=== PATIENT | female | born 1940 | race African-American/Black ===

== ENCOUNTER 2017-03-02 16:40 | Inpatient (IN) | payer MEDICARE, OTHER ==
[~2017-03-02] VITALS: Ht 165.1 cm; Wt 83.1 kg
--- NOTE | 2017-03-02 17:05 | PHYS DOC ---
Adult General Chief Complaint Chief Complaint: PSYCH EVALUATION HPI HPI Patient is a 76-year-old female brought by EMS from [facility] for medical clearance for [facility]. Patient is alert and appropriate, she has no complaints at this time. She did say that she needs her urostomy bag changed. 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 Patient states she wonders if some times in the past week she might have had a stroke, she was previously able to ambulate but then started needing to use a wheelchair. She does not believe she is weak on one side of her body or the other. She denies headache or any pain. Review of Systems Review of Systems Constitutional: Denies fever or chills [] Eyes: Denies change in visual acuity, redness, or eye pain [] HENT: Denies nasal congestion or sore throat [] Respiratory: Denies cough or shortness of breath [] Cardiovascular: Denies chest pain GI: Denies abdominal pain, nausea, vomiting, bloody stools or diarrhea [] : She has a urostomy bag which seems to be functioning normally Musculoskeletal: Denies back pain or joint pain [] Integument: Denies rash or skin lesions [] Neurologic: Denies headache, focal weakness or sensory changes [] Physical Exam Physical Exam Constitutional: Well developed, well nourished, no acute distress, non-toxic appearance. Alert, mentating normally. Talkative. HENT: Normocephalic, atraumatic, bilateral external ears normal, nose normal. [ ] Eyes: conjunctiva normal, no discharge. [] Neck: Normal range of motion, no stridor. [] Cardiovascular:Heart rate regular rhythm, no murmur [] Lungs & Thorax: Bilateral breath sounds clear to auscultation [] Abdomen: Bowel sounds normal, soft, no tenderness, no masses, no pulsatile masses. Urostomy bag in place. Skin: Warm, dry, no erythema, no rash. Extremities: No tenderness, no cyanosis, no clubbing, ROM intact, 1+ pitting edema both ankles which appears to be old. Neurologic: Alert and oriented X 3, normal motor function, normal sensory function, no focal deficits noted. V Belt Inspector 5 over 5 and equal bilaterally. Upper and lower extremity strength 5 over 5 and equal bilaterally. EKG EKG 12-lead EKG read by me. Sinus rhythm. Heart rate 59. There are no acute ST or T wave changes indicative of ischemia or infarction. No rhythm disturbances. No STEMI. [] Radiology/Procedures Radiology/Procedures CT scan of the head read by the radiologist, no acute findings. View portable chest x-ray read by me. No acute findings. [] Course & Med Decision Making Course & Med Decision Making Pertinent Labs and Imaging studies reviewed. (See chart for details) 76-year-old female here for medical screening for [facility]. We will get EKG, labs, per protocol. I also ordered a CT scan of her head since she complained that sometime in the last week she believe she might have had a stroke, she is complaining of a neurologic status change where she previously walked and is now using a wheelchair. Of course I have no idea whether her perception is accurate whether this occurred in the last week or longer ago than that. She is nonfocal on exam today. Urinalysis appears colonized which is consistent with the fact the patient has a urostomy. I don't believe there is any indication for treating this in light of her urostomy. Labs reveal renal insufficiency but nothing acute. She is stable for transfer to [facility]. Patient understands the plan and agrees. [] Dragon Disclaimer Dragon Disclaimer This chart was dictated in whole or in part using Voice Recognition software in a busy, high-work load, and often noisy Emergency Department environment. It may contain unintended and wholly unrecognized errors or omissions. Departure Departure: Impression: Primary Impression: Encounter for medical screening examination Disposition: ADMITTED INPATIENT Condition: STABLE Referrals: KULDEEP JACKSON (PCP) BROOKLYN THOMPSON MD Mar 02, 2017 17:05
[2017-03-02 17:46] LABS: BASO % 1 % (0-3); EOS # 0.2 x10^3/uL (0.0-0.7); EOS % 4 % (0-3); HEMATOCRIT 45.1 % (36.0-47.0); HEMOGLOBIN 14.8 g/dL (12.0-15.5); LYMPH # 1.2 x10^3/uL (1.0-4.8); LYMPH % 28 % (24-48); MEAN CORPUSCULAR HEMOGLOBIN 30 pg (25-35); MEAN CORPUSCULAR HGB CONC 33 g/dL (31-37); MEAN CORPUSCULAR VOLUME 92 fL (79-100); MONO # 0.6 x10^3/uL (0.0-1.1); MONO % 14 % (0-9); NEUT # 2.2 x10^3uL (1.8-7.7); NEUT % 53 % (31-73); PLATELET COUNT 164 x10^3/uL (140-400); RED BLOOD COUNT 4.93 x10^6/uL (3.50-5.40); RED CELL DISTRIBUTION WIDTH 16.3 % (11.5-14.5); WHITE BLOOD COUNT 4.2 x10^3/uL (4.0-11.0)
[2017-03-02 17:55] LABS: BILIRUBIN,URINE NEG (NEG); CLARITY,URINE HAZY; COLOR,URINE YELLOW; GLUCOSE,URINE NEG (NEG)
[2017-03-02 17:56] LABS: ALBUMIN 3.1 g/dL (3.4-5.0); ALBUMIN/GLOBULIN RATIO 0.7 (1.0-1.7); CALCIUM 8.8 mg/dL (8.5-10.1); CREATININE 2.2 mg/dL (0.6-1.0); GFR 26.3; MAGNESIUM 2.5 mg/dL (1.8-2.4); POTASSIUM 4.6 mmol/L (3.5-5.1); TOTAL BILIRUBIN 0.4 mg/dL (0.2-1.0); TOTAL PROTEIN 7.8 g/dL (6.4-8.2)
[2017-03-02 17:56] LABS: NITRITE,URINE NEG (NEG); UROBILINOGEN,URINE 0.2 mg/dL (0.2 mg/dL)
[2017-03-02 17:57] LABS: BACTERIA,URINE MOD /HPF (0-FEW)
--- NOTE | 2017-03-02 18:03 | RAD ---
CT head without intravenous contrast History: Trouble ambulating for last week. Comparison: None. Technique: Axial images are obtained of the head from the skull base through the vertex without IV contrast. Exposure: One or more of the following individualized dose reduction techniques were utilized for this examination: 1. Automated exposure control 2. Adjustment of the mA and/or kV according to patient size 3. Use of iterative reconstruction technique Findings: The ventricles are appropriate in size, shape, and location for the patient's age. No obvious intracranial mass, mass-effect, midline shift, hemorrhage or obvious acute infarction is identified. Basilar cisterns are patent. Bone windows demonstrate no acute calvarial abnormality. The visualized paranasal sinuses appear clear. Impression: 1. No acute intracranial process. Electronically signed by: Deangelo Rivas MD (03/02/2017 5:58 PM)
--- NOTE | 2017-03-02 18:44 | EKG ---
[facility] ED [address] [place] [id number] Test Date: 2017-03-02 Test Time: 17:54:01 Pat Name: ERROL BENNETTJENS Department: Room: [address] [place] [address] Gender: F [employer] Partner: : 1940 Requested By: BROOKLYN THOMPSON Order Number: [id number] Reading MD: Measurements Intervals [place] Rate: 59 P: -123 NH: 144 QRS: -27 QRSD: 84 T: -21 QT: 466 QTc: 466 Interpretive Statements SINUS RHYTHM LEFT ATRIAL ABNORMALITY LEFTWARD AXIS CONSIDER LEFT VENTRICULAR HYPERTROPHY QRS(T) CONTOUR ABNORMALITY CONSISTENT WITH ANTEROSEPTAL INFARCT PROBABLY OLD CONSIDER INFERIOR INFARCT RI6.01 Unconfirmed report No previous ECG available for comparison
[2017-03-02 18:49] VITALS: BP 193/78
[2017-03-02] MEDS ORDERED: ACETAMINOPHEN 325 MG TABLET PO PRN (20:30)
[2017-03-02] MEDS ORDERED: MAGNESIUM HYDROXIDE 2,400 MG/30 ML ORAL.SUSP. PO PRN (20:30)
[2017-03-02] MEDS ORDERED: MAG HYDROX/AL HYDROX/SIMETH 30 ML ORAL.SUSP PO PRN (20:30)
[2017-03-02 21:00] LABS: VAL ACID 66 mcg/mL (50-100)
[2017-03-02] MEDS ORDERED: GUAI600T28 PO (22:11)
[2017-03-02] MEDS ORDERED: EPOGEN3000 UNIT/ SQ (22:11)
[2017-03-02] MEDS ORDERED: METH35.4 TP (22:11)
[2017-03-02] MEDS ORDERED: FERR-26 PO (22:11)
[2017-03-02] MEDS ORDERED: IPRA3AMP NEB (22:11)
[2017-03-02] MEDS ORDERED: FLUT16SP21 NS (22:11)
[2017-03-02] MEDS ORDERED: BUSP5TAB PO (22:11)
[2017-03-02] MEDS ORDERED: FURO20TA3 PO (22:11)
[2017-03-02] MEDS ORDERED: DEXT237L PO (22:11)
[2017-03-02] MEDS ORDERED: MAG360OR24 PO (22:11)
[2017-03-02] MEDS ORDERED: SENN8.6T99 PO (22:11)
[2017-03-02] MEDS ORDERED: [UNRECOGNIZED DRUG - CODE] TP (22:11)
[2017-03-02] MEDS ORDERED: MONT10TA9 PO (22:11)
[2017-03-02] MEDS ORDERED: MEMA10TA PO (22:11)
[2017-03-02] MEDS ORDERED: FOLI0.8T33 PO (22:11)
[2017-03-02] MEDS ORDERED: ATOR10TA60 PO (22:11)
[2017-03-02] MEDS ORDERED: MAGN2400 PO (22:11)
[2017-03-02] MEDS ORDERED: LACT10SO PO (22:11)
[2017-03-02] MEDS ORDERED: BENZ0.5T PO (22:11)
[2017-03-02] MEDS ORDERED: DONE5TAB7 PO (22:11)
[2017-03-02] MEDS ORDERED: HYDR-2869 PO (22:11)
[2017-03-02] MEDS ORDERED: OMEP40CA5 PO (22:11)
[2017-03-02] MEDS ORDERED: DIPH25CA58 PO (22:11)
[2017-03-02] MEDS ORDERED: LOXA5CAP PO (22:11)
[2017-03-02] MEDS ORDERED: CALC625T61 PO (22:11)
[2017-03-02] MEDS ORDERED: AMLO5TAB2 PO (22:11)
[2017-03-02] MEDS ORDERED: CARV12.52 PO (22:11)
[2017-03-02] MEDS ORDERED: RIFA550T4 PO (22:11)
[2017-03-02] MEDS ORDERED: BENZ100C PO (22:11)
[2017-03-02] MEDS ORDERED: OLAN2.5T3 PO (22:11)
[2017-03-02] MEDS ORDERED: DEXT15DR5 OU (22:11)
[2017-03-02] MEDS ORDERED: SODI30SP NS (22:11)
[2017-03-02] MEDS ORDERED: LEVO75TA5 PO (22:11)
[2017-03-02] MEDS ORDERED: CETI10TA16 PO (22:11)
[2017-03-02] MEDS ORDERED: FLUT1AER IH (22:11)
[2017-03-02] MEDS ORDERED: LORA0.5T PO (22:11)
[2017-03-02] MEDS ORDERED: DIVA125C PO (22:11)
[2017-03-02] MEDS ORDERED: TRAM50TA PO (22:11)
[2017-03-02] MEDS ORDERED: ACET325T9 PO (22:11)
[2017-03-03] MEDS ORDERED: LORazepam 0.5 MG TABLET PO PRN
[2017-03-03 05:59] VITALS: BP 215/80
[2017-03-03 07:01] VITALS: BP 200/86
--- NOTE | 2017-03-03 07:23 | RAD ---
Indication: Tobaccoism. Time of exam 1741 hours. Correlation is made with prior chest from 12/29/2010. The heart is enlarged. There is ectasia and tortuosity of the descending thoracic aorta. No infiltrate or failure is detected. No effusion or pneumothorax is seen. Impression: No acute feature is detected.
[2017-03-03] MEDS ORDERED: FLUTICASONE 50MCG/NASAL SPRAY 16GM BOTTLE. NS PRN (08:00)
[2017-03-03] MEDS ORDERED: traMADol 50 MG TABLET PO PRN (08:00)
[2017-03-03] MEDS ORDERED: SODIUM CHLORIDE 0.65% NASAL SPRAY 45ML BOTTLE. NS PRN (08:00)
[2017-03-03] MEDS ORDERED: ACETAMINOPHEN 325 MG TABLET PO PRN (08:00)
[2017-03-03] MEDS ORDERED: BENZONATATE 100 MG CAPSULE. PO PRN (08:00)
[2017-03-03] MEDS ORDERED: ALBUTEROL SULFATE 2.5 MG/3 ML NEBU. NEB PRN (08:30)
[2017-03-03] MEDS ORDERED: MAGNESIUM HYDROXIDE 2,400 MG/30 ML ORAL.SUSP. PO PRN (08:30)
[2017-03-03] MEDS ORDERED: guaiFENesin DM 200MG/20MG 10 ML SYRUP PO PRN (08:30)
[2017-03-03] MEDS: IPRATRPIUM/ALBUTEROL 0.5/2.5MG 3 ML NEBU. NEB SCH ×4 (09:00→21:00)
[2017-03-03] MEDS ORDERED: NON FORMULARY ITEM (Fluticasone/Vilanterol (Breo Ellipta 100-25 Mcg Inh) 1 PUFF) IH SCH (09:00)
[2017-03-03] MEDS ORDERED: POLYVINYL ALCOHOL 1.4% OPHTH SOLUTION 15ML BOTTLE. OU SCH (09:00)
[2017-03-03] MEDS ORDERED: PETROLATUM WHITE TP SCH (09:00)
[2017-03-03] MEDS: PANTOPRAZOLE 40 MG TABLET. PO SCH (11:23)
[2017-03-03] MEDS: CHOLECALCIFEROL (VITAMIN D3) 50,000 UNIT CAPSULE PO SCH (11:24)
[2017-03-03] MEDS: amLODIPine BESYLATE 5 MG TABLET PO SCH (11:24)
[2017-03-03] MEDS: FUROSEMIDE 20 MG TABLET PO SCH (11:24)
[2017-03-03] MEDS: FERROUS SULFATE 325 MG TABLET PO SCH ×2 (11:24→19:38)
[2017-03-03] MEDS: CETIRIZINE HCL 10 MG TABLET PO SCH (11:24)
[2017-03-03] MEDS: LACTULOSE 20 GM/30 ML SOLUTION. PO SCH (11:25)
[2017-03-03] MEDS: MEMANTINE 10 MG TABLET. PO SCH ×2 (11:25→19:38)
[2017-03-03] MEDS: CARVEDILOL 12.5 MG TABLET PO SCH ×2 (11:25→19:38)
[2017-03-03] MEDS: LEVOTHYROXINE 75 MCG TABLET PO SCH (11:25)
[2017-03-03] MEDS: BENZTROPINE MESYLATE 0.5 MG TABLET PO SCH (11:25)
[2017-03-03] MEDS: CALCIUM POLYCARBOPHIL 625 MG TABLET PO SCH (11:25)
[2017-03-03] MEDS: DIVALPROEX 125 MG CAP.SPRINK PO SCH ×2 (11:26→19:38)
[2017-03-03] MEDS: busPIRone 5 MG TABLET. PO SCH ×3 (11:32→17:00)
[2017-03-03] MEDS: AMANTADINE HCL 100 MG CAPSULE PO SCH ×2 (11:32→19:47)
[2017-03-03] MEDS: FOLIC/VIT B COMP W-C (RENAL) TABLET. PO SCH (11:32)
[2017-03-03] MEDS: rifAXIMin 550 MG TABLET PO SCH ×2 (11:32→22:09)
[2017-03-03] MEDS: EPOETIN ALFA 10,000 UNIT/ML VIAL. SQ SCH (12:30)
[2017-03-03 14:13] LABS: THYROID STIM HORMONE (TSH) 3.771 uIU/mL (0.358-3.740)
[2017-03-03 15:46] VITALS: BP 170/84
[2017-03-03] MEDS: DONEPEZIL HCL 5 MG TABLET. PO SCH (19:40)
[2017-03-03] MEDS: ATORVASTATIN CALCIUM 10 MG TABLET. PO SCH (19:40)
[2017-03-03] MEDS: SENNOSIDES 8.6 MG TABLET PO SCH (19:47)
[2017-03-03] MEDS: MONTELUKAST 10 MG TABLET. PO SCH (19:48)
[2017-03-03] MEDS: BUDESONIDE 0.5 MG/2 ML NEBU NEB SCH (20:00)
[2017-03-03] MEDS ORDERED: [UNRECOGNIZED DRUG - CODE] PO (20:03)
[2017-03-03 21:10] LABS: T3 TOTAL 67 ng/dL (71-180); THYROXINE 7.6 ug/dL (4.5-12.0)
[2017-03-03] MEDS: LOXAPINE SUCCINATE 5 MG CAPSULE PO SCH (22:09)
[2017-03-04 03:10] LABS: HEMOGLOBIN A1C 4.7 % (4.8-5.6)
[2017-03-04 06:20] VITALS: BP 196/71
[2017-03-04] MEDS: LEVOTHYROXINE 75 MCG TABLET PO SCH (06:37)
[2017-03-04] MEDS: IPRATRPIUM/ALBUTEROL 0.5/2.5MG 3 ML NEBU. NEB SCH ×4 (06:57→21:40)
[2017-03-04] MEDS: LACTULOSE 20 GM/30 ML SOLUTION. PO SCH (09:02)
[2017-03-04] MEDS: POLYVINYL ALCOHOL 1.4% OPHTH SOLUTION 15ML BOTTLE. OU SCH (09:02)
[2017-03-04] MEDS: rifAXIMin 550 MG TABLET PO SCH ×2 (09:03→19:13)
[2017-03-04] MEDS: MEMANTINE 10 MG TABLET. PO SCH ×2 (09:04→19:13)
[2017-03-04] MEDS: FOLIC/VIT B COMP W-C (RENAL) TABLET. PO SCH (09:04)
[2017-03-04] MEDS: DIVALPROEX 125 MG CAP.SPRINK PO SCH ×2 (09:04→19:13)
[2017-03-04] MEDS: PANTOPRAZOLE 40 MG TABLET. PO SCH (09:05)
[2017-03-04] MEDS: CARVEDILOL 12.5 MG TABLET PO SCH ×2 (09:05→19:16)
[2017-03-04] MEDS: CALCIUM POLYCARBOPHIL 625 MG TABLET PO SCH (09:05)
[2017-03-04] MEDS: AMANTADINE HCL 100 MG CAPSULE PO SCH ×2 (09:05→19:15)
[2017-03-04] MEDS: busPIRone 5 MG TABLET. PO SCH ×4 (09:06→19:11)
[2017-03-04] MEDS: FUROSEMIDE 20 MG TABLET PO SCH (09:06)
[2017-03-04] MEDS: FERROUS SULFATE 325 MG TABLET PO SCH ×2 (09:06→19:13)
[2017-03-04] MEDS: amLODIPine BESYLATE 5 MG TABLET PO SCH (09:06)
[2017-03-04] MEDS: CETIRIZINE HCL 10 MG TABLET PO SCH (09:06)
[2017-03-04] MEDS: BENZTROPINE MESYLATE 0.5 MG TABLET PO SCH (09:06)
[2017-03-04] MEDS: BUDESONIDE 0.5 MG/2 ML NEBU NEB SCH ×2 (11:48→21:40)
[2017-03-04] MEDS ORDERED: amLODIPine BESYLATE 5 MG TABLET PO ONE (14:45)
[2017-03-04] MEDS ORDERED: FUROSEMIDE 20 MG TABLET PO ONE (14:45)
[2017-03-04 15:25] VITALS: BP 146/68
[2017-03-04] MEDS: METHYL SALICYLATE/MENTHOL TOPICAL OINTMENT 29GM TUBE. TP PRN (16:51)
[2017-03-04] MEDS: DONEPEZIL HCL 5 MG TABLET. PO SCH (19:11)
[2017-03-04] MEDS: LOXAPINE SUCCINATE 5 MG CAPSULE PO SCH (19:12)
[2017-03-04] MEDS: ATORVASTATIN CALCIUM 10 MG TABLET. PO SCH (19:12)
[2017-03-04] MEDS: MONTELUKAST 10 MG TABLET. PO SCH (19:13)
[2017-03-04] MEDS: SENNOSIDES 8.6 MG TABLET PO SCH (19:13)
[2017-03-04] MEDS ORDERED: traMADol 50 MG TABLET PO PRN (21:00)
[2017-03-04] MEDS: SERTRALINE 25 MG TABLET. PO SCH (21:57)
[2017-03-05] MEDS: IPRATRPIUM/ALBUTEROL 0.5/2.5MG 3 ML NEBU. NEB SCH ×4 (05:29→20:27)
[2017-03-05 05:52] VITALS: BP 189/90
[2017-03-05] MEDS: LEVOTHYROXINE 75 MCG TABLET PO SCH (05:55)
[2017-03-05] MEDS: LACTULOSE 20 GM/30 ML SOLUTION. PO SCH (08:11)
[2017-03-05] MEDS: CALCIUM POLYCARBOPHIL 625 MG TABLET PO SCH (08:12)
[2017-03-05] MEDS: DIVALPROEX 125 MG CAP.SPRINK PO SCH ×2 (08:12→19:49)
[2017-03-05] MEDS: MEMANTINE 10 MG TABLET. PO SCH ×2 (08:12→19:51)
[2017-03-05] MEDS: BENZTROPINE MESYLATE 0.5 MG TABLET PO SCH (08:12)
[2017-03-05] MEDS: CARVEDILOL 12.5 MG TABLET PO SCH ×2 (08:12→19:49)
[2017-03-05] MEDS: PANTOPRAZOLE 40 MG TABLET. PO SCH (08:13)
[2017-03-05] MEDS: CETIRIZINE HCL 10 MG TABLET PO SCH (08:13)
[2017-03-05] MEDS: busPIRone 5 MG TABLET. PO SCH ×4 (08:13→19:49)
[2017-03-05] MEDS: FERROUS SULFATE 325 MG TABLET PO SCH ×2 (08:13→19:50)
[2017-03-05] MEDS: FUROSEMIDE 40 MG TABLET PO SCH (08:18)
[2017-03-05] MEDS: POLYVINYL ALCOHOL 1.4% OPHTH SOLUTION 15ML BOTTLE. OU SCH (08:18)
[2017-03-05] MEDS: amLODIPine BESYLATE 10 MG TABLET PO SCH (08:18)
[2017-03-05] MEDS: LOXAPINE SUCCINATE 5 MG CAPSULE PO SCH ×2 (08:19→19:52)
[2017-03-05] MEDS: EPOETIN ALFA 10,000 UNIT/ML VIAL. SQ SCH (08:19)
[2017-03-05] MEDS: rifAXIMin 550 MG TABLET PO SCH ×2 (08:19→19:51)
[2017-03-05] MEDS: FOLIC/VIT B COMP W-C (RENAL) TABLET. PO SCH (08:19)
[2017-03-05] MEDS: AMANTADINE HCL 100 MG CAPSULE PO SCH ×2 (08:23→19:51)
[2017-03-05] MEDS: BUDESONIDE 0.5 MG/2 ML NEBU NEB SCH ×2 (11:23→20:27)
[2017-03-05 16:04] VITALS: BP 144/66
[2017-03-05] MEDS: DONEPEZIL HCL 5 MG TABLET. PO SCH (19:49)
[2017-03-05] MEDS: ATORVASTATIN CALCIUM 10 MG TABLET. PO SCH (19:50)
[2017-03-05] MEDS: SERTRALINE 25 MG TABLET. PO SCH (19:51)
[2017-03-05] MEDS: SENNOSIDES 8.6 MG TABLET PO SCH (19:51)
[2017-03-05] MEDS: MONTELUKAST 10 MG TABLET. PO SCH (19:51)
[2017-03-05] MEDS: METHYL SALICYLATE/MENTHOL TOPICAL OINTMENT 29GM TUBE. TP PRN (20:58)
[2017-03-06] MEDS: IPRATRPIUM/ALBUTEROL 0.5/2.5MG 3 ML NEBU. NEB SCH ×4 (05:40→20:00)
[2017-03-06] MEDS: LEVOTHYROXINE 75 MCG TABLET PO SCH (05:42)
[2017-03-06 06:02] VITALS: BP 183/71
[2017-03-06] MEDS: LACTULOSE 20 GM/30 ML SOLUTION. PO SCH (08:22)
[2017-03-06] MEDS: PANTOPRAZOLE 40 MG TABLET. PO SCH (08:22)
[2017-03-06] MEDS: busPIRone 5 MG TABLET. PO SCH ×4 (08:23→19:44)
[2017-03-06] MEDS: BENZTROPINE MESYLATE 0.5 MG TABLET PO SCH (08:23)
[2017-03-06] MEDS: DIVALPROEX 125 MG CAP.SPRINK PO SCH ×2 (08:24→19:43)
[2017-03-06] MEDS: FUROSEMIDE 40 MG TABLET PO SCH (08:24)
[2017-03-06] MEDS: MEMANTINE 10 MG TABLET. PO SCH ×2 (08:24→19:44)
[2017-03-06] MEDS: FERROUS SULFATE 325 MG TABLET PO SCH ×2 (08:24→19:43)
[2017-03-06] MEDS: CALCIUM POLYCARBOPHIL 625 MG TABLET PO SCH (08:24)
[2017-03-06] MEDS: CARVEDILOL 12.5 MG TABLET PO SCH ×2 (08:24→19:43)
[2017-03-06] MEDS: amLODIPine BESYLATE 10 MG TABLET PO SCH (08:25)
[2017-03-06] MEDS: POLYVINYL ALCOHOL 1.4% OPHTH SOLUTION 15ML BOTTLE. OU SCH (08:27)
[2017-03-06] MEDS: FOLIC/VIT B COMP W-C (RENAL) TABLET. PO SCH (08:30)
[2017-03-06] MEDS: AMANTADINE HCL 100 MG CAPSULE PO SCH ×2 (08:30→19:45)
[2017-03-06] MEDS: CETIRIZINE HCL 10 MG TABLET PO SCH (08:30)
[2017-03-06] MEDS: rifAXIMin 550 MG TABLET PO SCH ×2 (08:30→19:45)
[2017-03-06 10:00] VITALS: BP 143/75
[2017-03-06] MEDS: BUDESONIDE 0.5 MG/2 ML NEBU NEB SCH ×2 (11:40→20:00)
--- NOTE | 2017-03-06 13:09 | PDOC ---
Exam Robin Demential Exam: Robin Note: Please also refer to the separate dictated note~for this date of service dictated separately.~Patient seen individually. Discussed the patient with Nursing staff reviewed the chart.~Reviewed interim history and current functioning. Reviewed vital signs,~Labs/ Radiology~and current medications noted below. Continue current treatment with the changes noted in the dictated addendum note Assessment: Vital Signs: Vital Signs Date Time Temp Pulse Resp B/P (MAP) Pulse Ox O2 Delivery O2 Flow Rate FiO2 03/06/17 11:40 100 Nasal Cannula 2.0 03/06/17 10:00 143/75 (97) 03/06/17 08:25 60 03/06/17 06:02 97.6 18 I&O Intake and Output 03/06/17 07:00 Intake Total 840 ml Output Total 1950 ml Balance -1110 ml Intake Oral 840 ml Output Urine Total 1950 ml # Bowel Movements 1 Labs: Laboratory Tests Test 03/06/17 07:21 Glucose (Fingerstick) 75 mg/dL (70-99) Current Medications: Meds: Current Medications Acetaminophen (Tylenol) 650 mg PRN Q6HRS PRN PO PAIN / TEMP; Start 03/02/17 at 20:30; Status Cancel Multi-Ingredient Ointment (Analgesic [place]) 1 ino PRN QID PRN TP MUSCLE PAIN Last administered on 03/05/17 20:58; Start 03/02/17 at 20:30 Al Hydroxide/Mg Hydroxide (Mylanta Plus Xs) 15 ml PRN AFTMEALHC PRN PO DYSPEPSIA; Start 03/02/17 at 20:30 Magnesium Hydroxide (Milk Of Magnesia) 2,400 mg PRN QHS PRN PO CONSTIPATION; Start 03/02/17 at 20:30; Status Cancel Benztropine Mesylate (Cogentin) 0.5 mg DAILY PO Last administered on 03/06/17 08:23; Start 03/03/17 at 09:00 Buspirone HCl (Buspar) 5 mg QID PO Last administered on 03/06/17 08:23; Start 03/03/17 at 09:00 Divalproex Sodium (Depakote Sprinkles) 250 mg BID PO Last administered on 08:24; Start 03/03/17 at 09:00 Donepezil HCl (Aricept) 5 mg HS PO Last administered on 03/05/17 19:49; Start 03/03/17 at 21:00 Lorazepam (Ativan) 0.5 mg PRN Q6HRS PRN PO ANXIETY / AGITATION; Start 03/03/17 at 00:00 Loxapine Succinate (Loxitane) 5 mg HS PO Last administered on 03/05/17 19:52; Start 03/03/17 at 21:00 Memantine (Namenda) 10 mg BID PO Last administered on 03/06/17 08:24; Start at 09:00 Olanzapine (ZyPREXA) 2.5 mg PRN Q2HR PRN PO PSYCHOSIS; Start 03/03/17 at 00:00 Acetaminophen (Tylenol) 650 mg PRN Q4HRS PRN PO PAIN / TEMP; Start 03/03/17 at 08:00 Amlodipine Besylate (Norvasc) 5 mg DAILY PO Last administered on 03/04/17 09: 06; Start 03/03/17 at 09:00; Stop 03/04/17 at 14:28; Status DC Atorvastatin Calcium (Lipitor) 5 mg QHS PO Last administered on 03/05/17 19:50 ; Start 03/03/17 at 21:00 Benzonatate (Tessalon Perle) 100 mg PRN Q4HRS PRN PO COUGH; Start 03/03/17 at 08:00 Calcium Polycarbophil (Fibercon) 625 mg DAILY PO Last administered on 03/06/17 08:24; Start 03/03/17 at 09:00 Carvedilol (Coreg) 12.5 mg BID PO Last administered on 03/06/17 08:24; Start at 09:00 Cetirizine HCl (ZyrTEC) 10 mg DAILY PO Last administered on 03/06/17 08:30; Start 03/03/17 at 09:00 Ferrous Sulfate (Feosol) 325 mg BID PO Last administered on 03/06/17 08:24; Start 03/03/17 at 09:00 Fluticasone Propionate (Flonase) 2 spray PRN BID PRN NS rhinitis; Start at 08:00 Multivit/Ca Carb/ B Cmplx/FA/Prenat (Nephro-Fady) 1 tab DAILY PO Last administered on 03/06/17 08:30; Start 03/03/17 at 09:00 Furosemide (Lasix) 20 mg DAILY PO Last administered on 03/04/17 09:06; Start 03/03/17 at 09:00; Stop 03/04/17 at 14:28; Status DC Guaifenesin (Mucinex Er) 600 mg BID PO Last administered on 03/06/17 08:24; Start 03/03/17 at 09:00 Hydralazine HCl (Apresoline) 50 mg TID PO Last administered on 03/06/17 08:23; Start 03/03/17 at 09:00 Albuterol Sulfate (Ventolin) 2.5 mg PRN QID PRN NEB SHORTNESS OF BREATH; Start 03/03/17 at 08:30 Albuterol/ Ipratropium (Duoneb) 3 ml QID NEB Last administered on 03/06/17 11: 40; Start 03/03/17 at 09:00 Levothyroxine Sodium (Synthroid) 75 mcg DAILY06 PO Last administered on 05:42; Start 03/03/17 at 09:00 Montelukast Sodium (Singulair) 10 mg HS PO Last administered on 03/05/17 19:51 ; Start 03/03/17 at 21:00 Rifaximin (Xifaxan) 550 mg BID PO Last administered on 03/06/17 08:30; Start at 09:00 Sennosides (Senna) 8.6 mg HS PO Last administered on 03/05/17 19:51; Start at 21:00 Sodium Chloride (Saline Mist Nasal) 2 ino PRN Q4HRS PRN NS rhinitis; Start at 08:00 Tramadol HCl (Ultram) 50 mg PRN Q6HRS PRN PO MODERATE PAIN; Start 03/03/17 at 08:00; Stop 03/04/17 at 14:29; Status DC Amantadine HCl (Symmetrel) 100 mg BID PO Last administered on 03/06/17 08:30; Start 03/03/17 at 09:00 Artificial Tears (Artificial Tears) 2 drop DAILY OU Last administered on 11:32; Start 03/03/17 at 09:00; Stop 03/03/17 at 15:06; Status DC Guaifenesin (Robitussin Dm) 10 ml PRN Q4HRS PRN PO COUGH; Start 03/03/17 at 08: 30 Epoetin Jaquan (Procrit) 6,000 unit QMWF@0900 SQ Last administered on 03/05/17 08:19; Start 03/03/17 at 09:00 Non-Formulary Medication 1 puff DAILY IH ; Start 03/03/17 at 09:00; Status UNV Lactulose 20 gm DAILY PO Last administered on 03/06/17 08:22; Start 03/03/17 at 09:00 Magnesium Hydroxide (Milk Of Magnesia) 2,400 mg PRN DAILY PRN PO CONSTIPATION Last administered on 03/06/17 03:10; Start 03/03/17 at 08:30 Pantoprazole Sodium (Protonix) 40 mg DAILYAC PO Last administered on 03/06/17 08:22; Start 03/03/17 at 09:00 Non-Formulary Medication 1 ino BID TP ; Start 03/03/17 at 09:00; Status UNV Vitamin D (Vitamin D3) 50,000 unit WEEKLY PO Last administered on 03/03/17 11: 24; Start 03/03/17 at 09:00 Budesonide (Pulmicort) 0.5 mg RTBID NEB Last administered on 03/06/17 11:40; Start 03/03/17 at 20:00 Artificial Tears (Artificial Tears) 2 drop DAILY OU Last administered on 08:27; Start 03/03/17 at 15:06 Sertraline HCl (Zoloft) 25 mg QHS PO Last administered on 03/05/17 19:51; Start 03/04/17 at 21:00 Amlodipine Besylate (Norvasc) 10 mg DAILY PO Last administered on 03/06/17 08: 25; Start 03/05/17 at 09:00 Furosemide (Lasix) 40 mg DAILY PO Last administered on 03/06/17 08:24; Start at 09:00 Amlodipine Besylate (Norvasc) 5 mg 1X ONCE PO Last administered on 03/04/17 14:45; Start 03/04/17 at 14:45; Stop 03/04/17 at 14:49; Status DC Furosemide (Lasix) 20 mg 1X ONCE PO Last administered on 03/04/17 15:27; Start 03/04/17 at 14:45; Stop 03/04/17 at 14:49; Status DC Tramadol HCl (Ultram) 50 mg PRN Q12HR PRN PO MODERATE PAIN; Start 03/04/17 at 21:00 Active Scripts Active Reported Zyprexa (Olanzapine) 2.5 Mg Tablet 2.5 Mg PO PRN Q2HR PRN Xifaxan (Rifaximin) 550 Mg Tablet 550 Mg PO BID Tramadol Hcl (Tramadol HCl) 50 Mg Tablet 50 Mg PO PRN Q6HRS PRN Tessalon Perle (Benzonatate) 100 Mg Capsule 100 Mg PO PRN Q4HRS PRN Senokot (Sennosides) 8.6 Mg Tablet 8.6 Mg PO HS Saline Nasal [place] (Sodium Chloride) [address] 2 Sprays NS PRN Q4HRS PRN Robitussin Nighttime Cough Dm (Dextromethorphan Hb/Doxylamine) 237 Ml Liquid 10 Ml PO PRN Q4HRS PRN Omeprazole 40 Mg Capsule.dr 40 Mg PO [id number] Nephro-Fady Tablet (Folic Acid/Vitamin B Comp W-C) 0.8 Mg Tablet 1 Tab PO DAILY PRN Alum-Mag Hydroxide-Simeth Liq (Mag Hydrox/Al Hydrox/Simeth) 360 Ml Oral.susp 30 Ml PO PRN Q4HRS PRN Montelukast Sodium Tablet (Montelukast Sodium) 10 Mg Tablet 10 Mg PO HS Milk Of Magnesia (Magnesium Hydroxide) 2,400 Mg/10 Ml Oral.susp 2,400 Mg PO PRN DAILY PRN Namenda (Memantine Hcl) 10 Mg Tablet 10 Mg PO BID Loxapine (Loxapine Succinate) 5 Mg Capsule 5 Mg PO Lorazepam 0.5 Mg Tablet 0.5 Mg PO PRN Q6HRS PRN Levothyroxine Sodium 75 Mcg Tablet 75 Mcg PO DAILYAC Lactulose 10 Gm/15 Ml Solution 30 Ml PO DAILY Duoneb 0.5-3(2.5) Mg/3 Ml (Albuterol/Ipratropium) 3 Ml Ampul.neb 3 Ml NEB QID Duoneb 0.5-3(2.5) Mg/3 Ml (Albuterol/Ipratropium) 3 Ml Ampul.neb 3 Ml NEB PRN QID PRN Icy Hot Cream (Methyl Salicylate/Menthol) 35.4 Gm Cream..g. 1 Applic TP PRN Q12HR PRN Hydralazine Hcl 50 Mg Tablet 50 Mg PO TID Guaifenesin 600 Mg Tablet.er 600 Mg PO BID Furosemide 20 Mg Tablet 20 Mg PO DAILY Fluticasone Propionate Nasal [place] (Fluticasone Propionate) [address] NS PRN BID PRN Breo Ellipta 100-25 Mcg Inh (Fluticasone/Vilanterol) 1 Each Aer.pow.ba 1 Puff IH DAILY Ferrous Sulfate 325 Mg Tablet 325 Mg PO BID Epogen (Epoetin Jaquan) 3,000 Unit/1 Ml Vial 6,000 Unit SQ MON,WED,FRI Donepezil Hcl 5 Mg Tablet 5 Mg PO HS Depakote Sprinkle (Divalproex Sodium) 125 Mg Cap.sprink 250 Mg PO BID Benadryl (Diphenhydramine Hcl) 25 Mg Capsule 25 Mg PO PRN Q8HRS PRN Cetirizine Hcl 10 Mg Tablet 10 Mg PO DAILY Carvedilol 12.5 Mg Tablet 12.5 Mg PO BID Calcium Polycarbophil 625 Mg Tablet 625 Mg PO DAILY Buspirone Hcl 5 Mg Tablet 5 Mg PO QID Benztropine Mesylate 0.5 Mg Tablet 0.5 Mg PO DAILY Atorvastatin Calcium 10 Mg Tablet 5 Mg PO QHS PRN Artificial Tears Eye Drops (Dextran 70/Hypromellose) 15 Ml Drops 2 Drop OU DAILY Amlodipine Besylate 5 Mg Tablet 5 Mg PO DAILY Amantadine (Amantadine Hcl) 100 Mg Tablet 100 Mg PO BID [place]oe [place] (Petrolatum,White) 226 Gm Oint...g. 1 Ino TP BID Tylenol (Acetaminophen) 325 Mg Tablet 650 Mg PO PRN Q4HRS PRN Diagnosis: Problems: (1) Bipolar 1 disorder, mixed, moderate (2) Impulse control disorder (3) Dementia in Alzheimer's disease with delusions (4) Anxiety disorder SHANE BUTTS MD Mar 06, 2017 13:08
[2017-03-06 13:42] VITALS: BP 156/74
[2017-03-06 16:25] VITALS: BP 167/92
[2017-03-06] MEDS: ATORVASTATIN CALCIUM 10 MG TABLET. PO SCH (19:43)
[2017-03-06] MEDS: DONEPEZIL HCL 5 MG TABLET. PO SCH (19:44)
[2017-03-06] MEDS: SENNOSIDES 8.6 MG TABLET PO SCH (19:44)
[2017-03-06] MEDS: SERTRALINE 25 MG TABLET. PO SCH (19:44)
[2017-03-06] MEDS: MONTELUKAST 10 MG TABLET. PO SCH (19:44)
[2017-03-06] MEDS: LOXAPINE SUCCINATE 5 MG CAPSULE PO SCH (19:45)
--- NOTE | 2017-03-06 21:36 | PDOC ---
Exam Robin Demential Exam: Robin Note: Please also refer to the separate dictated note~for this date of service dictated separately.~Patient seen individually. Discussed the patient with Nursing staff reviewed the chart.~Reviewed interim history and current functioning. Reviewed vital signs,~Labs/ Radiology~and current medications noted below. Continue current treatment with the changes noted in the dictated addendum note Assessment: Vital Signs: Vital Signs Date Time Temp Pulse Resp B/P (MAP) Pulse Ox O2 Delivery O2 Flow Rate FiO2 03/06/17 19:43 72 167/92 03/06/17 16:55 100 Nasal Cannula 2.0 03/06/17 16:25 97.7 17 I&O Intake and Output 03/06/17 07:00 Intake Total 840 ml Output Total 1950 ml Balance -1110 ml Intake Oral 840 ml Output Urine Total 1950 ml # Bowel Movements 1 Labs: Laboratory Tests Test 03/06/17 07:21 Glucose (Fingerstick) 75 mg/dL (70-99) Current Medications: Meds: Current Medications Acetaminophen (Tylenol) 650 mg PRN Q6HRS PRN PO PAIN / TEMP; Start 03/02/17 at 20:30; Status Cancel Multi-Ingredient Ointment (Analgesic [place]) 1 ino PRN QID PRN TP MUSCLE PAIN Last administered on 03/05/17 20:58; Start 03/02/17 at 20:30 Al Hydroxide/Mg Hydroxide (Mylanta Plus Xs) 15 ml PRN AFTMEALHC PRN PO DYSPEPSIA; Start 03/02/17 at 20:30 Magnesium Hydroxide (Milk Of Magnesia) 2,400 mg PRN QHS PRN PO CONSTIPATION; Start 03/02/17 at 20:30; Status Cancel Benztropine Mesylate (Cogentin) 0.5 mg DAILY PO Last administered on 03/06/17 08:23; Start 03/03/17 at 09:00 Buspirone HCl (Buspar) 5 mg QID PO Last administered on 03/06/17 19:44; Start 03/03/17 at 09:00 Divalproex Sodium (Depakote Sprinkles) 250 mg BID PO Last administered on 19:43; Start 03/03/17 at 09:00 Donepezil HCl (Aricept) 5 mg HS PO Last administered on 03/06/17 19:44; Start 03/03/17 at 21:00 Lorazepam (Ativan) 0.5 mg PRN Q6HRS PRN PO ANXIETY / AGITATION; Start 03/03/17 at 00:00 Loxapine Succinate (Loxitane) 5 mg HS PO Last administered on 03/06/17 19:45; Start 03/03/17 at 21:00 Memantine (Namenda) 10 mg BID PO Last administered on 03/06/17 19:44; Start at 09:00 Olanzapine (ZyPREXA) 2.5 mg PRN Q2HR PRN PO PSYCHOSIS; Start 03/03/17 at 00:00 Acetaminophen (Tylenol) 650 mg PRN Q4HRS PRN PO PAIN / TEMP; Start 03/03/17 at 08:00 Amlodipine Besylate (Norvasc) 5 mg DAILY PO Last administered on 03/04/17 09: 06; Start 03/03/17 at 09:00; Stop 03/04/17 at 14:28; Status DC Atorvastatin Calcium (Lipitor) 5 mg QHS PO Last administered on 03/06/17 19:43 ; Start 03/03/17 at 21:00 Benzonatate (Tessalon Perle) 100 mg PRN Q4HRS PRN PO COUGH; Start 03/03/17 at 08:00 Calcium Polycarbophil (Fibercon) 625 mg DAILY PO Last administered on 03/06/17 08:24; Start 03/03/17 at 09:00 Carvedilol (Coreg) 12.5 mg BID PO Last administered on 03/06/17 19:43; Start at 09:00 Cetirizine HCl (ZyrTEC) 10 mg DAILY PO Last administered on 03/06/17 08:30; Start 03/03/17 at 09:00 Ferrous Sulfate (Feosol) 325 mg BID PO Last administered on 03/06/17 19:43; Start 03/03/17 at 09:00 Fluticasone Propionate (Flonase) 2 spray PRN BID PRN NS rhinitis; Start at 08:00 Multivit/Ca Carb/ B Cmplx/FA/Prenat (Nephro-Fady) 1 tab DAILY PO Last administered on 03/06/17 08:30; Start 03/03/17 at 09:00 Furosemide (Lasix) 20 mg DAILY PO Last administered on 03/04/17 09:06; Start 03/03/17 at 09:00; Stop 03/04/17 at 14:28; Status DC Guaifenesin (Mucinex Er) 600 mg BID PO Last administered on 03/06/17 19:44; Start 03/03/17 at 09:00 Hydralazine HCl (Apresoline) 50 mg TID PO Last administered on 03/06/17 19:43; Start 03/03/17 at 09:00 Albuterol Sulfate (Ventolin) 2.5 mg PRN QID PRN NEB SHORTNESS OF BREATH; Start 03/03/17 at 08:30 Albuterol/ Ipratropium (Duoneb) 3 ml QID NEB Last administered on 03/06/17 16: 30; Start 03/03/17 at 09:00 Levothyroxine Sodium (Synthroid) 75 mcg DAILY06 PO Last administered on 05:42; Start 03/03/17 at 09:00 Montelukast Sodium (Singulair) 10 mg HS PO Last administered on 03/06/17 19:44 ; Start 03/03/17 at 21:00 Rifaximin (Xifaxan) 550 mg BID PO Last administered on 03/06/17 19:45; Start at 09:00 Sennosides (Senna) 8.6 mg HS PO Last administered on 03/06/17 19:44; Start at 21:00 Sodium Chloride (Saline Mist Nasal) 2 ino PRN Q4HRS PRN NS rhinitis; Start at 08:00 Tramadol HCl (Ultram) 50 mg PRN Q6HRS PRN PO MODERATE PAIN; Start 03/03/17 at 08:00; Stop 03/04/17 at 14:29; Status DC Amantadine HCl (Symmetrel) 100 mg BID PO Last administered on 03/06/17 19:45; Start 03/03/17 at 09:00 Artificial Tears (Artificial Tears) 2 drop DAILY OU Last administered on 11:32; Start 03/03/17 at 09:00; Stop 03/03/17 at 15:06; Status DC Guaifenesin (Robitussin Dm) 10 ml PRN Q4HRS PRN PO COUGH; Start 03/03/17 at 08: 30 Epoetin Jaquan (Procrit) 6,000 unit QMWF@0900 SQ Last administered on 03/05/17 08:19; Start 03/03/17 at 09:00 Non-Formulary Medication 1 puff DAILY IH ; Start 03/03/17 at 09:00; Status UNV Lactulose 20 gm DAILY PO Last administered on 03/06/17 08:22; Start 03/03/17 at 09:00 Magnesium Hydroxide (Milk Of Magnesia) 2,400 mg PRN DAILY PRN PO CONSTIPATION Last administered on 03/06/17 03:10; Start 03/03/17 at 08:30 Pantoprazole Sodium (Protonix) 40 mg DAILYAC PO Last administered on 03/06/17 08:22; Start 03/03/17 at 09:00 Non-Formulary Medication 1 ino BID TP ; Start 03/03/17 at 09:00; Status UNV Vitamin D (Vitamin D3) 50,000 unit WEEKLY PO Last administered on 03/03/17 11: 24; Start 03/03/17 at 09:00 Budesonide (Pulmicort) 0.5 mg RTBID NEB Last administered on 03/06/17 11:40; Start 03/03/17 at 20:00 Artificial Tears (Artificial Tears) 2 drop DAILY OU Last administered on 08:27; Start 03/03/17 at 15:06 Sertraline HCl (Zoloft) 25 mg QHS PO Last administered on 03/06/17 19:44; Start 03/04/17 at 21:00 Amlodipine Besylate (Norvasc) 10 mg DAILY PO Last administered on 03/06/17 08: 25; Start 03/05/17 at 09:00 Furosemide (Lasix) 40 mg DAILY PO Last administered on 03/06/17 08:24; Start at 09:00 Amlodipine Besylate (Norvasc) 5 mg 1X ONCE PO Last administered on 03/04/17 14:45; Start 03/04/17 at 14:45; Stop 03/04/17 at 14:49; Status DC Furosemide (Lasix) 20 mg 1X ONCE PO Last administered on 03/04/17t 15:27; Start 03/04/17 at 14:45; Stop 03/04/17 at 14:49; Status DC Tramadol HCl (Ultram) 50 mg PRN Q12HR PRN PO MODERATE PAIN; Start 03/04/17 at 21:00 Active Scripts Active Reported Zyprexa (Olanzapine) 2.5 Mg Tablet 2.5 Mg PO PRN Q2HR PRN Xifaxan (Rifaximin) 550 Mg Tablet 550 Mg PO BID Tramadol Hcl (Tramadol HCl) 50 Mg Tablet 50 Mg PO PRN Q6HRS PRN Tessalon Perle (Benzonatate) 100 Mg Capsule 100 Mg PO PRN Q4HRS PRN Senokot (Sennosides) 8.6 Mg Tablet 8.6 Mg PO HS Saline Nasal [place] (Sodium Chloride) 30 Ml [place] 2 Sprays NS PRN Q4HRS PRN Robitussin Nighttime Cough Dm (Dextromethorphan Hb/Doxylamine) 237 Ml Liquid 10 Ml PO PRN Q4HRS PRN Omeprazole 40 Mg Capsule.dr 40 Mg PO [id number] Nephro-Fady Tablet (Folic Acid/Vitamin B Comp W-C) 0.8 Mg Tablet 1 Tab PO DAILY PRN Alum-Mag Hydroxide-Simeth Liq (Mag Hydrox/Al Hydrox/Simeth) 360 Ml Oral.susp 30 Ml PO PRN Q4HRS PRN Montelukast Sodium Tablet (Montelukast Sodium) 10 Mg Tablet 10 Mg PO HS Milk Of Magnesia (Magnesium Hydroxide) 2,400 Mg/10 Ml Oral.susp 2,400 Mg PO PRN DAILY PRN Namenda (Memantine Hcl) 10 Mg Tablet 10 Mg PO BID Loxapine (Loxapine Succinate) 5 Mg Capsule 5 Mg PO Lorazepam 0.5 Mg Tablet 0.5 Mg PO PRN Q6HRS PRN Levothyroxine Sodium 75 Mcg Tablet 75 Mcg PO DAILYAC Lactulose 10 Gm/15 Ml Solution 30 Ml PO DAILY Duoneb 0.5-3(2.5) Mg/3 Ml (Albuterol/Ipratropium) 3 Ml Ampul.neb 3 Ml NEB QID Duoneb 0.5-3(2.5) Mg/3 Ml (Albuterol/Ipratropium) 3 Ml Ampul.neb 3 Ml NEB PRN QID PRN Icy Hot Cream (Methyl Salicylate/Menthol) 35.4 Gm Cream..g. 1 Applic TP PRN Q12HR PRN Hydralazine Hcl 50 Mg Tablet 50 Mg PO TID Guaifenesin 600 Mg Tablet.er 600 Mg PO BID Furosemide 20 Mg Tablet 20 Mg PO DAILY Fluticasone Propionate Nasal [place] (Fluticasone Propionate) 16 Gm [place].susp 2 [place] NS PRN BID PRN Breo Ellipta 100-25 Mcg Inh (Fluticasone/Vilanterol) 1 Each Aer.pow.ba 1 Puff IH DAILY Ferrous Sulfate 325 Mg Tablet 325 Mg PO BID Epogen (Epoetin Jaquan) 3,000 Unit/1 Ml Vial 6,000 Unit SQ MON,WED,FRI Donepezil Hcl 5 Mg Tablet 5 Mg PO HS Depakote Sprinkle (Divalproex Sodium) 125 Mg Cap.sprink 250 Mg PO BID Benadryl (Diphenhydramine Hcl) 25 Mg Capsule 25 Mg PO PRN Q8HRS PRN Cetirizine Hcl 10 Mg Tablet 10 Mg PO DAILY Carvedilol 12.5 Mg Tablet 12.5 Mg PO BID Calcium Polycarbophil 625 Mg Tablet 625 Mg PO DAILY Buspirone Hcl 5 Mg Tablet 5 Mg PO QID Benztropine Mesylate 0.5 Mg Tablet 0.5 Mg PO DAILY Atorvastatin Calcium 10 Mg Tablet 5 Mg PO QHS PRN Artificial Tears Eye Drops (Dextran 70/Hypromellose) 15 Ml Drops 2 Drop OU DAILY Amlodipine Besylate 5 Mg Tablet 5 Mg PO DAILY Amantadine (Amantadine Hcl) 100 Mg Tablet 100 Mg PO BID Aloe [place] (Petrolatum,White) 226 Gm Oint...g. 1 Ino TP BID Tylenol (Acetaminophen) 325 Mg Tablet 650 Mg PO PRN Q4HRS PRN Diagnosis: Problems: (1) Encounter for medical screening examination (2) Anxiety disorder (3) Impulse control disorder (4) Bipolar 1 disorder, mixed, moderate (5) Dementia in Alzheimer's disease with delusions SHANE BTUTS MD Mar 06, 2017 21:35
[2017-03-07] MEDS: LEVOTHYROXINE 75 MCG TABLET PO SCH (06:01)
[2017-03-07] MEDS: IPRATRPIUM/ALBUTEROL 0.5/2.5MG 3 ML NEBU. NEB SCH ×4 (06:15→20:12)
[2017-03-07 06:24] VITALS: BP 176/85
[2017-03-07] MEDS: POLYVINYL ALCOHOL 1.4% OPHTH SOLUTION 15ML BOTTLE. OU SCH (08:19)
[2017-03-07] MEDS: PANTOPRAZOLE 40 MG TABLET. PO SCH (08:19)
[2017-03-07] MEDS: LACTULOSE 20 GM/30 ML SOLUTION. PO SCH (08:20)
[2017-03-07] MEDS: BENZTROPINE MESYLATE 0.5 MG TABLET PO SCH (08:21)
[2017-03-07] MEDS: CARVEDILOL 12.5 MG TABLET PO SCH ×2 (08:21→19:52)
[2017-03-07] MEDS: busPIRone 5 MG TABLET. PO SCH ×4 (08:21→19:54)
[2017-03-07] MEDS: FOLIC/VIT B COMP W-C (RENAL) TABLET. PO SCH (08:22)
[2017-03-07] MEDS: FUROSEMIDE 40 MG TABLET PO SCH (08:22)
[2017-03-07] MEDS: MEMANTINE 10 MG TABLET. PO SCH ×2 (08:22→19:55)
[2017-03-07] MEDS: CALCIUM POLYCARBOPHIL 625 MG TABLET PO SCH (08:22)
[2017-03-07] MEDS: DIVALPROEX 125 MG CAP.SPRINK PO SCH ×2 (08:22→19:53)
[2017-03-07] MEDS: FERROUS SULFATE 325 MG TABLET PO SCH ×2 (08:22→19:54)
[2017-03-07] MEDS: amLODIPine BESYLATE 10 MG TABLET PO SCH (08:23)
[2017-03-07] MEDS: rifAXIMin 550 MG TABLET PO SCH ×2 (08:23→19:56)
[2017-03-07] MEDS: CETIRIZINE HCL 10 MG TABLET PO SCH (08:23)
[2017-03-07] MEDS: AMANTADINE HCL 100 MG CAPSULE PO SCH ×2 (08:23→19:56)
[2017-03-07] MEDS: BUDESONIDE 0.5 MG/2 ML NEBU NEB SCH ×2 (10:43→20:00)
[2017-03-07 13:55] VITALS: BP 181/76
[2017-03-07 16:03] VITALS: BP 113/62
[2017-03-07] MEDS: SENNOSIDES 8.6 MG TABLET PO SCH (19:54)
[2017-03-07] MEDS: ATORVASTATIN CALCIUM 10 MG TABLET. PO SCH (19:54)
[2017-03-07] MEDS: MONTELUKAST 10 MG TABLET. PO SCH (19:55)
[2017-03-07] MEDS: SERTRALINE 25 MG TABLET. PO SCH (19:55)
[2017-03-07] MEDS: DONEPEZIL HCL 5 MG TABLET. PO SCH (19:55)
[2017-03-07] MEDS: LOXAPINE SUCCINATE 5 MG CAPSULE PO SCH (19:56)
[2017-03-07] MEDS: METHYL SALICYLATE/MENTHOL TOPICAL OINTMENT 29GM TUBE. TP PRN (20:38)
[2017-03-07] MEDS ORDERED: LOXAPINE SUCCINATE 5 MG CAPSULE PO SCH (21:00)
--- NOTE | 2017-03-07 21:21 | PDOC ---
Exam Robin Demential Exam: Robin Note: Please also refer to the separate dictated note~for this date of service dictated separately.~Patient seen individually. Discussed the patient with Nursing staff reviewed the chart.~Reviewed interim history and current functioning. Reviewed vital signs,~Labs/ Radiology~and current medications noted below. Continue current treatment with the changes noted in the dictated addendum note Assessment: Vital Signs: Vital Signs Date Time Temp Pulse Resp B/P (MAP) Pulse Ox O2 Delivery O2 Flow Rate FiO2 03/07/17 20:15 Nasal Cannula 2.0 03/07/17 20:10 100 03/07/17 19:53 64 113/62 03/07/17 16:03 98.1 20 I&O Intake and Output 03/07/17 07:00 Intake Total 840 ml Output Total 650 ml Balance 190 ml Intake Oral 840 ml Output Urine Total 650 ml Labs: Laboratory Tests Test 03/07/17 07:45 Glucose (Fingerstick) 81 mg/dL (70-99) Current Medications: Meds: Current Medications Acetaminophen (Tylenol) 650 mg PRN Q6HRS PRN PO PAIN / TEMP; Start 03/02/17 at 20:30; Status Cancel Multi-Ingredient Ointment (Analgesic [place]) 1 ino PRN QID PRN TP MUSCLE PAIN Last administered on 03/07/17 20:38; Start 03/02/17 at 20:30 Al Hydroxide/Mg Hydroxide (Mylanta Plus Xs) 15 ml PRN AFTMEALHC PRN PO DYSPEPSIA; Start 03/02/17 at 20:30 Magnesium Hydroxide (Milk Of Magnesia) 2,400 mg PRN QHS PRN PO CONSTIPATION; Start 03/02/17 at 20:30; Status Cancel Benztropine Mesylate (Cogentin) 0.5 mg DAILY PO Last administered on 03/07/17 08:21; Start 03/03/17 at 09:00 Buspirone HCl (Buspar) 5 mg QID PO Last administered on 03/07/17 19:54; Start 03/03/17 at 09:00 Divalproex Sodium (Depakote Sprinkles) 250 mg BID PO Last administered on 19:53; Start 03/03/17 at 09:00 Donepezil HCl (Aricept) 5 mg HS PO Last administered on 03/07/17 19:55; Start 03/03/17 at 21:00 Lorazepam (Ativan) 0.5 mg PRN Q6HRS PRN PO ANXIETY / AGITATION; Start 03/03/17 at 00:00 Loxapine Succinate (Loxitane) 5 mg HS PO Last administered on 03/07/17 19:56; Start 03/03/17 at 21:00; Stop 03/07/17 at 20:22; Status DC Memantine (Namenda) 10 mg BID PO Last administered on 03/07/17 19:55; Start at 09:00 Olanzapine (ZyPREXA) 2.5 mg PRN Q2HR PRN PO PSYCHOSIS; Start 03/03/17 at 00:00 Acetaminophen (Tylenol) 650 mg PRN Q4HRS PRN PO PAIN / TEMP; Start 03/03/17 at 08:00 Amlodipine Besylate (Norvasc) 5 mg DAILY PO Last administered on 03/04/17 09: 06; Start 03/03/17 at 09:00; Stop 03/04/17 at 14:28; Status DC Atorvastatin Calcium (Lipitor) 5 mg QHS PO Last administered on 03/07/17 19:54 ; Start 03/03/17 at 21:00 Benzonatate (Tessalon Perle) 100 mg PRN Q4HRS PRN PO COUGH; Start 03/03/17 at 08:00 Calcium Polycarbophil (Fibercon) 625 mg DAILY PO Last administered on 03/07/17 08:22; Start 03/03/17 at 09:00 Carvedilol (Coreg) 12.5 mg BID PO Last administered on 03/07/17 19:52; Start at 09:00 Cetirizine HCl (ZyrTEC) 10 mg DAILY PO Last administered on 03/07/17 08:23; Start 03/03/17 at 09:00 Ferrous Sulfate (Feosol) 325 mg BID PO Last administered on 03/07/17 19:54; Start 03/03/17 at 09:00 Fluticasone Propionate (Flonase) 2 spray PRN BID PRN NS rhinitis; Start at 08:00 Multivit/Ca Carb/ B Cmplx/FA/Prenat (Nephro-Fady) 1 tab DAILY PO Last administered on 03/07/17 08:22; Start 03/03/17 at 09:00 Furosemide (Lasix) 20 mg DAILY PO Last administered on 03/04/17 09:06; Start 03/03/17 at 09:00; Stop 03/04/17 at 14:28; Status DC Guaifenesin (Mucinex Er) 600 mg BID PO Last administered on 03/07/17 19:54; Start 03/03/17 at 09:00 Hydralazine HCl (Apresoline) 50 mg TID PO Last administered on 03/07/17 19:53; Start 03/03/17 at 09:00 Albuterol Sulfate (Ventolin) 2.5 mg PRN QID PRN NEB SHORTNESS OF BREATH; Start 03/03/17 at 08:30 Albuterol/ Ipratropium (Duoneb) 3 ml QID NEB Last administered on 03/07/17 20: 12; Start 03/03/17 at 09:00 Levothyroxine Sodium (Synthroid) 75 mcg DAILY06 PO Last administered on 06:01; Start 03/03/17 at 09:00 Montelukast Sodium (Singulair) 10 mg HS PO Last administered on 03/07/17 19:55 ; Start 03/03/17 at 21:00 Rifaximin (Xifaxan) 550 mg BID PO Last administered on 03/07/17 19:56; Start at 09:00 Sennosides (Senna) 8.6 mg HS PO Last administered on 03/07/17 19:54; Start at 21:00 Sodium Chloride (Saline Mist Nasal) 2 ino PRN Q4HRS PRN NS rhinitis; Start at 08:00 Tramadol HCl (Ultram) 50 mg PRN Q6HRS PRN PO MODERATE PAIN; Start 03/03/17 at 08:00; Stop 03/04/17 at 14:29; Status DC Amantadine HCl (Symmetrel) 100 mg BID PO Last administered on 03/07/17 19:56; Start 03/03/17 at 09:00 Artificial Tears (Artificial Tears) 2 drop DAILY OU Last administered on 11:32; Start 03/03/17 at 09:00; Stop 03/03/17 at 15:06; Status DC Guaifenesin (Robitussin Dm) 10 ml PRN Q4HRS PRN PO COUGH; Start 03/03/17 at 08: 30 Epoetin Jaquan (Procrit) 6,000 unit QMWF@0900 SQ Last administered on 03/05/17 08:19; Start 03/03/17 at 09:00 Non-Formulary Medication 1 puff DAILY IH ; Start 03/03/17 at 09:00; Status UNV Lactulose 20 gm DAILY PO Last administered on 03/07/17 08:20; Start 03/03/17 at 09:00 Magnesium Hydroxide (Milk Of Magnesia) 2,400 mg PRN DAILY PRN PO CONSTIPATION Last administered on 03/06/17 03:10; Start 03/03/17 at 08:30 Pantoprazole Sodium (Protonix) 40 mg DAILYAC PO Last administered on 03/07/17 08:19; Start 03/03/17 at 09:00 Non-Formulary Medication 1 ino BID TP ; Start 03/03/17 at 09:00; Status UNV Vitamin D (Vitamin D3) 50,000 unit WEEKLY PO Last administered on 03/03/17 11: 24; Start 03/03/17 at 09:00 Budesonide (Pulmicort) 0.5 mg RTBID NEB Last administered on 03/07/17 20:00; Start 03/03/17 at 20:00 Artificial Tears (Artificial Tears) 2 drop DAILY OU Last administered on 08:19; Start 03/03/17 at 15:06 Sertraline HCl (Zoloft) 25 mg QHS PO Last administered on 03/07/17 19:55; Start 03/04/17 at 21:00 Amlodipine Besylate (Norvasc) 10 mg DAILY PO Last administered on 03/07/17 08: 23; Start 03/05/17 at 09:00 Furosemide (Lasix) 40 mg DAILY PO Last administered on 03/07/17 08:22; Start at 09:00 Amlodipine Besylate (Norvasc) 5 mg 1X ONCE PO Last administered on 03/04/17 14:45; Start 03/04/17 at 14:45; Stop 03/04/17 at 14:49; Status DC Furosemide (Lasix) 20 mg 1X ONCE PO Last administered on 03/04/17 15:27; Start 03/04/17 at 14:45; Stop 03/04/17 at 14:49; Status DC Tramadol HCl (Ultram) 50 mg PRN Q12HR PRN PO MODERATE PAIN; Start 03/04/17 at 21:00 Loxapine Succinate (Loxitane) 7.5 mg QHS PO Last administered on 03/07/17 20:35 ; Start 03/07/17 at 21:00; Stop 03/07/17 at 21:01; Status DC Loxapine Succinate (Loxitane) 10 mg QHS PO ; Start 03/08/17 at 21:00 Active Scripts Active Reported Zyprexa (Olanzapine) 2.5 Mg Tablet 2.5 Mg PO PRN Q2HR PRN Xifaxan (Rifaximin) 550 Mg Tablet 550 Mg PO BID Tramadol Hcl (Tramadol HCl) 50 Mg Tablet 50 Mg PO PRN Q6HRS PRN Tessalon Perle (Benzonatate) 100 Mg Capsule 100 Mg PO PRN Q4HRS PRN Senokot (Sennosides) 8.6 Mg Tablet 8.6 Mg PO HS Saline Nasal [place] (Sodium Chloride) 30 Ml [place] 2 Sprays NS PRN Q4HRS PRN Robitussin Nighttime Cough Dm (Dextromethorphan Hb/Doxylamine) 237 Ml Liquid 10 Ml PO PRN Q4HRS PRN Omeprazole 40 Mg Capsule.dr 40 Mg PO [id number] Nephro-Fady Tablet (Folic Acid/Vitamin B Comp W-C) 0.8 Mg Tablet 1 Tab PO DAILY PRN Alum-Mag Hydroxide-Simeth Liq (Mag Hydrox/Al Hydrox/Simeth) 360 Ml Oral.susp 30 Ml PO PRN Q4HRS PRN Montelukast Sodium Tablet (Montelukast Sodium) 10 Mg Tablet 10 Mg PO HS Milk Of Magnesia (Magnesium Hydroxide) 2,400 Mg/10 Ml Oral.susp 2,400 Mg PO PRN DAILY PRN Namenda (Memantine Hcl) 10 Mg Tablet 10 Mg PO BID Loxapine (Loxapine Succinate) 5 Mg Capsule 5 Mg PO Lorazepam 0.5 Mg Tablet 0.5 Mg PO PRN Q6HRS PRN Levothyroxine Sodium 75 Mcg Tablet 75 Mcg PO DAILYAC Lactulose 10 Gm/15 Ml Solution 30 Ml PO DAILY Duoneb 0.5-3(2.5) Mg/3 Ml (Albuterol/Ipratropium) 3 Ml Ampul.neb 3 Ml NEB QID Duoneb 0.5-3(2.5) Mg/3 Ml (Albuterol/Ipratropium) 3 Ml Ampul.neb 3 Ml NEB PRN QID PRN Icy Hot Cream (Methyl Salicylate/Menthol) 35.4 Gm Cream..g. 1 Applic TP PRN Q12HR PRN Hydralazine Hcl 50 Mg Tablet 50 Mg PO TID Guaifenesin 600 Mg Tablet.er 600 Mg PO BID Furosemide 20 Mg Tablet 20 Mg PO DAILY Fluticasone Propionate Nasal [place] (Fluticasone Propionate) 16 Gm [place].susp 2 [place] NS PRN BID PRN Breo Ellipta 100-25 Mcg Inh (Fluticasone/Vilanterol) 1 Each Aer.pow.ba 1 Puff IH DAILY Ferrous Sulfate 325 Mg Tablet 325 Mg PO BID Epogen (Epoetin Jaquan) 3,000 Unit/1 Ml Vial 6,000 Unit SQ MON,WED,FRI Donepezil Hcl 5 Mg Tablet 5 Mg PO HS Depakote Sprinkle (Divalproex Sodium) 125 Mg Cap.sprink 250 Mg PO BID Benadryl (Diphenhydramine Hcl) 25 Mg Capsule 25 Mg PO PRN Q8HRS PRN Cetirizine Hcl 10 Mg Tablet 10 Mg PO DAILY Carvedilol 12.5 Mg Tablet 12.5 Mg PO BID Calcium Polycarbophil 625 Mg Tablet 625 Mg PO DAILY Buspirone Hcl 5 Mg Tablet 5 Mg PO QID Benztropine Mesylate 0.5 Mg Tablet 0.5 Mg PO DAILY Atorvastatin Calcium 10 Mg Tablet 5 Mg PO QHS PRN Artificial Tears Eye Drops (Dextran 70/Hypromellose) 15 Ml Drops 2 Drop OU DAILY Amlodipine Besylate 5 Mg Tablet 5 Mg PO DAILY Amantadine (Amantadine Hcl) 100 Mg Tablet 100 Mg PO BID Aloe [place] (Petrolatum,White) 226 Gm Oint...g. 1 Ino TP BID Tylenol (Acetaminophen) 325 Mg Tablet 650 Mg PO PRN Q4HRS PRN Diagnosis: Problems: (1) Encounter for medical screening examination (2) Anxiety disorder (3) Impulse control disorder (4) Bipolar 1 disorder, mixed, moderate (5) Dementia in Alzheimer's disease with delusions SHANE BUTTS MD Mar 07, 2017 21:21
[2017-03-08] MEDS: IPRATRPIUM/ALBUTEROL 0.5/2.5MG 3 ML NEBU. NEB SCH ×4 (05:24→21:00)
[2017-03-08] MEDS: LEVOTHYROXINE 75 MCG TABLET PO SCH (06:13)
[2017-03-08 06:49] VITALS: BP 180/86
[2017-03-08] MEDS: LACTULOSE 20 GM/30 ML SOLUTION. PO SCH (07:09)
[2017-03-08] MEDS: PANTOPRAZOLE 40 MG TABLET. PO SCH (07:09)
[2017-03-08] MEDS: BENZTROPINE MESYLATE 0.5 MG TABLET PO SCH (07:10)
[2017-03-08] MEDS: busPIRone 5 MG TABLET. PO SCH ×4 (07:10→19:12)
[2017-03-08] MEDS: DIVALPROEX 125 MG CAP.SPRINK PO SCH ×2 (07:11→19:13)
[2017-03-08] MEDS: CARVEDILOL 12.5 MG TABLET PO SCH ×2 (07:11→19:13)
[2017-03-08] MEDS: FUROSEMIDE 40 MG TABLET PO SCH (07:12)
[2017-03-08] MEDS: FERROUS SULFATE 325 MG TABLET PO SCH ×2 (07:12→19:13)
[2017-03-08] MEDS: MEMANTINE 10 MG TABLET. PO SCH ×2 (07:12→19:12)
[2017-03-08] MEDS: CALCIUM POLYCARBOPHIL 625 MG TABLET PO SCH (07:12)
[2017-03-08] MEDS: FOLIC/VIT B COMP W-C (RENAL) TABLET. PO SCH (07:13)
[2017-03-08] MEDS: amLODIPine BESYLATE 10 MG TABLET PO SCH (07:13)
[2017-03-08] MEDS: rifAXIMin 550 MG TABLET PO SCH ×2 (07:14→19:17)
[2017-03-08] MEDS: AMANTADINE HCL 100 MG CAPSULE PO SCH ×2 (07:14→19:16)
[2017-03-08] MEDS: CETIRIZINE HCL 10 MG TABLET PO SCH (07:14)
[2017-03-08] MEDS: EPOETIN ALFA 10,000 UNIT/ML VIAL. SQ SCH (07:15)
[2017-03-08] MEDS: POLYVINYL ALCOHOL 1.4% OPHTH SOLUTION 15ML BOTTLE. OU SCH (07:16)
[2017-03-08] MEDS: BUDESONIDE 0.5 MG/2 ML NEBU NEB SCH ×2 (11:07→20:00)
[2017-03-08 15:54] VITALS: BP 138/71
[2017-03-08] MEDS: ATORVASTATIN CALCIUM 10 MG TABLET. PO SCH (19:11)
[2017-03-08] MEDS: MONTELUKAST 10 MG TABLET. PO SCH (19:11)
[2017-03-08] MEDS: SERTRALINE 25 MG TABLET. PO SCH (19:11)
[2017-03-08] MEDS: SENNOSIDES 8.6 MG TABLET PO SCH (19:12)
[2017-03-08] MEDS: DONEPEZIL HCL 5 MG TABLET. PO SCH (19:12)
--- NOTE | 2017-03-08 20:56 | PDOC ---
Exam Robin Demential Exam: Robin Note: Please also refer to the separate dictated note~for this date of service dictated separately.~Patient seen individually. Discussed the patient with Nursing staff reviewed the chart.~Reviewed interim history and current functioning. Reviewed vital signs,~Labs/ Radiology~and current medications noted below. Continue current treatment with the changes noted in the dictated addendum note S/O: This is late entry for date of service 03/06/2017. This note covers elements not covered in my initial note. I reviewed information from Dr. Finch who has covered for me for the past several days during my vacation. Per nursing reports, the patient has been compliant with her medications. She is reasonably oriented. She is still having some hallucinations at night and anxious. Review of Systems: Ambulation is impaired, in wheelchair. No CV, , Pulmonary , Eye system symptoms on review. MSE: Oriented toward self situation. Speech is coherent and less pressured. Abstraction is fair. Computation impaired. Language function is intact. Attention span is short. Mood and affect is still somewhat labile at times but less so than before. Labs: Valproic acid level is 66. Imp: Bipolar I disorder, mixed with psychotic features in partial remission, anxiety disorder, unspecified. Plan: Continue current psychotropics. We may need to increase loxapine in due course. Reviewed drug interactions. Risk and benefit ratio favors no change today. Assessment: Vital Signs: Vital Signs Date Time Temp Pulse Resp B/P (MAP) Pulse Ox O2 Delivery O2 Flow Rate FiO2 03/08/17 19:13 61 138/71 03/08/17 16:18 97 Nasal Cannula 2.0 03/08/17 15:54 97.8 20 I&O Intake and Output 03/08/17 07:00 Intake Total 1040 ml Balance 1040 ml Intake Oral 1040 ml # Voids 1 # Bowel Movements 1 Labs: Laboratory Tests Test 03/08/17 07:42 Glucose (Fingerstick) 81 mg/dL (70-99) Current Medications: Meds: Current Medications Acetaminophen (Tylenol) 650 mg PRN Q6HRS PRN PO PAIN / TEMP; Start 03/02/17 at 20:30; Status Cancel Multi-Ingredient Ointment (Analgesic [place]) 1 ino PRN QID PRN TP MUSCLE PAIN Last administered on 03/07/17t 20:38; Start 03/02/17 at 20:30 Al Hydroxide/Mg Hydroxide (Mylanta Plus Xs) 15 ml PRN AFTMEALHC PRN PO DYSPEPSIA; Start 03/02/17 at 20:30 Magnesium Hydroxide (Milk Of Magnesia) 2,400 mg PRN QHS PRN PO CONSTIPATION; Start 03/02/17 at 20:30; Status Cancel Benztropine Mesylate (Cogentin) 0.5 mg DAILY PO Last administered on 03/08/17 07:10; Start 03/03/17 at 09:00 Buspirone HCl (Buspar) 5 mg QID PO Last administered on 03/08/17 19:12; Start 03/03/17 at 09:00 Divalproex Sodium (Depakote Sprinkles) 250 mg BID PO Last administered on 19:13; Start 03/03/17 at 09:00 Donepezil HCl (Aricept) 5 mg HS PO Last administered on 03/08/17 19:12; Start 03/03/17 at 21:00 Lorazepam (Ativan) 0.5 mg PRN Q6HRS PRN PO ANXIETY / AGITATION; Start 03/03/17 at 00:00 Loxapine Succinate (Loxitane) 5 mg HS PO Last administered on 03/07/17 19:56; Start 03/03/17 at 21:00; Stop 03/07/17 at 20:22; Status DC Memantine (Namenda) 10 mg BID PO Last administered on 03/08/17 19:12; Start at 09:00 Olanzapine (ZyPREXA) 2.5 mg PRN Q2HR PRN PO PSYCHOSIS; Start 03/03/17 at 00:00 Acetaminophen (Tylenol) 650 mg PRN Q4HRS PRN PO PAIN / TEMP; Start 03/03/17 at 08:00 Amlodipine Besylate (Norvasc) 5 mg DAILY PO Last administered on 03/04/17 09: 06; Start 03/03/17 at 09:00; Stop 03/04/17 at 14:28; Status DC Atorvastatin Calcium (Lipitor) 5 mg QHS PO Last administered on 03/08/17 19:11 ; Start 03/03/17 at 21:00 Benzonatate (Tessalon Perle) 100 mg PRN Q4HRS PRN PO COUGH; Start 03/03/17 at 08:00 Calcium Polycarbophil (Fibercon) 625 mg DAILY PO Last administered on 03/08/17 07:12; Start 03/03/17 at 09:00 Carvedilol (Coreg) 12.5 mg BID PO Last administered on 03/08/17 19:13; Start at 09:00 Cetirizine HCl (ZyrTEC) 10 mg DAILY PO Last administered on 03/08/17 07:14; Start 03/03/17 at 09:00 Ferrous Sulfate (Feosol) 325 mg BID PO Last administered on 03/08/17 19:13; Start 03/03/17 at 09:00 Fluticasone Propionate (Flonase) 2 spray PRN BID PRN NS rhinitis; Start at 08:00 Multivit/Ca Carb/ B Cmplx/FA/Prenat (Nephro-Fady) 1 tab DAILY PO Last administered on 03/08/17 07:13; Start 03/03/17 at 09:00 Furosemide (Lasix) 20 mg DAILY PO Last administered on 03/04/17 09:06; Start 03/03/17 at 09:00; Stop 03/04/17 at 14:28; Status DC Guaifenesin (Mucinex Er) 600 mg BID PO Last administered on 03/08/17 19:12; Start 03/03/17 at 09:00 Hydralazine HCl (Apresoline) 50 mg TID PO Last administered on 03/08/17 19:12; Start 03/03/17 at 09:00 Albuterol Sulfate (Ventolin) 2.5 mg PRN QID PRN NEB SHORTNESS OF BREATH; Start 03/03/17 at 08:30 Albuterol/ Ipratropium (Duoneb) 3 ml QID NEB Last administered on 03/08/17 16: 18; Start 03/03/17 at 09:00 Levothyroxine Sodium (Synthroid) 75 mcg DAILY06 PO Last administered on 06:13; Start 03/03/17 at 09:00 Montelukast Sodium (Singulair) 10 mg HS PO Last administered on 03/08/17 19:11 ; Start 03/03/17 at 21:00 Rifaximin (Xifaxan) 550 mg BID PO Last administered on 03/08/17 19:17; Start at 09:00 Sennosides (Senna) 8.6 mg HS PO Last administered on 03/08/17 19:12; Start at 21:00 Sodium Chloride (Saline Mist Nasal) 2 ino PRN Q4HRS PRN NS rhinitis; Start at 08:00 Tramadol HCl (Ultram) 50 mg PRN Q6HRS PRN PO MODERATE PAIN; Start 03/03/17 at 08:00; Stop 03/04/17 at 14:29; Status DC Amantadine HCl (Symmetrel) 100 mg BID PO Last administered on 03/08/17 19:16; Start 03/03/17 at 09:00 Artificial Tears (Artificial Tears) 2 drop DAILY OU Last administered on 11:32; Start 03/03/17 at 09:00; Stop 03/03/17 at 15:06; Status DC Guaifenesin (Robitussin Dm) 10 ml PRN Q4HRS PRN PO COUGH; Start 03/03/17 at 08: 30 Epoetin [place] (Procrit) 6,000 unit QMWF@0900 SQ Last administered on 03/08/17 07 :15; Start 03/03/17 at 09:00 Non-Formulary Medication 1 puff DAILY IH ; Start 03/03/17 at 09:00; Status UNV Lactulose 20 gm DAILY PO Last administered on 03/08/17 07:09; Start 03/03/17 at 09:00 Magnesium Hydroxide (Milk Of Magnesia) 2,400 mg PRN DAILY PRN PO CONSTIPATION Last administered on 03/06/17 03:10; Start 03/03/17 at 08:30 Pantoprazole Sodium (Protonix) 40 mg DAILYAC PO Last administered on 03/08/17 07:09; Start 03/03/17 at 09:00 Non-Formulary Medication 1 ino BID TP ; Start 03/03/17 at 09:00; Status UNV Vitamin D (Vitamin D3) 50,000 unit WEEKLY PO Last administered on 03/03/17 11: 24; Start 03/03/17 at 09:00 Budesonide (Pulmicort) 0.5 mg RTBID NEB Last administered on 03/08/17 11:07; Start 03/03/17 at 20:00 Artificial Tears (Artificial Tears) 2 drop DAILY OU Last administered on 07:16; Start 03/03/17 at 15:06 Sertraline HCl (Zoloft) 25 mg QHS PO Last administered on 03/08/17 19:11; Start 03/04/17 at 21:00 Amlodipine Besylate (Norvasc) 10 mg DAILY PO Last administered on 03/08/17 07: 13; Start 03/05/17 at 09:00 Furosemide (Lasix) 40 mg DAILY PO Last administered on 03/08/17 07:12; Start at 09:00 Amlodipine Besylate (Norvasc) 5 mg 1X ONCE PO Last administered on 03/04/17 14:45; Start 03/04/17 at 14:45; Stop 03/04/17 at 14:49; Status DC Furosemide (Lasix) 20 mg 1X ONCE PO Last administered on 03/04/17 15:27; Start 03/04/17 at 14:45; Stop 03/04/17 at 14:49; Status DC Tramadol HCl (Ultram) 50 mg PRN Q12HR PRN PO MODERATE PAIN; Start 03/04/17 at 21:00 Loxapine Succinate (Loxitane) 7.5 mg QHS PO Last administered on 03/07/17 20:35 ; Start 03/07/17 at 21:00; Stop 03/07/17 at 21:01; Status DC Loxapine Succinate (Loxitane) 10 mg QHS PO ; Start 03/08/17 at 21:00 Active Scripts Active Reported Zyprexa (Olanzapine) 2.5 Mg Tablet 2.5 Mg PO PRN Q2HR PRN Xifaxan (Rifaximin) 550 Mg Tablet 550 Mg PO BID Tramadol Hcl (Tramadol HCl) 50 Mg Tablet 50 Mg PO PRN Q6HRS PRN Tessalon Perle (Benzonatate) 100 Mg Capsule 100 Mg PO PRN Q4HRS PRN Senokot (Sennosides) 8.6 Mg Tablet 8.6 Mg PO HS Saline Nasal [place] (Sodium Chloride) 30 Ml [place] 2 Sprays NS PRN Q4HRS PRN Robitussin Nighttime Cough Dm (Dextromethorphan Hb/Doxylamine) 237 Ml Liquid 10 Ml PO PRN Q4HRS PRN Omeprazole 40 Mg Capsule.dr 40 Mg PO [id number] Nephro-Fady Tablet (Folic Acid/Vitamin B Comp W-C) 0.8 Mg Tablet 1 Tab PO DAILY PRN Alum-Mag Hydroxide-Simeth Liq (Mag Hydrox/Al Hydrox/Simeth) 360 Ml Oral.susp 30 Ml PO PRN Q4HRS PRN Montelukast Sodium Tablet (Montelukast Sodium) 10 Mg Tablet 10 Mg PO HS Milk Of Magnesia (Magnesium Hydroxide) 2,400 Mg/10 Ml Oral.susp 2,400 Mg PO PRN DAILY PRN Namenda (Memantine Hcl) 10 Mg Tablet 10 Mg PO BID Loxapine (Loxapine Succinate) 5 Mg Capsule 5 Mg PO Lorazepam 0.5 Mg Tablet 0.5 Mg PO PRN Q6HRS PRN Levothyroxine Sodium 75 Mcg Tablet 75 Mcg PO DAILYAC Lactulose 10 Gm/15 Ml Solution 30 Ml PO DAILY Duoneb 0.5-3(2.5) Mg/3 Ml (Albuterol/Ipratropium) 3 Ml Ampul.neb 3 Ml NEB QID Duoneb 0.5-3(2.5) Mg/3 Ml (Albuterol/Ipratropium) 3 Ml Ampul.neb 3 Ml NEB PRN QID PRN Icy Hot Cream (Methyl Salicylate/Menthol) 35.4 Gm Cream..g. 1 Applic TP PRN Q12HR PRN Hydralazine Hcl 50 Mg Tablet 50 Mg PO TID Guaifenesin 600 Mg Tablet.er 600 Mg PO BID Furosemide 20 Mg Tablet 20 Mg PO DAILY Fluticasone Propionate Nasal [place] (Fluticasone Propionate) 16 Gm [place].susp 2 [place] NS PRN BID PRN Breo Ellipta 100-25 Mcg Inh (Fluticasone/Vilanterol) 1 Each Aer.pow.ba 1 Puff IH DAILY Ferrous Sulfate 325 Mg Tablet 325 Mg PO BID Epogen (Epoetin Jaquan) 3,000 Unit/1 Ml Vial 6,000 Unit SQ MON,WED,FRI Donepezil Hcl 5 Mg Tablet 5 Mg PO HS Depakote Sprinkle (Divalproex Sodium) 125 Mg Cap.sprink 250 Mg PO BID Benadryl (Diphenhydramine Hcl) 25 Mg Capsule 25 Mg PO PRN Q8HRS PRN Cetirizine Hcl 10 Mg Tablet 10 Mg PO DAILY Carvedilol 12.5 Mg Tablet 12.5 Mg PO BID Calcium Polycarbophil 625 Mg Tablet 625 Mg PO DAILY Buspirone Hcl 5 Mg Tablet 5 Mg PO QID Benztropine Mesylate 0.5 Mg Tablet 0.5 Mg PO DAILY Atorvastatin Calcium 10 Mg Tablet 5 Mg PO QHS PRN Artificial Tears Eye Drops (Dextran 70/Hypromellose) 15 Ml Drops 2 Drop OU DAILY Amlodipine Besylate 5 Mg Tablet 5 Mg PO DAILY Amantadine (Amantadine Hcl) 100 Mg Tablet 100 Mg PO BID Aloe [place] (Petrolatum,White) 226 Gm Oint...g. 1 Ino TP BID Tylenol (Acetaminophen) 325 Mg Tablet 650 Mg PO PRN Q4HRS PRN SHANE BUTTS MD Mar 08, 2017 20:55
[2017-03-08] MEDS: LOXAPINE SUCCINATE 5 MG CAPSULE PO SCH (21:08)
[2017-03-09] MEDS: IPRATRPIUM/ALBUTEROL 0.5/2.5MG 3 ML NEBU. NEB SCH ×4 (05:05→20:47)
[2017-03-09 06:07] VITALS: BP 184/72
[2017-03-09] MEDS: LEVOTHYROXINE 75 MCG TABLET PO SCH (06:28)
[2017-03-09] MEDS: amLODIPine BESYLATE 10 MG TABLET PO SCH (07:53)
[2017-03-09] MEDS: LACTULOSE 20 GM/30 ML SOLUTION. PO SCH (07:53)
[2017-03-09] MEDS: POLYVINYL ALCOHOL 1.4% OPHTH SOLUTION 15ML BOTTLE. OU SCH (07:53)
[2017-03-09] MEDS: FOLIC/VIT B COMP W-C (RENAL) TABLET. PO SCH (07:55)
[2017-03-09] MEDS: FERROUS SULFATE 325 MG TABLET PO SCH ×2 (07:55→19:57)
[2017-03-09] MEDS: PANTOPRAZOLE 40 MG TABLET. PO SCH (07:55)
[2017-03-09] MEDS: CETIRIZINE HCL 10 MG TABLET PO SCH (07:55)
[2017-03-09] MEDS: CARVEDILOL 12.5 MG TABLET PO SCH ×2 (07:55→19:56)
[2017-03-09] MEDS: AMANTADINE HCL 100 MG CAPSULE PO SCH ×2 (07:56→19:56)
[2017-03-09] MEDS: FUROSEMIDE 40 MG TABLET PO SCH (07:56)
[2017-03-09] MEDS: MEMANTINE 10 MG TABLET. PO SCH ×2 (07:56→19:57)
[2017-03-09] MEDS: BENZTROPINE MESYLATE 0.5 MG TABLET PO SCH (07:56)
[2017-03-09] MEDS: CALCIUM POLYCARBOPHIL 625 MG TABLET PO SCH (07:56)
[2017-03-09] MEDS: DIVALPROEX 125 MG CAP.SPRINK PO SCH ×2 (07:56→19:55)
[2017-03-09] MEDS: rifAXIMin 550 MG TABLET PO SCH ×2 (07:57→19:56)
[2017-03-09] MEDS: busPIRone 5 MG TABLET. PO SCH ×4 (07:57→19:56)
[2017-03-09 10:37] LABS: ALBUMIN 3.3 g/dL (3.4-5.0); ALBUMIN/GLOBULIN RATIO 0.7 (1.0-1.7); ALK PHOS 100 U/L (46-116); ALT (SGPT) 17 U/L (14-59); ANION GAP 7 (6-14); AST (SGOT) 17 U/L (15-37); BASO % 1 % (0-3); BLOOD UREA NITROGEN 37 mg/dL (7-20); BUN/CREATININE RATIO 13 (6-20); CALCIUM 9.2 mg/dL (8.5-10.1); CARBON DIOXIDE 30 mmol/L (21-32); CHLORIDE 98 mmol/L (98-107); CREATININE 2.8 mg/dL (0.6-1.0); EOS # 0.1 x10^3/uL (0.0-0.7); EOS % 1 % (0-3); GFR 19.9; GLUCOSE 113 mg/dL (70-99); HEMATOCRIT 50.7 % (36.0-47.0); HEMOGLOBIN 16.6 g/dL (12.0-15.5); LYMPH # 1.1 x10^3/uL (1.0-4.8); LYMPH % 25 % (24-48); MEAN CORPUSCULAR HEMOGLOBIN 30 pg (25-35); MEAN CORPUSCULAR HGB CONC 33 g/dL (31-37); MEAN CORPUSCULAR VOLUME 91 fL (79-100); MONO # 0.5 x10^3/uL (0.0-1.1); MONO % 11 % (0-9); NEUT # 2.6 x10^3uL (1.8-7.7); NEUT % 62 % (31-73); PLATELET COUNT 143 x10^3/uL (140-400); POTASSIUM 4.2 mmol/L (3.5-5.1); RED BLOOD COUNT 5.55 x10^6/uL (3.50-5.40); RED CELL DISTRIBUTION WIDTH 16.6 % (11.5-14.5); SODIUM 135 mmol/L (136-145); TOTAL BILIRUBIN 0.5 mg/dL (0.2-1.0); TOTAL PROTEIN 8.2 g/dL (6.4-8.2); WHITE BLOOD COUNT 4.2 x10^3/uL (4.0-11.0)
[2017-03-09 10:38] LABS: VAL ACID 69 mcg/mL (50-100)
[2017-03-09] MEDS: BUDESONIDE 0.5 MG/2 ML NEBU NEB SCH ×2 (11:00→20:47)
[2017-03-09 16:12] LABS: BILIRUBIN,URINE NEG (NEG); CLARITY,URINE CLOUDY; COLOR,URINE YELLOW; GLUCOSE,URINE NEG (NEG); NITRITE,URINE NEG (NEG); UROBILINOGEN,URINE 0.2 mg/dL (0.2 mg/dL)
[2017-03-09 16:13] LABS: AMORPHOUS SEDIMENT,UR PRESENT /HPF; BACTERIA,URINE MANY /HPF (0-FEW); WBC,URINE TNTC /HPF (0-4)
[2017-03-09 16:29] VITALS: BP 151/61
[2017-03-09] MEDS: LOXAPINE SUCCINATE 5 MG CAPSULE PO SCH (19:55)
[2017-03-09] MEDS: SERTRALINE 25 MG TABLET. PO SCH (19:55)
[2017-03-09] MEDS: ATORVASTATIN CALCIUM 10 MG TABLET. PO SCH (19:55)
[2017-03-09] MEDS: DONEPEZIL HCL 5 MG TABLET. PO SCH (19:56)
[2017-03-09] MEDS: MONTELUKAST 10 MG TABLET. PO SCH (19:56)
[2017-03-09] MEDS: SENNOSIDES 8.6 MG TABLET PO SCH (19:57)
--- NOTE | 2017-03-09 20:19 | PDOC ---
Exam Robin Demential Exam: Robin Note: Please also refer to the separate dictated note~for this date of service dictated separately.~Patient seen individually. Discussed the patient with Nursing staff reviewed the chart.~Reviewed interim history and current functioning. Reviewed vital signs,~Labs/ Radiology~and current medications noted below. Continue current treatment with the changes noted in the dictated addendum note DATE OF SERVICE: 03/07/2017. PSYCHIATRIC PROGRESS NOTE This is a late entry for Date of Service 03/07/2017 and covers elements not covered in my initial note. The patient has been calm, cooperative, reasonably oriented. Denies active hallucinations but was paranoid, suspicious when questioned, and questions the motives of the nursing staff with her medications. REVIEW OF SYSTEMS Ambulation impaired. No CV, , pulmonary, eye, ENT systems symptoms, on review. MENTAL STATUS EXAM: Reasonably oriented. Speech is coherent less pressured. Abstraction fair. Computation impaired. Language function intact. Mood and affect somewhat withdrawn. LABS Reviewed. IMPRESSION Bipolar 1 disorder, mixed with psychotic features; anxiety disorder, unspecified ; impulse control disorder, unspecified. PLAN: Increase Loxapine from 5 mg h.s. to 10 mg h.s. Maintain rest of the psychotropics. Adjust as clinically indicated. Assessment: Vital Signs: Vital Signs Date Time Temp Pulse Resp B/P (MAP) Pulse Ox O2 Delivery O2 Flow Rate FiO2 03/09/17 19:57 80 151/61 03/09/17 16:29 97.3 18 97 03/09/17 16:01 Nasal Cannula 2.0 I&O Intake and Output 03/09/17 07:00 Intake Total 940 ml Output Total 1050 ml Balance -110 ml Intake Oral 940 ml Output Urine Total 1050 ml Labs: Laboratory Tests Test 03/09/17 07:50 03/09/17 09:47 03/09/17 15:00 Glucose (Fingerstick) 73 mg/dL (70-99) White Blood Count 4.2 x10^3/uL (4.0-11.0) Red Blood Count 5.55 x10^6/uL (3.50-5.40) H Hemoglobin 16.6 g/dL (12.0-15.5) H Hematocrit 50.7 % (36.0-47.0) H Mean Corpuscular Volume 91 fL (79-100) Mean Corpuscular Hemoglobin 30 pg (25-35) Mean Corpuscular Hemoglobin Concent 33 g/dL (31-37) Red Cell Distribution Width 16.6 % (11.5-14.5) H Platelet Count 143 x10^3/uL (140-400) Neutrophils (%) (Auto) 62 % (31-73) Lymphocytes (%) (Auto) 25 % (24-48) Monocytes (%) (Auto) 11 % (0-9) H Eosinophils (%) (Auto) 1 % (0-3) Basophils (%) (Auto) 1 % (0-3) Neutrophils # (Auto) 2.6 x10^3uL (1.8-7.7) Lymphocytes # (Auto) 1.1 x10^3/uL (1.0-4.8) Monocytes # (Auto) 0.5 x10^3/uL (0.0-1.1) Eosinophils # (Auto) 0.1 x10^3/uL (0.0-0.7) Basophils # (Auto) 0.0 x10^3/uL (0.0-0.2) Sodium Level 135 mmol/L (136-145) L Potassium Level 4.2 mmol/L (3.5-5.1) Chloride Level 98 mmol/L (98-107) Carbon Dioxide Level 30 mmol/L (21-32) Anion Gap 7 (6-14) Blood Urea Nitrogen 37 mg/dL (7-20) H Creatinine 2.8 mg/dL (0.6-1.0) H Estimated GFR (Cockcroft-Gault) 19.9 BUN/Creatinine Ratio 13 (6-20) Glucose Level 113 mg/dL (70-99) H Calcium Level 9.2 mg/dL (8.5-10.1) Total Bilirubin 0.5 mg/dL (0.2-1.0) Aspartate Amino Transferase (AST) 17 U/L (15-37) Alanine Aminotransferase (ALT) 17 U/L (14-59) Alkaline Phosphatase 100 U/L (46-116) Total Protein 8.2 g/dL (6.4-8.2) Albumin 3.3 g/dL (3.4-5.0) L Albumin/Globulin Ratio 0.7 (1.0-1.7) L Valproic Acid Level 69 mcg/mL (50-100) Valproic Acid Last Dose Date 03/08/17 Valproic Acid Last Dose Time 2100 Urine Collection Type Unknown Urine Color Yellow Urine Clarity Cloudy Urine pH 7.0 Urine Specific [place] 1.020 Urine Protein >100 mg/dl (NEG-TRACE) Urine Glucose (UA) Neg mg/dL (NEG) Urine Ketones (Stick) Trace mg/dL (NEG) Urine Blood Neg (NEG) Urine Nitrite Neg (NEG) Urine Bilirubin Neg (NEG) Urine Urobilinogen Dipstick 0.2 mg/dL (0.2 mg/dL) Urine Leukocyte Esterase Large (NEG) Urine RBC 6-10 /HPF (0-2) Urine WBC Tntc /HPF (0-4) Urine Squamous Epithelial Cells None /LPF Urine Amorphous Sediment Present /HPF Urine Bacteria Many /HPF (0-FEW) Urine Mucus Mod /LPF Current Medications: Meds: Current Medications Acetaminophen (Tylenol) 650 mg PRN Q6HRS PRN PO PAIN / TEMP; Start 03/02/17 at 20:30; Status Cancel Multi-Ingredient Ointment (Analgesic [place]) 1 ino PRN QID PRN TP MUSCLE PAIN Last administered on 03/07/17 20:38; Start 03/02/17 at 20:30 Al Hydroxide/Mg Hydroxide (Mylanta Plus Xs) 15 ml PRN AFTMEALHC PRN PO DYSPEPSIA; Start 03/02/17 at 20:30 Magnesium Hydroxide (Milk Of Magnesia) 2,400 mg PRN QHS PRN PO CONSTIPATION; Start 03/02/17 at 20:30; Status Cancel Benztropine Mesylate (Cogentin) 0.5 mg DAILY PO Last administered on 03/09/17 07:56; Start 03/03/17 at 09:00 Buspirone HCl (Buspar) 5 mg QID PO Last administered on 03/09/17 19:56; Start 03/03/17 at 09:00 Divalproex Sodium (Depakote Sprinkles) 250 mg BID PO Last administered on 19:55; Start 03/03/17 at 09:00 Donepezil HCl (Aricept) 5 mg HS PO Last administered on 03/09/17 19:56; Start 03/03/17 at 21:00 Lorazepam (Ativan) 0.5 mg PRN Q6HRS PRN PO ANXIETY / AGITATION; Start 03/03/17 at 00:00 Loxapine Succinate (Loxitane) 5 mg HS PO Last administered on 03/07/17 19:56; Start 03/03/17 at 21:00; Stop 03/07/17 at 20:22; Status DC Memantine (Namenda) 10 mg BID PO Last administered on 03/09/17 19:57; Start at 09:00 Olanzapine (ZyPREXA) 2.5 mg PRN Q2HR PRN PO PSYCHOSIS; Start 03/03/17 at 00:00 Acetaminophen (Tylenol) 650 mg PRN Q4HRS PRN PO PAIN / TEMP; Start 03/03/17 at 08:00 Amlodipine Besylate (Norvasc) 5 mg DAILY PO Last administered on 03/04/17 09: 06; Start 03/03/17 at 09:00; Stop 03/04/17 at 14:28; Status DC Atorvastatin Calcium (Lipitor) 5 mg QHS PO Last administered on 03/09/17 19:55 ; Start 03/03/17 at 21:00 Benzonatate (Tessalon Perle) 100 mg PRN Q4HRS PRN PO COUGH; Start 03/03/17 at 08:00 Calcium Polycarbophil (Fibercon) 625 mg DAILY PO Last administered on 03/09/17 07:56; Start 03/03/17 at 09:00 Carvedilol (Coreg) 12.5 mg BID PO Last administered on 03/09/17 19:56; Start at 09:00 Cetirizine HCl (ZyrTEC) 10 mg DAILY PO Last administered on 03/09/17 07:55; Start 03/03/17 at 09:00 Ferrous Sulfate (Feosol) 325 mg BID PO Last administered on 03/09/17 19:57; Start 03/03/17 at 09:00 Fluticasone Propionate (Flonase) 2 spray PRN BID PRN NS rhinitis; Start at 08:00 Multivit/Ca Carb/ B Cmplx/FA/Prenat (Nephro-Fady) 1 tab DAILY PO Last administered on 03/09/17 07:55; Start 03/03/17 at 09:00 Furosemide (Lasix) 20 mg DAILY PO Last administered on 03/04/17 09:06; Start 03/03/17 at 09:00; Stop 03/04/17 at 14:28; Status DC Guaifenesin (Mucinex Er) 600 mg BID PO Last administered on 03/09/17 19:56; Start 03/03/17 at 09:00 Hydralazine HCl (Apresoline) 50 mg TID PO Last administered on 03/09/17 19:57; Start 03/03/17 at 09:00 Albuterol Sulfate (Ventolin) 2.5 mg PRN QID PRN NEB SHORTNESS OF BREATH; Start 03/03/17 at 08:30 Albuterol/ Ipratropium (Duoneb) 3 ml QID NEB Last administered on 03/09/17 16: 01; Start 03/03/17 at 09:00 Levothyroxine Sodium (Synthroid) 75 mcg DAILY06 PO Last administered on 06:28; Start 03/03/17 at 09:00 Montelukast Sodium (Singulair) 10 mg HS PO Last administered on 03/09/17 19:56 ; Start 03/03/17 at 21:00 Rifaximin (Xifaxan) 550 mg BID PO Last administered on 03/09/17 19:56; Start at 09:00 Sennosides (Senna) 8.6 mg HS PO Last administered on 03/09/17 19:57; Start at 21:00 Sodium Chloride (Saline Mist Nasal) 2 ino PRN Q4HRS PRN NS rhinitis; Start at 08:00 Tramadol HCl (Ultram) 50 mg PRN Q6HRS PRN PO MODERATE PAIN; Start 03/03/17 at 08:00; Stop 03/04/17 at 14:29; Status DC Amantadine HCl (Symmetrel) 100 mg BID PO Last administered on 03/09/17 19:56; Start 03/03/17 at 09:00 Artificial Tears (Artificial Tears) 2 drop DAILY OU Last administered on 11:32; Start 03/03/17 at 09:00; Stop 03/03/17 at 15:06; Status DC Guaifenesin (Robitussin Dm) 10 ml PRN Q4HRS PRN PO COUGH; Start 03/03/17 at 08: 30 Epoetin [place]qu[place] (Procrit) 6,000 unit QMWF@0900 SQ Last administered on 03/08/17 07 :15; Start 03/03/17 at 09:00 Non-Formulary Medication 1 puff DAILY IH ; Start 03/03/17 at 09:00; Status UNV Lactulose 20 gm DAILY PO Last administered on 03/09/17 07:53; Start 03/03/17 at 09:00 Magnesium Hydroxide (Milk Of Magnesia) 2,400 mg PRN DAILY PRN PO CONSTIPATION Last administered on 03/06/17 03:10; Start 03/03/17 at 08:30 Pantoprazole Sodium (Protonix) 40 mg DAILYAC PO Last administered on 03/09/17 07:55; Start 03/03/17 at 09:00 Non-Formulary Medication 1 ino BID TP ; Start 03/03/17 at 09:00; Status UNV Vitamin D (Vitamin D3) 50,000 unit WEEKLY PO Last administered on 03/03/17 11: 24; Start 03/03/17 at 09:00 Budesonide (Pulmicort) 0.5 mg RTBID NEB Last administered on 03/08/17 11:07; Start 03/03/17 at 20:00 Artificial Tears (Artificial Tears) 2 drop DAILY OU Last administered on 07:53; Start 03/03/17 at 15:06 Sertraline HCl (Zoloft) 25 mg QHS PO Last administered on 03/09/17 19:55; Start 03/04/17 at 21:00 Amlodipine Besylate (Norvasc) 10 mg DAILY PO Last administered on 03/09/17 07: 53; Start 03/05/17 at 09:00 Furosemide (Lasix) 40 mg DAILY PO Last administered on 03/09/17 07:56; Start at 09:00; Stop 03/09/17 at 16:59; Status DC Amlodipine Besylate (Norvasc) 5 mg 1X ONCE PO Last administered on 03/04/17 14:45; Start 03/04/17 at 14:45; Stop 03/04/17 at 14:49; Status DC Furosemide (Lasix) 20 mg 1X ONCE PO Last administered on 03/04/17 15:27; Start 03/04/17 at 14:45; Stop 03/04/17 at 14:49; Status DC Tramadol HCl (Ultram) 50 mg PRN Q12HR PRN PO MODERATE PAIN; Start 03/04/17 at 21:00 Loxapine Succinate (Loxitane) 7.5 mg QHS PO Last administered on 03/07/17 20:35 ; Start 03/07/17 at 21:00; Stop 03/07/17 at 21:01; Status DC Loxapine Succinate (Loxitane) 10 mg QHS PO Last administered on 03/09/17 19:55 ; Start 03/08/17 at 21:00 Active Scripts Active Reported Zyprexa (Olanzapine) 2.5 Mg Tablet 2.5 Mg PO PRN Q2HR PRN Xifaxan (Rifaximin) 550 Mg Tablet 550 Mg PO BID Tramadol Hcl (Tramadol HCl) 50 Mg Tablet 50 Mg PO PRN Q6HRS PRN Tessalon [place]le (Benzonatate) 100 Mg Capsule 100 Mg PO PRN Q4HRS PRN Senokot (Sennosides) 8.6 Mg Tablet 8.6 Mg PO HS Saline Nasal [place] (Sodium Chloride) 30 Ml [place] 2 Sprays NS PRN Q4HRS PRN Robitussin Nighttime Cough Dm (Dextromethorphan Hb/Doxylamine) 237 Ml Liquid 10 Ml PO PRN Q4HRS PRN Omeprazole 40 Mg Capsule.dr 40 Mg PO [id number] Nephro-Fady Tablet (Folic Acid/Vitamin B Comp W-C) 0.8 Mg Tablet 1 Tab PO DAILY PRN Alum-Mag Hydroxide-Simeth Liq (Mag Hydrox/Al Hydrox/Simeth) 360 Ml Oral.susp 30 Ml PO PRN Q4HRS PRN Montelukast Sodium Tablet (Montelukast Sodium) 10 Mg Tablet 10 Mg PO HS Milk Of Magnesia (Magnesium Hydroxide) 2,400 Mg/10 Ml Oral.susp 2,400 Mg PO PRN DAILY PRN Namenda (Memantine Hcl) 10 Mg Tablet 10 Mg PO BID Loxapine (Loxapine Succinate) 5 Mg Capsule 5 Mg PO Lorazepam 0.5 Mg Tablet 0.5 Mg PO PRN Q6HRS PRN Levothyroxine Sodium 75 Mcg Tablet 75 Mcg PO DAILYAC Lactulose 10 Gm/15 Ml Solution 30 Ml PO DAILY Duoneb 0.5-3(2.5) Mg/3 Ml (Albuterol/Ipratropium) 3 Ml Ampul.neb 3 Ml NEB QID Duoneb 0.5-3(2.5) Mg/3 Ml (Albuterol/Ipratropium) 3 Ml Ampul.neb 3 Ml NEB PRN QID PRN Icy Hot Cream (Methyl Salicylate/Menthol) 35.4 Gm Cream..g. 1 Applic TP PRN Q12HR PRN Hydralazine Hcl 50 Mg Tablet 50 Mg PO TID Guaifenesin 600 Mg Tablet.er 600 Mg PO BID Furosemide 20 Mg Tablet 20 Mg PO DAILY Fluticasone Propionate Nasal [place] (Fluticasone Propionate) 16 Gm [place].susp 2 [place] NS PRN BID PRN Breo Ellipta 100-25 Mcg Inh (Fluticasone/Vilanterol) 1 Each Aer.pow.ba 1 Puff IH DAILY Ferrous Sulfate 325 Mg Tablet 325 Mg PO BID Epogen (Epoetin Jaquan) 3,000 Unit/1 Ml Vial 6,000 Unit SQ MON,WED,FRI Donepezil Hcl 5 Mg Tablet 5 Mg PO HS Depakote Sprinkle (Divalproex Sodium) 125 Mg Cap.sprink 250 Mg PO BID Benadryl (Diphenhydramine Hcl) 25 Mg Capsule 25 Mg PO PRN Q8HRS PRN Cetirizine Hcl 10 Mg Tablet 10 Mg PO DAILY Carvedilol 12.5 Mg Tablet 12.5 Mg PO BID Calcium Polycarbophil 625 Mg Tablet 625 Mg PO DAILY Buspirone Hcl 5 Mg Tablet 5 Mg PO QID Benztropine Mesylate 0.5 Mg Tablet 0.5 Mg PO DAILY Atorvastatin Calcium 10 Mg Tablet 5 Mg PO QHS PRN Artificial Tears Eye Drops (Dextran 70/Hypromellose) 15 Ml Drops 2 Drop OU DAILY Amlodipine Besylate 5 Mg Tablet 5 Mg PO DAILY Amantadine (Amantadine Hcl) 100 Mg Tablet 100 Mg PO BID Aloe [place] (Petrolatum,White) 226 Gm Oint...g. 1 Ino TP BID Tylenol (Acetaminophen) 325 Mg Tablet 650 Mg PO PRN Q4HRS PRN SHANE BUTTS MD Mar 09, 2017 20:19
--- NOTE | 2017-03-09 20:48 | PDOC ---
Exam Robin Demential Exam: Robin Note: Please also refer to the separate dictated note~for this date of service dictated separately.~Patient seen individually. Discussed the patient with Nursing staff reviewed the chart.~Reviewed interim history and current functioning. Reviewed vital signs,~Labs/ Radiology~and current medications noted below. Continue current treatment with the changes noted in the dictated addendum note Assessment: Vital Signs: Vital Signs Date Time Temp Pulse Resp B/P (MAP) Pulse Ox O2 Delivery O2 Flow Rate FiO2 03/09/17 19:57 80 151/61 03/09/17 16:29 97.3 18 97 03/09/17 16:01 Nasal Cannula 2.0 I&O Intake and Output 03/09/17 07:00 Intake Total 940 ml Output Total 1050 ml Balance -110 ml Intake Oral 940 ml Output Urine Total 1050 ml Labs: Laboratory Tests Test 03/09/17 07:50 03/09/17 09:47 03/09/17 15:00 Glucose (Fingerstick) 73 mg/dL (70-99) White Blood Count 4.2 x10^3/uL (4.0-11.0) Red Blood Count 5.55 x10^6/uL (3.50-5.40) H Hemoglobin 16.6 g/dL (12.0-15.5) H Hematocrit 50.7 % (36.0-47.0) H Mean Corpuscular Volume 91 fL (79-100) Mean Corpuscular Hemoglobin 30 pg (25-35) Mean Corpuscular Hemoglobin Concent 33 g/dL (31-37) Red Cell Distribution Width 16.6 % (11.5-14.5) H Platelet Count 143 x10^3/uL (140-400) Neutrophils (%) (Auto) 62 % (31-73) Lymphocytes (%) (Auto) 25 % (24-48) Monocytes (%) (Auto) 11 % (0-9) H Eosinophils (%) (Auto) 1 % (0-3) Basophils (%) (Auto) 1 % (0-3) Neutrophils # (Auto) 2.6 x10^3uL (1.8-7.7) Lymphocytes # (Auto) 1.1 x10^3/uL (1.0-4.8) Monocytes # (Auto) 0.5 x10^3/uL (0.0-1.1) Eosinophils # (Auto) 0.1 x10^3/uL (0.0-0.7) Basophils # (Auto) 0.0 x10^3/uL (0.0-0.2) Sodium Level 135 mmol/L (136-145) L Potassium Level 4.2 mmol/L (3.5-5.1) Chloride Level 98 mmol/L (98-107) Carbon Dioxide Level 30 mmol/L (21-32) Anion Gap 7 (6-14) Blood Urea Nitrogen 37 mg/dL (7-20) H Creatinine 2.8 mg/dL (0.6-1.0) H Estimated GFR (Cockcroft-Gault) 19.9 BUN/Creatinine Ratio 13 (6-20) Glucose Level 113 mg/dL (70-99) H Calcium Level 9.2 mg/dL (8.5-10.1) Total Bilirubin 0.5 mg/dL (0.2-1.0) Aspartate Amino Transferase (AST) 17 U/L (15-37) Alanine Aminotransferase (ALT) 17 U/L (14-59) Alkaline Phosphatase 100 U/L (46-116) Total Protein 8.2 g/dL (6.4-8.2) Albumin 3.3 g/dL (3.4-5.0) L Albumin/Globulin Ratio 0.7 (1.0-1.7) L Valproic Acid Level 69 mcg/mL (50-100) Valproic Acid Last Dose Date 03/08/17 Valproic Acid Last Dose Time 2100 Urine Collection Type Unknown Urine Color Yellow Urine Clarity Cloudy Urine pH 7.0 Urine Specific [place] 1.020 Urine Protein >100 mg/dl (NEG-TRACE) Urine Glucose (UA) Neg mg/dL (NEG) Urine Ketones (Stick) Trace mg/dL (NEG) Urine Blood Neg (NEG) Urine Nitrite Neg (NEG) Urine Bilirubin Neg (NEG) Urine Urobilinogen Dipstick 0.2 mg/dL (0.2 mg/dL) Urine Leukocyte Esterase Large (NEG) Urine RBC 6-10 /HPF (0-2) Urine WBC Tntc /HPF (0-4) Urine Squamous Epithelial Cells None /LPF Urine Amorphous Sediment Present /HPF Urine Bacteria Many /HPF (0-FEW) Urine Mucus Mod /LPF Current Medications: Meds: Current Medications Acetaminophen (Tylenol) 650 mg PRN Q6HRS PRN PO PAIN / TEMP; Start 03/02/17 at 20:30; Status Cancel Multi-Ingredient Ointment (Analgesic [place]) 1 ino PRN QID PRN TP MUSCLE PAIN Last administered on 03/07/17 20:38; Start 03/02/17 at 20:30 Al Hydroxide/Mg Hydroxide (Mylanta Plus Xs) 15 ml PRN AFTMEALHC PRN PO DYSPEPSIA; Start 03/02/17 at 20:30 Magnesium Hydroxide (Milk Of Magnesia) 2,400 mg PRN QHS PRN PO CONSTIPATION; Start 03/02/17 at 20:30; Status Cancel Benztropine Mesylate (Cogentin) 0.5 mg DAILY PO Last administered on 03/09/17 07:56; Start 03/03/17 at 09:00 Buspirone HCl (Buspar) 5 mg QID PO Last administered on 03/09/17 19:56; Start 03/03/17 at 09:00 Divalproex Sodium (Depakote Sprinkles) 250 mg BID PO Last administered on 19:55; Start 03/03/17 at 09:00 Donepezil HCl (Aricept) 5 mg HS PO Last administered on 03/09/17 19:56; Start 03/03/17 at 21:00 Lorazepam (Ativan) 0.5 mg PRN Q6HRS PRN PO ANXIETY / AGITATION; Start 03/03/17 at 00:00 Loxapine Succinate (Loxitane) 5 mg HS PO Last administered on 03/07/17 19:56; Start 03/03/17 at 21:00; Stop 03/07/17 at 20:22; Status DC Memantine (Namenda) 10 mg BID PO Last administered on 03/09/17 19:57; Start at 09:00 Olanzapine (ZyPREXA) 2.5 mg PRN Q2HR PRN PO PSYCHOSIS; Start 03/03/17 at 00:00 Acetaminophen (Tylenol) 650 mg PRN Q4HRS PRN PO PAIN / TEMP; Start 03/03/17 at 08:00 Amlodipine Besylate (Norvasc) 5 mg DAILY PO Last administered on 03/04/17 09: 06; Start 03/03/17 at 09:00; Stop 03/04/17 at 14:28; Status DC Atorvastatin Calcium (Lipitor) 5 mg QHS PO Last administered on 03/09/17 19:55 ; Start 03/03/17 at 21:00 Benzonatate (Tessalon Perle) 100 mg PRN Q4HRS PRN PO COUGH; Start 03/03/17 at 08:00 Calcium Polycarbophil (Fibercon) 625 mg DAILY PO Last administered on 03/09/17 07:56; Start 03/03/17 at 09:00 Carvedilol (Coreg) 12.5 mg BID PO Last administered on 03/09/17 19:56; Start at 09:00 Cetirizine HCl (ZyrTEC) 10 mg DAILY PO Last administered on 03/09/17 07:55; Start 03/03/17 at 09:00 Ferrous Sulfate (Feosol) 325 mg BID PO Last administered on 03/09/17 19:57; Start 03/03/17 at 09:00 Fluticasone Propionate (Flonase) 2 spray PRN BID PRN NS rhinitis; Start at 08:00 Multivit/Ca Carb/ B Cmplx/FA/Prenat (Nephro-Fady) 1 tab DAILY PO Last administered on 03/09/17 07:55; Start 03/03/17 at 09:00 Furosemide (Lasix) 20 mg DAILY PO Last administered on 03/04/17 09:06; Start 03/03/17 at 09:00; Stop 03/04/17 at 14:28; Status DC Guaifenesin (Mucinex Er) 600 mg BID PO Last administered on 03/09/17 19:56; Start 03/03/17 at 09:00 Hydralazine HCl (Apresoline) 50 mg TID PO Last administered on 03/09/17 19:57; Start 03/03/17 at 09:00 Albuterol Sulfate (Ventolin) 2.5 mg PRN QID PRN NEB SHORTNESS OF BREATH; Start 03/03/17 at 08:30 Albuterol/ Ipratropium (Duoneb) 3 ml QID NEB Last administered on 03/09/17 16: 01; Start 03/03/17 at 09:00 Levothyroxine Sodium (Synthroid) 75 mcg DAILY06 PO Last administered on 06:28; Start 03/03/17 at 09:00 Montelukast Sodium (Singulair) 10 mg HS PO Last administered on 03/09/17 19:56 ; Start 03/03/17 at 21:00 Rifaximin (Xifaxan) 550 mg BID PO Last administered on 03/09/17 19:56; Start at 09:00 Sennosides (Senna) 8.6 mg HS PO Last administered on 03/09/17 19:57; Start at 21:00 Sodium Chloride (Saline Mist Nasal) 2 ino PRN Q4HRS PRN NS rhinitis; Start at 08:00 Tramadol HCl (Ultram) 50 mg PRN Q6HRS PRN PO MODERATE PAIN; Start 03/03/17 at 08:00; Stop 03/04/17 at 14:29; Status DC Amantadine HCl (Symmetrel) 100 mg BID PO Last administered on 03/09/17 19:56; Start 03/03/17 at 09:00 Artificial Tears (Artificial Tears) 2 drop DAILY OU Last administered on 11:32; Start 03/03/17 at 09:00; Stop 03/03/17 at 15:06; Status DC Guaifenesin (Robitussin Dm) 10 ml PRN Q4HRS PRN PO COUGH; Start 03/03/17 at 08: 30 Epoetin [place]qu[place] (Procrit) 6,000 unit QMWF@0900 SQ Last administered on 03/08/17 07 :15; Start 03/03/17 at 09:00 Non-Formulary Medication 1 puff DAILY IH ; Start 03/03/17 at 09:00; Status UNV Lactulose 20 gm DAILY PO Last administered on 03/09/17 07:53; Start 03/03/17 at 09:00 Magnesium Hydroxide (Milk Of Magnesia) 2,400 mg PRN DAILY PRN PO CONSTIPATION Last administered on 03/06/17 03:10; Start 03/03/17 at 08:30 Pantoprazole Sodium (Protonix) 40 mg DAILYAC PO Last administered on 03/09/17 07:55; Start 03/03/17 at 09:00 Non-Formulary Medication 1 ino BID TP ; Start 03/03/17 at 09:00; Status UNV Vitamin D (Vitamin D3) 50,000 unit WEEKLY PO Last administered on 03/03/17 11: 24; Start 03/03/17 at 09:00 Budesonide (Pulmicort) 0.5 mg RTBID NEB Last administered on 03/08/17 11:07; Start 03/03/17 at 20:00 Artificial Tears (Artificial Tears) 2 drop DAILY OU Last administered on 07:53; Start 03/03/17 at 15:06 Sertraline HCl (Zoloft) 25 mg QHS PO Last administered on 03/09/17 19:55; Start 03/04/17 at 21:00 Amlodipine Besylate (Norvasc) 10 mg DAILY PO Last administered on 03/09/17 07: 53; Start 03/05/17 at 09:00 Furosemide (Lasix) 40 mg DAILY PO Last administered on 03/09/17 07:56; Start at 09:00; Stop 03/09/17 at 16:59; Status DC Amlodipine Besylate (Norvasc) 5 mg 1X ONCE PO Last administered on 03/04/17 14:45; Start 03/04/17 at 14:45; Stop 03/04/17 at 14:49; Status DC Furosemide (Lasix) 20 mg 1X ONCE PO Last administered on 03/04/17 15:27; Start 03/04/17 at 14:45; Stop 03/04/17 at 14:49; Status DC Tramadol HCl (Ultram) 50 mg PRN Q12HR PRN PO MODERATE PAIN; Start 03/04/17 at 21:00 Loxapine Succinate (Loxitane) 7.5 mg QHS PO Last administered on 03/07/17 20:35 ; Start 03/07/17 at 21:00; Stop 03/07/17 at 21:01; Status DC Loxapine Succinate (Loxitane) 10 mg QHS PO Last administered on 03/09/17 19:55 ; Start 03/08/17 at 21:00 Active Scripts Active Reported Zyprexa (Olanzapine) 2.5 Mg Tablet 2.5 Mg PO PRN Q2HR PRN Xifaxan (Rifaximin) 550 Mg Tablet 550 Mg PO BID Tramadol Hcl (Tramadol HCl) 50 Mg Tablet 50 Mg PO PRN Q6HRS PRN Tessalon Perle (Benzonatate) 100 Mg Capsule 100 Mg PO PRN Q4HRS PRN Senokot (Sennosides) 8.6 Mg Tablet 8.6 Mg PO HS Saline Nasal [place] (Sodium Chloride) 30 Ml [place] 2 Sprays NS PRN Q4HRS PRN Robitussin Nighttime Cough Dm (Dextromethorphan Hb/Doxylamine) 237 Ml Liquid 10 Ml PO PRN Q4HRS PRN Omeprazole 40 Mg Capsule.dr 40 Mg PO [id number] Nephro-Fady Tablet (Folic Acid/Vitamin B Comp W-C) 0.8 Mg Tablet 1 Tab PO DAILY PRN Alum-Mag Hydroxide-Simeth Liq (Mag Hydrox/Al Hydrox/Simeth) 360 Ml Oral.susp 30 Ml PO PRN Q4HRS PRN Montelukast Sodium Tablet (Montelukast Sodium) 10 Mg Tablet 10 Mg PO HS Milk Of Magnesia (Magnesium Hydroxide) 2,400 Mg/10 Ml Oral.susp 2,400 Mg PO PRN DAILY PRN Namenda (Memantine Hcl) 10 Mg Tablet 10 Mg PO BID Loxapine (Loxapine Succinate) 5 Mg Capsule 5 Mg PO Lorazepam 0.5 Mg Tablet 0.5 Mg PO PRN Q6HRS PRN Levothyroxine Sodium 75 Mcg Tablet 75 Mcg PO DAILYAC Lactulose 10 Gm/15 Ml Solution 30 Ml PO DAILY Duoneb 0.5-3(2.5) Mg/3 Ml (Albuterol/Ipratropium) 3 Ml Ampul.neb 3 Ml NEB QID Duoneb 0.5-3(2.5) Mg/3 Ml (Albuterol/Ipratropium) 3 Ml Ampul.neb 3 Ml NEB PRN QID PRN Icy Hot Cream (Methyl Salicylate/Menthol) 35.4 Gm Cream..g. 1 Applic TP PRN Q12HR PRN Hydralazine Hcl 50 Mg Tablet 50 Mg PO TID Guaifenesin 600 Mg Tablet.er 600 Mg PO BID Furosemide 20 Mg Tablet 20 Mg PO DAILY Fluticasone Propionate Nasal [place] (Fluticasone Propionate) 16 Gm [place].susp 2 [place] NS PRN BID PRN Breo Ellipta 100-25 Mcg Inh (Fluticasone/Vilanterol) 1 Each Aer.pow.ba 1 Puff IH DAILY Ferrous Sulfate 325 Mg Tablet 325 Mg PO BID Epogen (Epoetin Jaquan) 3,000 Unit/1 Ml Vial 6,000 Unit SQ MON,WED,FRI Donepezil Hcl 5 Mg Tablet 5 Mg PO HS Depakote Sprinkle (Divalproex Sodium) 125 Mg Cap.sprink 250 Mg PO BID Benadryl (Diphenhydramine Hcl) 25 Mg Capsule 25 Mg PO PRN Q8HRS PRN Cetirizine Hcl 10 Mg Tablet 10 Mg PO DAILY Carvedilol 12.5 Mg Tablet 12.5 Mg PO BID Calcium Polycarbophil 625 Mg Tablet 625 Mg PO DAILY Buspirone Hcl 5 Mg Tablet 5 Mg PO QID Benztropine Mesylate 0.5 Mg Tablet 0.5 Mg PO DAILY Atorvastatin Calcium 10 Mg Tablet 5 Mg PO QHS PRN Artificial Tears Eye Drops (Dextran 70/Hypromellose) 15 Ml Drops 2 Drop OU DAILY Amlodipine Besylate 5 Mg Tablet 5 Mg PO DAILY Amantadine (Amantadine Hcl) 100 Mg Tablet 100 Mg PO BID Aloe [place] (Petrolatum,White) 226 Gm Oint...g. 1 Ino TP BID Tylenol (Acetaminophen) 325 Mg Tablet 650 Mg PO PRN Q4HRS PRN Diagnosis: Problems: (1) Anxiety disorder (2) Impulse control disorder (3) Bipolar 1 disorder, mixed, moderate (4) Dementia in Alzheimer's disease with delusions SHANE BUTTS MD Mar 09, 2017 20:48
[2017-03-10] MEDS: IPRATRPIUM/ALBUTEROL 0.5/2.5MG 3 ML NEBU. NEB SCH ×4 (05:00→21:11)
[2017-03-10 06:01] VITALS: BP 167/66
[2017-03-10] MEDS: LEVOTHYROXINE 75 MCG TABLET PO SCH (06:07)
[2017-03-10] MEDS: BUDESONIDE 0.5 MG/2 ML NEBU NEB SCH ×2 (08:00→21:11)
[2017-03-10] MEDS: LACTULOSE 20 GM/30 ML SOLUTION. PO SCH (08:11)
[2017-03-10] MEDS: DIVALPROEX 125 MG CAP.SPRINK PO SCH ×2 (08:12→20:31)
[2017-03-10] MEDS: BENZTROPINE MESYLATE 0.5 MG TABLET PO SCH (08:25)
[2017-03-10] MEDS: PANTOPRAZOLE 40 MG TABLET. PO SCH (08:25)
[2017-03-10] MEDS: FERROUS SULFATE 325 MG TABLET PO SCH ×2 (08:25→20:30)
[2017-03-10] MEDS: CALCIUM POLYCARBOPHIL 625 MG TABLET PO SCH (08:25)
[2017-03-10] MEDS: busPIRone 5 MG TABLET. PO SCH ×4 (08:25→20:30)
[2017-03-10] MEDS: amLODIPine BESYLATE 10 MG TABLET PO SCH (08:25)
[2017-03-10] MEDS: CETIRIZINE HCL 10 MG TABLET PO SCH (08:26)
[2017-03-10] MEDS: MEMANTINE 10 MG TABLET. PO SCH ×2 (08:26→20:31)
[2017-03-10] MEDS: CARVEDILOL 12.5 MG TABLET PO SCH ×2 (08:26→20:33)
[2017-03-10] MEDS: AMANTADINE HCL 100 MG CAPSULE PO SCH ×2 (08:27→20:35)
[2017-03-10] MEDS: FOLIC/VIT B COMP W-C (RENAL) TABLET. PO SCH (08:27)
[2017-03-10] MEDS: rifAXIMin 550 MG TABLET PO SCH ×2 (08:28→20:35)
[2017-03-10] MEDS: CHOLECALCIFEROL (VITAMIN D3) 50,000 UNIT CAPSULE PO SCH (08:32)
[2017-03-10] MEDS: POLYVINYL ALCOHOL 1.4% OPHTH SOLUTION 15ML BOTTLE. OU SCH (08:33)
[2017-03-10] MEDS: EPOETIN ALFA 10,000 UNIT/ML VIAL. SQ SCH (08:33)
[2017-03-10 16:13] VITALS: BP 149/69
--- NOTE | 2017-03-10 19:54 | PDOC ---
Exam Robin Demential Exam: Robin Note: Please also refer to the separate dictated note~for this date of service dictated separately.~Patient seen individually. Discussed the patient with Nursing staff reviewed the chart.~Reviewed interim history and current functioning. Reviewed vital signs,~Labs/ Radiology~and current medications noted below. Continue current treatment with the changes noted in the dictated addendum note Assessment: Vital Signs: Vital Signs Date Time Temp Pulse Resp B/P (MAP) Pulse Ox O2 Delivery O2 Flow Rate FiO2 03/10/17 16:13 97.9 54 18 149/69 (95) 100 1.5 03/10/17 15:50 Nasal Cannula I&O Intake and Output 03/10/17 07:00 Intake Total 800 ml Output Total 550 ml Balance 250 ml Intake Oral 800 ml Output Urine Total 550 ml Labs: Laboratory Tests Test 03/10/17 07:06 Glucose (Fingerstick) 67 mg/dL (70-99) L Current Medications: Meds: Current Medications Acetaminophen (Tylenol) 650 mg PRN Q6HRS PRN PO PAIN / TEMP; Start 03/02/17 at 20:30; Status Cancel Multi-Ingredient Ointment (Analgesic [place]) 1 ino PRN QID PRN TP MUSCLE PAIN Last administered on 03/07/17 20:38; Start 03/02/17 at 20:30 Al Hydroxide/Mg Hydroxide (Mylanta Plus Xs) 15 ml PRN AFTMEALHC PRN PO DYSPEPSIA; Start 03/02/17 at 20:30 Magnesium Hydroxide (Milk Of Magnesia) 2,400 mg PRN QHS PRN PO CONSTIPATION; Start 03/02/17 at 20:30; Status Cancel Benztropine Mesylate (Cogentin) 0.5 mg DAILY PO Last administered on 03/10/17 08:25; Start 03/03/17 at 09:00 Buspirone HCl (Buspar) 5 mg QID PO Last administered on 03/10/17 16:43; Start 03/03/17 at 09:00 Divalproex Sodium (Depakote Sprinkles) 250 mg BID PO Last administered on 08:12; Start 03/03/17 at 09:00 Donepezil HCl (Aricept) 5 mg HS PO Last administered on 03/09/17 19:56; Start 03/03/17 at 21:00 Lorazepam (Ativan) 0.5 mg PRN Q6HRS PRN PO ANXIETY / AGITATION; Start 03/03/17 at 00:00 Loxapine Succinate (Loxitane) 5 mg HS PO Last administered on 03/07/17 19:56; Start 03/03/17 at 21:00; Stop 03/07/17 at 20:22; Status DC Memantine (Namenda) 10 mg BID PO Last administered on 03/10/17 08:26; Start at 09:00 Olanzapine (ZyPREXA) 2.5 mg PRN Q2HR PRN PO PSYCHOSIS; Start 03/03/17 at 00:00 Acetaminophen (Tylenol) 650 mg PRN Q4HRS PRN PO PAIN / TEMP; Start 03/03/17 at 08:00 Amlodipine Besylate (Norvasc) 5 mg DAILY PO Last administered on 03/04/17 09: 06; Start 03/03/17 at 09:00; Stop 03/04/17 at 14:28; Status DC Atorvastatin Calcium (Lipitor) 5 mg QHS PO Last administered on 03/09/17 19:55 ; Start 03/03/17 at 21:00 Benzonatate (Tessalon Perle) 100 mg PRN Q4HRS PRN PO COUGH; Start 03/03/17 at 08:00 Calcium Polycarbophil (Fibercon) 625 mg DAILY PO Last administered on 03/10/17 08:25; Start 03/03/17 at 09:00 Carvedilol (Coreg) 12.5 mg BID PO Last administered on 03/10/17 08:26; Start at 09:00 Cetirizine HCl (ZyrTEC) 10 mg DAILY PO Last administered on 03/10/17 08:26; Start 03/03/17 at 09:00 Ferrous Sulfate (Feosol) 325 mg BID PO Last administered on 03/10/17 08:25; Start 03/03/17 at 09:00 Fluticasone Propionate (Flonase) 2 spray PRN BID PRN NS rhinitis; Start at 08:00 Multivit/Ca Carb/ B Cmplx/FA/Prenat (Nephro-Fady) 1 tab DAILY PO Last administered on 03/10/17 08:27; Start 03/03/17 at 09:00 Furosemide (Lasix) 20 mg DAILY PO Last administered on 03/04/17 09:06; Start 03/03/17 at 09:00; Stop 03/04/17 at 14:28; Status DC Guaifenesin (Mucinex Er) 600 mg BID PO Last administered on 03/10/17 08:26; Start 03/03/17 at 09:00 Hydralazine HCl (Apresoline) 50 mg TID PO Last administered on 03/10/17 13:33; Start 03/03/17 at 09:00 Albuterol Sulfate (Ventolin) 2.5 mg PRN QID PRN NEB SHORTNESS OF BREATH; Start 03/03/17 at 08:30 Albuterol/ Ipratropium (Duoneb) 3 ml QID NEB Last administered on 03/10/17 15: 50; Start 03/03/17 at 09:00 Levothyroxine Sodium (Synthroid) 75 mcg DAILY06 PO Last administered on 06:07; Start 03/03/17 at 09:00 Montelukast Sodium (Singulair) 10 mg HS PO Last administered on 03/09/17 19:56 ; Start 03/03/17 at 21:00 Rifaximin (Xifaxan) 550 mg BID PO Last administered on 03/10/17 08:28; Start at 09:00 Sennosides (Senna) 8.6 mg HS PO Last administered on 03/09/17 19:57; Start at 21:00 Sodium Chloride (Saline Mist Nasal) 2 ino PRN Q4HRS PRN NS rhinitis; Start at 08:00 Tramadol HCl (Ultram) 50 mg PRN Q6HRS PRN PO MODERATE PAIN; Start 03/03/17 at 08:00; Stop 03/04/17 at 14:29; Status DC Amantadine HCl (Symmetrel) 100 mg BID PO Last administered on 03/10/17 08:27; Start 03/03/17 at 09:00 Artificial Tears (Artificial Tears) 2 drop DAILY OU Last administered on 11:32; Start 03/03/17 at 09:00; Stop 03/03/17 at 15:06; Status DC Guaifenesin (Robitussin Dm) 10 ml PRN Q4HRS PRN PO COUGH; Start 03/03/17 at 08: 30 Epoetin [place]qu[place] (Procrit) 6,000 unit QMWF@0900 SQ Last administered on 03/10/17 08 :33; Start 03/03/17 at 09:00; Stop 03/10/17 at 18:12; Status DC Non-Formulary Medication 1 puff DAILY IH ; Start 03/03/17 at 09:00; Status UNV Lactulose 20 gm DAILY PO Last administered on 03/10/17 08:11; Start 03/03/17 at 09:00 Magnesium Hydroxide (Milk Of Magnesia) 2,400 mg PRN DAILY PRN PO CONSTIPATION Last administered on 03/06/17 03:10; Start 03/03/17 at 08:30 Pantoprazole Sodium (Protonix) 40 mg DAILYAC PO Last administered on 03/10/17 08:25; Start 03/03/17 at 09:00 Non-Formulary Medication 1 ino BID TP ; Start 03/03/17 at 09:00; Status UNV Vitamin D (Vitamin D3) 50,000 unit WEEKLY PO Last administered on 03/10/17 08: 32; Start 03/03/17 at 09:00 Budesonide (Pulmicort) 0.5 mg RTBID NEB Last administered on 03/09/17 20:47; Start 03/03/17 at 20:00 Artificial Tears (Artificial Tears) 2 drop DAILY OU Last administered on 08:33; Start 03/03/17 at 15:06 Sertraline HCl (Zoloft) 25 mg QHS PO Last administered on 03/09/17 19:55; Start 03/04/17 at 21:00 Amlodipine Besylate (Norvasc) 10 mg DAILY PO Last administered on 03/10/17 08: 25; Start 03/05/17 at 09:00 Furosemide (Lasix) 40 mg DAILY PO Last administered on 03/09/17 07:56; Start at 09:00; Stop 03/09/17 at 16:59; Status DC Amlodipine Besylate (Norvasc) 5 mg 1X ONCE PO Last administered on 03/04/17 14:45; Start 03/04/17 at 14:45; Stop 03/04/17 at 14:49; Status DC Furosemide (Lasix) 20 mg 1X ONCE PO Last administered on 03/04/17 15:27; Start 03/04/17 at 14:45; Stop 03/04/17 at 14:49; Status DC Tramadol HCl (Ultram) 50 mg PRN Q12HR PRN PO MODERATE PAIN; Start 03/04/17 at 21:00 Loxapine Succinate (Loxitane) 7.5 mg QHS PO Last administered on 03/07/17 20:35 ; Start 03/07/17 at 21:00; Stop 03/07/17 at 21:01; Status DC Loxapine Succinate (Loxitane) 10 mg QHS PO Last administered on 03/09/17 19:55 ; Start 03/08/17 at 21:00 Active Scripts Active Reported Zyprexa (Olanzapine) 2.5 Mg Tablet 2.5 Mg PO PRN Q2HR PRN Xifaxan (Rifaximin) 550 Mg Tablet 550 Mg PO BID Tramadol Hcl (Tramadol HCl) 50 Mg Tablet 50 Mg PO PRN Q6HRS PRN Tessalon Perle (Benzonatate) 100 Mg Capsule 100 Mg PO PRN Q4HRS PRN Senokot (Sennosides) 8.6 Mg Tablet 8.6 Mg PO HS Saline Nasal [place] (Sodium Chloride) 30 Ml [place] 2 Sprays NS PRN Q4HRS PRN Robitussin Nighttime Cough Dm (Dextromethorphan Hb/Doxylamine) 237 Ml Liquid 10 Ml PO PRN Q4HRS PRN Omeprazole 40 Mg Capsule.dr 40 Mg PO [id number] Nephro-Fady Tablet (Folic Acid/Vitamin B Comp W-C) 0.8 Mg Tablet 1 Tab PO DAILY PRN Alum-Mag Hydroxide-Simeth Liq (Mag Hydrox/Al Hydrox/Simeth) 360 Ml Oral.susp 30 Ml PO PRN Q4HRS PRN Montelukast Sodium Tablet (Montelukast Sodium) 10 Mg Tablet 10 Mg PO HS Milk Of Magnesia (Magnesium Hydroxide) 2,400 Mg/10 Ml Oral.susp 2,400 Mg PO PRN DAILY PRN Namenda (Memantine Hcl) 10 Mg Tablet 10 Mg PO BID Loxapine (Loxapine Succinate) 5 Mg Capsule 5 Mg PO Lorazepam 0.5 Mg Tablet 0.5 Mg PO PRN Q6HRS PRN Levothyroxine Sodium 75 Mcg Tablet 75 Mcg PO DAILYAC Lactulose 10 Gm/15 Ml Solution 30 Ml PO DAILY Duoneb 0.5-3(2.5) Mg/3 Ml (Albuterol/Ipratropium) 3 Ml Ampul.neb 3 Ml NEB QID Duoneb 0.5-3(2.5) Mg/3 Ml (Albuterol/Ipratropium) 3 Ml Ampul.neb 3 Ml NEB PRN QID PRN Icy Hot Cream (Methyl Salicylate/Menthol) 35.4 Gm Cream..g. 1 Applic TP PRN Q12HR PRN Hydralazine Hcl 50 Mg Tablet 50 Mg PO TID Guaifenesin 600 Mg Tablet.er 600 Mg PO BID Furosemide 20 Mg Tablet 20 Mg PO DAILY Fluticasone Propionate Nasal [place] (Fluticasone Propionate) 16 Gm [place].susp 2 [place] NS PRN BID PRN Breo Ellipta 100-25 Mcg Inh (Fluticasone/Vilanterol) 1 Each Aer.pow.ba 1 Puff IH DAILY Ferrous Sulfate 325 Mg Tablet 325 Mg PO BID Epogen (Epoetin Jaquan) 3,000 Unit/1 Ml Vial 6,000 Unit SQ MON,WED,FRI Donepezil Hcl 5 Mg Tablet 5 Mg PO HS Depakote Sprinkle (Divalproex Sodium) 125 Mg Cap.sprink 250 Mg PO BID Benadryl (Diphenhydramine Hcl) 25 Mg Capsule 25 Mg PO PRN Q8HRS PRN Cetirizine Hcl 10 Mg Tablet 10 Mg PO DAILY Carvedilol 12.5 Mg Tablet 12.5 Mg PO BID Calcium Polycarbophil 625 Mg Tablet 625 Mg PO DAILY Buspirone Hcl 5 Mg Tablet 5 Mg PO QID Benztropine Mesylate 0.5 Mg Tablet 0.5 Mg PO DAILY Atorvastatin Calcium 10 Mg Tablet 5 Mg PO QHS PRN Artificial Tears Eye Drops (Dextran 70/Hypromellose) 15 Ml Drops 2 Drop OU DAILY Amlodipine Besylate 5 Mg Tablet 5 Mg PO DAILY Amantadine (Amantadine Hcl) 100 Mg Tablet 100 Mg PO BID Aloe [place] (Petrolatum,White) 226 Gm Oint...g. 1 Ino TP BID Tylenol (Acetaminophen) 325 Mg Tablet 650 Mg PO PRN Q4HRS PRN Diagnosis: Problems: (1) Anxiety disorder (2) Impulse control disorder (3) Bipolar 1 disorder, mixed, moderate (4) Dementia in Alzheimer's disease with delusions SHANE BUTTS MD Mar 10, 2017 19:54
[2017-03-10] MEDS: SERTRALINE 25 MG TABLET. PO SCH (20:30)
[2017-03-10] MEDS: DONEPEZIL HCL 5 MG TABLET. PO SCH (20:30)
[2017-03-10] MEDS: SENNOSIDES 8.6 MG TABLET PO SCH (20:31)
[2017-03-10] MEDS: ATORVASTATIN CALCIUM 10 MG TABLET. PO SCH (20:31)
[2017-03-10] MEDS: MONTELUKAST 10 MG TABLET. PO SCH (20:32)
[2017-03-10] MEDS: LOXAPINE SUCCINATE 5 MG CAPSULE PO SCH (20:34)
[2017-03-10 23:58] LABS: BILIRUBIN,URINE NEG (NEG); CLARITY,URINE HAZY; COLOR,URINE YELLOW; GLUCOSE,URINE NEG (NEG)
[2017-03-10 23:59] LABS: BACTERIA,URINE MANY /HPF (0-FEW); NITRITE,URINE POS (NEG); RBC,URINE OCC /HPF (0-2); SQUAMOUS EPITHELIAL CELL,UR FEW /LPF; UROBILINOGEN,URINE 0.2 mg/dL (0.2 mg/dL); WBC,URINE >40 /HPF (0-4)
[2017-03-11] MEDS: IPRATRPIUM/ALBUTEROL 0.5/2.5MG 3 ML NEBU. NEB SCH ×4 (05:26→21:00)
[2017-03-11] MEDS: LEVOTHYROXINE 75 MCG TABLET PO SCH (05:54)
[2017-03-11 06:10] VITALS: BP 184/74
[2017-03-11] MEDS: PANTOPRAZOLE 40 MG TABLET. PO SCH ×2 (07:30→08:25)
[2017-03-11] MEDS: BENZTROPINE MESYLATE 0.5 MG TABLET PO SCH (08:25)
[2017-03-11] MEDS: amLODIPine BESYLATE 10 MG TABLET PO SCH ×2 (08:26→16:29)
[2017-03-11] MEDS: DIVALPROEX 125 MG CAP.SPRINK PO SCH ×5 (08:26→21:28)
[2017-03-11] MEDS: FERROUS SULFATE 325 MG TABLET PO SCH ×5 (08:26→21:28)
[2017-03-11] MEDS: CALCIUM POLYCARBOPHIL 625 MG TABLET PO SCH (08:27)
[2017-03-11] MEDS: CETIRIZINE HCL 10 MG TABLET PO SCH (08:27)
[2017-03-11] MEDS: busPIRone 5 MG TABLET. PO SCH ×6 (08:27→21:28)
[2017-03-11] MEDS: CARVEDILOL 12.5 MG TABLET PO SCH ×5 (08:27→21:27)
[2017-03-11] MEDS: MEMANTINE 10 MG TABLET. PO SCH ×5 (08:27→21:27)
[2017-03-11] MEDS: LACTULOSE 20 GM/30 ML SOLUTION. PO SCH (08:28)
[2017-03-11] MEDS: POLYVINYL ALCOHOL 1.4% OPHTH SOLUTION 15ML BOTTLE. OU SCH (08:34)
[2017-03-11] MEDS: AMANTADINE HCL 100 MG CAPSULE PO SCH ×2 (08:34→09:00)
[2017-03-11] MEDS: rifAXIMin 550 MG TABLET PO SCH ×4 (08:34→21:33)
[2017-03-11] MEDS: FOLIC/VIT B COMP W-C (RENAL) TABLET. PO SCH (08:34)
[2017-03-11] MEDS ORDERED: DEXTROSE ORAL GEL 15 GM TUBE. ONE ×2 (09:05→09:53)
[2017-03-11] MEDS: OLANZapine 2.5 MG TABLET PO PRN ×2 (09:06→16:29)
[2017-03-11] MEDS: BUDESONIDE 0.5 MG/2 ML NEBU NEB SCH ×2 (11:38→20:00)
[2017-03-11 13:38] LABS: CALCIUM 9.2 mg/dL (8.5-10.1); CREATININE 3.4 mg/dL (0.6-1.0); GFR 15.9; POTASSIUM 4.3 mmol/L (3.5-5.1)
--- NOTE | 2017-03-11 20:17 | PDOC ---
Exam Robin Demential Exam: Robin Note: Please also refer to the separate dictated note~for this date of service dictated separately.~Patient seen individually. Discussed the patient with Nursing staff reviewed the chart.~Reviewed interim history and current functioning. Reviewed vital signs,~Labs/ Radiology~and current medications noted below. Continue current treatment with the changes noted in the dictated addendum note S/O: This is a late entry for date of service 03/08/2017 and covers the elements not covered in my initial note. I met with the patient in the evening of March 08. She slept six hours. Per nursing report, she has been calm but told the director transportation that she was having hallucinations. Review of Systems: Shortness of breath, on oxygen supplement. Impaired ambulation, on wheelchair. No CV, GI, , Eye, ENT system symptoms on review. MSE: Oriented to herself and situation. Speech is coherent, at times, a little pressured. Abstraction fair. Computation impaired. Language function intact. Mood and affect is improved. Valproic acid level is 66. Labs: Reviewed. Imp: Unchanged from initial note. Plan: Continue psychotropics mentioned in my initial note. Assessment: Vital Signs: Vital Signs Date Time Temp Pulse Resp B/P (MAP) Pulse Ox O2 Delivery O2 Flow Rate FiO2 03/11/17 16:29 62 184/74 03/11/17 11:38 98 Nasal Cannula 2.0 03/11/17 06:10 97.7 20 I&O Intake and Output 03/11/17 07:00 Intake Total 780 ml Balance 780 ml Intake Oral 780 ml Labs: Laboratory Tests Test 03/10/17 23:30 03/11/17 07:34 03/11/17 09:49 03/11/17 10:56 Urine Collection Type Unknown Urine Color Yellow Urine Clarity Hazy Urine pH 6.5 Urine Specific [place] 1.020 Urine Protein 100 mg/dl (NEG-TRACE) Urine Glucose (UA) Neg mg/dL (NEG) Urine Ketones (Stick) Neg mg/dL (NEG) Urine Blood Trace (NEG) Urine Nitrite Pos (NEG) Urine Bilirubin Neg (NEG) Urine Urobilinogen Dipstick 0.2 mg/dL (0.2 mg/dL) Urine Leukocyte Esterase Large (NEG) Urine RBC Occ /HPF (0-2) Urine WBC >40 /HPF (0-4) Urine Squamous Epithelial Cells Few /LPF Urine Bacteria Many /HPF (0-FEW) Glucose (Fingerstick) 67 mg/dL (70-99) L 68 mg/dL (70-99) L 111 mg/dL (70-99) H Test 03/11/17 12:05 03/11/17 13:22 03/11/17 15:48 Glucose (Fingerstick) 259 mg/dL (70-99) H 145 mg/dL (70-99) H Sodium Level 135 mmol/L (136-145) L Potassium Level 4.3 mmol/L (3.5-5.1) Chloride Level 98 mmol/L (98-107) Carbon Dioxide Level 25 mmol/L (21-32) Anion Gap 12 (6-14) Blood Urea Nitrogen 48 mg/dL (7-20) H Creatinine 3.4 mg/dL (0.6-1.0) H Estimated GFR (Cockcroft-Gault) 15.9 Glucose Level 88 mg/dL (70-99) Calcium Level 9.2 mg/dL (8.5-10.1) Current Medications: Meds: Current Medications Acetaminophen (Tylenol) 650 mg PRN Q6HRS PRN PO PAIN / TEMP; Start 03/02/17 at 20:30; Status Cancel Multi-Ingredient Ointment (Analgesic [place]) 1 ino PRN QID PRN TP MUSCLE PAIN Last administered on 03/07/17 20:38; Start 03/02/17 at 20:30 Al Hydroxide/Mg Hydroxide (Mylanta Plus Xs) 15 ml PRN AFTMEALHC PRN PO DYSPEPSIA; Start 03/02/17 at 20:30 Magnesium Hydroxide (Milk Of Magnesia) 2,400 mg PRN QHS PRN PO CONSTIPATION; Start 03/02/17 at 20:30; Status Cancel Benztropine Mesylate (Cogentin) 0.5 mg DAILY PO Last administered on 03/11/17 08:25; Start 03/03/17 at 09:00 Buspirone HCl (Buspar) 5 mg QID PO Last administered on 03/11/17 16:28; Start 03/03/17 at 09:00 Divalproex Sodium (Depakote Sprinkles) 250 mg BID PO Last administered on 16:27; Start 03/03/17 at 09:00 Donepezil HCl (Aricept) 5 mg HS PO Last administered on 03/10/17 20:30; Start 03/03/17 at 21:00 Lorazepam (Ativan) 0.5 mg PRN Q6HRS PRN PO ANXIETY / AGITATION Last administered on 03/11/17 10:05; Start 03/03/17 at 00:00 Loxapine Succinate (Loxitane) 5 mg HS PO Last administered on 03/07/17 19:56; Start 03/03/17 at 21:00; Stop 03/07/17 at 20:22; Status DC Memantine (Namenda) 10 mg BID PO Last administered on 03/11/17 16:27; Start at 09:00 Olanzapine (ZyPREXA) 2.5 mg PRN Q2HR PRN PO PSYCHOSIS Last administered on 16:29; Start 03/03/17 at 00:00 Acetaminophen (Tylenol) 650 mg PRN Q4HRS PRN PO PAIN / TEMP; Start 03/03/17 at 08:00 Amlodipine Besylate (Norvasc) 5 mg DAILY PO Last administered on 03/04/17 09: 06; Start 03/03/17 at 09:00; Stop 03/04/17 at 14:28; Status DC Atorvastatin Calcium (Lipitor) 5 mg QHS PO Last administered on 03/10/17 20:31 ; Start 03/03/17 at 21:00 Benzonatate (Tessalon Perle) 100 mg PRN Q4HRS PRN PO COUGH; Start 03/03/17 at 08:00 Calcium Polycarbophil (Fibercon) 625 mg DAILY PO Last administered on 03/11/17 08:27; Start 03/03/17 at 09:00 Carvedilol (Coreg) 12.5 mg BID PO Last administered on 03/11/17 16:27; Start at 09:00 Cetirizine HCl (ZyrTEC) 10 mg DAILY PO Last administered on 03/11/17 08:27; Start 03/03/17 at 09:00 Ferrous Sulfate (Feosol) 325 mg BID PO Last administered on 03/11/17 16:26; Start 03/03/17 at 09:00 Fluticasone Propionate (Flonase) 2 spray PRN BID PRN NS rhinitis; Start at 08:00 Multivit/Ca Carb/ B Cmplx/FA/Prenat (Nephro-Fady) 1 tab DAILY PO Last administered on 03/11/17 08:34; Start 03/03/17 at 09:00 Furosemide (Lasix) 20 mg DAILY PO Last administered on 03/04/17 09:06; Start 03/03/17 at 09:00; Stop 03/04/17 at 14:28; Status DC Guaifenesin (Mucinex Er) 600 mg BID PO Last administered on 03/11/17 16:28; Start 03/03/17 at 09:00 Hydralazine HCl (Apresoline) 50 mg TID PO Last administered on 03/11/17 16:27; Start 03/03/17 at 09:00 Albuterol Sulfate (Ventolin) 2.5 mg PRN QID PRN NEB SHORTNESS OF BREATH; Start 03/03/17 at 08:30 Albuterol/ Ipratropium (Duoneb) 3 ml QID NEB Last administered on 03/11/17 17: 00; Start 03/03/17 at 09:00 Levothyroxine Sodium (Synthroid) 75 mcg DAILY06 PO Last administered on 05:54; Start 03/03/17 at 09:00 Montelukast Sodium (Singulair) 10 mg HS PO Last administered on 03/10/17 20:32 ; Start 03/03/17 at 21:00 Rifaximin (Xifaxan) 550 mg BID PO Last administered on 03/10/17 20:35; Start at 09:00 Sennosides (Senna) 8.6 mg HS PO Last administered on 03/10/17 20:31; Start at 21:00 Sodium Chloride (Saline Mist Nasal) 2 ino PRN Q4HRS PRN NS rhinitis; Start at 08:00 Tramadol HCl (Ultram) 50 mg PRN Q6HRS PRN PO MODERATE PAIN; Start 03/03/17 at 08:00; Stop 03/04/17 at 14:29; Status DC Amantadine HCl (Symmetrel) 100 mg BID PO Last administered on 03/10/17 20:35; Start 03/03/17 at 09:00; Stop 03/11/17 at 14:03; Status DC Artificial Tears (Artificial Tears) 2 drop DAILY OU Last administered on 11:32; Start 03/03/17 at 09:00; Stop 03/03/17 at 15:06; Status DC Guaifenesin (Robitussin Dm) 10 ml PRN Q4HRS PRN PO COUGH; Start 03/03/17 at 08: 30 Epoetin Jaquan (Procrit) 6,000 unit QMWF@0900 SQ Last administered on 03/10/17 08 :33; Start 03/03/17 at 09:00; Stop 03/10/17 at 18:12; Status DC Non-Formulary Medication 1 puff DAILY IH ; Start 03/03/17 at 09:00; Status UNV Lactulose 20 gm DAILY PO Last administered on 03/11/17 08:28; Start 03/03/17 at 09:00 Magnesium Hydroxide (Milk Of Magnesia) 2,400 mg PRN DAILY PRN PO CONSTIPATION Last administered on 03/06/17 03:10; Start 03/03/17 at 08:30 Pantoprazole Sodium (Protonix) 40 mg DAILYAC PO Last administered on 03/10/17 08:25; Start 03/03/17 at 09:00 Non-Formulary Medication 1 ino BID TP ; Start 03/03/17 at 09:00; Status UNV Vitamin D (Vitamin D3) 50,000 unit WEEKLY PO Last administered on 03/10/17 08: 32; Start 03/03/17 at 09:00 Budesonide (Pulmicort) 0.5 mg RTBID NEB Last administered on 03/11/17 11:38; Start 03/03/17 at 20:00 Artificial Tears (Artificial Tears) 2 drop DAILY OU Last administered on 08:34; Start 03/03/17 at 15:06 Sertraline HCl (Zoloft) 25 mg QHS PO Last administered on 03/10/17 20:30; Start 03/04/17 at 21:00 Amlodipine Besylate (Norvasc) 10 mg DAILY PO Last administered on 03/11/17 16: 29; Start 03/05/17 at 09:00 Furosemide (Lasix) 40 mg DAILY PO Last administered on 03/09/17 07:56; Start at 09:00; Stop 03/09/17 at 16:59; Status DC Amlodipine Besylate (Norvasc) 5 mg 1X ONCE PO Last administered on 03/04/17 14:45; Start 03/04/17 at 14:45; Stop 03/04/17 at 14:49; Status DC Furosemide (Lasix) 20 mg 1X ONCE PO Last administered on 03/04/17 15:27; Start 03/04/17 at 14:45; Stop 03/04/17 at 14:49; Status DC Tramadol HCl (Ultram) 50 mg PRN Q12HR PRN PO MODERATE PAIN; Start 03/04/17 at 21:00 Loxapine Succinate (Loxitane) 7.5 mg QHS PO Last administered on 03/07/17 20:35 ; Start 03/07/17 at 21:00; Stop 03/07/17 at 21:01; Status DC Loxapine Succinate (Loxitane) 10 mg QHS PO Last administered on 03/10/17 20:34 ; Start 03/08/17 at 21:00 Glucose (Insta-Glucose) 15 gm STK-MED ONCE .ROUTE Last administered on 09:05; Start 03/11/17 at 09:05; Stop 03/11/17 at 09:06; Status DC Glucose (Insta-Glucose) 15 gm STK-MED ONCE .ROUTE Last administered on 10:10; Start 03/11/17 at 09:53; Stop 03/11/17 at 09:54; Status DC Amantadine HCl (Symmetrel) 100 mg Q48H PO ; Start 03/12/17 at 09:00 Sodium Chloride 1,000 ml @ 75 mls/hr [id number] IV ; Start 03/11/17 at 19:30 Active Scripts Active Reported Zyprexa (Olanzapine) 2.5 Mg Tablet 2.5 Mg PO PRN Q2HR PRN Xifaxan (Rifaximin) 550 Mg Tablet 550 Mg PO BID Tramadol Hcl (Tramadol HCl) 50 Mg Tablet 50 Mg PO PRN Q6HRS PRN Tessalon Perle (Benzonatate) 100 Mg Capsule 100 Mg PO PRN Q4HRS PRN Senokot (Sennosides) 8.6 Mg Tablet 8.6 Mg PO HS Saline Nasal [place] (Sodium Chloride) 30 Ml [place] 2 Sprays NS PRN Q4HRS PRN Robitussin Nighttime Cough Dm (Dextromethorphan Hb/Doxylamine) 237 Ml Liquid 10 Ml PO PRN Q4HRS PRN Omeprazole 40 Mg Capsule.dr 40 Mg PO [id number] Nephro-Fady Tablet (Folic Acid/Vitamin B Comp W-C) 0.8 Mg Tablet 1 Tab PO DAILY PRN Alum-Mag Hydroxide-Simeth Liq (Mag Hydrox/Al Hydrox/Simeth) 360 Ml Oral.susp 30 Ml PO PRN Q4HRS PRN Montelukast Sodium Tablet (Montelukast Sodium) 10 Mg Tablet 10 Mg PO HS Milk Of Magnesia (Magnesium Hydroxide) 2,400 Mg/10 Ml Oral.susp 2,400 Mg PO PRN DAILY PRN Namenda (Memantine Hcl) 10 Mg Tablet 10 Mg PO BID Loxapine (Loxapine Succinate) 5 Mg Capsule 5 Mg PO Lorazepam 0.5 Mg Tablet 0.5 Mg PO PRN Q6HRS PRN Levothyroxine Sodium 75 Mcg Tablet 75 Mcg PO DAILYAC Lactulose 10 Gm/15 Ml Solution 30 Ml PO DAILY Duoneb 0.5-3(2.5) Mg/3 Ml (Albuterol/Ipratropium) 3 Ml Ampul.neb 3 Ml NEB QID Duoneb 0.5-3(2.5) Mg/3 Ml (Albuterol/Ipratropium) 3 Ml Ampul.neb 3 Ml NEB PRN QID PRN Icy Hot Cream (Methyl Salicylate/Menthol) 35.4 Gm Cream..g. 1 Applic TP PRN Q12HR PRN Hydralazine Hcl 50 Mg Tablet 50 Mg PO TID Guaifenesin 600 Mg Tablet.er 600 Mg PO BID Furosemide 20 Mg Tablet 20 Mg PO DAILY Fluticasone Propionate Nasal [place] (Fluticasone Propionate) 16 Gm [place].susp 2 [place] NS PRN BID PRN Breo Ellipta 100-25 Mcg Inh (Fluticasone/Vilanterol) 1 Each Aer.pow.ba 1 Puff IH DAILY Ferrous Sulfate 325 Mg Tablet 325 Mg PO BID Epogen (Epoetin Jaquan) 3,000 Unit/1 Ml Vial 6,000 Unit SQ MON,WED,FRI Donepezil Hcl 5 Mg Tablet 5 Mg PO HS Depakote Sprinkle (Divalproex Sodium) 125 Mg Cap.sprink 250 Mg PO BID Benadryl (Diphenhydramine Hcl) 25 Mg Capsule 25 Mg PO PRN Q8HRS PRN Cetirizine Hcl 10 Mg Tablet 10 Mg PO DAILY Carvedilol 12.5 Mg Tablet 12.5 Mg PO BID Calcium Polycarbophil 625 Mg Tablet 625 Mg PO DAILY Buspirone Hcl 5 Mg Tablet 5 Mg PO QID Benztropine Mesylate 0.5 Mg Tablet 0.5 Mg PO DAILY Atorvastatin Calcium 10 Mg Tablet 5 Mg PO QHS PRN Artificial Tears Eye Drops (Dextran 70/Hypromellose) 15 Ml Drops 2 Drop OU DAILY Amlodipine Besylate 5 Mg Tablet 5 Mg PO DAILY Amantadine (Amantadine Hcl) 100 Mg Tablet 100 Mg PO BID Aloe Mclean (Petrolatum,White) 226 Gm Oint...g. 1 Ino TP BID Tylenol (Acetaminophen) 325 Mg Tablet 650 Mg PO PRN Q4HRS PRN SHANE BUTTS MD Mar 11, 2017 20:17
--- NOTE | 2017-03-11 20:54 | PDOC ---
Exam Robin Demential Exam: Robin Note: Please also refer to the separate dictated note~for this date of service dictated separately.~Patient seen individually. Discussed the patient with Nursing staff reviewed the chart.~Reviewed interim history and current functioning. Reviewed vital signs,~Labs/ Radiology~and current medications noted below. Continue current treatment with the changes noted in the dictated addendum note DATE OF SERVICE: 03/09/2017. PSYCHIATRIC PROGRESS NOTE This is a late entry for Date of Service 03/09/2017. The patient seen individually on rounds the evening of 03/09/2017. Discussed with nursing staff. Reviewed the chart. Per nursing report the patient was quite disorganized this morning. Speech is somewhat slurred, difficult to answer questions. Her UA is possibly reflective of UTI with white cell counts too numerous to count. Culture is awaited and we will then treat it. Fluid intake has been increased to 1500 cc. REVIEW OF SYSTEMS Ambulation impaired. Shortness of breath on oxygen supplements. No CV, GI, , eye, ENT systems symptoms on review. MENTAL STATUS EXAM: Oriented to herself and situation. Speech difficult to understand, slightly pressured. Abstraction fair. Computation impaired. Language function intact. Attention span short. No active hallucination, suicida,l or homicidal ideation. LABS: Reviewed. IMPRESSION: Unchanged from initial note and probable UTI. PLAN: Treat the UTI per Dr. aMce. Continue current psychotropics. Valproic acid level therapeutic at 69. I feel some of the ongoing confusion is consequent to her UTI, and we will see how she does post-treatment before deciding on changing psychotropics. Assessment: Vital Signs: Vital Signs Date Time Temp Pulse Resp B/P (MAP) Pulse Ox O2 Delivery O2 Flow Rate FiO2 03/11/17 16:29 62 184/74 03/11/17 11:38 98 Nasal Cannula 2.0 03/11/17 06:10 97.7 20 I&O Intake and Output 03/11/17 07:00 Intake Total 780 ml Balance 780 ml Intake Oral 780 ml Labs: Laboratory Tests Test 03/10/17 23:30 03/11/17 07:34 03/11/17 09:49 03/11/17 10:56 Urine Collection Type Unknown Urine Color Yellow Urine Clarity Hazy Urine pH 6.5 Urine Specific [place] 1.020 Urine Protein 100 mg/dl (NEG-TRACE) Urine Glucose (UA) Neg mg/dL (NEG) Urine Ketones (Stick) Neg mg/dL (NEG) Urine Blood Trace (NEG) Urine Nitrite Pos (NEG) Urine Bilirubin Neg (NEG) Urine Urobilinogen Dipstick 0.2 mg/dL (0.2 mg/dL) Urine Leukocyte Esterase Large (NEG) Urine RBC Occ /HPF (0-2) Urine WBC >40 /HPF (0-4) Urine Squamous Epithelial Cells Few /LPF Urine Bacteria Many /HPF (0-FEW) Glucose (Fingerstick) 67 mg/dL (70-99) L 68 mg/dL (70-99) L 111 mg/dL (70-99) H Test 03/11/17 12:05 03/11/17 13:22 03/11/17 15:48 Glucose (Fingerstick) 259 mg/dL (70-99) H 145 mg/dL (70-99) H Sodium Level 135 mmol/L (136-145) L Potassium Level 4.3 mmol/L (3.5-5.1) Chloride Level 98 mmol/L (98-107) Carbon Dioxide Level 25 mmol/L (21-32) Anion Gap 12 (6-14) Blood Urea Nitrogen 48 mg/dL (7-20) H Creatinine 3.4 mg/dL (0.6-1.0) H Estimated GFR (Cockcroft-Gault) 15.9 Glucose Level 88 mg/dL (70-99) Calcium Level 9.2 mg/dL (8.5-10.1) Current Medications: Meds: Current Medications Acetaminophen (Tylenol) 650 mg PRN Q6HRS PRN PO PAIN / TEMP; Start 03/02/17 at 20:30; Status Cancel Multi-Ingredient Ointment (Analgesic [place]) 1 ino PRN QID PRN TP MUSCLE PAIN Last administered on 03/07/17t 20:38; Start 03/02/17 at 20:30 Al Hydroxide/Mg Hydroxide (Mylanta Plus Xs) 15 ml PRN AFTMEALHC PRN PO DYSPEPSIA; Start 03/02/17 at 20:30 Magnesium Hydroxide (Milk Of Magnesia) 2,400 mg PRN QHS PRN PO CONSTIPATION; Start 03/02/17 at 20:30; Status Cancel Benztropine Mesylate (Cogentin) 0.5 mg DAILY PO Last administered on 03/11/17 08:25; Start 03/03/17 at 09:00 Buspirone HCl (Buspar) 5 mg QID PO Last administered on 03/11/17 16:28; Start 03/03/17 at 09:00 Divalproex Sodium (Depakote Sprinkles) 250 mg BID PO Last administered on 16:27; Start 03/03/17 at 09:00 Donepezil HCl (Aricept) 5 mg HS PO Last administered on 03/10/17 20:30; Start 03/03/17 at 21:00 Lorazepam (Ativan) 0.5 mg PRN Q6HRS PRN PO ANXIETY / AGITATION Last administered on 03/11/17 10:05; Start 03/03/17 at 00:00 Loxapine Succinate (Loxitane) 5 mg HS PO Last administered on 03/07/17 19:56; Start 03/03/17 at 21:00; Stop 03/07/17 at 20:22; Status DC Memantine (Namenda) 10 mg BID PO Last administered on 03/11/17 16:27; Start at 09:00 Olanzapine (ZyPREXA) 2.5 mg PRN Q2HR PRN PO PSYCHOSIS Last administered on 16:29; Start 03/03/17 at 00:00 Acetaminophen (Tylenol) 650 mg PRN Q4HRS PRN PO PAIN / TEMP; Start 03/03/17 at 08:00 Amlodipine Besylate (Norvasc) 5 mg DAILY PO Last administered on 03/04/17 09: 06; Start 03/03/17 at 09:00; Stop 03/04/17 at 14:28; Status DC Atorvastatin Calcium (Lipitor) 5 mg QHS PO Last administered on 03/10/17 20:31 ; Start 03/03/17 at 21:00 Benzonatate (Tessalon Perle) 100 mg PRN Q4HRS PRN PO COUGH; Start 03/03/17 at 08:00 Calcium Polycarbophil (Fibercon) 625 mg DAILY PO Last administered on 03/11/17 08:27; Start 03/03/17 at 09:00 Carvedilol (Coreg) 12.5 mg BID PO Last administered on 03/11/17 16:27; Start at 09:00 Cetirizine HCl (ZyrTEC) 10 mg DAILY PO Last administered on 03/11/17 08:27; Start 03/03/17 at 09:00 Ferrous Sulfate (Feosol) 325 mg BID PO Last administered on 03/11/17 16:26; Start 03/03/17 at 09:00 Fluticasone Propionate (Flonase) 2 spray PRN BID PRN NS rhinitis; Start at 08:00 Multivit/Ca Carb/ B Cmplx/FA/Prenat (Nephro-Fady) 1 tab DAILY PO Last administered on 03/11/17 08:34; Start 03/03/17 at 09:00 Furosemide (Lasix) 20 mg DAILY PO Last administered on 03/04/17 09:06; Start 03/03/17 at 09:00; Stop 03/04/17 at 14:28; Status DC Guaifenesin (Mucinex Er) 600 mg BID PO Last administered on 03/11/17 16:28; Start 03/03/17 at 09:00 Hydralazine HCl (Apresoline) 50 mg TID PO Last administered on 03/11/17 16:27; Start 03/03/17 at 09:00 Albuterol Sulfate (Ventolin) 2.5 mg PRN QID PRN NEB SHORTNESS OF BREATH; Start 03/03/17 at 08:30 Albuterol/ Ipratropium (Duoneb) 3 ml QID NEB Last administered on 03/11/17 17: 00; Start 03/03/17 at 09:00 Levothyroxine Sodium (Synthroid) 75 mcg DAILY06 PO Last administered on 05:54; Start 03/03/17 at 09:00 Montelukast Sodium (Singulair) 10 mg HS PO Last administered on 03/10/17 20:32 ; Start 03/03/17 at 21:00 Rifaximin (Xifaxan) 550 mg BID PO Last administered on 03/10/17 20:35; Start at 09:00 Sennosides (Senna) 8.6 mg HS PO Last administered on 03/10/17 20:31; Start at 21:00 Sodium Chloride (Saline Mist Nasal) 2 ino PRN Q4HRS PRN NS rhinitis; Start at 08:00 Tramadol HCl (Ultram) 50 mg PRN Q6HRS PRN PO MODERATE PAIN; Start 03/03/17 at 08:00; Stop 03/04/17 at 14:29; Status DC Amantadine HCl (Symmetrel) 100 mg BID PO Last administered on 03/10/17 20:35; Start 03/03/17 at 09:00; Stop 03/11/17 at 14:03; Status DC Artificial Tears (Artificial Tears) 2 drop DAILY OU Last administered on 11:32; Start 03/03/17 at 09:00; Stop 03/03/17 at 15:06; Status DC Guaifenesin (Robitussin Dm) 10 ml PRN Q4HRS PRN PO COUGH; Start 03/03/17 at 08: 30 Epoetin Jaquan (Procrit) 6,000 unit QMWF@0900 SQ Last administered on 03/10/17 08 :33; Start 03/03/17 at 09:00; Stop 03/10/17 at 18:12; Status DC Non-Formulary Medication 1 puff DAILY IH ; Start 03/03/17 at 09:00; Status UNV Lactulose 20 gm DAILY PO Last administered on 03/11/17 08:28; Start 03/03/17 at 09:00 Magnesium Hydroxide (Milk Of Magnesia) 2,400 mg PRN DAILY PRN PO CONSTIPATION Last administered on 03/06/17 03:10; Start 03/03/17 at 08:30 Pantoprazole Sodium (Protonix) 40 mg DAILYAC PO Last administered on 03/10/17 08:25; Start 03/03/17 at 09:00 Non-Formulary Medication 1 ino BID TP ; Start 03/03/17 at 09:00; Status UNV Vitamin D (Vitamin D3) 50,000 unit WEEKLY PO Last administered on 03/10/17 08: 32; Start 03/03/17 at 09:00 Budesonide (Pulmicort) 0.5 mg RTBID NEB Last administered on 03/11/17 11:38; Start 03/03/17 at 20:00 Artificial Tears (Artificial Tears) 2 drop DAILY OU Last administered on 08:34; Start 03/03/17 at 15:06 Sertraline HCl (Zoloft) 25 mg QHS PO Last administered on 03/10/17 20:30; Start 03/04/17 at 21:00 Amlodipine Besylate (Norvasc) 10 mg DAILY PO Last administered on 03/11/17 16: 29; Start 03/05/17 at 09:00 Furosemide (Lasix) 40 mg DAILY PO Last administered on 03/09/17 07:56; Start at 09:00; Stop 03/09/17 at 16:59; Status DC Amlodipine Besylate (Norvasc) 5 mg 1X ONCE PO Last administered on 03/04/17 14:45; Start 03/04/17 at 14:45; Stop 03/04/17 at 14:49; Status DC Furosemide (Lasix) 20 mg 1X ONCE PO Last administered on 03/04/17 15:27; Start 03/04/17 at 14:45; Stop 03/04/17 at 14:49; Status DC Tramadol HCl (Ultram) 50 mg PRN Q12HR PRN PO MODERATE PAIN; Start 03/04/17 at 21:00 Loxapine Succinate (Loxitane) 7.5 mg QHS PO Last administered on 03/07/17 20:35 ; Start 03/07/17 at 21:00; Stop 03/07/17 at 21:01; Status DC Loxapine Succinate (Loxitane) 10 mg QHS PO Last administered on 03/10/17 20:34 ; Start 03/08/17 at 21:00 Glucose (Insta-Glucose) 15 gm STK-MED ONCE .ROUTE Last administered on 09:05; Start 03/11/17 at 09:05; Stop 03/11/17 at 09:06; Status DC Glucose (Insta-Glucose) 15 gm STK-MED ONCE .ROUTE Last administered on 10:10; Start 03/11/17 at 09:53; Stop 03/11/17 at 09:54; Status DC Amantadine HCl (Symmetrel) 100 mg Q48H PO ; Start 03/12/17 at 09:00 Sodium Chloride 1,000 ml @ 75 mls/hr [id number] IV ; Start 03/11/17 at 19:30 Active Scripts Active Reported Zyprexa (Olanzapine) 2.5 Mg Tablet 2.5 Mg PO PRN Q2HR PRN Xifaxan (Rifaximin) 550 Mg Tablet 550 Mg PO BID Tramadol Hcl (Tramadol HCl) 50 Mg Tablet 50 Mg PO PRN Q6HRS PRN Tessalon Perle (Benzonatate) 100 Mg Capsule 100 Mg PO PRN Q4HRS PRN Senokot (Sennosides) 8.6 Mg Tablet 8.6 Mg PO HS Saline Nasal [place] (Sodium Chloride) 30 Ml [place] 2 Sprays NS PRN Q4HRS PRN Robitussin Nighttime Cough Dm (Dextromethorphan Hb/Doxylamine) 237 Ml Liquid 10 Ml PO PRN Q4HRS PRN Omeprazole 40 Mg Capsule.dr 40 Mg PO [id number] Nephro-Fady Tablet (Folic Acid/Vitamin B Comp W-C) 0.8 Mg Tablet 1 Tab PO DAILY PRN Alum-Mag Hydroxide-Simeth Liq (Mag Hydrox/Al Hydrox/Simeth) 360 Ml Oral.susp 30 Ml PO PRN Q4HRS PRN Montelukast Sodium Tablet (Montelukast Sodium) 10 Mg Tablet 10 Mg PO HS Milk Of Magnesia (Magnesium Hydroxide) 2,400 Mg/10 Ml Oral.susp 2,400 Mg PO PRN DAILY PRN Namenda (Memantine Hcl) 10 Mg Tablet 10 Mg PO BID Loxapine (Loxapine Succinate) 5 Mg Capsule 5 Mg PO Lorazepam 0.5 Mg Tablet 0.5 Mg PO PRN Q6HRS PRN Levothyroxine Sodium 75 Mcg Tablet 75 Mcg PO DAILYAC Lactulose 10 Gm/15 Ml Solution 30 Ml PO DAILY Duoneb 0.5-3(2.5) Mg/3 Ml (Albuterol/Ipratropium) 3 Ml Ampul.neb 3 Ml NEB QID Duoneb 0.5-3(2.5) Mg/3 Ml (Albuterol/Ipratropium) 3 Ml Ampul.neb 3 Ml NEB PRN QID PRN Icy Hot Cream (Methyl Salicylate/Menthol) 35.4 Gm Cream..g. 1 Applic TP PRN Q12HR PRN Hydralazine Hcl 50 Mg Tablet 50 Mg PO TID Guaifenesin 600 Mg Tablet.er 600 Mg PO BID Furosemide 20 Mg Tablet 20 Mg PO DAILY Fluticasone Propionate Nasal [place] (Fluticasone Propionate) 16 Gm [place].susp 2 [place] NS PRN BID PRN Breo Ellipta 100-25 Mcg Inh (Fluticasone/Vilanterol) 1 Each Aer.pow.ba 1 Puff IH DAILY Ferrous Sulfate 325 Mg Tablet 325 Mg PO BID Epogen (Epoetin Jaquan) 3,000 Unit/1 Ml Vial 6,000 Unit SQ MON,WED,FRI Donepezil Hcl 5 Mg Tablet 5 Mg PO HS Depakote Sprinkle (Divalproex Sodium) 125 Mg Cap.sprink 250 Mg PO BID Benadryl (Diphenhydramine Hcl) 25 Mg Capsule 25 Mg PO PRN Q8HRS PRN Cetirizine Hcl 10 Mg Tablet 10 Mg PO DAILY Carvedilol 12.5 Mg Tablet 12.5 Mg PO BID Calcium Polycarbophil 625 Mg Tablet 625 Mg PO DAILY Buspirone Hcl 5 Mg Tablet 5 Mg PO QID Benztropine Mesylate 0.5 Mg Tablet 0.5 Mg PO DAILY Atorvastatin Calcium 10 Mg Tablet 5 Mg PO QHS PRN Artificial Tears Eye Drops (Dextran 70/Hypromellose) 15 Ml Drops 2 Drop OU DAILY Amlodipine Besylate 5 Mg Tablet 5 Mg PO DAILY Amantadine (Amantadine Hcl) 100 Mg Tablet 100 Mg PO BID Aloe [place] (Petrolatum,White) 226 Gm Oint...g. 1 Ino TP BID Tylenol (Acetaminophen) 325 Mg Tablet 650 Mg PO PRN Q4HRS PRN SHANE BUTTS MD Mar 11, 2017 20:54
[2017-03-11] MEDS: DONEPEZIL HCL 5 MG TABLET. PO SCH ×2 (21:00→21:28)
--- NOTE | 2017-03-11 21:19 | PDOC ---
Exam Robin Demential Exam: Robin Note: Please also refer to the separate dictated note~for this date of service dictated separately.~Patient seen individually. Discussed the patient with Nursing staff reviewed the chart.~Reviewed interim history and current functioning. Reviewed vital signs,~Labs/ Radiology~and current medications noted below. Continue current treatment with the changes noted in the dictated addendum note Assessment: Vital Signs: Vital Signs Date Time Temp Pulse Resp B/P (MAP) Pulse Ox O2 Delivery O2 Flow Rate FiO2 03/11/17 16:29 62 184/74 03/11/17 11:38 98 Nasal Cannula 2.0 03/11/17 06:10 97.7 20 I&O Intake and Output 03/11/17 07:00 Intake Total 780 ml Balance 780 ml Intake Oral 780 ml Labs: Laboratory Tests Test 03/10/17 23:30 03/11/17 07:34 03/11/17 09:49 03/11/17 10:56 Urine Collection Type Unknown Urine Color Yellow Urine Clarity Hazy Urine pH 6.5 Urine Specific [place] 1.020 Urine Protein 100 mg/dl (NEG-TRACE) Urine Glucose (UA) Neg mg/dL (NEG) Urine Ketones (Stick) Neg mg/dL (NEG) Urine Blood Trace (NEG) Urine Nitrite Pos (NEG) Urine Bilirubin Neg (NEG) Urine Urobilinogen Dipstick 0.2 mg/dL (0.2 mg/dL) Urine Leukocyte Esterase Large (NEG) Urine RBC Occ /HPF (0-2) Urine WBC >40 /HPF (0-4) Urine Squamous Epithelial Cells Few /LPF Urine Bacteria Many /HPF (0-FEW) Glucose (Fingerstick) 67 mg/dL (70-99) L 68 mg/dL (70-99) L 111 mg/dL (70-99) H Test 03/11/17 12:05 03/11/17 13:22 03/11/17 15:48 Glucose (Fingerstick) 259 mg/dL (70-99) H 145 mg/dL (70-99) H Sodium Level 135 mmol/L (136-145) L Potassium Level 4.3 mmol/L (3.5-5.1) Chloride Level 98 mmol/L (98-107) Carbon Dioxide Level 25 mmol/L (21-32) Anion Gap 12 (6-14) Blood Urea Nitrogen 48 mg/dL (7-20) H Creatinine 3.4 mg/dL (0.6-1.0) H Estimated GFR (Cockcroft-Gault) 15.9 Glucose Level 88 mg/dL (70-99) Calcium Level 9.2 mg/dL (8.5-10.1) Current Medications: Meds: Current Medications Acetaminophen (Tylenol) 650 mg PRN Q6HRS PRN PO PAIN / TEMP; Start 03/02/17 at 20:30; Status Cancel Multi-Ingredient Ointment (Analgesic [place]) 1 ino PRN QID PRN TP MUSCLE PAIN Last administered on 03/07/17 20:38; Start 03/02/17 at 20:30 Al Hydroxide/Mg Hydroxide (Mylanta Plus Xs) 15 ml PRN AFTMEALHC PRN PO DYSPEPSIA; Start 03/02/17 at 20:30 Magnesium Hydroxide (Milk Of Magnesia) 2,400 mg PRN QHS PRN PO CONSTIPATION; Start 03/02/17 at 20:30; Status Cancel Benztropine Mesylate (Cogentin) 0.5 mg DAILY PO Last administered on 03/11/17 08:25; Start 03/03/17 at 09:00 Buspirone HCl (Buspar) 5 mg QID PO Last administered on 03/11/17 16:28; Start 03/03/17 at 09:00 Divalproex Sodium (Depakote Sprinkles) 250 mg BID PO Last administered on 16:27; Start 03/03/17 at 09:00 Donepezil HCl (Aricept) 5 mg HS PO Last administered on 03/10/17 20:30; Start 03/03/17 at 21:00 Lorazepam (Ativan) 0.5 mg PRN Q6HRS PRN PO ANXIETY / AGITATION Last administered on 03/11/17 10:05; Start 03/03/17 at 00:00 Loxapine Succinate (Loxitane) 5 mg HS PO Last administered on 03/07/17 19:56; Start 03/03/17 at 21:00; Stop 03/07/17 at 20:22; Status DC Memantine (Namenda) 10 mg BID PO Last administered on 03/11/17 16:27; Start at 09:00 Olanzapine (ZyPREXA) 2.5 mg PRN Q2HR PRN PO PSYCHOSIS Last administered on 16:29; Start 03/03/17 at 00:00 Acetaminophen (Tylenol) 650 mg PRN Q4HRS PRN PO PAIN / TEMP; Start 03/03/17 at 08:00 Amlodipine Besylate (Norvasc) 5 mg DAILY PO Last administered on 03/04/17 09: 06; Start 03/03/17 at 09:00; Stop 03/04/17 at 14:28; Status DC Atorvastatin Calcium (Lipitor) 5 mg QHS PO Last administered on 03/10/17 20:31 ; Start 03/03/17 at 21:00 Benzonatate (Tessalon Perle) 100 mg PRN Q4HRS PRN PO COUGH; Start 03/03/17 at 08:00 Calcium Polycarbophil (Fibercon) 625 mg DAILY PO Last administered on 03/11/17 08:27; Start 03/03/17 at 09:00 Carvedilol (Coreg) 12.5 mg BID PO Last administered on 03/11/17 16:27; Start at 09:00 Cetirizine HCl (ZyrTEC) 10 mg DAILY PO Last administered on 03/11/17 08:27; Start 03/03/17 at 09:00 Ferrous Sulfate (Feosol) 325 mg BID PO Last administered on 03/11/17 16:26; Start 03/03/17 at 09:00 Fluticasone Propionate (Flonase) 2 spray PRN BID PRN NS rhinitis; Start at 08:00 Multivit/Ca Carb/ B Cmplx/FA/Prenat (Nephro-Fady) 1 tab DAILY PO Last administered on 03/11/17 08:34; Start 03/03/17 at 09:00 Furosemide (Lasix) 20 mg DAILY PO Last administered on 03/04/17 09:06; Start 03/03/17 at 09:00; Stop 03/04/17 at 14:28; Status DC Guaifenesin (Mucinex Er) 600 mg BID PO Last administered on 03/11/17 16:28; Start 03/03/17 at 09:00 Hydralazine HCl (Apresoline) 50 mg TID PO Last administered on 03/11/17 16:27; Start 03/03/17 at 09:00 Albuterol Sulfate (Ventolin) 2.5 mg PRN QID PRN NEB SHORTNESS OF BREATH; Start 03/03/17 at 08:30 Albuterol/ Ipratropium (Duoneb) 3 ml QID NEB Last administered on 03/11/17 17: 00; Start 03/03/17 at 09:00 Levothyroxine Sodium (Synthroid) 75 mcg DAILY06 PO Last administered on 05:54; Start 03/03/17 at 09:00 Montelukast Sodium (Singulair) 10 mg HS PO Last administered on 03/10/17 20:32 ; Start 03/03/17 at 21:00 Rifaximin (Xifaxan) 550 mg BID PO Last administered on 03/10/17 20:35; Start at 09:00 Sennosides (Senna) 8.6 mg HS PO Last administered on 03/10/17 20:31; Start at 21:00 Sodium Chloride (Saline Mist Nasal) 2 ino PRN Q4HRS PRN NS rhinitis; Start at 08:00 Tramadol HCl (Ultram) 50 mg PRN Q6HRS PRN PO MODERATE PAIN; Start 03/03/17 at 08:00; Stop 03/04/17 at 14:29; Status DC Amantadine HCl (Symmetrel) 100 mg BID PO Last administered on 03/10/17 20:35; Start 03/03/17 at 09:00; Stop 03/11/17 at 14:03; Status DC Artificial Tears (Artificial Tears) 2 drop DAILY OU Last administered on 11:32; Start 03/03/17 at 09:00; Stop 03/03/17 at 15:06; Status DC Guaifenesin (Robitussin Dm) 10 ml PRN Q4HRS PRN PO COUGH; Start 03/03/17 at 08: 30 Epoetin Jaquan (Procrit) 6,000 unit QMWF@0900 SQ Last administered on 03/10/17 08 :33; Start 03/03/17 at 09:00; Stop 03/10/17 at 18:12; Status DC Non-Formulary Medication 1 puff DAILY IH ; Start 03/03/17 at 09:00; Status UNV Lactulose 20 gm DAILY PO Last administered on 03/11/17 08:28; Start 03/03/17 at 09:00 Magnesium Hydroxide (Milk Of Magnesia) 2,400 mg PRN DAILY PRN PO CONSTIPATION Last administered on 03/06/17 03:10; Start 03/03/17 at 08:30 Pantoprazole Sodium (Protonix) 40 mg DAILYAC PO Last administered on 03/10/17 08:25; Start 03/03/17 at 09:00 Non-Formulary Medication 1 ino BID TP ; Start 03/03/17 at 09:00; Status UNV Vitamin D (Vitamin D3) 50,000 unit WEEKLY PO Last administered on 03/10/17 08: 32; Start 03/03/17 at 09:00 Budesonide (Pulmicort) 0.5 mg RTBID NEB Last administered on 03/11/17 11:38; Start 03/03/17 at 20:00 Artificial Tears (Artificial Tears) 2 drop DAILY OU Last administered on 08:34; Start 03/03/17 at 15:06 Sertraline HCl (Zoloft) 25 mg QHS PO Last administered on 03/10/17 20:30; Start 03/04/17 at 21:00 Amlodipine Besylate (Norvasc) 10 mg DAILY PO Last administered on 03/11/17 16: 29; Start 03/05/17 at 09:00 Furosemide (Lasix) 40 mg DAILY PO Last administered on 03/09/17 07:56; Start at 09:00; Stop 03/09/17 at 16:59; Status DC Amlodipine Besylate (Norvasc) 5 mg 1X ONCE PO Last administered on 03/04/17 14:45; Start 03/04/17 at 14:45; Stop 03/04/17 at 14:49; Status DC Furosemide (Lasix) 20 mg 1X ONCE PO Last administered on 03/04/17 15:27; Start 03/04/17 at 14:45; Stop 03/04/17 at 14:49; Status DC Tramadol HCl (Ultram) 50 mg PRN Q12HR PRN PO MODERATE PAIN; Start 03/04/17 at 21:00 Loxapine Succinate (Loxitane) 7.5 mg QHS PO Last administered on 03/07/17 20:35 ; Start 03/07/17 at 21:00; Stop 03/07/17 at 21:01; Status DC Loxapine Succinate (Loxitane) 10 mg QHS PO Last administered on 03/10/17 20:34 ; Start 03/08/17 at 21:00 Glucose (Insta-Glucose) 15 gm STK-MED ONCE .ROUTE Last administered on 09:05; Start 03/11/17 at 09:05; Stop 03/11/17 at 09:06; Status DC Glucose (Insta-Glucose) 15 gm STK-MED ONCE .ROUTE Last administered on 10:10; Start 03/11/17 at 09:53; Stop 03/11/17 at 09:54; Status DC Amantadine HCl (Symmetrel) 100 mg Q48H PO ; Start 03/12/17 at 09:00 Sodium Chloride 1,000 ml @ 75 mls/hr [id number] IV ; Start 03/11/17 at 19:30 Active Scripts Active Reported Zyprexa (Olanzapine) 2.5 Mg Tablet 2.5 Mg PO PRN Q2HR PRN Xifaxan (Rifaximin) 550 Mg Tablet 550 Mg PO BID Tramadol Hcl (Tramadol HCl) 50 Mg Tablet 50 Mg PO PRN Q6HRS PRN Tessalon Perle (Benzonatate) 100 Mg Capsule 100 Mg PO PRN Q4HRS PRN Senokot (Sennosides) 8.6 Mg Tablet 8.6 Mg PO HS Saline Nasal [place] (Sodium Chloride) 30 Ml [place] 2 Sprays NS PRN Q4HRS PRN Robitussin Nighttime Cough Dm (Dextromethorphan Hb/Doxylamine) 237 Ml Liquid 10 Ml PO PRN Q4HRS PRN Omeprazole 40 Mg Capsule.dr 40 Mg PO [id number] Nephro-Fady Tablet (Folic Acid/Vitamin B Comp W-C) 0.8 Mg Tablet 1 Tab PO DAILY PRN Alum-Mag Hydroxide-Simeth Liq (Mag Hydrox/Al Hydrox/Simeth) 360 Ml Oral.susp 30 Ml PO PRN Q4HRS PRN Montelukast Sodium Tablet (Montelukast Sodium) 10 Mg Tablet 10 Mg PO HS Milk Of Magnesia (Magnesium Hydroxide) 2,400 Mg/10 Ml Oral.susp 2,400 Mg PO PRN DAILY PRN Namenda (Memantine Hcl) 10 Mg Tablet 10 Mg PO BID Loxapine (Loxapine Succinate) 5 Mg Capsule 5 Mg PO Lorazepam 0.5 Mg Tablet 0.5 Mg PO PRN Q6HRS PRN Levothyroxine Sodium 75 Mcg Tablet 75 Mcg PO DAILYAC Lactulose 10 Gm/15 Ml Solution 30 Ml PO DAILY Duoneb 0.5-3(2.5) Mg/3 Ml (Albuterol/Ipratropium) 3 Ml Ampul.neb 3 Ml NEB QID Duoneb 0.5-3(2.5) Mg/3 Ml (Albuterol/Ipratropium) 3 Ml Ampul.neb 3 Ml NEB PRN QID PRN Icy Hot Cream (Methyl Salicylate/Menthol) 35.4 Gm Cream..g. 1 Applic TP PRN Q12HR PRN Hydralazine Hcl 50 Mg Tablet 50 Mg PO TID Guaifenesin 600 Mg Tablet.er 600 Mg PO BID Furosemide 20 Mg Tablet 20 Mg PO DAILY Fluticasone Propionate Nasal [place] (Fluticasone Propionate) 16 Gm [place].susp 2 [place] NS PRN BID PRN Breo Ellipta 100-25 Mcg Inh (Fluticasone/Vilanterol) 1 Each Aer.pow.ba 1 Puff IH DAILY Ferrous Sulfate 325 Mg Tablet 325 Mg PO BID Epogen (Epoetin Jaquan) 3,000 Unit/1 Ml Vial 6,000 Unit SQ MON,WED,FRI Donepezil Hcl 5 Mg Tablet 5 Mg PO HS Depakote Sprinkle (Divalproex Sodium) 125 Mg Cap.sprink 250 Mg PO BID Benadryl (Diphenhydramine Hcl) 25 Mg Capsule 25 Mg PO PRN Q8HRS PRN Cetirizine Hcl 10 Mg Tablet 10 Mg PO DAILY Carvedilol 12.5 Mg Tablet 12.5 Mg PO BID Calcium Polycarbophil 625 Mg Tablet 625 Mg PO DAILY Buspirone Hcl 5 Mg Tablet 5 Mg PO QID Benztropine Mesylate 0.5 Mg Tablet 0.5 Mg PO DAILY Atorvastatin Calcium 10 Mg Tablet 5 Mg PO QHS PRN Artificial Tears Eye Drops (Dextran 70/Hypromellose) 15 Ml Drops 2 Drop OU DAILY Amlodipine Besylate 5 Mg Tablet 5 Mg PO DAILY Amantadine (Amantadine Hcl) 100 Mg Tablet 100 Mg PO BID [place] (Petrolatum,White) 226 Gm Oint...g. 1 Ino TP BID Tylenol (Acetaminophen) 325 Mg Tablet 650 Mg PO PRN Q4HRS PRN Diagnosis: Problems: (1) Encounter for medical screening examination (2) Anxiety disorder (3) Impulse control disorder (4) Bipolar 1 disorder, mixed, moderate (5) Dementia in Alzheimer's disease with delusions SHANE BUTTS MD Mar 11, 2017 21:19
[2017-03-11] MEDS: MONTELUKAST 10 MG TABLET. PO SCH (21:27)
[2017-03-11] MEDS: SENNOSIDES 8.6 MG TABLET PO SCH (21:28)
[2017-03-11] MEDS: SERTRALINE 25 MG TABLET. PO SCH (21:28)
[2017-03-11] MEDS: ATORVASTATIN CALCIUM 10 MG TABLET. PO SCH (21:28)
[2017-03-11] MEDS: LOXAPINE SUCCINATE 5 MG CAPSULE PO SCH (21:32)
[2017-03-12] MEDS: LEVOTHYROXINE 75 MCG TABLET PO SCH (05:46)
[2017-03-12] MEDS: IV NORMAL SALINE 1,000ML 1,000 ML IV SCH ×2 (06:50→08:50)
[2017-03-12] MEDS ORDERED: DEXTROSE ORAL GEL 15 GM TUBE. ONE ×2 (07:07→07:19)
[2017-03-12] MEDS: PANTOPRAZOLE 40 MG TABLET. PO SCH (07:30)
[2017-03-12] MEDS: BUDESONIDE 0.5 MG/2 ML NEBU NEB SCH (08:00)
[2017-03-12] MEDS: FERROUS SULFATE 325 MG TABLET PO SCH (09:00)
[2017-03-12] MEDS: IPRATRPIUM/ALBUTEROL 0.5/2.5MG 3 ML NEBU. NEB SCH ×3 (09:00→15:51)
[2017-03-12] MEDS: DIVALPROEX 125 MG CAP.SPRINK PO SCH (09:00)
[2017-03-12] MEDS: MEMANTINE 10 MG TABLET. PO SCH (09:00)
[2017-03-12] MEDS: CETIRIZINE HCL 10 MG TABLET PO SCH (09:00)
[2017-03-12] MEDS: rifAXIMin 550 MG TABLET PO SCH (09:00)
[2017-03-12] MEDS: CARVEDILOL 12.5 MG TABLET PO SCH (09:00)
[2017-03-12] MEDS: FOLIC/VIT B COMP W-C (RENAL) TABLET. PO SCH (09:00)
[2017-03-12] MEDS: amLODIPine BESYLATE 10 MG TABLET PO SCH (09:00)
[2017-03-12] MEDS ORDERED: AMANTADINE HCL 100 MG CAPSULE PO SCH (09:00)
[2017-03-12] MEDS: POLYVINYL ALCOHOL 1.4% OPHTH SOLUTION 15ML BOTTLE. OU SCH (09:00)
[2017-03-12] MEDS: CALCIUM POLYCARBOPHIL 625 MG TABLET PO SCH (09:00)
[2017-03-12] MEDS: BENZTROPINE MESYLATE 0.5 MG TABLET PO SCH (09:00)
[2017-03-12] MEDS: LACTULOSE 20 GM/30 ML SOLUTION. PO SCH (09:00)
[2017-03-12] MEDS: busPIRone 5 MG TABLET. PO SCH ×3 (09:00→17:00)
[2017-03-12] MEDS: OLANZapine 2.5 MG TABLET PO PRN (09:49)
[2017-03-12 13:26] LABS: BASO % 1 % (0-3); EOS % 0 % (0-3); HEMATOCRIT 53.3 % (36.0-47.0); HEMOGLOBIN 17.4 g/dL (12.0-15.5); LYMPH # 0.8 x10^3/uL (1.0-4.8); LYMPH % 11 % (24-48); MEAN CORPUSCULAR HEMOGLOBIN 30 pg (25-35); MEAN CORPUSCULAR HGB CONC 33 g/dL (31-37); MEAN CORPUSCULAR VOLUME 91 fL (79-100); MONO # 0.8 x10^3/uL (0.0-1.1); MONO % 11 % (0-9); NEUT # 5.8 x10^3uL (1.8-7.7); NEUT % 77 % (31-73); PLATELET COUNT 110 x10^3/uL (140-400); RED BLOOD COUNT 5.88 x10^6/uL (3.50-5.40); RED CELL DISTRIBUTION WIDTH 16.6 % (11.5-14.5); WHITE BLOOD COUNT 7.5 x10^3/uL (4.0-11.0)
[2017-03-12 13:39] LABS: ALBUMIN 3.6 g/dL (3.4-5.0); ALBUMIN/GLOBULIN RATIO 0.7 (1.0-1.7); CALCIUM 9.2 mg/dL (8.5-10.1); CREATININE 3.8 mg/dL (0.6-1.0); POTASSIUM 4.6 mmol/L (3.5-5.1); TOTAL BILIRUBIN 0.5 mg/dL (0.2-1.0); TOTAL PROTEIN 8.8 g/dL (6.4-8.2)
[2017-03-12 14:06] LABS: PLATELET CLUMP PRESENT; PLT ESTIMATE ADEQUATE (ADEQUATE); SCHISTOCYTES OCC
[2017-03-12 16:03] VITALS: BP 166/97
[2017-03-12] MEDS ORDERED: LOXA10CA PO (20:09)
[2017-03-12] MEDS ORDERED: MAGN400O7 PO (20:11)
--- NOTE | 2017-03-12 20:11 | PDOC ---
Exam Robin Demential Exam: Robin Note: Please also refer to the separate dictated note~for this date of service dictated separately.~Patient seen individually. Discussed the patient with Nursing staff reviewed the chart.~Reviewed interim history and current functioning. Reviewed vital signs,~Labs/ Radiology~and current medications noted below. Continue current treatment with the changes noted in the dictated addendum note Assessment: Vital Signs: Vital Signs Date Time Temp Pulse Resp B/P (MAP) Pulse Ox O2 Delivery O2 Flow Rate FiO2 03/12/17 16:03 96.7 74 22 166/97 (120) 96 03/12/17 15:52 Nasal Cannula 2.0 I&O Intake and Output 03/12/17 07:00 Intake Total 360 ml Balance 360 ml Intake Oral 360 ml Labs: Laboratory Tests Test 03/12/17 07:05 03/12/17 09:04 03/12/17 13:12 Glucose (Fingerstick) 50 mg/dL (70-99) L 74 mg/dL (70-99) White Blood Count 7.5 x10^3/uL (4.0-11.0) # Red Blood Count 5.88 x10^6/uL (3.50-5.40) H Hemoglobin 17.4 g/dL (12.0-15.5) H Hematocrit 53.3 % (36.0-47.0) H Mean Corpuscular Volume 91 fL (79-100) Mean Corpuscular Hemoglobin 30 pg (25-35) Mean Corpuscular Hemoglobin Concent 33 g/dL (31-37) Red Cell Distribution Width 16.6 % (11.5-14.5) H Platelet Count 110 x10^3/uL (140-400) L Neutrophils (%) (Auto) 77 % (31-73) H Lymphocytes (%) (Auto) 11 % (24-48) L Monocytes (%) (Auto) 11 % (0-9) H Eosinophils (%) (Auto) 0 % (0-3) Basophils (%) (Auto) 1 % (0-3) Neutrophils # (Auto) 5.8 x10^3uL (1.8-7.7) Lymphocytes # (Auto) 0.8 x10^3/uL (1.0-4.8) L Monocytes # (Auto) 0.8 x10^3/uL (0.0-1.1) Eosinophils # (Auto) 0.0 x10^3/uL (0.0-0.7) Basophils # (Auto) 0.0 x10^3/uL (0.0-0.2) Platelet Estimate Adequate (ADEQUATE) Platelet Clumps, EDTA Present Large Platelets Occ Giant Platelets Occ Schistocytes Occ Sodium Level 136 mmol/L (136-145) Potassium Level 4.6 mmol/L (3.5-5.1) Chloride Level 99 mmol/L (98-107) Carbon Dioxide Level 24 mmol/L (21-32) Anion Gap 13 (6-14) Blood Urea Nitrogen 59 mg/dL (7-20) H Creatinine 3.8 mg/dL (0.6-1.0) H Estimated GFR (Cockcroft-Gault) 14.0 BUN/Creatinine Ratio 16 (6-20) Glucose Level 93 mg/dL (70-99) Calcium Level 9.2 mg/dL (8.5-10.1) Total Bilirubin 0.5 mg/dL (0.2-1.0) Aspartate Amino Transferase (AST) 53 U/L (15-37) H Alanine Aminotransferase (ALT) 32 U/L (14-59) Alkaline Phosphatase 121 U/L (46-116) H Total Protein 8.8 g/dL (6.4-8.2) H Albumin 3.6 g/dL (3.4-5.0) Albumin/Globulin Ratio 0.7 (1.0-1.7) L Current Medications: Meds: Current Medications Acetaminophen (Tylenol) 650 mg PRN Q6HRS PRN PO PAIN / TEMP; Start 03/02/17 at 20:30; Status Cancel Multi-Ingredient Ointment (Analgesic [place]) 1 ino PRN QID PRN TP MUSCLE PAIN Last administered on 03/07/17t 20:38; Start 03/02/17 at 20:30 Al Hydroxide/Mg Hydroxide (Mylanta Plus Xs) 15 ml PRN AFTMEALHC PRN PO DYSPEPSIA; Start 03/02/17 at 20:30 Magnesium Hydroxide (Milk Of Magnesia) 2,400 mg PRN QHS PRN PO CONSTIPATION; Start 03/02/17 at 20:30; Status Cancel Benztropine Mesylate (Cogentin) 0.5 mg DAILY PO Last administered on 03/11/17 08:25; Start 03/03/17 at 09:00 Buspirone HCl (Buspar) 5 mg QID PO Last administered on 03/11/17 16:28; Start 03/03/17 at 09:00 Divalproex Sodium (Depakote Sprinkles) 250 mg BID PO Last administered on 16:27; Start 03/03/17 at 09:00 Donepezil HCl (Aricept) 5 mg HS PO Last administered on 03/10/17 20:30; Start 03/03/17 at 21:00 Lorazepam (Ativan) 0.5 mg PRN Q6HRS PRN PO ANXIETY / AGITATION Last administered on 03/11/17 10:05; Start 03/03/17 at 00:00 Loxapine Succinate (Loxitane) 5 mg HS PO Last administered on 03/07/17 19:56; Start 03/03/17 at 21:00; Stop 03/07/17 at 20:22; Status DC Memantine (Namenda) 10 mg BID PO Last administered on 03/11/17 16:27; Start at 09:00 Olanzapine (ZyPREXA) 2.5 mg PRN Q2HR PRN PO PSYCHOSIS Last administered on 09:49; Start 03/03/17 at 00:00 Acetaminophen (Tylenol) 650 mg PRN Q4HRS PRN PO PAIN / TEMP; Start 03/03/17 at 08:00 Amlodipine Besylate (Norvasc) 5 mg DAILY PO Last administered on 03/04/17 09: 06; Start 03/03/17 at 09:00; Stop 03/04/17 at 14:28; Status DC Atorvastatin Calcium (Lipitor) 5 mg QHS PO Last administered on 03/11/17 21:28 ; Start 03/03/17 at 21:00 Benzonatate (Tessalon Perle) 100 mg PRN Q4HRS PRN PO COUGH; Start 03/03/17 at 08:00 Calcium Polycarbophil (Fibercon) 625 mg DAILY PO Last administered on 03/11/17 08:27; Start 03/03/17 at 09:00 Carvedilol (Coreg) 12.5 mg BID PO Last administered on 03/11/17 16:27; Start at 09:00 Cetirizine HCl (ZyrTEC) 10 mg DAILY PO Last administered on 03/11/17 08:27; Start 03/03/17 at 09:00 Ferrous Sulfate (Feosol) 325 mg BID PO Last administered on 03/11/17 16:26; Start 03/03/17 at 09:00 Fluticasone Propionate (Flonase) 2 spray PRN BID PRN NS rhinitis; Start at 08:00 Multivit/Ca Carb/ B Cmplx/FA/Prenat (Nephro-Fady) 1 tab DAILY PO Last administered on 03/11/17 08:34; Start 03/03/17 at 09:00 Furosemide (Lasix) 20 mg DAILY PO Last administered on 03/04/17 09:06; Start 03/03/17 at 09:00; Stop 03/04/17 at 14:28; Status DC Guaifenesin (Mucinex Er) 600 mg BID PO Last administered on 03/11/17 16:28; Start 03/03/17 at 09:00 Hydralazine HCl (Apresoline) 50 mg TID PO Last administered on 03/11/17 16:27; Start 03/03/17 at 09:00 Albuterol Sulfate (Ventolin) 2.5 mg PRN QID PRN NEB SHORTNESS OF BREATH; Start 03/03/17 at 08:30 Albuterol/ Ipratropium (Duoneb) 3 ml QID NEB Last administered on 03/12/17 15: 51; Start 03/03/17 at 09:00 Levothyroxine Sodium (Synthroid) 75 mcg DAILY06 PO Last administered on 05:46; Start 03/03/17 at 09:00 Montelukast Sodium (Singulair) 10 mg HS PO Last administered on 03/11/17 21:27 ; Start 03/03/17 at 21:00 Rifaximin (Xifaxan) 550 mg BID PO Last administered on 03/10/17 20:35; Start at 09:00 Sennosides (Senna) 8.6 mg HS PO Last administered on 03/11/17 21:28; Start at 21:00 Sodium Chloride (Saline Mist Nasal) 2 ino PRN Q4HRS PRN NS rhinitis; Start at 08:00 Tramadol HCl (Ultram) 50 mg PRN Q6HRS PRN PO MODERATE PAIN; Start 03/03/17 at 08:00; Stop 03/04/17 at 14:29; Status DC Amantadine HCl (Symmetrel) 100 mg BID PO Last administered on 03/10/17 20:35; Start 03/03/17 at 09:00; Stop 03/11/17 at 14:03; Status DC Artificial Tears (Artificial Tears) 2 drop DAILY OU Last administered on 11:32; Start 03/03/17 at 09:00; Stop 03/03/17 at 15:06; Status DC Guaifenesin (Robitussin Dm) 10 ml PRN Q4HRS PRN PO COUGH; Start 03/03/17 at 08: 30 Epoetin Jaqu[place] (Procrit) 6,000 unit QMWF@0900 SQ Last administered on 03/10/17 08 :33; Start 03/03/17 at 09:00; Stop 03/10/17 at 18:12; Status DC Non-Formulary Medication 1 puff DAILY IH ; Start 03/03/17 at 09:00; Status UNV Lactulose 20 gm DAILY PO Last administered on 03/11/17 08:28; Start 03/03/17 at 09:00 Magnesium Hydroxide (Milk Of Magnesia) 2,400 mg PRN DAILY PRN PO CONSTIPATION Last administered on 03/06/17 03:10; Start 03/03/17 at 08:30 Pantoprazole Sodium (Protonix) 40 mg DAILYAC PO Last administered on 03/10/17 08:25; Start 03/03/17 at 09:00 Non-Formulary Medication 1 ino BID TP ; Start 03/03/17 at 09:00; Status UNV Vitamin D (Vitamin D3) 50,000 unit WEEKLY PO Last administered on 03/10/17 08: 32; Start 03/03/17 at 09:00 Budesonide (Pulmicort) 0.5 mg RTBID NEB Last administered on 03/11/17 11:38; Start 03/03/17 at 20:00 Artificial Tears (Artificial Tears) 2 drop DAILY OU Last administered on 08:34; Start 03/03/17 at 15:06 Sertraline HCl (Zoloft) 25 mg QHS PO Last administered on 03/11/17 21:28; Start 03/04/17 at 21:00 Amlodipine Besylate (Norvasc) 10 mg DAILY PO Last administered on 03/11/17 16: 29; Start 03/05/17 at 09:00 Furosemide (Lasix) 40 mg DAILY PO Last administered on 03/09/17 07:56; Start at 09:00; Stop 03/09/17 at 16:59; Status DC Amlodipine Besylate (Norvasc) 5 mg 1X ONCE PO Last administered on 03/04/17 14:45; Start 03/04/17 at 14:45; Stop 03/04/17 at 14:49; Status DC Furosemide (Lasix) 20 mg 1X ONCE PO Last administered on 03/04/17 15:27; Start 03/04/17 at 14:45; Stop 03/04/17 at 14:49; Status DC Tramadol HCl (Ultram) 50 mg PRN Q12HR PRN PO MODERATE PAIN; Start 03/04/17 at 21:00 Loxapine Succinate (Loxitane) 7.5 mg QHS PO Last administered on 03/07/17 20:35 ; Start 03/07/17 at 21:00; Stop 03/07/17 at 21:01; Status DC Loxapine Succinate (Loxitane) 10 mg QHS PO Last administered on 03/11/17 21:32 ; Start 03/08/17 at 21:00 Glucose (Insta-Glucose) 15 gm STK-MED ONCE .ROUTE Last administered on 09:05; Start 03/11/17 at 09:05; Stop 03/11/17 at 09:06; Status DC Glucose (Insta-Glucose) 15 gm STK-MED ONCE .ROUTE Last administered on 10:10; Start 03/11/17 at 09:53; Stop 03/11/17 at 09:54; Status DC Amantadine HCl (Symmetrel) 100 mg Q48H PO ; Start 03/12/17 at 09:00 Sodium Chloride 1,000 ml @ 75 mls/hr [id number] IV Last administered on 03/12/17 06:50; Start 03/11/17 at 19:30 Glucose (Insta-Glucose) 15 gm STK-MED ONCE .ROUTE Last administered on 07:19; Start 03/12/17 at 07:07; Stop 03/12/17 at 07:08; Status DC Glucose (Insta-Glucose) 15 gm STK-MED ONCE .ROUTE ; Start 03/12/17 at 07:19; Stop 03/12/17 at 07:20; Status DC Ceftriaxone Sodium 1 gm/ Sodium Chloride 50 ml @ 100 mls/hr Q24H IV ; Start 03/12/17 at 20:00 Active Scripts Active Reported Loxapine (Loxapine Succinate) 10 Mg Capsule 10 Mg PO QHS Maximum D3 (Cholecalciferol (Vitamin D3)) 10,000 Unit Capsule 50,000 Unit PO WEEKLY Zyprexa (Olanzapine) 2.5 Mg Tablet 2.5 Mg PO PRN Q2HR PRN Xifaxan (Rifaximin) 550 Mg Tablet 550 Mg PO BID Tramadol Hcl (Tramadol HCl) 50 Mg Tablet 50 Mg PO PRN Q6HRS PRN Tessalon Perle (Benzonatate) 100 Mg Capsule 100 Mg PO PRN Q4HRS PRN Senokot (Sennosides) 8.6 Mg Tablet 8.6 Mg PO HS Saline Nasal [place] (Sodium Chloride) 30 Ml [place] 2 Sprays NS PRN Q4HRS PRN Robitussin Nighttime Cough Dm (Dextromethorphan Hb/Doxylamine) 237 Ml Liquid 10 Ml PO PRN Q4HRS PRN Omeprazole 40 Mg Capsule.dr 40 Mg PO [id number] Nephro-Fady Tablet (Folic Acid/Vitamin B Comp W-C) 0.8 Mg Tablet 1 Tab PO DAILY PRN Alum-Mag Hydroxide-Simeth Liq (Mag Hydrox/Al Hydrox/Simeth) 360 Ml Oral.susp 30 Ml PO PRN Q4HRS PRN Montelukast Sodium Tablet (Montelukast Sodium) 10 Mg Tablet 10 Mg PO HS Milk Of Magnesia (Magnesium Hydroxide) 2,400 Mg/10 Ml Oral.susp 2,400 Mg PO PRN DAILY PRN Namenda (Memantine Hcl) 10 Mg Tablet 10 Mg PO BID Loxapine (Loxapine Succinate) 5 Mg Capsule 5 Mg PO Lorazepam 0.5 Mg Tablet 0.5 Mg PO PRN Q6HRS PRN Levothyroxine Sodium 75 Mcg Tablet 75 Mcg PO DAILYAC Lactulose 10 Gm/15 Ml Solution 30 Ml PO DAILY Duoneb 0.5-3(2.5) Mg/3 Ml (Albuterol/Ipratropium) 3 Ml Ampul.neb 3 Ml NEB QID Duoneb 0.5-3(2.5) Mg/3 Ml (Albuterol/Ipratropium) 3 Ml Ampul.neb 3 Ml NEB PRN QID PRN Icy Hot Cream (Methyl Salicylate/Menthol) 35.4 Gm Cream..g. 1 Applic TP PRN Q12HR PRN Hydralazine Hcl 50 Mg Tablet 50 Mg PO TID Guaifenesin 600 Mg Tablet.er 600 Mg PO BID Furosemide 20 Mg Tablet 20 Mg PO DAILY Fluticasone Propionate Nasal [place] (Fluticasone Propionate) 16 Gm [place].susp 2 [place] NS PRN BID PRN Breo Ellipta 100-25 Mcg Inh (Fluticasone/Vilanterol) 1 Each Aer.pow.ba 1 Puff IH DAILY Ferrous Sulfate 325 Mg Tablet 325 Mg PO BID Epogen (Epoetin Jaquan) 3,000 Unit/1 Ml Vial 6,000 Unit SQ MON,WED,FRI Donepezil Hcl 5 Mg Tablet 5 Mg PO HS Depakote Sprinkle (Divalproex Sodium) 125 Mg Cap.sprink 250 Mg PO BID Benadryl (Diphenhydramine Hcl) 25 Mg Capsule 25 Mg PO PRN Q8HRS PRN Cetirizine Hcl 10 Mg Tablet 10 Mg PO DAILY Carvedilol 12.5 Mg Tablet 12.5 Mg PO BID Calcium Polycarbophil 625 Mg Tablet 625 Mg PO DAILY Buspirone Hcl 5 Mg Tablet 5 Mg PO QID Benztropine Mesylate 0.5 Mg Tablet 0.5 Mg PO DAILY Atorvastatin Calcium 10 Mg Tablet 5 Mg PO QHS PRN Artificial Tears Eye Drops (Dextran 70/Hypromellose) 15 Ml Drops 2 Drop OU DAILY Amlodipine Besylate 5 Mg Tablet 5 Mg PO DAILY Amantadine (Amantadine Hcl) 100 Mg Tablet 100 Mg PO BID Aloe Desdemona (Petrolatum,White) 226 Gm Oint...g. 1 Ino TP BID Tylenol (Acetaminophen) 325 Mg Tablet 650 Mg PO PRN Q4HRS PRN Diagnosis: Problems: (1) Anxiety disorder (2) Impulse control disorder (3) Bipolar 1 disorder, mixed, moderate (4) Dementia in Alzheimer's disease with delusions SHANE BUTTS MD Mar 12, 2017 20:11
[2017-03-12] MEDS ORDERED: OLAN5TAB5 PO (20:13)
[2017-03-12] MEDS ORDERED: SERT25TA PO (20:15)
[2017-03-12] MEDS ORDERED: AMLO10TA4 PO (20:16)
[2017-03-12] MEDS ORDERED: ALBU2.5V5 NEB (20:22)
[2017-03-12] MEDS ORDERED: [UNRECOGNIZED DRUG - CODE] IV (20:24)
[2017-03-12] MEDS ORDERED: CEFT1FRO2 IV (20:26)
[2017-03-12] MEDS ORDERED: AMAN100T PO (22:11)
--- NOTE | 2017-03-15 21:07 | PDOC ---
Exam Robin Demential Exam: Robin Note: Please also refer to the separate dictated note~for this date of service dictated separately.~Patient seen individually. Discussed the patient with Nursing staff reviewed the chart.~Reviewed interim history and current functioning. Reviewed vital signs,~Labs/ Radiology~and current medications noted below. Continue current treatment with the changes noted in the dictated addendum note PSYCHIATRIC PROGRESS NOTE This is a late entry for Date of Service 03/10/2017. The patient seen individually. Discussed with nursing staff. Reviewed the chart evening of March 10, 2017. This note covers elements not covered in my initial of 03/10/2017. The patient did reasonably well last night but this morning refused her Synthroid per nursing report. She is quite disorganizes. Speech is pressured, little better later in the day. Urine culture and sensitivity still awaited before we start antibiotics. UA is being repeated. She is quite disorganized this evening, possibly hallucinating, grabbing at things in the air. REVIEW OF SYSTEMS Ambulation impaired in her wheelchair. No CV, , pulmonary, eye, systems symptoms on review. She remains on oxygen supplements. MENTAL STATUS EXAM: Oriented to herself and situation. Speech as above. Abstraction fair. Computation impaired. Language function intact. Attention span short. Mood and affect remains somewhat labile. LABS: Reviewed. IMPRESSION: Unchanged from initial note. PLAN: Continue current psychotropics. Valproic acid level therapeutic at 69. Treat UTI once urine C&S returns, and I think this should help clear up her mental status as well. We will adjust psychotropics once this is completed. Assessment: Vital Signs: Vital Signs Date Time Temp Pulse Resp B/P (MAP) Pulse Ox O2 Delivery O2 Flow Rate FiO2 03/12/17 16:03 96.7 74 22 166/97 (120) 96 03/12/17 15:52 Nasal Cannula 2.0 Current Medications: Meds: Current Medications Acetaminophen (Tylenol) 650 mg PRN Q6HRS PRN PO PAIN / TEMP; Start 03/02/17 at 20:30; Status Cancel Multi-Ingredient Ointment (Analgesic [place]) 1 ezio PRN QID PRN TP MUSCLE PAIN Last administered on 03/07/17t 20:38; Start 03/02/17 at 20:30; Stop 03/12/17 at 20 :48; Status DC Al Hydroxide/Mg Hydroxide (Mylanta Plus Xs) 15 ml PRN AFTMEALHC PRN PO DYSPEPSIA; Start 03/02/17 at 20:30; Stop 03/12/17 at 20:48; Status DC Magnesium Hydroxide (Milk Of Magnesia) 2,400 mg PRN QHS PRN PO CONSTIPATION; Start 03/02/17 at 20:30; Status Cancel Benztropine Mesylate (Cogentin) 0.5 mg DAILY PO Last administered on 03/11/17 08:25; Start 03/03/17 at 09:00; Stop 03/12/17 at 20:48; Status DC Buspirone HCl (Buspar) 5 mg QID PO Last administered on 03/11/17 16:28; Start 03/03/17 at 09:00; Stop 03/12/17 at 20:48; Status DC Divalproex Sodium (Depakote Sprinkles) 250 mg BID PO Last administered on 16:27; Start 03/03/17 at 09:00; Stop 03/12/17 at 20:48; Status DC Donepezil HCl (Aricept) 5 mg HS PO Last administered on 03/10/17 20:30; Start 03/03/17 at 21:00; Stop 03/12/17 at 20:48; Status DC Lorazepam (Ativan) 0.5 mg PRN Q6HRS PRN PO ANXIETY / AGITATION Last administered on 03/11/17 10:05; Start 03/03/17 at 00:00; Stop 03/12/17 at 20:48; Status DC Loxapine Succinate (Loxitane) 5 mg HS PO Last administered on 03/07/17 19:56; Start 03/03/17 at 21:00; Stop 03/07/17 at 20:22; Status DC Memantine (Namenda) 10 mg BID PO Last administered on 03/11/17 16:27; Start at 09:00; Stop 03/12/17 at 20:48; Status DC Olanzapine (ZyPREXA) 2.5 mg PRN Q2HR PRN PO PSYCHOSIS Last administered on 09:49; Start 03/03/17 at 00:00; Stop 03/12/17 at 20:48; Status DC Acetaminophen (Tylenol) 650 mg PRN Q4HRS PRN PO PAIN / TEMP; Start 03/03/17 at 08:00; Stop 03/12/17 at 20:48; Status DC Amlodipine Besylate (Norvasc) 5 mg DAILY PO Last administered on 03/04/17 09: 06; Start 03/03/17 at 09:00; Stop 03/04/17 at 14:28; Status DC Atorvastatin Calcium (Lipitor) 5 mg QHS PO Last administered on 03/11/17 21:28 ; Start 03/03/17 at 21:00; Stop 03/12/17 at 20:48; Status DC Benzonatate (Tessalon Perle) 100 mg PRN Q4HRS PRN PO COUGH; Start 03/03/17 at 08:00; Stop 03/12/17 at 20:48; Status DC Calcium Polycarbophil (Fibercon) 625 mg DAILY PO Last administered on 03/11/17 08:27; Start 03/03/17 at 09:00; Stop 03/12/17 at 20:48; Status DC Carvedilol (Coreg) 12.5 mg BID PO Last administered on 03/11/17 16:27; Start at 09:00; Stop 03/12/17 at 20:48; Status DC Cetirizine HCl (ZyrTEC) 10 mg DAILY PO Last administered on 03/11/17 08:27; Start 03/03/17 at 09:00; Stop 03/12/17 at 20:48; Status DC Ferrous Sulfate (Feosol) 325 mg BID PO Last administered on 03/11/17 16:26; Start 03/03/17 at 09:00; Stop 03/12/17 at 20:48; Status DC Fluticasone Propionate (Flonase) 2 spray PRN BID PRN NS rhinitis; Start at 08:00; Stop 03/12/17 at 20:48; Status DC Multivit/Ca Carb/ B Cmplx/FA/Prenat (Nephro-Fady) 1 tab DAILY PO Last administered on 03/11/17 08:34; Start 03/03/17 at 09:00; Stop 03/12/17 at 20:48; Status DC Furosemide (Lasix) 20 mg DAILY PO Last administered on 03/04/17 09:06; Start 03/03/17 at 09:00; Stop 03/04/17 at 14:28; Status DC Guaifenesin (Mucinex Er) 600 mg BID PO Last administered on 03/11/17 16:28; Start 03/03/17 at 09:00; Stop 03/12/17 at 20:48; Status DC Hydralazine HCl (Apresoline) 50 mg TID PO Last administered on 03/11/17 16:27; Start 03/03/17 at 09:00; Stop 03/12/17 at 20:48; Status DC Albuterol Sulfate (Ventolin) 2.5 mg PRN QID PRN NEB SHORTNESS OF BREATH; Start 03/03/17 at 08:30; Stop 03/12/17 at 20:48; Status DC Albuterol/ Ipratropium (Duoneb) 3 ml QID NEB Last administered on 03/12/17 15: 51; Start 03/03/17 at 09:00; Stop 03/12/17 at 20:48; Status DC Levothyroxine Sodium (Synthroid) 75 mcg DAILY06 PO Last administered on 05:46; Start 03/03/17 at 09:00; Stop 03/12/17 at 20:48; Status DC Montelukast Sodium (Singulair) 10 mg HS PO Last administered on 03/11/17 21:27 ; Start 03/03/17 at 21:00; Stop 03/12/17 at 20:48; Status DC Rifaximin (Xifaxan) 550 mg BID PO Last administered on 03/10/17 20:35; Start at 09:00; Stop 03/12/17 at 20:48; Status DC Sennosides (Senna) 8.6 mg HS PO Last administered on 03/11/17 21:28; Start at 21:00; Stop 03/12/17 at 20:48; Status DC Sodium Chloride (Saline Mist Nasal) 2 ezio PRN Q4HRS PRN NS rhinitis; Start at 08:00; Stop 03/12/17 at 20:48; Status DC Tramadol HCl (Ultram) 50 mg PRN Q6HRS PRN PO MODERATE PAIN; Start 03/03/17 at 08:00; Stop 03/04/17 at 14:29; Status DC Amantadine HCl (Symmetrel) 100 mg BID PO Last administered on 03/10/17 20:35; Start 03/03/17 at 09:00; Stop 03/11/17 at 14:03; Status DC Artificial Tears (Artificial Tears) 2 drop DAILY OU Last administered on 11:32; Start 03/03/17 at 09:00; Stop 03/03/17 at 15:06; Status DC Guaifenesin (Robitussin Dm) 10 ml PRN Q4HRS PRN PO COUGH; Start 03/03/17 at 08: 30; Stop 03/12/17 at 20:48; Status DC Epoetin Jaquan (Procrit) 6,000 unit QMWF@0900 SQ Last administered on 03/10/17 08 :33; Start 03/03/17 at 09:00; Stop 03/10/17 at 18:12; Status DC Non-Formulary Medication 1 puff DAILY IH ; Start 03/03/17 at 09:00; Status UNV Lactulose 20 gm DAILY PO Last administered on 03/11/17 08:28; Start 03/03/17 at 09:00; Stop 03/12/17 at 20:48; Status DC Magnesium Hydroxide (Milk Of Magnesia) 2,400 mg PRN DAILY PRN PO CONSTIPATION Last administered on 03/06/17 03:10; Start 03/03/17 at 08:30; Stop 03/12/17 at 20 :48; Status DC Pantoprazole Sodium (Protonix) 40 mg DAILYAC PO Last administered on 03/10/17 08:25; Start 03/03/17 at 09:00; Stop 03/12/17 at 20:48; Status DC Non-Formulary Medication 1 ezio BID TP ; Start 03/03/17 at 09:00; Status UNV Vitamin D (Vitamin D3) 50,000 unit WEEKLY PO Last administered on 03/10/17 08: 32; Start 03/03/17 at 09:00; Stop 03/12/17 at 20:48; Status DC Budesonide (Pulmicort) 0.5 mg RTBID NEB Last administered on 03/11/17 11:38; Start 03/03/17 at 20:00; Stop 03/12/17 at 20:48; Status DC Artificial Tears (Artificial Tears) 2 drop DAILY OU Last administered on 08:34; Start 03/03/17 at 15:06; Stop 03/12/17 at 20:48; Status DC Sertraline HCl (Zoloft) 25 mg QHS PO Last administered on 03/11/17 21:28; Start 03/04/17 at 21:00; Stop 03/12/17 at 20:48; Status DC Amlodipine Besylate (Norvasc) 10 mg DAILY PO Last administered on 03/11/17 16: 29; Start 03/05/17 at 09:00; Stop 03/12/17 at 20:48; Status DC Furosemide (Lasix) 40 mg DAILY PO Last administered on 03/09/17 07:56; Start at 09:00; Stop 03/09/17 at 16:59; Status DC Amlodipine Besylate (Norvasc) 5 mg 1X ONCE PO Last administered on 03/04/17 14:45; Start 03/04/17 at 14:45; Stop 03/04/17 at 14:49; Status DC Furosemide (Lasix) 20 mg 1X ONCE PO Last administered on 03/04/17 15:27; Start 03/04/17 at 14:45; Stop 03/04/17 at 14:49; Status DC Tramadol HCl (Ultram) 50 mg PRN Q12HR PRN PO MODERATE PAIN; Start 03/04/17 at 21:00; Stop 03/12/17 at 20:48; Status DC Loxapine Succinate (Loxitane) 7.5 mg QHS PO Last administered on 03/07/17 20:35 ; Start 03/07/17 at 21:00; Stop 03/07/17 at 21:01; Status DC Loxapine Succinate (Loxitane) 10 mg QHS PO Last administered on 03/11/17 21:32 ; Start 03/08/17 at 21:00; Stop 03/12/17 at 20:48; Status DC Glucose (Insta-Glucose) 15 gm STK-MED ONCE .ROUTE Last administered on 09:05; Start 03/11/17 at 09:05; Stop 03/11/17 at 09:06; Status DC Glucose (Insta-Glucose) 15 gm STK-MED ONCE .ROUTE Last administered on 10:10; Start 03/11/17 at 09:53; Stop 03/11/17 at 09:54; Status DC Amantadine HCl (Symmetrel) 100 mg Q48H PO ; Start 03/12/17 at 09:00; Stop at 20:48; Status DC Sodium Chloride 1,000 ml @ 75 mls/hr [id number] IV Last administered on 03/12/17 06:50; Start 03/11/17 at 19:30; Stop 03/12/17 at 20:48; Status DC Glucose (Insta-Glucose) 15 gm STK-MED ONCE .ROUTE Last administered on 07:19; Start 03/12/17 at 07:07; Stop 03/12/17 at 07:08; Status DC Glucose (Insta-Glucose) 15 gm STK-MED ONCE .ROUTE ; Start 03/12/17 at 07:19; Stop 03/12/17 at 07:20; Status DC Ceftriaxone Sodium 1 gm/ Sodium Chloride 50 ml @ 100 mls/hr Q24H IV ; Start 03/12/17 at 20:00; Stop 03/12/17 at 20:48; Status DC Active Scripts Active Reported Ceftriaxone 1 Gm Piggyback (Ceftriaxone Na/Dextrose,Iso) 1 Gm/50 Ml Froz.piggy 1 Gm IV QHS Sodium Chloride (Sodium Chloride 0.45 %) 1,000 Ml Iv.soln 1,000 Ml IV [id number] Albuterol Sulfate Neb Soln (Albuterol Sulfate) 2.5 Mg/3 Ml Vial.neb 2.5 Mg NEB PRN QID PRN Norvasc (Amlodipine Besylate) 10 Mg Tablet 10 Mg PO DAILY Zoloft (Sertraline Hcl) 25 Mg Tablet 25 Mg PO QHS Zyprexa Zydis (Olanzapine) 5 Mg Tab.rapdis 2.5 Mg PO PRN Q2HR PRN Milk Of Magnesia (Magnesium Hydroxide) 400 Mg/5 Ml Oral.susp 2,400 Mg PO PRN QHS PRN Loxapine (Loxapine Succinate) 10 Mg Capsule 10 Mg PO QHS Maximum D3 (Cholecalciferol (Vitamin D3)) 10,000 Unit Capsule 50,000 Unit PO WEEKLY Xifaxan (Rifaximin) 550 Mg Tablet 550 Mg PO BID Tramadol Hcl (Tramadol HCl) 50 Mg Tablet 50 Mg PO PRN Q12HR PRN Tessalon Perle (Benzonatate) 100 Mg Capsule 100 Mg PO PRN Q4HRS PRN Senokot (Sennosides) 8.6 Mg Tablet 8.6 Mg PO HS Saline Nasal [place] (Sodium Chloride) 30 Ml [place] 2 Sprays NS PRN Q4HRS PRN Robitussin Nighttime Cough Dm (Dextromethorphan Hb/Doxylamine) 237 Ml Liquid 10 Ml PO PRN Q4HRS PRN Omeprazole 40 Mg Capsule.dr 40 Mg PO BIDWMEALS Nephro-Fady Tablet (Folic Acid/Vitamin B Comp W-C) 0.8 Mg Tablet 1 Tab PO DAILY Alum-Mag Hydroxide-Simeth Liq (Mag Hydrox/Al Hydrox/Simeth) 360 Ml Oral.susp 15 Ml PO PRN AFTMEALHC PRN Montelukast Sodium Tablet (Montelukast Sodium) 10 Mg Tablet 10 Mg PO HS Namenda (Memantine Hcl) 10 Mg Tablet 10 Mg PO BID Lorazepam 0.5 Mg Tablet 0.5 Mg PO PRN Q6HRS PRN Levothyroxine Sodium 75 Mcg Tablet 75 Mcg PO DAILY06 Lactulose 10 Gm/15 Ml Solution 20 Gm PO DAILY Duoneb 0.5-3(2.5) Mg/3 Ml (Albuterol/Ipratropium) 3 Ml Ampul.neb 3 Ml NEB QID Icy Hot Cream (Methyl Salicylate/Menthol) 35.4 Gm Cream..g. 1 Applic TP PRN QID PRN Hydralazine Hcl 50 Mg Tablet 50 Mg PO TID Guaifenesin 600 Mg Tablet.er 600 Mg PO BID Fluticasone Propionate Nasal [place] (Fluticasone Propionate) 16 Gm [place].susp 2 [place] NS PRN BID PRN Breo Ellipta 100-25 Mcg Inh (Fluticasone/Vilanterol) 1 Each Aer.pow.ba 1 Puff IH DAILY Ferrous Sulfate 325 Mg Tablet 325 Mg PO BID Donepezil Hcl 5 Mg Tablet 5 Mg PO HS Depakote Sprinkle (Divalproex Sodium) 125 Mg Cap.sprink 250 Mg PO BID Cetirizine Hcl 10 Mg Tablet 10 Mg PO DAILY Carvedilol 12.5 Mg Tablet 12.5 Mg PO BID Calcium Polycarbophil 625 Mg Tablet 625 Mg PO DAILY Buspirone Hcl 5 Mg Tablet 5 Mg PO QID Benztropine Mesylate 0.5 Mg Tablet 0.5 Mg PO DAILY Atorvastatin Calcium 10 Mg Tablet 5 Mg PO QHS PRN Artificial Tears Eye Drops (Dextran 70/Hypromellose) 15 Ml Drops 2 Drop OU DAILY Amantadine (Amantadine Hcl) 100 Mg Tablet 100 Mg PO QODAY Tylenol (Acetaminophen) 325 Mg Tablet 650 Mg PO PRN Q4HRS PRN SHANE BUTTS MD Mar 15, 2017 21:07
--- NOTE | 2017-03-16 20:55 | PDOC ---
Exam Robin Demential Exam: Robin Note: Please also refer to the separate dictated note~for this date of service dictated separately.~Patient seen individually. Discussed the patient with Nursing staff reviewed the chart.~Reviewed interim history and current functioning. Reviewed vital signs,~Labs/ Radiology~and current medications noted below. Continue current treatment with the changes noted in the dictated addendum note S/O: This is a late entry for date of service 03/11/2017 and covers elements not covered in my initial note. The patient was staffed with the entire team in morning of 03/11/2017 and seen individually in evening of 03/11/2017. A treatment team meeting lengthy discussion about the patient's progress, medications, and medical condition. Sleeping about 5 hours on average. Appetite 60%. The patient' son visited her. She has a possible UTI and is dehydrated. BUN is 48 and creatinine 3.1. We will differ to Dr. Herbert/Dr. Mace for IV fluids. She was hitting out at staff morning of March 11, refused the medications. Total fluid intake all day of March 11 has been about 400 cc but she has been started on IV fluids. Review of Systems: Ambulation impaired. No CV, , Pulmonary, Eye, ENT system symptoms on review. Reliability varies. MSE: Oriented to herself, situations. Speech is difficult to understand. Abstraction is fair. Computation is impaired. Language function is intact. She is still somewhat psychotic. No active suicidal or homicidal ideation. Labs: Reviewed. Imp: Bipolar 1 disorder, mixed with psychotic features in partial remission. Cognitive disorder, unspecified. Rest unchanged including probable UTI. Urine C&S is awaited. Dehydration. Plan: Differ medical management to Dr. Herbert. Continue current psychotropics mentioned in my initial note. Adjust further as clinically indicated. Assessment: Vital Signs: Vital Signs Date Time Temp Pulse Resp B/P (MAP) Pulse Ox O2 Delivery O2 Flow Rate FiO2 03/12/17 16:03 96.7 74 22 166/97 (120) 96 03/12/17 15:52 Nasal Cannula 2.0 Current Medications: Meds: Current Medications Acetaminophen (Tylenol) 650 mg PRN Q6HRS PRN PO PAIN / TEMP; Start 03/02/17 at 20:30; Status Cancel Multi-Ingredient Ointment (Analgesic Cantril) 1 ezio PRN QID PRN TP MUSCLE PAIN Last administered on 03/07/17 20:38; Start 03/02/17 at 20:30; Stop 03/12/17 at 20 :48; Status DC Al Hydroxide/Mg Hydroxide (Mylanta Plus Xs) 15 ml PRN AFTMEALHC PRN PO DYSPEPSIA; Start 03/02/17 at 20:30; Stop 03/12/17 at 20:48; Status DC Magnesium Hydroxide (Milk Of Magnesia) 2,400 mg PRN QHS PRN PO CONSTIPATION; Start 03/02/17 at 20:30; Status Cancel Benztropine Mesylate (Cogentin) 0.5 mg DAILY PO Last administered on 03/11/17 08:25; Start 03/03/17 at 09:00; Stop 03/12/17 at 20:48; Status DC Buspirone HCl (Buspar) 5 mg QID PO Last administered on 03/11/17 16:28; Start 03/03/17 at 09:00; Stop 03/12/17 at 20:48; Status DC Divalproex Sodium (Depakote Sprinkles) 250 mg BID PO Last administered on 16:27; Start 03/03/17 at 09:00; Stop 03/12/17 at 20:48; Status DC Donepezil HCl (Aricept) 5 mg HS PO Last administered on 03/10/17 20:30; Start 03/03/17 at 21:00; Stop 03/12/17 at 20:48; Status DC Lorazepam (Ativan) 0.5 mg PRN Q6HRS PRN PO ANXIETY / AGITATION Last administered on 03/11/17 10:05; Start 03/03/17 at 00:00; Stop 03/12/17 at 20:48; Status DC Loxapine Succinate (Loxitane) 5 mg HS PO Last administered on 03/07/17 19:56; Start 03/03/17 at 21:00; Stop 03/07/17 at 20:22; Status DC Memantine (Namenda) 10 mg BID PO Last administered on 03/11/17 16:27; Start at 09:00; Stop 03/12/17 at 20:48; Status DC Olanzapine (ZyPREXA) 2.5 mg PRN Q2HR PRN PO PSYCHOSIS Last administered on 09:49; Start 03/03/17 at 00:00; Stop 03/12/17 at 20:48; Status DC Acetaminophen (Tylenol) 650 mg PRN Q4HRS PRN PO PAIN / TEMP; Start 03/03/17 at 08:00; Stop 03/12/17 at 20:48; Status DC Amlodipine Besylate (Norvasc) 5 mg DAILY PO Last administered on 03/04/17 09: 06; Start 03/03/17 at 09:00; Stop 03/04/17 at 14:28; Status DC Atorvastatin Calcium (Lipitor) 5 mg QHS PO Last administered on 03/11/17 21:28 ; Start 03/03/17 at 21:00; Stop 03/12/17 at 20:48; Status DC Benzonatate (Tessalon Perle) 100 mg PRN Q4HRS PRN PO COUGH; Start 03/03/17 at 08:00; Stop 03/12/17 at 20:48; Status DC Calcium Polycarbophil (Fibercon) 625 mg DAILY PO Last administered on 03/11/17 08:27; Start 03/03/17 at 09:00; Stop 03/12/17 at 20:48; Status DC Carvedilol (Coreg) 12.5 mg BID PO Last administered on 03/11/17 16:27; Start at 09:00; Stop 03/12/17 at 20:48; Status DC Cetirizine HCl (ZyrTEC) 10 mg DAILY PO Last administered on 03/11/17 08:27; Start 03/03/17 at 09:00; Stop 03/12/17 at 20:48; Status DC Ferrous Sulfate (Feosol) 325 mg BID PO Last administered on 03/11/17 16:26; Start 03/03/17 at 09:00; Stop 03/12/17 at 20:48; Status DC Fluticasone Propionate (Flonase) 2 spray PRN BID PRN NS rhinitis; Start at 08:00; Stop 03/12/17 at 20:48; Status DC Multivit/Ca Carb/ B Cmplx/FA/Prenat (Nephro-Fady) 1 tab DAILY PO Last administered on 03/11/17 08:34; Start 03/03/17 at 09:00; Stop 03/12/17 at 20:48; Status DC Furosemide (Lasix) 20 mg DAILY PO Last administered on 03/04/17 09:06; Start 03/03/17 at 09:00; Stop 03/04/17 at 14:28; Status DC Guaifenesin (Mucinex Er) 600 mg BID PO Last administered on 03/11/17 16:28; Start 03/03/17 at 09:00; Stop 03/12/17 at 20:48; Status DC Hydralazine HCl (Apresoline) 50 mg TID PO Last administered on 03/11/17 16:27; Start 03/03/17 at 09:00; Stop 03/12/17 at 20:48; Status DC Albuterol Sulfate (Ventolin) 2.5 mg PRN QID PRN NEB SHORTNESS OF BREATH; Start 03/03/17 at 08:30; Stop 03/12/17 at 20:48; Status DC Albuterol/ Ipratropium (Duoneb) 3 ml QID NEB Last administered on 03/12/17 15: 51; Start 03/03/17 at 09:00; Stop 03/12/17 at 20:48; Status DC Levothyroxine Sodium (Synthroid) 75 mcg DAILY06 PO Last administered on 05:46; Start 03/03/17 at 09:00; Stop 03/12/17 at 20:48; Status DC Montelukast Sodium (Singulair) 10 mg HS PO Last administered on 03/11/17 21:27 ; Start 03/03/17 at 21:00; Stop 03/12/17 at 20:48; Status DC Rifaximin (Xifaxan) 550 mg BID PO Last administered on 03/10/17 20:35; Start at 09:00; Stop 03/12/17 at 20:48; Status DC Sennosides (Senna) 8.6 mg HS PO Last administered on 03/11/17 21:28; Start at 21:00; Stop 03/12/17 at 20:48; Status DC Sodium Chloride (Saline Mist Nasal) 2 ezio PRN Q4HRS PRN NS rhinitis; Start at 08:00; Stop 03/12/17 at 20:48; Status DC Tramadol HCl (Ultram) 50 mg PRN Q6HRS PRN PO MODERATE PAIN; Start 03/03/17 at 08:00; Stop 03/04/17 at 14:29; Status DC Amantadine HCl (Symmetrel) 100 mg BID PO Last administered on 03/10/17 20:35; Start 03/03/17 at 09:00; Stop 03/11/17 at 14:03; Status DC Artificial Tears (Artificial Tears) 2 drop DAILY OU Last administered on 11:32; Start 03/03/17 at 09:00; Stop 03/03/17 at 15:06; Status DC Guaifenesin (Robitussin Dm) 10 ml PRN Q4HRS PRN PO COUGH; Start 03/03/17 at 08: 30; Stop 03/12/17 at 20:48; Status DC Epoetin Jaquan (Procrit) 6,000 unit QMWF@0900 SQ Last administered on 03/10/17 08 :33; Start 03/03/17 at 09:00; Stop 03/10/17 at 18:12; Status DC Non-Formulary Medication 1 puff DAILY IH ; Start 03/03/17 at 09:00; Status UNV Lactulose 20 gm DAILY PO Last administered on 03/11/17 08:28; Start 03/03/17 at 09:00; Stop 03/12/17 at 20:48; Status DC Magnesium Hydroxide (Milk Of Magnesia) 2,400 mg PRN DAILY PRN PO CONSTIPATION Last administered on 03/06/17 03:10; Start 03/03/17 at 08:30; Stop 03/12/17 at 20 :48; Status DC Pantoprazole Sodium (Protonix) 40 mg DAILYAC PO Last administered on 03/10/17 08:25; Start 03/03/17 at 09:00; Stop 03/12/17 at 20:48; Status DC Non-Formulary Medication 1 ezio BID TP ; Start 03/03/17 at 09:00; Status UNV Vitamin D (Vitamin D3) 50,000 unit WEEKLY PO Last administered on 03/10/17 08: 32; Start 03/03/17 at 09:00; Stop 03/12/17 at 20:48; Status DC Budesonide (Pulmicort) 0.5 mg RTBID NEB Last administered on 03/11/17 11:38; Start 03/03/17 at 20:00; Stop 03/12/17 at 20:48; Status DC Artificial Tears (Artificial Tears) 2 drop DAILY OU Last administered on 08:34; Start 03/03/17 at 15:06; Stop 03/12/17 at 20:48; Status DC Sertraline HCl (Zoloft) 25 mg QHS PO Last administered on 03/11/17 21:28; Start 03/04/17 at 21:00; Stop 03/12/17 at 20:48; Status DC Amlodipine Besylate (Norvasc) 10 mg DAILY PO Last administered on 03/11/17 16: 29; Start 03/05/17 at 09:00; Stop 03/12/17 at 20:48; Status DC Furosemide (Lasix) 40 mg DAILY PO Last administered on 03/09/17 07:56; Start at 09:00; Stop 03/09/17 at 16:59; Status DC Amlodipine Besylate (Norvasc) 5 mg 1X ONCE PO Last administered on 03/04/17 14:45; Start 03/04/17 at 14:45; Stop 03/04/17 at 14:49; Status DC Furosemide (Lasix) 20 mg 1X ONCE PO Last administered on 03/04/17 15:27; Start 03/04/17 at 14:45; Stop 03/04/17 at 14:49; Status DC Tramadol HCl (Ultram) 50 mg PRN Q12HR PRN PO MODERATE PAIN; Start 03/04/17 at 21:00; Stop 03/12/17 at 20:48; Status DC Loxapine Succinate (Loxitane) 7.5 mg QHS PO Last administered on 03/07/17 20:35 ; Start 03/07/17 at 21:00; Stop 03/07/17 at 21:01; Status DC Loxapine Succinate (Loxitane) 10 mg QHS PO Last administered on 03/11/17 21:32 ; Start 03/08/17 at 21:00; Stop 03/12/17 at 20:48; Status DC Glucose (Insta-Glucose) 15 gm STK-MED ONCE .ROUTE Last administered on 09:05; Start 03/11/17 at 09:05; Stop 03/11/17 at 09:06; Status DC Glucose (Insta-Glucose) 15 gm STK-MED ONCE .ROUTE Last administered on 10:10; Start 03/11/17 at 09:53; Stop 03/11/17 at 09:54; Status DC Amantadine HCl (Symmetrel) 100 mg Q48H PO ; Start 03/12/17 at 09:00; Stop at 20:48; Status DC Sodium Chloride 1,000 ml @ 75 mls/hr [id number] IV Last administered on 03/12/17 06:50; Start 03/11/17 at 19:30; Stop 03/12/17 at 20:48; Status DC Glucose (Insta-Glucose) 15 gm STK-MED ONCE .ROUTE Last administered on 07:19; Start 03/12/17 at 07:07; Stop 03/12/17 at 07:08; Status DC Glucose (Insta-Glucose) 15 gm STK-MED ONCE .ROUTE ; Start 03/12/17 at 07:19; Stop 03/12/17 at 07:20; Status DC Ceftriaxone Sodium 1 gm/ Sodium Chloride 50 ml @ 100 mls/hr Q24H IV ; Start 03/12/17 at 20:00; Stop 03/12/17 at 20:48; Status DC Active Scripts Active Reported Ceftriaxone 1 Gm Piggyback (Ceftriaxone Na/Dextrose,Iso) 1 Gm/50 Ml Froz.piggy 1 Gm IV QHS Sodium Chloride (Sodium Chloride 0.45 %) 1,000 Ml Iv.soln 1,000 Ml IV [id number] Albuterol Sulfate Neb Soln (Albuterol Sulfate) 2.5 Mg/3 Ml Vial.neb 2.5 Mg NEB PRN QID PRN Norvasc (Amlodipine Besylate) 10 Mg Tablet 10 Mg PO DAILY Zoloft (Sertraline Hcl) 25 Mg Tablet 25 Mg PO QHS Zyprexa Zydis (Olanzapine) 5 Mg Tab.rapdis 2.5 Mg PO PRN Q2HR PRN Milk Of Magnesia (Magnesium Hydroxide) 400 Mg/5 Ml Oral.susp 2,400 Mg PO PRN QHS PRN Loxapine (Loxapine Succinate) 10 Mg Capsule 10 Mg PO QHS Maximum D3 (Cholecalciferol (Vitamin D3)) 10,000 Unit Capsule 50,000 Unit PO WEEKLY Xifaxan (Rifaximin) 550 Mg Tablet 550 Mg PO BID Tramadol Hcl (Tramadol HCl) 50 Mg Tablet 50 Mg PO PRN Q12HR PRN Tessalon Perle (Benzonatate) 100 Mg Capsule 100 Mg PO PRN Q4HRS PRN Senokot (Sennosides) 8.6 Mg Tablet 8.6 Mg PO HS Saline Nasal [place] (Sodium Chloride) 30 Ml [place] 2 Sprays NS PRN Q4HRS PRN Robitussin Nighttime Cough Dm (Dextromethorphan Hb/Doxylamine) 237 Ml Liquid 10 Ml PO PRN Q4HRS PRN Omeprazole 40 Mg Capsule.dr 40 Mg PO BIDWMEALS Nephro-Fady Tablet (Folic Acid/Vitamin B Comp W-C) 0.8 Mg Tablet 1 Tab PO DAILY Alum-Mag Hydroxide-Simeth Liq (Mag Hydrox/Al Hydrox/Simeth) 360 Ml Oral.susp 15 Ml PO PRN AFTMEALHC PRN Montelukast Sodium Tablet (Montelukast Sodium) 10 Mg Tablet 10 Mg PO HS Namenda (Memantine Hcl) 10 Mg Tablet 10 Mg PO BID Lorazepam 0.5 Mg Tablet 0.5 Mg PO PRN Q6HRS PRN Levothyroxine Sodium 75 Mcg Tablet 75 Mcg PO DAILY06 Lactulose 10 Gm/15 Ml Solution 20 Gm PO DAILY Duoneb 0.5-3(2.5) Mg/3 Ml (Albuterol/Ipratropium) 3 Ml Ampul.neb 3 Ml NEB QID Icy Hot Cream (Methyl Salicylate/Menthol) 35.4 Gm Cream..g. 1 Applic TP PRN QID PRN Hydralazine Hcl 50 Mg Tablet 50 Mg PO TID Guaifenesin 600 Mg Tablet.er 600 Mg PO BID Fluticasone Propionate Nasal [place] (Fluticasone Propionate) 16 Gm [place].susp 2 [place] NS PRN BID PRN Breo Ellipta 100-25 Mcg Inh (Fluticasone/Vilanterol) 1 Each Aer.pow.ba 1 Puff IH DAILY Ferrous Sulfate 325 Mg Tablet 325 Mg PO BID Donepezil Hcl 5 Mg Tablet 5 Mg PO HS Depakote Sprinkle (Divalproex Sodium) 125 Mg Cap.sprink 250 Mg PO BID Cetirizine Hcl 10 Mg Tablet 10 Mg PO DAILY Carvedilol 12.5 Mg Tablet 12.5 Mg PO BID Calcium Polycarbophil 625 Mg Tablet 625 Mg PO DAILY Buspirone Hcl 5 Mg Tablet 5 Mg PO QID Benztropine Mesylate 0.5 Mg Tablet 0.5 Mg PO DAILY Atorvastatin Calcium 10 Mg Tablet 5 Mg PO QHS PRN Artificial Tears Eye Drops (Dextran 70/Hypromellose) 15 Ml Drops 2 Drop OU DAILY Amantadine (Amantadine Hcl) 100 Mg Tablet 100 Mg PO QODAY Tylenol (Acetaminophen) 325 Mg Tablet 650 Mg PO PRN Q4HRS PRN SHANE BUTTS MD Mar 16, 2017 20:55
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
== END 2017-03-12 20:48 | disposition short-term general hospital (02) | DRG 56 ==
LOC: ER 16:40 → GEROPSY 18:30
PROVIDERS: ADMIT Psychiatry & Neurology Psychiatry; ATTEND Psychiatry & Neurology Psychiatry
DX: G30.9 Alzheimer's disease, unspecified (principal); N17.0 Acute kidney failure with tubular necrosis; F31.62 Bipolar disorder, current episode mixed, moderate; J96.11 Chronic respiratory failure with hypoxia; N18.4 Chronic kidney disease, stage 4 (severe); F02.80 Dementia in other diseases classified elsewhere, unspecified severity, without behavioral disturbance, psychotic disturbance, mood disturbance, and anxiety; F41.9 Anxiety disorder, unspecified; F63.9 Impulse disorder, unspecified; I73.9 Peripheral vascular disease, unspecified; F20.9 Schizophrenia, unspecified; J44.9 Chronic obstructive pulmonary disease, unspecified; R13.10 Dysphagia, unspecified; E03.9 Hypothyroidism, unspecified; I10 Essential (primary) hypertension; E11.51 Type 2 diabetes mellitus with diabetic peripheral angiopathy without gangrene; E55.9 Vitamin D deficiency, unspecified; E61.1 Iron deficiency; Z88.2 Allergy status to sulfonamides; Z87.891 Personal history of nicotine dependence; Z93.6 Other artificial openings of urinary tract status; Z88.8 Allergy status to other drugs, medicaments and biological substances; E11.22 Type 2 diabetes mellitus with diabetic chronic kidney disease
CPT/HCPCS: 36415; 70450; 71010; 80048; 80053; 80061; 80164; 81001; 82306; 82607; 82947; 83036; 83540; 83550; 83735; 84436; 84443; 84480; 85008; 85027; 86592; 86593; 87086; 87186; 93005; 94640; J0885; J7620; J7626; 97110; 97116; 97530; 97535; 99285-25; J7030

== ENCOUNTER 2017-03-12 19:54 | Inpatient (IN) | payer MEDICARE, OTHER ==
[~2017-03-12] VITALS: Ht 162.6 cm; Wt 70.8 kg
[~2017-03-12 19:54] MED LIST: ACET325T9 PO; AMLO5TAB2 PO; ATOR10TA60 PO; BENZ0.5T PO; BENZ100C PO; BUSP5TAB PO; CALC625T61 PO; CARV12.52 PO; CETI10TA16 PO; DEXT15DR5 OU; DEXT237L PO; DEXTROSE ORAL GEL 15 GM TUBE. PO PRN; DIPH25CA58 PO; DIVA125C PO; DONE5TAB7 PO; EPOGEN3000 UNIT/ SQ; FERR-26 PO; FLUT16SP21 NS; FLUT1AER IH; FOLI0.8T33 PO; FURO20TA3 PO; GUAI600T28 PO; HYDR-2869 PO; IPRA3AMP NEB; LACT10SO PO; LEVO75TA5 PO; LORA0.5T PO; LOXA5CAP PO; MAG360OR24 PO; MAGN2400 PO; MEMA10TA PO; METH35.4 TP; MONT10TA9 PO; OLAN2.5T3 PO; OMEP40CA5 PO; RIFA550T4 PO; SENN8.6T99 PO; SODI30SP NS; TRAM50TA PO; [UNRECOGNIZED DRUG - CODE] PO; [UNRECOGNIZED DRUG - CODE] TP
[2017-03-12] MEDS ORDERED: LOXA10CA PO (20:09)
[2017-03-12] MEDS ORDERED: MAGN400O7 PO (20:11)
[2017-03-12] MEDS ORDERED: OLAN5TAB5 PO (20:13)
[2017-03-12] MEDS ORDERED: SERT25TA PO (20:15)
[2017-03-12] MEDS ORDERED: AMLO10TA4 PO (20:16)
[2017-03-12] MEDS ORDERED: ALBU2.5V5 NEB (20:22)
[2017-03-12] MEDS ORDERED: [UNRECOGNIZED DRUG - CODE] IV (20:24)
[2017-03-12] MEDS ORDERED: CEFT1FRO2 IV (20:26)
[2017-03-12] MEDS ORDERED: CALCIUM CARBONATE 500 MG TAB.CHEW PO PRN (21:00)
[2017-03-12] MEDS ORDERED: 0.9 % SODIUM CHLORIDE 10 ML DISP.SYRIN. IV PRN (21:00)
--- NOTE | 2017-03-12 21:17 | NUR ---
The patient, ERROL ZHANG, 76 y/o, F admitted by JOSE VILLARREAL MD, was given written information regarding hospital policies, unit procedures and contact persons. Valuables were checked and logged. Will continue to monitor.
[2017-03-12 21:48] VITALS: BP 173/82
[2017-03-12] MEDS: IV DEXTROSE 5 %-0.45 % NACL 1,000 ML IV SCH (21:52)
[2017-03-12] MEDS: HEPARIN PF for SUB-Q USE 5,000 UNIT/0.5 ML VIAL. SQ SCH (21:53)
[2017-03-12] MEDS ORDERED: IV NORMAL SALINE 50ML 50 ML ONE (22:07)
[2017-03-12] MEDS ORDERED: AMAN100T PO (22:11)
[2017-03-12] MEDS ORDERED: LORazepam 0.5 MG TABLET PO PRN (22:15)
[2017-03-12 23:02] VITALS: BP 173/82
[2017-03-13] MEDS: IV DEXTROSE 5 %-0.45 % NACL 1,000 ML IV SCH ×2 (05:54→18:05)
[2017-03-13 06:53] LABS: BASO % 0 % (0-3); EOS % 1 % (0-3); HEMATOCRIT 45.6 % (36.0-47.0); HEMOGLOBIN 15.1 g/dL (12.0-15.5); LYMPH # 0.5 x10^3/uL (1.0-4.8); LYMPH % 8 % (24-48); MEAN CORPUSCULAR HEMOGLOBIN 30 pg (25-35); MEAN CORPUSCULAR HGB CONC 33 g/dL (31-37); MEAN CORPUSCULAR VOLUME 90 fL (79-100); MONO # 0.6 x10^3/uL (0.0-1.1); MONO % 10 % (0-9); NEUT # 5.2 x10^3uL (1.8-7.7); NEUT % 82 % (31-73); PLATELET COUNT 126 x10^3/uL (140-400); RED BLOOD COUNT 5.06 x10^6/uL (3.50-5.40); RED CELL DISTRIBUTION WIDTH 16.4 % (11.5-14.5); WHITE BLOOD COUNT 6.4 x10^3/uL (4.0-11.0)
[2017-03-13 06:55] LABS: CALCIUM 8.4 mg/dL (8.5-10.1); CREATININE 3.7 mg/dL (0.6-1.0); GFR 14.4; MAGNESIUM 2.2 mg/dL (1.8-2.4); POTASSIUM 3.6 mmol/L (3.5-5.1)
[2017-03-13 07:15] VITALS: BP 168/68
[2017-03-13] MEDS: busPIRone 5 MG TABLET. PO SCH ×4 (08:50→17:00)
[2017-03-13] MEDS: BENZTROPINE MESYLATE 0.5 MG TABLET PO SCH ×2 (08:50→09:00)
[2017-03-13] MEDS: HEPARIN PF for SUB-Q USE 5,000 UNIT/0.5 ML VIAL. SQ SCH ×2 (08:52→21:18)
[2017-03-13 11:24] VITALS: BP 164/62
[2017-03-13] MEDS ORDERED: ACETAMINOPHEN 325 MG TABLET PO PRN (11:45)
[2017-03-13] MEDS ORDERED: MAGNESIUM HYDROXIDE 2,400 MG/30 ML ORAL.SUSP. PO PRN ×2 (11:45→12:15)
[2017-03-13] MEDS ORDERED: ALBUTEROL SULFATE 2.5 MG/3 ML NEBU. NEB PRN (11:45)
[2017-03-13] MEDS ORDERED: SODIUM CHLORIDE 0.65% NASAL SPRAY 45ML BOTTLE. NS PRN (11:45)
[2017-03-13] MEDS: IPRATRPIUM/ALBUTEROL 0.5/2.5MG 3 ML NEBU. NEB SCH ×3 (13:00→21:12)
--- NOTE | 2017-03-13 13:09 | PDOC1 ---
History of Present Illness Reason for Visit: Dehydration History of Present Illness Pt has been on the [facility] floor since the end of February, sent here from [facility] [place] [facility] due to worsening behaviors. Apparently, according to the nursing notes and staff working last night, pt has been refusing meds, food, and water for a few days. They have not had any success in changing her behavior in that regard. She has a history of chronic urostomy and just yesterday was started on Rocephin for a possible UTI. She also has a hx of CKD, her creat on admission was 2.2, but had risen (along w/ her BUN) to 3.8 yesterday, likely due to lack of fluid intake. I received a call from her nurse stating that they felt she should be transferred to the medical floor. Her vitals were stable, she was afebrile, and had been on IV fluids for less than 12 hours. After the nursing supervisor plasma assessed the patient, I received another call stating that she also thought she should be transferred. Pt has apparently been hallucinating and not oriented at all. She did participate in music therapy yesterday according to the notes. I did see her on rounds just now. She is a poor historian and does not answer any questions well, though she does nod yes/no appropriately, mostly to questions about pain, food, and drink. All information in this document is gleaned from her chart and staff. Chief Complaint: Dehydration Allergies: Coded Allergies: Sulfa (Sulfonamide Antibiotics) (Verified Allergy, Intermediate, 03/02/17) allopurinol (Verified Allergy, Intermediate, 03/03/17) clonidine (Verified Allergy, Intermediate, 03/03/17) lisinopril (Verified Allergy, Intermediate, 03/03/17) Past Medical History Cardiac: Other (Reportedly has a cardiac history with ?HF) Pulmonary: COPD TEST CARRIER: Dementia GI: Constipation Psych: Bipolar Renal/: Chronic renal failure, Urinary Incontinence Past Surgical History: Other (Urostomy) Family History: Other (Unknown) Past Social History Smoke: No Alcohol: none Drugs: None Lives: [facility] Review of Systems Review Of Systems ROS unreliable/unobtainable due to pt's mental state. Allergies: Coded Allergies: Sulfa (Sulfonamide Antibiotics) (Verified Allergy, Intermediate, 03/02/17) allopurinol (Verified Allergy, Intermediate, 03/03/17) clonidine (Verified Allergy, Intermediate, 03/03/17) lisinopril (Verified Allergy, Intermediate, 03/03/17) Medications Current Medications Sodium Chloride (Normal Saline Flush) 3 ml PRN DAILY PRN IV AFTER MEDS AND BLOOD DRAWS; Start 03/12/17 at 21:00; Stop 03/13/17 at 12:10; Status DC Dextrose/Sodium Chloride 1,000 ml @ 100 mls/hr Q10H IV Last administered on 05:54; Start 03/12/17 at 20:54 Calcium Carbonate/ Glycine (Tums) 500 mg PRN Q3HRS PRN PO HEARTBURN / GAS; Start 03/12/17 at 21:00 Heparin Sodium (Porcine) 5,000 unit Q12H SQ Last administered on 03/13/17 08:52 ; Start 03/12/17 at 21:00 Ceftriaxone Sodium 1 gm/ Sodium Chloride 50 ml @ 100 mls/hr QODAY IV Last administered on 03/12/17 22:10; Start 03/12/17 at 21:30 Sodium Chloride 50 ml @ As Directed STK-MED ONCE .ROUTE Last administered on 22:07; Start 03/12/17 at 22:07; Stop 03/12/17 at 22:08; Status DC Benztropine Mesylate (Cogentin) 0.5 mg DAILY PO ; Start 03/13/17 at 09:00 Buspirone HCl (Buspar) 5 mg QID PO ; Start 03/13/17 at 09:00 Lorazepam (Ativan) 0.5 mg PRN Q6HRS PRN PO ANXIETY / AGITATION; Start 03/12/17 at 22:15 Olanzapine (ZyPREXA ZYDIS) 2.5 mg PRN Q2HR PRN PO PSYCHOSIS Last administered on 03/13/17 02:09; Start 03/12/17 at 22:15 Acetaminophen (Tylenol) 650 mg PRN Q4HRS PRN PO PAIN / TEMP; Start 03/13/17 at 11:45 Albuterol Sulfate (Ventolin) 2.5 mg PRN QID PRN NEB SHORTNESS OF BREATH; Start 03/13/17 at 11:45 Amlodipine Besylate (Norvasc) 10 mg DAILY PO ; Start 03/14/17 at 09:00 Carvedilol (Coreg) 12.5 mg BID PO ; Start 03/13/17 at 21:00 Divalproex Sodium (Depakote Sprinkles) 250 mg BID PO ; Start 03/13/17 at 21:00 Donepezil HCl (Aricept) 5 mg HS PO ; Start 03/13/17 at 21:00 Multivit/Ca Carb/ B Cmplx/FA/Prenat (Nephro-Fady) 1 tab DAILY PO ; Start at 09:00 Hydralazine HCl (Apresoline) 50 mg TID PO ; Start 03/13/17 at 14:00 Albuterol/ Ipratropium (Duoneb) 3 ml QID NEB ; Start 03/13/17 at 13:00 Levothyroxine Sodium (Synthroid) 75 mcg DAILY06 PO ; Start 03/14/17 at 06:00 Magnesium Hydroxide (Milk Of Magnesia) 2,400 mg PRN QHS PRN PO CONSTIPATION; Start 03/13/17 at 11:45 Memantine (Namenda) 10 mg BID PO ; Start 03/13/17 at 21:00 Rifaximin (Xifaxan) 550 mg BID PO ; Start 03/13/17 at 21:00 Sennosides (Senna) 8.6 mg HS PO ; Start 03/13/17 at 21:00 Sertraline HCl (Zoloft) 25 mg QHS PO ; Start 03/13/17 at 21:00 Sodium Chloride (Saline Mist Nasal) 1 ezio PRN Q4HRS PRN NS rhinitis; Start 03/13 at 11:45 Amantadine HCl (Symmetrel) 100 mg QODAY PO ; Start 03/15/17 at 09:00 Artificial Tears (Artificial Tears) 2 drop DAILY OU ; Start 03/14/17 at 09:00 Non-Formulary Medication 1 puff DAILY IH ; Start 03/14/17 at 09:00; Status UNV Lactulose 20 gm DAILY PO ; Start 03/14/17 at 09:00 Loxapine Succinate (Loxitane) 10 mg QHS PO ; Start 03/13/17 at 21:00 Magnesium Hydroxide (Milk Of Magnesia) 2,400 mg PRN AFTMEALHC PRN PO HEARTBURN / GAS; Start 03/13/17 at 12:15 Pantoprazole Sodium (Protonix) 40 mg BIDWMEALS PO ; Start 03/13/17 at 17:00 Albuterol Sulfate (Ventolin) 2.5 mg RTQID NEB ; Start 03/13/17 at 16:00; Stop 03/13/17 at 16:00; Status DC Budesonide (Pulmicort) 0.5 mg RTBID NEB ; Start 03/13/17 at 20:00 Active Scripts Active Reported Ceftriaxone 1 Gm Piggyback (Ceftriaxone Na/Dextrose,Iso) 1 Gm/50 Ml Froz.piggy 1 Gm IV QHS Sodium Chloride (Sodium Chloride 0.45 %) 1,000 Ml Iv.soln 1,000 Ml IV [id number] Albuterol Sulfate Neb Soln (Albuterol Sulfate) 2.5 Mg/3 Ml Vial.neb 2.5 Mg NEB PRN QID PRN Norvasc (Amlodipine Besylate) 10 Mg Tablet 10 Mg PO DAILY Zoloft (Sertraline Hcl) 25 Mg Tablet 25 Mg PO QHS Zyprexa Zydis (Olanzapine) 5 Mg Tab.rapdis 2.5 Mg PO PRN Q2HR PRN Milk Of Magnesia (Magnesium Hydroxide) 400 Mg/5 Ml Oral.susp 2,400 Mg PO PRN QHS PRN Loxapine (Loxapine Succinate) 10 Mg Capsule 10 Mg PO QHS Maximum D3 (Cholecalciferol (Vitamin D3)) 10,000 Unit Capsule 50,000 Unit PO WEEKLY Xifaxan (Rifaximin) 550 Mg Tablet 550 Mg PO BID Tramadol Hcl (Tramadol HCl) 50 Mg Tablet 50 Mg PO PRN Q12HR PRN Tessalon Perle (Benzonatate) 100 Mg Capsule 100 Mg PO PRN Q4HRS PRN Senokot (Sennosides) 8.6 Mg Tablet 8.6 Mg PO HS Saline Nasal Redford (Sodium Chloride) 30 Ml Redford 2 Sprays NS PRN Q4HRS PRN Robitussin Nighttime Cough Dm (Dextromethorphan Hb/Doxylamine) 237 Ml Liquid 10 Ml PO PRN Q4HRS PRN Omeprazole 40 Mg Capsule.dr 40 Mg PO BIDWMEALS Nephro-Fady Tablet (Folic Acid/Vitamin B Comp W-C) 0.8 Mg Tablet 1 Tab PO DAILY Alum-Mag Hydroxide-Simeth Liq (Mag Hydrox/Al Hydrox/Simeth) 360 Ml Oral.susp 15 Ml PO PRN AFTMEALHC PRN Montelukast Sodium Tablet (Montelukast Sodium) 10 Mg Tablet 10 Mg PO HS Namenda (Memantine Hcl) 10 Mg Tablet 10 Mg PO BID Lorazepam 0.5 Mg Tablet 0.5 Mg PO PRN Q6HRS PRN Levothyroxine Sodium 75 Mcg Tablet 75 Mcg PO DAILY06 Lactulose 10 Gm/15 Ml Solution 20 Gm PO DAILY Duoneb 0.5-3(2.5) Mg/3 Ml (Albuterol/Ipratropium) 3 Ml Ampul.neb 3 Ml NEB QID Icy Hot Cream (Methyl Salicylate/Menthol) 35.4 Gm Cream..g. 1 Applic TP PRN QID PRN Hydralazine Hcl 50 Mg Tablet 50 Mg PO TID Guaifenesin 600 Mg Tablet.er 600 Mg PO BID Fluticasone Propionate Nasal [place] (Fluticasone Propionate) 16 Gm Redford.susp 2 Redford NS PRN BID PRN Breo Ellipta 100-25 Mcg Inh (Fluticasone/Vilanterol) 1 Each Aer.pow.ba 1 Puff IH DAILY Ferrous Sulfate 325 Mg Tablet 325 Mg PO BID Donepezil Hcl 5 Mg Tablet 5 Mg PO HS Depakote Sprinkle (Divalproex Sodium) 125 Mg Cap.sprink 250 Mg PO BID Cetirizine Hcl 10 Mg Tablet 10 Mg PO DAILY Carvedilol 12.5 Mg Tablet 12.5 Mg PO BID Calcium Polycarbophil 625 Mg Tablet 625 Mg PO DAILY Buspirone Hcl 5 Mg Tablet 5 Mg PO QID Benztropine Mesylate 0.5 Mg Tablet 0.5 Mg PO DAILY Atorvastatin Calcium 10 Mg Tablet 5 Mg PO QHS PRN Artificial Tears Eye Drops (Dextran 70/Hypromellose) 15 Ml Drops 2 Drop OU DAILY Amantadine (Amantadine Hcl) 100 Mg Tablet 100 Mg PO QODAY Tylenol (Acetaminophen) 325 Mg Tablet 650 Mg PO PRN Q4HRS PRN Exam Vital Signs Vital Signs Date Time Temp Pulse Resp B/P (MAP) Pulse Ox O2 Delivery O2 Flow Rate FiO2 03/13/17 11:24 97.1 64 16 164/62 (96) 93 Room Air General Appearance: No acute distress, Other (Pt does nod, etc. States does not want food or drink, denies pain, otherwise does not answer questions.) HEENT: Atraumatic, Other (Dry MM, cracked tongue) Respiratory: Clear to auscultation, Normal air movement, Other (Scattered rhonchi that clear w/ deep breaths) Heart: Regular rate, Normal S1, Normal S2, No murmurs Abdominal: Soft, No tenderness Extremities: Other (1+ BLE edema w/ diffuse thickened skin (stasis dermatitis)) Skin: No breakdown Neuro: Other (There are no focal neurologic deficits on exam. 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 Acute on chronic renal failure: Due to dehydration. Pt being treated for UTI, though not clear if just contaminant. Continue Rocephin and IVF. Consult Dr. Quinones and Dr. Murphy. Creat down this morning, which is good. Lytes are stable. 2. Dehydration: Due to psych-induced poor intake. 3. DVT proph: Heparin BID. 4. Hx HF: Pt was on fluid restriction, but due to renal failure I have lifted this. 5. PD: Consult Dr. Murphy. Pt has refused medications, reportedly has told nursing staff recently " I don't want to eat, I just want to ." COURSE Allergies Coded Allergies Type Severity Reaction Last Updated Verified Sulfa (Sulfonamide Antibiotics) Allergy Intermediate 03/02/17 Yes allopurinol Allergy Intermediate 03/03/17 Yes clonidine Allergy Intermediate 03/03/17 Yes lisinopril Allergy Intermediate 03/03/17 Yes Laboratory Tests Test 03/13/17 06:20 03/13/17 07:53 03/13/17 11:53 White Blood Count 6.4 x10^3/uL (4.0-11.0) Red Blood Count 5.06 x10^6/uL (3.50-5.40) Hemoglobin 15.1 g/dL (12.0-15.5) Hematocrit 45.6 % (36.0-47.0) Mean Corpuscular Volume 90 fL (79-100) Mean Corpuscular Hemoglobin 30 pg (25-35) Mean Corpuscular Hemoglobin Concent 33 g/dL (31-37) Red Cell Distribution Width 16.4 % (11.5-14.5) Platelet Count 126 x10^3/uL (140-400) Neutrophils (%) (Auto) 82 % (31-73) Lymphocytes (%) (Auto) 8 % (24-48) Monocytes (%) (Auto) 10 % (0-9) Eosinophils (%) (Auto) 1 % (0-3) Basophils (%) (Auto) 0 % (0-3) Neutrophils # (Auto) 5.2 x10^3uL (1.8-7.7) Lymphocytes # (Auto) 0.5 x10^3/uL (1.0-4.8) Monocytes # (Auto) 0.6 x10^3/uL (0.0-1.1) Eosinophils # (Auto) 0.0 x10^3/uL (0.0-0.7) Basophils # (Auto) 0.0 x10^3/uL (0.0-0.2) Sodium Level 140 mmol/L (136-145) Potassium Level 3.6 mmol/L (3.5-5.1) Chloride Level 102 mmol/L (98-107) Carbon Dioxide Level 25 mmol/L (21-32) Anion Gap 13 (6-14) Blood Urea Nitrogen 59 mg/dL (7-20) Creatinine 3.7 mg/dL (0.6-1.0) Estimated GFR (Cockcroft-Gault) 14.4 Glucose Level 67 mg/dL (70-99) Calcium Level 8.4 mg/dL (8.5-10.1) Magnesium Level 2.2 mg/dL (1.8-2.4) Albumin 3.0 g/dL (3.4-5.0) Glucose (Fingerstick) 72 mg/dL (70-99) 93 mg/dL (70-99) Current Medications Medications (Trade) Dose Ordered Sig/Tristan Route PRN Reason Start Time Stop Time Status Last Admin Dose Admin Sodium Chloride (Normal Saline Flush) 3 ml PRN DAILY PRN IV AFTER MEDS AND BLOOD DRAWS 03/12/17 21:00 03/13/17 12:10 DC Dextrose/Sodium Chloride 1,000 ml @ 100 mls/hr Q10H IV 03/12/17 20:54 03/13/17 05:54 Calcium Carbonate/ Glycine (Tums) 500 mg PRN Q3HRS PRN PO HEARTBURN / GAS 03/12/17 21:00 Heparin Sodium (Porcine) 5,000 unit Q12H SQ 03/12/17 21:00 03/13/17 08:52 Ceftriaxone Sodium 1 gm/ Sodium Chloride 50 ml @ 100 mls/hr QODAY IV 03/12/17 21:30 03/12/17 22:10 Sodium Chloride 50 ml @ As Directed STK-MED ONCE .ROUTE 03/12/17 22:07 03/12/17 22:08 DC 03/12/17 22:07 Benztropine Mesylate (Cogentin) 0.5 mg DAILY PO 03/13/17 09:00 Buspirone HCl (Buspar) 5 mg QID PO 03/13/17 09:00 Lorazepam (Ativan) 0.5 mg PRN Q6HRS PRN PO ANXIETY / AGITATION 03/12/17 22:15 Olanzapine (ZyPREXA ZYDIS) 2.5 mg PRN Q2HR PRN PO PSYCHOSIS 03/12/17 22:15 03/13/17 02:09 Acetaminophen (Tylenol) 650 mg PRN Q4HRS PRN PO PAIN / TEMP 03/13/17 11:45 Albuterol Sulfate (Ventolin) 2.5 mg PRN QID PRN NEB SHORTNESS OF BREATH 03/13/17 11:45 Amlodipine Besylate (Norvasc) 10 mg DAILY PO 03/14/17 09:00 Carvedilol (Coreg) 12.5 mg BID PO 03/13/17 21:00 Divalproex Sodium (Depakote Sprinkles) 250 mg BID PO 03/13/17 21:00 Donepezil HCl (Aricept) 5 mg HS PO 03/13/17 21:00 Multivit/Ca Carb/ B Cmplx/FA/Prenat (Nephro-Fady) 1 tab DAILY PO 03/14/17 09:00 Hydralazine HCl (Apresoline) 50 mg TID PO 03/13/17 14:00 Albuterol/ Ipratropium (Duoneb) 3 ml QID NEB 03/13/17 13:00 Levothyroxine Sodium (Synthroid) 75 mcg DAILY06 PO 03/14/17 06:00 Magnesium Hydroxide (Milk Of Magnesia) 2,400 mg PRN QHS PRN PO CONSTIPATION 03/13/17 11:45 Memantine (Namenda) 10 mg BID PO 03/13/17 21:00 Rifaximin (Xifaxan) 550 mg BID PO 03/13/17 21:00 Sennosides (Senna) 8.6 mg HS PO 03/13/17 21:00 Sertraline HCl (Zoloft) 25 mg QHS PO 03/13/17 21:00 Sodium Chloride (Saline Mist Nasal) 1 ezio PRN Q4HRS PRN NS rhinitis 03/13/17 11:45 Amantadine HCl (Symmetrel) 100 mg QODAY PO 03/15/17 09:00 Artificial Tears (Artificial Tears) 2 drop DAILY OU 03/14/17 09:00 Non-Formulary Medication 1 puff DAILY IH 03/14/17 09:00 UNV Lactulose 20 gm DAILY PO 03/14/17 09:00 Loxapine Succinate (Loxitane) 10 mg QHS PO 03/13/17 21:00 Magnesium Hydroxide (Milk Of Magnesia) 2,400 mg PRN AFTMEALHC PRN PO HEARTBURN / GAS 03/13/17 12:15 Pantoprazole Sodium (Protonix) 40 mg BIDWMEALS PO 03/13/17 17:00 Albuterol Sulfate (Ventolin) 2.5 mg RTQID NEB 03/13/17 16:00 03/13/17 16:00 DC Budesonide (Pulmicort) 0.5 mg RTBID NEB 03/13/17 20:00 Vital Signs Date Time Temp Pulse Resp B/P (MAP) Pulse Ox O2 Delivery O2 Flow Rate FiO2 03/13/17 11:24 97.1 64 16 164/62 (96) 93 Room Air JOSE VILLARREAL MD Mar 13, 2017 13:09
--- NOTE | 2017-03-13 13:59 | NUR ---
Dr Quinones notified of consult regarding psychosis.
--- NOTE | 2017-03-13 14:42 | NUR ---
Dr Murphy's office notified of consult for patient regarding parkinsons.
[2017-03-13 15:25] VITALS: BP 187/74
[2017-03-13] MEDS ORDERED: ALBUTEROL SULFATE 2.5 MG/3 ML NEBU. NEB SCH (16:00)
--- NOTE | 2017-03-13 16:06 | PDOC2 ---
NEUROLOGY CONSULT Date of Admission DATE: 03/13/17 TIME: 15:30 Reason for Consult: history of Parkinson's disease and need for reevaluation Referring Physician: Dr. Gonzales. Chief Complaint The patient is a 76 yoAF was transferred from [facility] unit because of acute mental changes, refusing taking her medications and poor oral intake. she was found to be dehydrated and having uti. neuro consult was requested for evaluation for Parkinson's disease or as such. currently the patient unable to respond verbally. she has been Benztropine for parkinsonian- like symptoms. [id number] , the patient is unable to talk at this time.According to the nursing staff, the patient was alert and oriented few days ago on [facility]. CENTRAL NERVOUS SYSTEM: Dementia GI: GERD Psych: Bipolar Renal/: Chronic renal insuff, UTI Current Medications Current Medications Sodium Chloride (Normal Saline Flush) 3 ml PRN DAILY PRN IV AFTER MEDS AND BLOOD DRAWS; Start 03/12/17 at 21:00; Stop 03/13/17 at 12:10; Status DC Dextrose/Sodium Chloride 1,000 ml @ 100 mls/hr Q10H IV Last administered on 05:54; Start 03/12/17 at 20:54 Calcium Carbonate/ Glycine (Tums) 500 mg PRN Q3HRS PRN PO HEARTBURN / GAS; Start 03/12/17 at 21:00 Heparin Sodium (Porcine) 5,000 unit Q12H SQ Last administered on 03/13/17 08:52 ; Start 03/12/17 at 21:00 Ceftriaxone Sodium 1 gm/ Sodium Chloride 50 ml @ 100 mls/hr QODAY IV Last administered on 03/12/17 22:10; Start 03/12/17 at 21:30 Sodium Chloride 50 ml @ As Directed STK-MED ONCE .ROUTE Last administered on 22:07; Start 03/12/17 at 22:07; Stop 03/12/17 at 22:08; Status DC Benztropine Mesylate (Cogentin) 0.5 mg DAILY PO ; Start 03/13/17 at 09:00 Buspirone HCl (Buspar) 5 mg QID PO ; Start 03/13/17 at 09:00 Lorazepam (Ativan) 0.5 mg PRN Q6HRS PRN PO ANXIETY / AGITATION; Start 03/12/17 at 22:15 Olanzapine (ZyPREXA ZYDIS) 2.5 mg PRN Q2HR PRN PO PSYCHOSIS Last administered on 03/13/17t 02:09; Start 03/12/17 at 22:15 Acetaminophen (Tylenol) 650 mg PRN Q4HRS PRN PO PAIN / TEMP; Start 03/13/17 at 11:45 Albuterol Sulfate (Ventolin) 2.5 mg PRN QID PRN NEB SHORTNESS OF BREATH; Start 03/13/17 at 11:45 Amlodipine Besylate (Norvasc) 10 mg DAILY PO ; Start 03/14/17 at 09:00 Carvedilol (Coreg) 12.5 mg BID PO ; Start 03/13/17 at 21:00 Divalproex Sodium (Depakote Sprinkles) 250 mg BID PO ; Start 03/13/17 at 21:00 Donepezil HCl (Aricept) 5 mg HS PO ; Start 03/13/17 at 21:00 Multivit/Ca Carb/ B Cmplx/FA/Prenat (Nephro-Fady) 1 tab DAILY PO ; Start at 09:00 Hydralazine HCl (Apresoline) 50 mg TID PO ; Start 03/13/17 at 14:00 Albuterol/ Ipratropium (Duoneb) 3 ml QID NEB ; Start 03/13/17 at 13:00 Levothyroxine Sodium (Synthroid) 75 mcg DAILY06 PO ; Start 03/14/17 at 06:00 Magnesium Hydroxide (Milk Of Magnesia) 2,400 mg PRN QHS PRN PO CONSTIPATION; Start 03/13/17 at 11:45 Memantine (Namenda) 10 mg BID PO ; Start 03/13/17 at 21:00 Rifaximin (Xifaxan) 550 mg BID PO ; Start 03/13/17 at 21:00 Sennosides (Senna) 8.6 mg HS PO ; Start 03/13/17 at 21:00 Sertraline HCl (Zoloft) 25 mg QHS PO ; Start 03/13/17 at 21:00 Sodium Chloride (Saline Mist Nasal) 1 ezio PRN Q4HRS PRN NS rhinitis; Start 03/13 at 11:45 Amantadine HCl (Symmetrel) 100 mg QODAY PO ; Start 03/15/17 at 09:00 Artificial Tears (Artificial Tears) 2 drop DAILY OU ; Start 03/14/17 at 09:00 Non-Formulary Medication 1 puff DAILY IH ; Start 03/14/17 at 09:00; Stop 03/14/17 at 09:00; Status DC Lactulose 20 gm DAILY PO ; Start 03/14/17 at 09:00 Loxapine Succinate (Loxitane) 10 mg QHS PO ; Start 03/13/17 at 21:00 Magnesium Hydroxide (Milk Of Magnesia) 2,400 mg PRN AFTMEALHC PRN PO HEARTBURN / GAS; Start 03/13/17 at 12:15 Pantoprazole Sodium (Protonix) 40 mg BIDWMEALS PO ; Start 03/13/17 at 17:00 Albuterol Sulfate (Ventolin) 2.5 mg RTQID NEB ; Start 03/13/17 at 16:00; Stop 03/13/17 at 16:00; Status DC Budesonide (Pulmicort) 0.5 mg RTBID NEB ; Start 03/13/17 at 20:00 Active Scripts Active Reported Ceftriaxone 1 Gm Piggyback (Ceftriaxone Na/Dextrose,Iso) 1 Gm/50 Ml Froz.piggy 1 Gm IV QHS Sodium Chloride (Sodium Chloride 0.45 %) 1,000 Ml Iv.soln 1,000 Ml IV [id number] Albuterol Sulfate Neb Soln (Albuterol Sulfate) 2.5 Mg/3 Ml Vial.neb 2.5 Mg NEB PRN QID PRN Norvasc (Amlodipine Besylate) 10 Mg Tablet 10 Mg PO DAILY Zoloft (Sertraline Hcl) 25 Mg Tablet 25 Mg PO QHS Zyprexa Zydis (Olanzapine) 5 Mg Tab.rapdis 2.5 Mg PO PRN Q2HR PRN Milk Of Magnesia (Magnesium Hydroxide) 400 Mg/5 Ml Oral.susp 2,400 Mg PO PRN QHS PRN Loxapine (Loxapine Succinate) 10 Mg Capsule 10 Mg PO QHS Maximum D3 (Cholecalciferol (Vitamin D3)) 10,000 Unit Capsule 50,000 Unit PO WEEKLY Xifaxan (Rifaximin) 550 Mg Tablet 550 Mg PO BID Tramadol Hcl (Tramadol HCl) 50 Mg Tablet 50 Mg PO PRN Q12HR PRN Tessalon Perle (Benzonatate) 100 Mg Capsule 100 Mg PO PRN Q4HRS PRN Senokot (Sennosides) 8.6 Mg Tablet 8.6 Mg PO HS Saline Nasal [place] (Sodium Chloride) 30 Ml [place] 2 Sprays NS PRN Q4HRS PRN Robitussin Nighttime Cough Dm (Dextromethorphan Hb/Doxylamine) 237 Ml Liquid 10 Ml PO PRN Q4HRS PRN Omeprazole 40 Mg Capsule.dr 40 Mg PO BIDWMEALS Nephro-Fady Tablet (Folic Acid/Vitamin B Comp W-C) 0.8 Mg Tablet 1 Tab PO DAILY Alum-Mag Hydroxide-Simeth Liq (Mag Hydrox/Al Hydrox/Simeth) 360 Ml Oral.susp 15 Ml PO PRN AFTMEALHC PRN Montelukast Sodium Tablet (Montelukast Sodium) 10 Mg Tablet 10 Mg PO HS Namenda (Memantine Hcl) 10 Mg Tablet 10 Mg PO BID Lorazepam 0.5 Mg Tablet 0.5 Mg PO PRN Q6HRS PRN Levothyroxine Sodium 75 Mcg Tablet 75 Mcg PO DAILY06 Lactulose 10 Gm/15 Ml Solution 20 Gm PO DAILY Duoneb 0.5-3(2.5) Mg/3 Ml (Albuterol/Ipratropium) 3 Ml Ampul.neb 3 Ml NEB QID Icy Hot Cream (Methyl Salicylate/Menthol) 35.4 Gm Cream..g. 1 Applic TP PRN QID PRN Hydralazine Hcl 50 Mg Tablet 50 Mg PO TID Guaifenesin 600 Mg Tablet.er 600 Mg PO BID Fluticasone Propionate Nasal [place] (Fluticasone Propionate) 16 Gm [place].susp 2 [place] NS PRN BID PRN Breo Ellipta 100-25 Mcg Inh (Fluticasone/Vilanterol) 1 Each Aer.pow.ba 1 Puff IH DAILY Ferrous Sulfate 325 Mg Tablet 325 Mg PO BID Donepezil Hcl 5 Mg Tablet 5 Mg PO HS Depakote Sprinkle (Divalproex Sodium) 125 Mg Cap.sprink 250 Mg PO BID Cetirizine Hcl 10 Mg Tablet 10 Mg PO DAILY Carvedilol 12.5 Mg Tablet 12.5 Mg PO BID Calcium Polycarbophil 625 Mg Tablet 625 Mg PO DAILY Buspirone Hcl 5 Mg Tablet 5 Mg PO QID Benztropine Mesylate 0.5 Mg Tablet 0.5 Mg PO DAILY Atorvastatin Calcium 10 Mg Tablet 5 Mg PO QHS PRN Artificial Tears Eye Drops (Dextran 70/Hypromellose) 15 Ml Drops 2 Drop OU DAILY Amantadine (Amantadine Hcl) 100 Mg Tablet 100 Mg PO QODAY Tylenol (Acetaminophen) 325 Mg Tablet 650 Mg PO PRN Q4HRS PRN Allergies: Coded Allergies: Sulfa (Sulfonamide Antibiotics) (Verified Allergy, Intermediate, 03/02/17) allopurinol (Verified Allergy, Intermediate, 03/03/17) clonidine (Verified Allergy, Intermediate, 03/03/17) lisinopril (Verified Allergy, Intermediate, 03/03/17) Physical Examination The paienT is drowsy and unable to respond to verbal commands and not coopertive with the exam at this time. VITALS Vital Signs Date Time Temp Pulse Resp B/P (MAP) Pulse Ox O2 Delivery O2 Flow Rate FiO2 03/13/17 14:00 64 164/62 03/13/17 11:24 97.1 16 93 Room Air Labs Laboratory Tests Test 03/12/17 21:25 03/13/17 06:20 03/13/17 07:53 03/13/17 11:53 Nasal Screen MRSA (PCR) Negative (Negative) White Blood Count 6.4 x10^3/uL (4.0-11.0) Red Blood Count 5.06 x10^6/uL (3.50-5.40) Hemoglobin 15.1 g/dL (12.0-15.5) Hematocrit 45.6 % (36.0-47.0) Mean Corpuscular Volume 90 fL (79-100) Mean Corpuscular Hemoglobin 30 pg (25-35) Mean Corpuscular Hemoglobin Concent 33 g/dL (31-37) Red Cell Distribution Width 16.4 % (11.5-14.5) Platelet Count 126 x10^3/uL (140-400) Neutrophils (%) (Auto) 82 % (31-73) Lymphocytes (%) (Auto) 8 % (24-48) Monocytes (%) (Auto) 10 % (0-9) Eosinophils (%) (Auto) 1 % (0-3) Basophils (%) (Auto) 0 % (0-3) Neutrophils # (Auto) 5.2 x10^3uL (1.8-7.7) Lymphocytes # (Auto) 0.5 x10^3/uL (1.0-4.8) Monocytes # (Auto) 0.6 x10^3/uL (0.0-1.1) Eosinophils # (Auto) 0.0 x10^3/uL (0.0-0.7) Basophils # (Auto) 0.0 x10^3/uL (0.0-0.2) Sodium Level 140 mmol/L (136-145) Potassium Level 3.6 mmol/L (3.5-5.1) Chloride Level 102 mmol/L (98-107) Carbon Dioxide Level 25 mmol/L (21-32) Anion Gap 13 (6-14) Blood Urea Nitrogen 59 mg/dL (7-20) Creatinine 3.7 mg/dL (0.6-1.0) Estimated GFR (Cockcroft-Gault) 14.4 Glucose Level 67 mg/dL (70-99) Calcium Level 8.4 mg/dL (8.5-10.1) Magnesium Level 2.2 mg/dL (1.8-2.4) Albumin 3.0 g/dL (3.4-5.0) Glucose (Fingerstick) 72 mg/dL (70-99) 93 mg/dL (70-99) Images D INDICATION: Altered Mental Status, hx of Encephalitis, not responding nor eating x 3 days COMPARISON: 03/02/2017 TECHNIQUE: 5 mm contiguous axial images were obtained from the skull base to the vertex. Coronal and sagittal reformats are performed. Exposure: One or more of the following individualized dose reduction techniques were utilized for this examination: 1. Automated exposure control 2. Adjustment of the mA and/or kV according to patient size 3. Use of iterative reconstruction technique. FINDINGS: Small soft tissue contusion identified in the left forehead region. Age-related cerebral atrophic changes. Moderate bilateral periventricular white matter hypodensities likely chronic small vessel ischemic disease. No evidence of acute intracranial hemorrhage. No extra-axial fluid collections. No mass effect or midline shift. Ventricular size is appropriate. Basal cisterns are patent. No fractures identified.Cohen-white differentiation is preserved.Globes and orbits are within normal limits. Paranasal sinuses and mastoid air cells are clear. IMPRESSION: 1. No acute intracranial findings. 2. Small soft tissue contusion identified in the left forehead regio Assessment/Plan 1- Acute encephalopathy probably etabolic anfd infectious type secondary to dehydration and uti 2- Dementia 3- UTI 4- Cronic renal disease 5- Bipolar disorder. Plan: Treat the underlying UTI.and hydration. continue with current care initiated by dr. Gonzales. Mandy TEMPLE MD Mar 13, 2017 16:06
--- NOTE | 2017-03-13 16:07 | PDOC2 ---
NEUROLOGY CONSULT Date of Admission DATE: 03/13/17 TIME: 16:06 Current Medications Current Medications Sodium Chloride (Normal Saline Flush) 3 ml PRN DAILY PRN IV AFTER MEDS AND BLOOD DRAWS; Start 03/12/17 at 21:00; Stop 03/13/17 at 12:10; Status DC Dextrose/Sodium Chloride 1,000 ml @ 100 mls/hr Q10H IV Last administered on 05:54; Start 03/12/17 at 20:54 Calcium Carbonate/ Glycine (Tums) 500 mg PRN Q3HRS PRN PO HEARTBURN / GAS; Start 03/12/17 at 21:00 Heparin Sodium (Porcine) 5,000 unit Q12H SQ Last administered on 03/13/17 08:52 ; Start 03/12/17 at 21:00 Ceftriaxone Sodium 1 gm/ Sodium Chloride 50 ml @ 100 mls/hr QODAY IV Last administered on 03/12/17 22:10; Start 03/12/17 at 21:30 Sodium Chloride 50 ml @ As Directed STK-MED ONCE .ROUTE Last administered on 22:07; Start 03/12/17 at 22:07; Stop 03/12/17 at 22:08; Status DC Benztropine Mesylate (Cogentin) 0.5 mg DAILY PO ; Start 03/13/17 at 09:00 Buspirone HCl (Buspar) 5 mg QID PO ; Start 03/13/17 at 09:00 Lorazepam (Ativan) 0.5 mg PRN Q6HRS PRN PO ANXIETY / AGITATION; Start 03/12/17 at 22:15 Olanzapine (ZyPREXA ZYDIS) 2.5 mg PRN Q2HR PRN PO PSYCHOSIS Last administered on 03/13/17 02:09; Start 03/12/17 at 22:15 Acetaminophen (Tylenol) 650 mg PRN Q4HRS PRN PO PAIN / TEMP; Start 03/13/17 at 11:45 Albuterol Sulfate (Ventolin) 2.5 mg PRN QID PRN NEB SHORTNESS OF BREATH; Start 03/13/17 at 11:45 Amlodipine Besylate (Norvasc) 10 mg DAILY PO ; Start 03/14/17 at 09:00 Carvedilol (Coreg) 12.5 mg BID PO ; Start 03/13/17 at 21:00 Divalproex Sodium (Depakote Sprinkles) 250 mg BID PO ; Start 03/13/17 at 21:00 Donepezil HCl (Aricept) 5 mg HS PO ; Start 03/13/17 at 21:00 Multivit/Ca Carb/ B Cmplx/FA/Prenat (Nephro-Fady) 1 tab DAILY PO ; Start at 09:00 Hydralazine HCl (Apresoline) 50 mg TID PO ; Start 03/13/17 at 14:00 Albuterol/ Ipratropium (Duoneb) 3 ml QID NEB ; Start 03/13/17 at 13:00 Levothyroxine Sodium (Synthroid) 75 mcg DAILY06 PO ; Start 03/14/17 at 06:00 Magnesium Hydroxide (Milk Of Magnesia) 2,400 mg PRN QHS PRN PO CONSTIPATION; Start 03/13/17 at 11:45 Memantine (Namenda) 10 mg BID PO ; Start 03/13/17 at 21:00 Rifaximin (Xifaxan) 550 mg BID PO ; Start 03/13/17 at 21:00 Sennosides (Senna) 8.6 mg HS PO ; Start 03/13/17 at 21:00 Sertraline HCl (Zoloft) 25 mg QHS PO ; Start 03/13/17 at 21:00 Sodium Chloride (Saline Mist Nasal) 1 ezio PRN Q4HRS PRN NS rhinitis; Start 03/13 at 11:45 Amantadine HCl (Symmetrel) 100 mg QODAY PO ; Start 03/15/17 at 09:00 Artificial Tears (Artificial Tears) 2 drop DAILY OU ; Start 03/14/17 at 09:00 Non-Formulary Medication 1 puff DAILY IH ; Start 03/14/17 at 09:00; Stop 03/14/17 at 09:00; Status DC Lactulose 20 gm DAILY PO ; Start 03/14/17 at 09:00 Loxapine Succinate (Loxitane) 10 mg QHS PO ; Start 03/13/17 at 21:00 Magnesium Hydroxide (Milk Of Magnesia) 2,400 mg PRN AFTMEALHC PRN PO HEARTBURN / GAS; Start 03/13/17 at 12:15 Pantoprazole Sodium (Protonix) 40 mg BIDWMEALS PO ; Start 03/13/17 at 17:00 Albuterol Sulfate (Ventolin) 2.5 mg RTQID NEB ; Start 03/13/17 at 16:00; Stop 03/13/17 at 16:00; Status DC Budesonide (Pulmicort) 0.5 mg RTBID NEB ; Start 03/13/17 at 20:00 Active Scripts Active Reported Ceftriaxone 1 Gm Piggyback (Ceftriaxone Na/Dextrose,Iso) 1 Gm/50 Ml Froz.piggy 1 Gm IV QHS Sodium Chloride (Sodium Chloride 0.45 %) 1,000 Ml Iv.soln 1,000 Ml IV [id number] Albuterol Sulfate Neb Soln (Albuterol Sulfate) 2.5 Mg/3 Ml Vial.neb 2.5 Mg NEB PRN QID PRN Norvasc (Amlodipine Besylate) 10 Mg Tablet 10 Mg PO DAILY Zoloft (Sertraline Hcl) 25 Mg Tablet 25 Mg PO QHS Zyprexa Zydis (Olanzapine) 5 Mg Tab.rapdis 2.5 Mg PO PRN Q2HR PRN Milk Of Magnesia (Magnesium Hydroxide) 400 Mg/5 Ml Oral.susp 2,400 Mg PO PRN QHS PRN Loxapine (Loxapine Succinate) 10 Mg Capsule 10 Mg PO QHS Maximum D3 (Cholecalciferol (Vitamin D3)) 10,000 Unit Capsule 50,000 Unit PO WEEKLY Xifaxan (Rifaximin) 550 Mg Tablet 550 Mg PO BID Tramadol Hcl (Tramadol HCl) 50 Mg Tablet 50 Mg PO PRN Q12HR PRN Tessalon Perle (Benzonatate) 100 Mg Capsule 100 Mg PO PRN Q4HRS PRN Senokot (Sennosides) 8.6 Mg Tablet 8.6 Mg PO HS Saline Nasal [place] (Sodium Chloride) 30 Ml [place] 2 Sprays NS PRN Q4HRS PRN Robitussin Nighttime Cough Dm (Dextromethorphan Hb/Doxylamine) 237 Ml Liquid 10 Ml PO PRN Q4HRS PRN Omeprazole 40 Mg Capsule.dr 40 Mg PO BIDWMEALS Nephro-Fady Tablet (Folic Acid/Vitamin B Comp W-C) 0.8 Mg Tablet 1 Tab PO DAILY Alum-Mag Hydroxide-Simeth Liq (Mag Hydrox/Al Hydrox/Simeth) 360 Ml Oral.susp 15 Ml PO PRN AFTMEALHC PRN Montelukast Sodium Tablet (Montelukast Sodium) 10 Mg Tablet 10 Mg PO HS Namenda (Memantine Hcl) 10 Mg Tablet 10 Mg PO BID Lorazepam 0.5 Mg Tablet 0.5 Mg PO PRN Q6HRS PRN Levothyroxine Sodium 75 Mcg Tablet 75 Mcg PO DAILY06 Lactulose 10 Gm/15 Ml Solution 20 Gm PO DAILY Duoneb 0.5-3(2.5) Mg/3 Ml (Albuterol/Ipratropium) 3 Ml Ampul.neb 3 Ml NEB QID Icy Hot Cream (Methyl Salicylate/Menthol) 35.4 Gm Cream..g. 1 Applic TP PRN QID PRN Hydralazine Hcl 50 Mg Tablet 50 Mg PO TID Guaifenesin 600 Mg Tablet.er 600 Mg PO BID Fluticasone Propionate Nasal [place] (Fluticasone Propionate) 16 Gm [place].susp 2 [place] NS PRN BID PRN Breo Ellipta 100-25 Mcg Inh (Fluticasone/Vilanterol) 1 Each Aer.pow.ba 1 Puff IH DAILY Ferrous Sulfate 325 Mg Tablet 325 Mg PO BID Donepezil Hcl 5 Mg Tablet 5 Mg PO HS Depakote Sprinkle (Divalproex Sodium) 125 Mg Cap.sprink 250 Mg PO BID Cetirizine Hcl 10 Mg Tablet 10 Mg PO DAILY Carvedilol 12.5 Mg Tablet 12.5 Mg PO BID Calcium Polycarbophil 625 Mg Tablet 625 Mg PO DAILY Buspirone Hcl 5 Mg Tablet 5 Mg PO QID Benztropine Mesylate 0.5 Mg Tablet 0.5 Mg PO DAILY Atorvastatin Calcium 10 Mg Tablet 5 Mg PO QHS PRN Artificial Tears Eye Drops (Dextran 70/Hypromellose) 15 Ml Drops 2 Drop OU DAILY Amantadine (Amantadine Hcl) 100 Mg Tablet 100 Mg PO QODAY Tylenol (Acetaminophen) 325 Mg Tablet 650 Mg PO PRN Q4HRS PRN Allergies: Coded Allergies: Sulfa (Sulfonamide Antibiotics) (Verified Allergy, Intermediate, 03/02/17) allopurinol (Verified Allergy, Intermediate, 03/03/17) clonidine (Verified Allergy, Intermediate, 03/03/17) lisinopril (Verified Allergy, Intermediate, 03/03/17) VITALS Vital Signs Date Time Temp Pulse Resp B/P (MAP) Pulse Ox O2 Delivery O2 Flow Rate FiO2 03/13/17 14:00 64 164/62 03/13/17 11:24 97.1 16 93 Room Air Labs Laboratory Tests Test 03/12/17 21:25 03/13/17 06:20 03/13/17 07:53 03/13/17 11:53 Nasal Screen MRSA (PCR) Negative (Negative) White Blood Count 6.4 x10^3/uL (4.0-11.0) Red Blood Count 5.06 x10^6/uL (3.50-5.40) Hemoglobin 15.1 g/dL (12.0-15.5) Hematocrit 45.6 % (36.0-47.0) Mean Corpuscular Volume 90 fL (79-100) Mean Corpuscular Hemoglobin 30 pg (25-35) Mean Corpuscular Hemoglobin Concent 33 g/dL (31-37) Red Cell Distribution Width 16.4 % (11.5-14.5) Platelet Count 126 x10^3/uL (140-400) Neutrophils (%) (Auto) 82 % (31-73) Lymphocytes (%) (Auto) 8 % (24-48) Monocytes (%) (Auto) 10 % (0-9) Eosinophils (%) (Auto) 1 % (0-3) Basophils (%) (Auto) 0 % (0-3) Neutrophils # (Auto) 5.2 x10^3uL (1.8-7.7) Lymphocytes # (Auto) 0.5 x10^3/uL (1.0-4.8) Monocytes # (Auto) 0.6 x10^3/uL (0.0-1.1) Eosinophils # (Auto) 0.0 x10^3/uL (0.0-0.7) Basophils # (Auto) 0.0 x10^3/uL (0.0-0.2) Sodium Level 140 mmol/L (136-145) Potassium Level 3.6 mmol/L (3.5-5.1) Chloride Level 102 mmol/L (98-107) Carbon Dioxide Level 25 mmol/L (21-32) Anion Gap 13 (6-14) Blood Urea Nitrogen 59 mg/dL (7-20) Creatinine 3.7 mg/dL (0.6-1.0) Estimated GFR (Cockcroft-Gault) 14.4 Glucose Level 67 mg/dL (70-99) Calcium Level 8.4 mg/dL (8.5-10.1) Magnesium Level 2.2 mg/dL (1.8-2.4) Albumin 3.0 g/dL (3.4-5.0) Glucose (Fingerstick) 72 mg/dL (70-99) 93 mg/dL (70-99) Mandy TEMPLE MD Mar 13, 2017 16:07
--- NOTE | 2017-03-13 16:10 | NUR ---
Patient coughing up a lot of mucus, saliva. RN noted a piece of spinach. Pt has not been eating for a couple of days. Dr Gonzales notified, pt placed NPO except meds, pt now upright in bed with suction ready. Will continue to monitor.
[2017-03-13] MEDS: hydrALAZINE 20 MG/ML VIAL. IV PRN ×2 (16:19→21:20)
[2017-03-13] MEDS: PANTOPRAZOLE 40 MG TABLET. PO SCH (17:00)
[2017-03-13 18:00] VITALS: BP 184/80
--- NOTE | 2017-03-13 18:17 | NUR ---
Pts BP at 1530 180's/80's. Informed Dr Gonzales, order for prn hydralazine. Given at 1610. Rechecked BP, still 180's/80's. Informed Dr Gonzales, order for scheduled IV labetolol. Will continue to monitor.
[2017-03-13] MEDS: LABETALOL 20 MG/4 ML DISP.SYRIN. IVP SCH (18:55)
--- NOTE | 2017-03-13 19:10 | RAD ---
CT HEAD INDICATION: Altered Mental Status, hx of Encephalitis, not responding nor eating x 3 days COMPARISON: 03/02/2017 TECHNIQUE: 5 mm contiguous axial images were obtained from the skull base to the vertex. Coronal and sagittal reformats are performed. Exposure: One or more of the following individualized dose reduction techniques were utilized for this examination: 1. Automated exposure control 2. Adjustment of the mA and/or kV according to patient size 3. Use of iterative reconstruction technique. FINDINGS: Small soft tissue contusion identified in the left forehead region. Age-related cerebral atrophic changes. Moderate bilateral periventricular white matter hypodensities likely chronic small vessel ischemic disease. No evidence of acute intracranial hemorrhage. No extra-axial fluid collections. No mass effect or midline shift. Ventricular size is appropriate. Basal cisterns are patent. No fractures identified.Cohen-white differentiation is preserved.Globes and orbits are within normal limits. Paranasal sinuses and mastoid air cells are clear. IMPRESSION: 1. No acute intracranial findings. 2. Small soft tissue contusion identified in the left forehead region. Electronically signed by: Robby Mo MD (03/13/2017 7:08 PM) [facility]
--- NOTE | 2017-03-13 19:16 | PDOC ---
Exam Robin Demential Exam: Robin Note: Please also refer to the separate dictated note~for this date of service dictated separately.~Patient seen individually. Discussed the patient with Nursing staff reviewed the chart.~Reviewed interim history and current functioning. Reviewed vital signs,~Labs/ Radiology~and current medications noted below. Continue current treatment with the changes noted in the dictated addendum note Assessment: Vital Signs: Vital Signs Date Time Temp Pulse Resp B/P (MAP) Pulse Ox O2 Delivery O2 Flow Rate FiO2 03/13/17 18:55 187 80/75 03/13/17 16:49 100 Room Air 03/13/17 15:25 97.4 14 I&O Intake and Output 03/13/17 07:00 Intake Total 0 ml Output Total 525 ml Balance -525 ml Intake Oral 0 ml Output Urine Total 525 ml # Bowel Movements 1 Labs: Laboratory Tests Test 03/12/17 21:25 03/13/17 06:20 03/13/17 07:53 03/13/17 11:53 Nasal Screen MRSA (PCR) Negative (Negative) White Blood Count 6.4 x10^3/uL (4.0-11.0) Red Blood Count 5.06 x10^6/uL (3.50-5.40) Hemoglobin 15.1 g/dL (12.0-15.5) Hematocrit 45.6 % (36.0-47.0) Mean Corpuscular Volume 90 fL (79-100) Mean Corpuscular Hemoglobin 30 pg (25-35) Mean Corpuscular Hemoglobin Concent 33 g/dL (31-37) Red Cell Distribution Width 16.4 % (11.5-14.5) H Platelet Count 126 x10^3/uL (140-400) L Neutrophils (%) (Auto) 82 % (31-73) H Lymphocytes (%) (Auto) 8 % (24-48) L Monocytes (%) (Auto) 10 % (0-9) H Eosinophils (%) (Auto) 1 % (0-3) Basophils (%) (Auto) 0 % (0-3) Neutrophils # (Auto) 5.2 x10^3uL (1.8-7.7) Lymphocytes # (Auto) 0.5 x10^3/uL (1.0-4.8) L Monocytes # (Auto) 0.6 x10^3/uL (0.0-1.1) Eosinophils # (Auto) 0.0 x10^3/uL (0.0-0.7) Basophils # (Auto) 0.0 x10^3/uL (0.0-0.2) Sodium Level 140 mmol/L (136-145) Potassium Level 3.6 mmol/L (3.5-5.1) Chloride Level 102 mmol/L (98-107) Carbon Dioxide Level 25 mmol/L (21-32) Anion Gap 13 (6-14) Blood Urea Nitrogen 59 mg/dL (7-20) H Creatinine 3.7 mg/dL (0.6-1.0) H Estimated GFR (Cockcroft-Gault) 14.4 Glucose Level 67 mg/dL (70-99) L Calcium Level 8.4 mg/dL (8.5-10.1) L Magnesium Level 2.2 mg/dL (1.8-2.4) Albumin 3.0 g/dL (3.4-5.0) L Glucose (Fingerstick) 72 mg/dL (70-99) 93 mg/dL (70-99) Test 03/13/17 16:47 Glucose (Fingerstick) 108 mg/dL (70-99) H Current Medications: Meds: Current Medications Sodium Chloride (Normal Saline Flush) 3 ml PRN DAILY PRN IV AFTER MEDS AND BLOOD DRAWS; Start 03/12/17 at 21:00; Stop 03/13/17 at 12:10; Status DC Dextrose/Sodium Chloride 1,000 ml @ 100 mls/hr Q10H IV Last administered on 18:05; Start 03/12/17 at 20:54 Calcium Carbonate/ Glycine (Tums) 500 mg PRN Q3HRS PRN PO HEARTBURN / GAS; Start 03/12/17 at 21:00 Heparin Sodium (Porcine) 5,000 unit Q12H SQ Last administered on 03/13/17 08:52 ; Start 03/12/17 at 21:00 Ceftriaxone Sodium 1 gm/ Sodium Chloride 50 ml @ 100 mls/hr QODAY IV Last administered on 03/12/17 22:10; Start 03/12/17 at 21:30 Sodium Chloride 50 ml @ As Directed STK-MED ONCE .ROUTE Last administered on 22:07; Start 03/12/17 at 22:07; Stop 03/12/17 at 22:08; Status DC Benztropine Mesylate (Cogentin) 0.5 mg DAILY PO ; Start 03/13/17 at 09:00 Buspirone HCl (Buspar) 5 mg QID PO ; Start 03/13/17 at 09:00 Lorazepam (Ativan) 0.5 mg PRN Q6HRS PRN PO ANXIETY / AGITATION; Start 03/12/17 at 22:15 Olanzapine (ZyPREXA ZYDIS) 2.5 mg PRN Q2HR PRN PO PSYCHOSIS Last administered on 03/13/17 02:09; Start 03/12/17 at 22:15 Acetaminophen (Tylenol) 650 mg PRN Q4HRS PRN PO PAIN / TEMP; Start 03/13/17 at 11:45 Albuterol Sulfate (Ventolin) 2.5 mg PRN QID PRN NEB SHORTNESS OF BREATH; Start 03/13/17 at 11:45 Amlodipine Besylate (Norvasc) 10 mg DAILY PO ; Start 03/14/17 at 09:00 Carvedilol (Coreg) 12.5 mg BID PO ; Start 03/13/17 at 21:00 Divalproex Sodium (Depakote Sprinkles) 250 mg BID PO ; Start 03/13/17 at 21:00 Donepezil HCl (Aricept) 5 mg HS PO ; Start 03/13/17 at 21:00 Multivit/Ca Carb/ B Cmplx/FA/Prenat (Nephro-Fady) 1 tab DAILY PO ; Start at 09:00 Hydralazine HCl (Apresoline) 50 mg TID PO ; Start 03/13/17 at 14:00 Albuterol/ Ipratropium (Duoneb) 3 ml QID NEB Last administered on 03/13/17 16: 49; Start 03/13/17 at 13:00 Levothyroxine Sodium (Synthroid) 75 mcg DAILY06 PO ; Start 03/14/17 at 06:00 Magnesium Hydroxide (Milk Of Magnesia) 2,400 mg PRN QHS PRN PO CONSTIPATION; Start 03/13/17 at 11:45 Memantine (Namenda) 10 mg BID PO ; Start 03/13/17 at 21:00 Rifaximin (Xifaxan) 550 mg BID PO ; Start 03/13/17 at 21:00 Sennosides (Senna) 8.6 mg HS PO ; Start 03/13/17 at 21:00 Sertraline HCl (Zoloft) 25 mg QHS PO ; Start 03/13/17 at 21:00 Sodium Chloride (Saline Mist Nasal) 1 ezio PRN Q4HRS PRN NS rhinitis; Start 03/13 at 11:45 Amantadine HCl (Symmetrel) 100 mg QODAY PO ; Start 03/15/17 at 09:00 Artificial Tears (Artificial Tears) 2 drop DAILY OU ; Start 03/14/17 at 09:00 Non-Formulary Medication 1 puff DAILY IH ; Start 03/14/17 at 09:00; Stop 03/14/17 at 09:00; Status DC Lactulose 20 gm DAILY PO ; Start 03/14/17 at 09:00 Loxapine Succinate (Loxitane) 10 mg QHS PO ; Start 03/13/17 at 21:00 Magnesium Hydroxide (Milk Of Magnesia) 2,400 mg PRN AFTMEALHC PRN PO HEARTBURN / GAS; Start 03/13/17 at 12:15 Pantoprazole Sodium (Protonix) 40 mg BIDWMEALS PO ; Start 03/13/17 at 17:00 Albuterol Sulfate (Ventolin) 2.5 mg RTQID NEB ; Start 03/13/17 at 16:00; Stop 03/13/17 at 16:00; Status DC Budesonide (Pulmicort) 0.5 mg RTBID NEB ; Start 03/13/17 at 20:00 Hydralazine HCl (Apresoline) 10 mg PRN Q4HRS PRN IV ELEVATED BP, SEE COMMENTS Last administered on 03/13/17t 16:19; Start 03/13/17 at 15:45 Nystatin (Nystop) 1 ezio BID TP ; Start 03/13/17 at 21:00 Glucose (Insta-Glucose) 15 gm PRN Q15MIN PRN PO LOW BLOOD SUGAR; Start 03/12/17 at 07:20; Stop 03/13/17 at 16:42; Status DC Labetalol HCl (Normodyne) 20 mg BID IVP Last administered on 03/13/17t 18:55; Start 03/13/17 at 18:30 Active Scripts Active Reported Ceftriaxone 1 Gm Piggyback (Ceftriaxone Na/Dextrose,Iso) 1 Gm/50 Ml Froz.piggy 1 Gm IV QHS Sodium Chloride (Sodium Chloride 0.45 %) 1,000 Ml Iv.soln 1,000 Ml IV [id number] Albuterol Sulfate Neb Soln (Albuterol Sulfate) 2.5 Mg/3 Ml Vial.neb 2.5 Mg NEB PRN QID PRN Norvasc (Amlodipine Besylate) 10 Mg Tablet 10 Mg PO DAILY Zoloft (Sertraline Hcl) 25 Mg Tablet 25 Mg PO QHS Zyprexa Zydis (Olanzapine) 5 Mg Tab.rapdis 2.5 Mg PO PRN Q2HR PRN Milk Of Magnesia (Magnesium Hydroxide) 400 Mg/5 Ml Oral.susp 2,400 Mg PO PRN QHS PRN Loxapine (Loxapine Succinate) 10 Mg Capsule 10 Mg PO QHS Maximum D3 (Cholecalciferol (Vitamin D3)) 10,000 Unit Capsule 50,000 Unit PO WEEKLY Xifaxan (Rifaximin) 550 Mg Tablet 550 Mg PO BID Tramadol Hcl (Tramadol HCl) 50 Mg Tablet 50 Mg PO PRN Q12HR PRN Tessalon Perle (Benzonatate) 100 Mg Capsule 100 Mg PO PRN Q4HRS PRN Senokot (Sennosides) 8.6 Mg Tablet 8.6 Mg PO HS Saline Nasal [place] (Sodium Chloride) 30 Ml [place] 2 Sprays NS PRN Q4HRS PRN Robitussin Nighttime Cough Dm (Dextromethorphan Hb/Doxylamine) 237 Ml Liquid 10 Ml PO PRN Q4HRS PRN Omeprazole 40 Mg Capsule.dr 40 Mg PO BIDWMEALS Nephro-Fady Tablet (Folic Acid/Vitamin B Comp W-C) 0.8 Mg Tablet 1 Tab PO DAILY Alum-Mag Hydroxide-Simeth Liq (Mag Hydrox/Al Hydrox/Simeth) 360 Ml Oral.susp 15 Ml PO PRN AFTMEALHC PRN Montelukast Sodium Tablet (Montelukast Sodium) 10 Mg Tablet 10 Mg PO HS Namenda (Memantine Hcl) 10 Mg Tablet 10 Mg PO BID Lorazepam 0.5 Mg Tablet 0.5 Mg PO PRN Q6HRS PRN Levothyroxine Sodium 75 Mcg Tablet 75 Mcg PO DAILY06 Lactulose 10 Gm/15 Ml Solution 20 Gm PO DAILY Duoneb 0.5-3(2.5) Mg/3 Ml (Albuterol/Ipratropium) 3 Ml Ampul.neb 3 Ml NEB QID Icy Hot Cream (Methyl Salicylate/Menthol) 35.4 Gm Cream..g. 1 Applic TP PRN QID PRN Hydralazine Hcl 50 Mg Tablet 50 Mg PO TID Guaifenesin 600 Mg Tablet.er 600 Mg PO BID Fluticasone Propionate Nasal [place] (Fluticasone Propionate) 16 Gm [place].susp 2 [place] NS PRN BID PRN Breo Ellipta 100-25 Mcg Inh (Fluticasone/Vilanterol) 1 Each Aer.pow.ba 1 Puff IH DAILY Ferrous Sulfate 325 Mg Tablet 325 Mg PO BID Donepezil Hcl 5 Mg Tablet 5 Mg PO HS Depakote Sprinkle (Divalproex Sodium) 125 Mg Cap.sprink 250 Mg PO BID Cetirizine Hcl 10 Mg Tablet 10 Mg PO DAILY Carvedilol 12.5 Mg Tablet 12.5 Mg PO BID Calcium Polycarbophil 625 Mg Tablet 625 Mg PO DAILY Buspirone Hcl 5 Mg Tablet 5 Mg PO QID Benztropine Mesylate 0.5 Mg Tablet 0.5 Mg PO DAILY Atorvastatin Calcium 10 Mg Tablet 5 Mg PO QHS PRN Artificial Tears Eye Drops (Dextran 70/Hypromellose) 15 Ml Drops 2 Drop OU DAILY Amantadine (Amantadine Hcl) 100 Mg Tablet 100 Mg PO QODAY Tylenol (Acetaminophen) 325 Mg Tablet 650 Mg PO PRN Q4HRS PRN Diagnosis: Problems: (1) Bipolar 1 disorder, mixed, moderate (2) Impulse control disorder (3) Anxiety disorder (4) Stkde-vv-bdocbdv renal failure (5) Dehydration, severe SHANE BUTTS MD Mar 13, 2017 19:16
[2017-03-13 19:55] VITALS: BP 186/71
[2017-03-13] MEDS: rifAXIMin 550 MG TABLET PO SCH (21:00)
[2017-03-13] MEDS: SERTRALINE 25 MG TABLET. PO SCH (21:00)
[2017-03-13] MEDS ORDERED: LOXAPINE SUCCINATE 5 MG CAPSULE PO SCH (21:00)
[2017-03-13] MEDS ORDERED: DIVALPROEX 125 MG CAP.SPRINK PO SCH (21:00)
[2017-03-13] MEDS ORDERED: DONEPEZIL HCL 5 MG TABLET. PO SCH (21:00)
[2017-03-13] MEDS: SENNOSIDES 8.6 MG TABLET PO SCH (21:00)
[2017-03-13] MEDS: NYSTATIN TOPICAL POWDER 15GM BOTTLE. TP SCH (21:00)
[2017-03-13] MEDS ORDERED: MEMANTINE 10 MG TABLET. PO SCH (21:00)
[2017-03-13] MEDS: CARVEDILOL 12.5 MG TABLET PO SCH (21:00)
[2017-03-13] MEDS: BUDESONIDE 0.5 MG/2 ML NEBU NEB SCH (21:12)
--- NOTE | 2017-03-13 23:16 | PDOC ---
Exam Robin Demential Exam: Robin Note: Please also refer to the separate dictated note~for this date of service dictated separately.~Patient seen individually. Discussed the patient with Nursing staff reviewed the chart.~Reviewed interim history and current functioning. Reviewed vital signs,~Labs/ Radiology~and current medications noted below. Continue current treatment with the changes noted in the dictated addendum note Assessment: Vital Signs: Vital Signs Date Time Temp Pulse Resp B/P (MAP) Pulse Ox O2 Delivery O2 Flow Rate FiO2 03/13/17 21:20 58 186/71 03/13/17 21:14 100 Room Air 03/13/17 19:55 97.3 19 I&O Intake and Output 03/13/17 07:00 Intake Total 0 ml Output Total 525 ml Balance -525 ml Intake Oral 0 ml Output Urine Total 525 ml # Bowel Movements 1 Labs: Laboratory Tests Test 03/13/17 06:20 03/13/17 07:53 03/13/17 11:53 03/13/17 16:47 White Blood Count 6.4 x10^3/uL (4.0-11.0) Red Blood Count 5.06 x10^6/uL (3.50-5.40) Hemoglobin 15.1 g/dL (12.0-15.5) Hematocrit 45.6 % (36.0-47.0) Mean Corpuscular Volume 90 fL (79-100) Mean Corpuscular Hemoglobin 30 pg (25-35) Mean Corpuscular Hemoglobin Concent 33 g/dL (31-37) Red Cell Distribution Width 16.4 % (11.5-14.5) H Platelet Count 126 x10^3/uL (140-400) L Neutrophils (%) (Auto) 82 % (31-73) H Lymphocytes (%) (Auto) 8 % (24-48) L Monocytes (%) (Auto) 10 % (0-9) H Eosinophils (%) (Auto) 1 % (0-3) Basophils (%) (Auto) 0 % (0-3) Neutrophils # (Auto) 5.2 x10^3uL (1.8-7.7) Lymphocytes # (Auto) 0.5 x10^3/uL (1.0-4.8) L Monocytes # (Auto) 0.6 x10^3/uL (0.0-1.1) Eosinophils # (Auto) 0.0 x10^3/uL (0.0-0.7) Basophils # (Auto) 0.0 x10^3/uL (0.0-0.2) Sodium Level 140 mmol/L (136-145) Potassium Level 3.6 mmol/L (3.5-5.1) Chloride Level 102 mmol/L (98-107) Carbon Dioxide Level 25 mmol/L (21-32) Anion Gap 13 (6-14) Blood Urea Nitrogen 59 mg/dL (7-20) H Creatinine 3.7 mg/dL (0.6-1.0) H Estimated GFR (Cockcroft-Gault) 14.4 Glucose Level 67 mg/dL (70-99) L Calcium Level 8.4 mg/dL (8.5-10.1) L Magnesium Level 2.2 mg/dL (1.8-2.4) Albumin 3.0 g/dL (3.4-5.0) L Glucose (Fingerstick) 72 mg/dL (70-99) 93 mg/dL (70-99) 108 mg/dL (70-99) H Test 03/13/17 19:40 Ammonia < 10 mcmol/L (11-34) L Current Medications: Meds: Current Medications Sodium Chloride (Normal Saline Flush) 3 ml PRN DAILY PRN IV AFTER MEDS AND BLOOD DRAWS; Start 03/12/17 at 21:00; Stop 03/13/17 at 12:10; Status DC Dextrose/Sodium Chloride 1,000 ml @ 100 mls/hr Q10H IV Last administered on 18:05; Start 03/12/17 at 20:54 Calcium Carbonate/ Glycine (Tums) 500 mg PRN Q3HRS PRN PO HEARTBURN / GAS; Start 03/12/17 at 21:00 Heparin Sodium (Porcine) 5,000 unit Q12H SQ Last administered on 03/13/17 21:18 ; Start 03/12/17 at 21:00 Ceftriaxone Sodium 1 gm/ Sodium Chloride 50 ml @ 100 mls/hr QODAY IV Last administered on 03/12/17 22:10; Start 03/12/17 at 21:30 Sodium Chloride 50 ml @ As Directed STK-MED ONCE .ROUTE Last administered on 22:07; Start 03/12/17 at 22:07; Stop 03/12/17 at 22:08; Status DC Benztropine Mesylate (Cogentin) 0.5 mg DAILY PO ; Start 03/13/17 at 09:00 Buspirone HCl (Buspar) 5 mg QID PO ; Start 03/13/17 at 09:00; Stop 03/13/17 at 19: 15; Status DC Lorazepam (Ativan) 0.5 mg PRN Q6HRS PRN PO ANXIETY / AGITATION; Start 03/12/17 at 22:15 Olanzapine (ZyPREXA ZYDIS) 2.5 mg PRN Q2HR PRN PO PSYCHOSIS Last administered on 03/13/17 21:38; Start 03/12/17 at 22:15 Acetaminophen (Tylenol) 650 mg PRN Q4HRS PRN PO PAIN / TEMP; Start 03/13/17 at 11:45 Albuterol Sulfate (Ventolin) 2.5 mg PRN QID PRN NEB SHORTNESS OF BREATH; Start 03/13/17 at 11:45 Amlodipine Besylate (Norvasc) 10 mg DAILY PO ; Start 03/14/17 at 09:00 Carvedilol (Coreg) 12.5 mg BID PO ; Start 03/13/17 at 21:00 Divalproex Sodium (Depakote Sprinkles) 250 mg BID PO ; Start 03/13/17 at 21:00; Stop 03/13/17 at 21:00; Status DC Donepezil HCl (Aricept) 5 mg HS PO ; Start 03/13/17 at 21:00; Stop 03/13/17 at 21: 00; Status DC Multivit/Ca Carb/ B Cmplx/FA/Prenat (Nephro-Fady) 1 tab DAILY PO ; Start at 09:00 Hydralazine HCl (Apresoline) 50 mg TID PO ; Start 03/13/17 at 14:00 Albuterol/ Ipratropium (Duoneb) 3 ml QID NEB Last administered on 03/13/17 21: 12; Start 03/13/17 at 13:00 Levothyroxine Sodium (Synthroid) 75 mcg DAILY06 PO ; Start 03/14/17 at 06:00 Magnesium Hydroxide (Milk Of Magnesia) 2,400 mg PRN QHS PRN PO CONSTIPATION; Start 03/13/17 at 11:45 Memantine (Namenda) 10 mg BID PO ; Start 03/13/17 at 21:00; Stop 03/13/17 at 21:00 ; Status DC Rifaximin (Xifaxan) 550 mg BID PO ; Start 03/13/17 at 21:00 Sennosides (Senna) 8.6 mg HS PO ; Start 03/13/17 at 21:00 Sertraline HCl (Zoloft) 25 mg QHS PO ; Start 03/13/17 at 21:00 Sodium Chloride (Saline Mist Nasal) 1 ezio PRN Q4HRS PRN NS rhinitis; Start 03/13 at 11:45 Amantadine HCl (Symmetrel) 100 mg QODAY PO ; Start 03/15/17 at 09:00 Artificial Tears (Artificial Tears) 2 drop DAILY OU ; Start 03/14/17 at 09:00 Non-Formulary Medication 1 puff DAILY IH ; Start 03/14/17 at 09:00; Stop 03/14/17 at 09:00; Status DC Lactulose 20 gm DAILY PO ; Start 03/14/17 at 09:00 Loxapine Succinate (Loxitane) 10 mg QHS PO ; Start 03/13/17 at 21:00; Stop at 21:00; Status DC Magnesium Hydroxide (Milk Of Magnesia) 2,400 mg PRN AFTMEALHC PRN PO HEARTBURN / GAS; Start 03/13/17 at 12:15 Pantoprazole Sodium (Protonix) 40 mg BIDWMEALS PO ; Start 03/13/17 at 17:00 Albuterol Sulfate (Ventolin) 2.5 mg RTQID NEB ; Start 03/13/17 at 16:00; Stop 03/13/17 at 16:00; Status DC Budesonide (Pulmicort) 0.5 mg RTBID NEB Last administered on 03/13/17 21:12; Start 03/13/17 at 20:00 Hydralazine HCl (Apresoline) 10 mg PRN Q4HRS PRN IV ELEVATED BP, SEE COMMENTS Last administered on 03/13/17 21:20; Start 03/13/17 at 15:45 Nystatin (Nystop) 1 ezio BID TP ; Start 03/13/17 at 21:00 Glucose (Insta-Glucose) 15 gm PRN Q15MIN PRN PO LOW BLOOD SUGAR; Start 03/12/17 at 07:20; Stop 03/13/17 at 16:42; Status DC Labetalol HCl (Normodyne) 20 mg BID IVP Last administered on 03/13/17t 18:55; Start 03/13/17 at 18:30 Loxapine Succinate (Loxitane) 10 mg BID94 PO ; Start 03/14/17 at 09:00 Active Scripts Active Reported Ceftriaxone 1 Gm Piggyback (Ceftriaxone Na/Dextrose,Iso) 1 Gm/50 Ml Froz.piggy 1 Gm IV QHS Sodium Chloride (Sodium Chloride 0.45 %) 1,000 Ml Iv.soln 1,000 Ml IV [id number] Albuterol Sulfate Neb Soln (Albuterol Sulfate) 2.5 Mg/3 Ml Vial.neb 2.5 Mg NEB PRN QID PRN Norvasc (Amlodipine Besylate) 10 Mg Tablet 10 Mg PO DAILY Zoloft (Sertraline Hcl) 25 Mg Tablet 25 Mg PO QHS Zyprexa Zydis (Olanzapine) 5 Mg Tab.rapdis 2.5 Mg PO PRN Q2HR PRN Milk Of Magnesia (Magnesium Hydroxide) 400 Mg/5 Ml Oral.susp 2,400 Mg PO PRN QHS PRN Loxapine (Loxapine Succinate) 10 Mg Capsule 10 Mg PO QHS Maximum D3 (Cholecalciferol (Vitamin D3)) 10,000 Unit Capsule 50,000 Unit PO WEEKLY Xifaxan (Rifaximin) 550 Mg Tablet 550 Mg PO BID Tramadol Hcl (Tramadol HCl) 50 Mg Tablet 50 Mg PO PRN Q12HR PRN Tessalon Perle (Benzonatate) 100 Mg Capsule 100 Mg PO PRN Q4HRS PRN Senokot (Sennosides) 8.6 Mg Tablet 8.6 Mg PO HS Saline Nasal [place] (Sodium Chloride) 30 Ml [place] 2 Sprays NS PRN Q4HRS PRN Robitussin Nighttime Cough Dm (Dextromethorphan Hb/Doxylamine) 237 Ml Liquid 10 Ml PO PRN Q4HRS PRN Omeprazole 40 Mg Capsule.dr 40 Mg PO BIDWMEALS Nephro-Fady Tablet (Folic Acid/Vitamin B Comp W-C) 0.8 Mg Tablet 1 Tab PO DAILY Alum-Mag Hydroxide-Simeth Liq (Mag Hydrox/Al Hydrox/Simeth) 360 Ml Oral.susp 15 Ml PO PRN AFTMEALHC PRN Montelukast Sodium Tablet (Montelukast Sodium) 10 Mg Tablet 10 Mg PO HS Namenda (Memantine Hcl) 10 Mg Tablet 10 Mg PO BID Lorazepam 0.5 Mg Tablet 0.5 Mg PO PRN Q6HRS PRN Levothyroxine Sodium 75 Mcg Tablet 75 Mcg PO DAILY06 Lactulose 10 Gm/15 Ml Solution 20 Gm PO DAILY Duoneb 0.5-3(2.5) Mg/3 Ml (Albuterol/Ipratropium) 3 Ml Ampul.neb 3 Ml NEB QID Icy Hot Cream (Methyl Salicylate/Menthol) 35.4 Gm Cream..g. 1 Applic TP PRN QID PRN Hydralazine Hcl 50 Mg Tablet 50 Mg PO TID Guaifenesin 600 Mg Tablet.er 600 Mg PO BID Fluticasone Propionate Nasal [place] (Fluticasone Propionate) 16 Gm [place].susp 2 [place] NS PRN BID PRN Breo Ellipta 100-25 Mcg Inh (Fluticasone/Vilanterol) 1 Each Aer.pow.ba 1 Puff IH DAILY Ferrous Sulfate 325 Mg Tablet 325 Mg PO BID Donepezil Hcl 5 Mg Tablet 5 Mg PO HS Depakote Sprinkle (Divalproex Sodium) 125 Mg Cap.sprink 250 Mg PO BID Cetirizine Hcl 10 Mg Tablet 10 Mg PO DAILY Carvedilol 12.5 Mg Tablet 12.5 Mg PO BID Calcium Polycarbophil 625 Mg Tablet 625 Mg PO DAILY Buspirone Hcl 5 Mg Tablet 5 Mg PO QID Benztropine Mesylate 0.5 Mg Tablet 0.5 Mg PO DAILY Atorvastatin Calcium 10 Mg Tablet 5 Mg PO QHS PRN Artificial Tears Eye Drops (Dextran 70/Hypromellose) 15 Ml Drops 2 Drop OU DAILY Amantadine (Amantadine Hcl) 100 Mg Tablet 100 Mg PO QODAY Tylenol (Acetaminophen) 325 Mg Tablet 650 Mg PO PRN Q4HRS PRN Diagnosis: Problems: (1) Dementia in Alzheimer's disease with delusions (2) Anxiety disorder (3) Impulse control disorder (4) Dehydration, severe (5) Xdytz-ma-eapzyee renal failure (6) Bipolar 1 disorder, mixed, moderate SHANE BUTTS MD Mar 13, 2017 23:16
[2017-03-13 23:18] VITALS: BP 180/50
[2017-03-14] MEDS: IV DEXTROSE 5 %-0.45 % NACL 1,000 ML IV SCH (02:34)
[2017-03-14] MEDS: IPRATRPIUM/ALBUTEROL 0.5/2.5MG 3 ML NEBU. NEB SCH ×5 (05:52→22:24)
[2017-03-14 05:55] VITALS: BP 150/47
[2017-03-14] MEDS: LEVOTHYROXINE 75 MCG TABLET PO SCH (06:00)
[2017-03-14 06:36] LABS: CALCIUM 8.3 mg/dL (8.5-10.1); CREATININE 2.6 mg/dL (0.6-1.0); GFR 21.7; POTASSIUM 3.3 mmol/L (3.5-5.1)
[2017-03-14] MEDS: POTASSIUM CL 20MEQ D5-0.45NACL 1,000 ML IV SCH ×2 (07:45→17:20)
[2017-03-14] MEDS: PANTOPRAZOLE 40 MG TABLET. PO SCH ×2 (08:00→17:00)
[2017-03-14] MEDS: LOXAPINE SUCCINATE 5 MG CAPSULE PO SCH ×2 (08:07→16:00)
[2017-03-14] MEDS: LACTULOSE 20 GM/30 ML SOLUTION. PO SCH (08:07)
[2017-03-14] MEDS: CARVEDILOL 12.5 MG TABLET PO SCH ×2 (08:07→21:01)
[2017-03-14] MEDS: BENZTROPINE MESYLATE 0.5 MG TABLET PO SCH (08:07)
[2017-03-14] MEDS: rifAXIMin 550 MG TABLET PO SCH ×2 (08:08→21:00)
[2017-03-14] MEDS: amLODIPine BESYLATE 10 MG TABLET PO SCH (08:08)
[2017-03-14] MEDS: FOLIC/VIT B COMP W-C (RENAL) TABLET. PO SCH (08:08)
[2017-03-14] MEDS: NYSTATIN TOPICAL POWDER 15GM BOTTLE. TP SCH ×2 (08:13→21:00)
[2017-03-14] MEDS: POLYVINYL ALCOHOL 1.4% OPHTH SOLUTION 15ML BOTTLE. OU SCH ×2 (08:14→09:00)
[2017-03-14] MEDS: LABETALOL 20 MG/4 ML DISP.SYRIN. IVP SCH ×2 (08:14→21:15)
[2017-03-14] MEDS: HEPARIN PF for SUB-Q USE 5,000 UNIT/0.5 ML VIAL. SQ SCH ×2 (08:22→21:06)
--- NOTE | 2017-03-14 08:53 | NUR ---
Pt more verbal today and more reactive. Is fighting more when staff attempts to provide care. RN explained to patient that she was going to administer artificial tears as RN began to pull back patient's eye lids, pt said, "what are you doing?" RN explained again what she was doing, pt responded, "My eyes are not dry!" And began blocking face with hands. RN did not administer artificial tears. This is an improvement from yesterday as patient hardly woke. Unable to administer oral medications. Will continue to monitor.
[2017-03-14] MEDS ORDERED: NON FORMULARY ITEM (Fluticasone/Vilanterol (Breo Ellipta 100-25 Mcg Inh) 1 PUFF) IH SCH (09:00)
[2017-03-14 11:28] VITALS: BP 160/65
[2017-03-14] MEDS: BUDESONIDE 0.5 MG/2 ML NEBU NEB SCH ×3 (11:43→22:24)
--- NOTE | 2017-03-14 14:20 | PDOC ---
PROGRESS NOTES Assessment 1. Acute on chronic renal failure: Due to dehydration. Pt being treated for UTI. Continue Rocephin and IVF. Creat improved significantly today. Cont IVF for one more day since pt still refusing to eat or drink. Will need to d/w DPOA tomorrow about whether to re-admit upstairs if pt stable. 2. Dehydration: Due to psych-induced poor intake and UTI. CT head and ammonia were unremarkable yesterday. 3. UTI : Cont Rocephin. Urine culture showed E. Coli, sens to Rocephin. 3. DVT proph: Heparin BID. 4. Hx HF: Pt was on fluid restriction, but due to renal failure I have lifted this. 5. PD: Neurology believes pt more likely having issues due to UTI. Will restart pt's meds when taking PO. 6. Severe PEM: Pt may need IV or NG nutrition if family wishes. Wait til tomorrow for decision. 7. Dysphagia: Pt noted to have a very old piece of spinach coughed up yesterday. Will need swallow eval tomorrow. Pt NPO for now. Problems: Plan of Care: see other orders Subjective Per nursing, pt more alert today. Voiding adequately per urostomy. No fever. No diarrhea. Has left IV in. Still refusing food, although currently NPO. Objective Vital Signs Date Time Temp Pulse Resp B/P (MAP) Pulse Ox O2 Delivery O2 Flow Rate FiO2 03/14/17 11:42 98 Room Air 03/14/17 11:28 98.8 61 16 160/65 (96) Intake and Output 03/14/17 07:00 Intake Total 997.8 ml Output Total 1900 ml Balance -902.2 ml Intake Oral 0 ml IV Total 997.8 ml Output Urine Total 1900 ml Abdomen: Soft, No tenderness Heart: Regular rate, Normal S1, Normal S2, No murmurs HEENT: Other (Adentulous. Tacky MM, dried saliva on corners of mouth) Lungs: Clear to auscultation, Normal air movement Neck: No JVD, No LAD Neuro: Other (DEE, neuro exam unchanged from yesterday) Psych/Mental Status: Other (Pt told me "what are you doing, I want you to stop " when I was listening to her heart. I stopped the exam at that point.) Skin: No rashes Review of Relevant I have reviewed the following items tony (where applicable) has been applied. Labs Laboratory Tests Test 03/12/17 21:25 03/13/17 06:20 03/13/17 07:53 03/13/17 11:53 Nasal Screen MRSA (PCR) Negative (Negative) White Blood Count 6.4 x10^3/uL (4.0-11.0) Red Blood Count 5.06 x10^6/uL (3.50-5.40) Hemoglobin 15.1 g/dL (12.0-15.5) Hematocrit 45.6 % (36.0-47.0) Mean Corpuscular Volume 90 fL (79-100) Mean Corpuscular Hemoglobin 30 pg (25-35) Mean Corpuscular Hemoglobin Concent 33 g/dL (31-37) Red Cell Distribution Width 16.4 % (11.5-14.5) Platelet Count 126 x10^3/uL (140-400) Neutrophils (%) (Auto) 82 % (31-73) Lymphocytes (%) (Auto) 8 % (24-48) Monocytes (%) (Auto) 10 % (0-9) Eosinophils (%) (Auto) 1 % (0-3) Basophils (%) (Auto) 0 % (0-3) Neutrophils # (Auto) 5.2 x10^3uL (1.8-7.7) Lymphocytes # (Auto) 0.5 x10^3/uL (1.0-4.8) Monocytes # (Auto) 0.6 x10^3/uL (0.0-1.1) Eosinophils # (Auto) 0.0 x10^3/uL (0.0-0.7) Basophils # (Auto) 0.0 x10^3/uL (0.0-0.2) Sodium Level 140 mmol/L (136-145) Potassium Level 3.6 mmol/L (3.5-5.1) Chloride Level 102 mmol/L (98-107) Carbon Dioxide Level 25 mmol/L (21-32) Anion Gap 13 (6-14) Blood Urea Nitrogen 59 mg/dL (7-20) Creatinine 3.7 mg/dL (0.6-1.0) Estimated GFR (Cockcroft-Gault) 14.4 Glucose Level 67 mg/dL (70-99) Calcium Level 8.4 mg/dL (8.5-10.1) Magnesium Level 2.2 mg/dL (1.8-2.4) Albumin 3.0 g/dL (3.4-5.0) Glucose (Fingerstick) 72 mg/dL (70-99) 93 mg/dL (70-99) Test 03/13/17 16:47 03/13/17 19:40 03/14/17 06:04 03/14/17 07:45 Glucose (Fingerstick) 108 mg/dL (70-99) 86 mg/dL (70-99) Ammonia < 10 mcmol/L (11-34) Sodium Level 139 mmol/L (136-145) Potassium Level 3.3 mmol/L (3.5-5.1) Chloride Level 105 mmol/L (98-107) Carbon Dioxide Level 23 mmol/L (21-32) Anion Gap 11 (6-14) Blood Urea Nitrogen 42 mg/dL (7-20) Creatinine 2.6 mg/dL (0.6-1.0) Estimated GFR (Cockcroft-Gault) 21.7 Glucose Level 89 mg/dL (70-99) Calcium Level 8.3 mg/dL (8.5-10.1) Medications Current Medications Sodium Chloride (Normal Saline Flush) 3 ml PRN DAILY PRN IV AFTER MEDS AND BLOOD DRAWS; Start 03/12/17 at 21:00; Stop 03/13/17 at 12:10; Status DC Dextrose/Sodium Chloride 1,000 ml @ 100 mls/hr Q10H IV Last administered on 18:05; Start 03/12/17 at 20:54; Stop 03/14/17 at 06:41; Status DC Calcium Carbonate/ Glycine (Tums) 500 mg PRN Q3HRS PRN PO HEARTBURN / GAS; Start 03/12/17 at 21:00 Heparin Sodium (Porcine) 5,000 unit Q12H SQ Last administered on 03/14/17 08:22 ; Start 03/12/17 at 21:00 Ceftriaxone Sodium 1 gm/ Sodium Chloride 50 ml @ 100 mls/hr QODAY IV Last administered on 03/14/17 08:13; Start 03/12/17 at 21:30 Sodium Chloride 50 ml @ As Directed STK-MED ONCE .ROUTE Last administered on 22:07; Start 03/12/17 at 22:07; Stop 03/12/17 at 22:08; Status DC Benztropine Mesylate (Cogentin) 0.5 mg DAILY PO ; Start 03/13/17 at 09:00 Buspirone HCl (Buspar) 5 mg QID PO ; Start 03/13/17 at 09:00; Stop 03/13/17 at 19: 15; Status DC Lorazepam (Ativan) 0.5 mg PRN Q6HRS PRN PO ANXIETY / AGITATION; Start 03/12/17 at 22:15 Olanzapine (ZyPREXA ZYDIS) 2.5 mg PRN Q2HR PRN PO PSYCHOSIS Last administered on 03/13/17 21:38; Start 03/12/17 at 22:15 Acetaminophen (Tylenol) 650 mg PRN Q4HRS PRN PO PAIN / TEMP; Start 03/13/17 at 11:45 Albuterol Sulfate (Ventolin) 2.5 mg PRN QID PRN NEB SHORTNESS OF BREATH; Start 03/13/17 at 11:45 Amlodipine Besylate (Norvasc) 10 mg DAILY PO ; Start 03/14/17 at 09:00 Carvedilol (Coreg) 12.5 mg BID PO ; Start 03/13/17 at 21:00 Divalproex Sodium (Depakote Sprinkles) 250 mg BID PO ; Start 03/13/17 at 21:00; Stop 03/13/17 at 21:00; Status DC Donepezil HCl (Aricept) 5 mg HS PO ; Start 03/13/17 at 21:00; Stop 03/13/17 at 21: 00; Status DC Multivit/Ca Carb/ B Cmplx/FA/Prenat (Nephro-Fady) 1 tab DAILY PO ; Start at 09:00 Hydralazine HCl (Apresoline) 50 mg TID PO ; Start 03/13/17 at 14:00 Albuterol/ Ipratropium (Duoneb) 3 ml QID NEB Last administered on 03/14/17 11: 43; Start 03/13/17 at 13:00 Levothyroxine Sodium (Synthroid) 75 mcg DAILY06 PO ; Start 03/14/17 at 06:00 Magnesium Hydroxide (Milk Of Magnesia) 2,400 mg PRN QHS PRN PO CONSTIPATION; Start 03/13/17 at 11:45 Memantine (Namenda) 10 mg BID PO ; Start 03/13/17 at 21:00; Stop 03/13/17 at 21:00 ; Status DC Rifaximin (Xifaxan) 550 mg BID PO ; Start 03/13/17 at 21:00 Sennosides (Senna) 8.6 mg HS PO ; Start 03/13/17 at 21:00 Sertraline HCl (Zoloft) 25 mg QHS PO ; Start 03/13/17 at 21:00 Sodium Chloride (Saline Mist Nasal) 1 ezio PRN Q4HRS PRN NS rhinitis; Start 03/13 at 11:45 Amantadine HCl (Symmetrel) 100 mg QODAY PO ; Start 03/15/17 at 09:00 Artificial Tears (Artificial Tears) 2 drop DAILY OU ; Start 03/14/17 at 09:00 Non-Formulary Medication 1 puff DAILY IH ; Start 03/14/17 at 09:00; Stop 03/14/17 at 09:00; Status DC Lactulose 20 gm DAILY PO ; Start 03/14/17 at 09:00 Loxapine Succinate (Loxitane) 10 mg QHS PO ; Start 03/13/17 at 21:00; Stop at 21:00; Status DC Magnesium Hydroxide (Milk Of Magnesia) 2,400 mg PRN AFTMEALHC PRN PO HEARTBURN / GAS; Start 03/13/17 at 12:15 Pantoprazole Sodium (Protonix) 40 mg BIDWMEALS PO ; Start 03/13/17 at 17:00 Albuterol Sulfate (Ventolin) 2.5 mg RTQID NEB ; Start 03/13/17 at 16:00; Stop 03/13/17 at 16:00; Status DC Budesonide (Pulmicort) 0.5 mg RTBID NEB Last administered on 03/14/17 11:43; Start 03/13/17 at 20:00 Hydralazine HCl (Apresoline) 10 mg PRN Q4HRS PRN IV ELEVATED BP, SEE COMMENTS Last administered on 03/13/17 21:20; Start 03/13/17 at 15:45 Nystatin (Nystop) 1 ezio BID TP Last administered on 03/14/17 08:13; Start at 21:00 Glucose (Insta-Glucose) 15 gm PRN Q15MIN PRN PO LOW BLOOD SUGAR; Start 03/12/17 at 07:20; Stop 03/13/17 at 16:42; Status DC Labetalol HCl (Normodyne) 20 mg BID IVP Last administered on 03/14/17 08:14; Start 03/13/17 at 18:30 Loxapine Succinate (Loxitane) 10 mg BID94 PO ; Start 03/14/17 at 09:00 Potassium Chloride/Dextrose/ Sod Cl 1,000 ml @ 80 mls/hr [id number] IV Last administered on 03/14/17 07:45; Start 03/14/17 at 06:45 Active Scripts Active Reported Ceftriaxone 1 Gm Piggyback (Ceftriaxone Na/Dextrose,Iso) 1 Gm/50 Ml Froz.piggy 1 Gm IV QHS Sodium Chloride (Sodium Chloride 0.45 %) 1,000 Ml Iv.soln 1,000 Ml IV [id number] Albuterol Sulfate Neb Soln (Albuterol Sulfate) 2.5 Mg/3 Ml Vial.neb 2.5 Mg NEB PRN QID PRN Norvasc (Amlodipine Besylate) 10 Mg Tablet 10 Mg PO DAILY Zoloft (Sertraline Hcl) 25 Mg Tablet 25 Mg PO QHS Zyprexa Zydis (Olanzapine) 5 Mg Tab.rapdis 2.5 Mg PO PRN Q2HR PRN Milk Of Magnesia (Magnesium Hydroxide) 400 Mg/5 Ml Oral.susp 2,400 Mg PO PRN QHS PRN Loxapine (Loxapine Succinate) 10 Mg Capsule 10 Mg PO QHS Maximum D3 (Cholecalciferol (Vitamin D3)) 10,000 Unit Capsule 50,000 Unit PO WEEKLY Xifaxan (Rifaximin) 550 Mg Tablet 550 Mg PO BID Tramadol Hcl (Tramadol HCl) 50 Mg Tablet 50 Mg PO PRN Q12HR PRN Tessalon Perle (Benzonatate) 100 Mg Capsule 100 Mg PO PRN Q4HRS PRN Senokot (Sennosides) 8.6 Mg Tablet 8.6 Mg PO HS Saline Nasal [place] (Sodium Chloride) 30 Ml [place] 2 Sprays NS PRN Q4HRS PRN Robitussin Nighttime Cough Dm (Dextromethorphan Hb/Doxylamine) 237 Ml Liquid 10 Ml PO PRN Q4HRS PRN Omeprazole 40 Mg Capsule.dr 40 Mg PO BIDWMEALS Nephro-Fady Tablet (Folic Acid/Vitamin B Comp W-C) 0.8 Mg Tablet 1 Tab PO DAILY Alum-Mag Hydroxide-Simeth Liq (Mag Hydrox/Al Hydrox/Simeth) 360 Ml Oral.susp 15 Ml PO PRN AFTMEALHC PRN Montelukast Sodium Tablet (Montelukast Sodium) 10 Mg Tablet 10 Mg PO HS Namenda (Memantine Hcl) 10 Mg Tablet 10 Mg PO BID Lorazepam 0.5 Mg Tablet 0.5 Mg PO PRN Q6HRS PRN Levothyroxine Sodium 75 Mcg Tablet 75 Mcg PO DAILY06 Lactulose 10 Gm/15 Ml Solution 20 Gm PO DAILY Duoneb 0.5-3(2.5) Mg/3 Ml (Albuterol/Ipratropium) 3 Ml Ampul.neb 3 Ml NEB QID Icy Hot Cream (Methyl Salicylate/Menthol) 35.4 Gm Cream..g. 1 Applic TP PRN QID PRN Hydralazine Hcl 50 Mg Tablet 50 Mg PO TID Guaifenesin 600 Mg Tablet.er 600 Mg PO BID Fluticasone Propionate Nasal [place] (Fluticasone Propionate) 16 Gm Eland.susp 2 [place]land NS PRN BID PRN Breo Ellipta 100-25 Mcg Inh (Fluticasone/Vilanterol) 1 Each Aer.pow.ba 1 Puff IH DAILY Ferrous Sulfate 325 Mg Tablet 325 Mg PO BID Donepezil Hcl 5 Mg Tablet 5 Mg PO HS Depakote Sprinkle (Divalproex Sodium) 125 Mg Cap.sprink 250 Mg PO BID Cetirizine Hcl 10 Mg Tablet 10 Mg PO DAILY Carvedilol 12.5 Mg Tablet 12.5 Mg PO BID Calcium Polycarbophil 625 Mg Tablet 625 Mg PO DAILY Buspirone Hcl 5 Mg Tablet 5 Mg PO QID Benztropine Mesylate 0.5 Mg Tablet 0.5 Mg PO DAILY Atorvastatin Calcium 10 Mg Tablet 5 Mg PO QHS PRN Artificial Tears Eye Drops (Dextran 70/Hypromellose) 15 Ml Drops 2 Drop OU DAILY Amantadine (Amantadine Hcl) 100 Mg Tablet 100 Mg PO QODAY Tylenol (Acetaminophen) 325 Mg Tablet 650 Mg PO PRN Q4HRS PRN Vitals/I & O Vital Sign - Last 24 Hours 03/13/17 03/13/17 03/13/17 03/13/17 15:25 16:19 16:49 18:00 Temp 97.4 Pulse 68 68 Resp 14 B/P (MAP) 187/74 (111) 187/74 184/80 (114) Pulse Ox 92 100 O2 Delivery Room Air Room Air 03/13/17 03/13/17 03/13/17 03/13/17 18:55 19:55 20:00 21:00 Temp 97.3 Pulse 187 58 58 Resp 19 B/P (MAP) 80/75 186/71 (109) 186/71 Pulse Ox 93 O2 Delivery Room Air Room Air 03/13/17 03/13/17 03/13/17 03/13/17 21:00 21:13 21:14 21:20 Pulse 58 58 B/P (MAP) 186/71 186/71 Pulse Ox 100 100 O2 Delivery Room Air Room Air 03/13/17 03/14/17 03/14/17 03/14/17 23:18 05:55 08:00 08:14 Pulse 81 69 69 B/P (MAP) 180/50 (93) 150/47 (81) 150/47 O2 Delivery Room Air 03/14/17 03/14/17 03/14/17 11:28 11:41 11:42 Temp 98.8 Pulse 61 Resp 16 B/P (MAP) 160/65 (96) Pulse Ox 94 98 98 O2 Delivery Room Air Room Air Room Air Intake and Output 03/13/17 03/13/17 03/14/17 15:00 23:00 07:00 Intake Total 0 ml 997.8 ml Output Total 200 ml 800 ml 900 ml Balance -200 ml 197.8 ml -[address] HEAD INDICATION: Altered Mental Status, hx of Encephalitis, not responding nor eating x 3 days COMPARISON: 03/02/2017 TECHNIQUE: 5 mm contiguous axial images were obtained from the skull base to the vertex. Coronal and sagittal reformats are performed. Exposure: One or more of the following individualized dose reduction techniques were utilized for this examination: 1. Automated exposure control 2. Adjustment of the mA and/or kV according to patient size 3. Use of iterative reconstruction technique. FINDINGS: Small soft tissue contusion identified in the left forehead region. Age-related cerebral atrophic changes. Moderate bilateral periventricular white matter hypodensities likely chronic small vessel ischemic disease. No evidence of acute intracranial hemorrhage. No extra-axial fluid collections. No mass effect or midline shift. Ventricular size is appropriate. Basal cisterns are patent. No fractures identified.Cohen-white differentiation is preserved.Globes and orbits are within normal limits. Paranasal sinuses and mastoid air cells are clear. IMPRESSION: 1. No acute intracranial findings. 2. Small soft tissue contusion identified in the left forehead region. JOSE VILLARREAL MD Mar 14, 2017 14:20
[2017-03-14 15:30] VITALS: BP_SYST 0
--- NOTE | 2017-03-14 16:27 | NUR ---
Pt is now alert, will not let RN take vital signs, is combative. Yelling out that she needs to pee. Patient has urostomy. RT attempted to give treatment, pt swinging at RT, unable to give treatment. Will continue to monitor.
[2017-03-14 19:22] VITALS: BP 189/78
[2017-03-14] MEDS: SERTRALINE 25 MG TABLET. PO SCH (21:00)
[2017-03-14] MEDS: SENNOSIDES 8.6 MG TABLET PO SCH (21:00)
[2017-03-14] MEDS: DIVALPROEX 125 MG CAP.SPRINK PO SCH (21:01)
--- NOTE | 2017-03-14 21:58 | PDOC ---
Exam Robin Demential Exam: Robin Note: Please also refer to the separate dictated note~for this date of service dictated separately.~Patient seen individually. Discussed the patient with Nursing staff reviewed the chart.~Reviewed interim history and current functioning. Reviewed vital signs,~Labs/ Radiology~and current medications noted below. Continue current treatment with the changes noted in the dictated addendum note Assessment: Vital Signs: Vital Signs Date Time Temp Pulse Resp B/P (MAP) Pulse Ox O2 Delivery O2 Flow Rate FiO2 03/14/17 21:15 61 189/78 03/14/17 19:22 97.8 18 95 Room Air I&O Intake and Output 03/14/17 07:00 Intake Total 997.8 ml Output Total 1900 ml Balance -902.2 ml Intake Oral 0 ml IV Total 997.8 ml Output Urine Total 1900 ml Labs: Laboratory Tests Test 03/14/17 06:04 03/14/17 07:45 03/14/17 12:25 03/14/17 20:52 Sodium Level 139 mmol/L (136-145) Potassium Level 3.3 mmol/L (3.5-5.1) L Chloride Level 105 mmol/L (98-107) Carbon Dioxide Level 23 mmol/L (21-32) Anion Gap 11 (6-14) Blood Urea Nitrogen 42 mg/dL (7-20) H Creatinine 2.6 mg/dL (0.6-1.0) H Estimated GFR (Cockcroft-Gault) 21.7 Glucose Level 89 mg/dL (70-99) Calcium Level 8.3 mg/dL (8.5-10.1) L Glucose (Fingerstick) 86 mg/dL (70-99) 86 mg/dL (70-99) 105 mg/dL (70-99) H Current Medications: Meds: Current Medications Sodium Chloride (Normal Saline Flush) 3 ml PRN DAILY PRN IV AFTER MEDS AND BLOOD DRAWS; Start 03/12/17 at 21:00; Stop 03/13/17 at 12:10; Status DC Dextrose/Sodium Chloride 1,000 ml @ 100 mls/hr Q10H IV Last administered on t 18:05; Start 03/12/17 at 20:54; Stop 03/14/17 at 06:41; Status DC Calcium Carbonate/ Glycine (Tums) 500 mg PRN Q3HRS PRN PO HEARTBURN / GAS; Start 03/12/17 at 21:00 Heparin Sodium (Porcine) 5,000 unit Q12H SQ Last administered on 03/14/17 21:06 ; Start 03/12/17 at 21:00 Ceftriaxone Sodium 1 gm/ Sodium Chloride 50 ml @ 100 mls/hr QODAY IV Last administered on 03/14/17 08:13; Start 03/12/17 at 21:30 Sodium Chloride 50 ml @ As Directed STK-MED ONCE .ROUTE Last administered on 22:07; Start 03/12/17 at 22:07; Stop 03/12/17 at 22:08; Status DC Benztropine Mesylate (Cogentin) 0.5 mg DAILY PO ; Start 03/13/17 at 09:00 Buspirone HCl (Buspar) 5 mg QID PO ; Start 03/13/17 at 09:00; Stop 03/13/17 at 19: 15; Status DC Lorazepam (Ativan) 0.5 mg PRN Q6HRS PRN PO ANXIETY / AGITATION; Start 03/12/17 at 22:15 Olanzapine (ZyPREXA ZYDIS) 2.5 mg PRN Q2HR PRN PO PSYCHOSIS Last administered on 03/13/17 21:38; Start 03/12/17 at 22:15 Acetaminophen (Tylenol) 650 mg PRN Q4HRS PRN PO PAIN / TEMP; Start 03/13/17 at 11:45 Albuterol Sulfate (Ventolin) 2.5 mg PRN QID PRN NEB SHORTNESS OF BREATH; Start 03/13/17 at 11:45 Amlodipine Besylate (Norvasc) 10 mg DAILY PO ; Start 03/14/17 at 09:00 Carvedilol (Coreg) 12.5 mg BID PO Last administered on 03/14/17 21:01; Start at 21:00 Divalproex Sodium (Depakote Sprinkles) 250 mg BID PO ; Start 03/13/17 at 21:00; Stop 03/13/17 at 21:00; Status DC Donepezil HCl (Aricept) 5 mg HS PO ; Start 03/13/17 at 21:00; Stop 03/13/17 at 21: 00; Status DC Multivit/Ca Carb/ B Cmplx/FA/Prenat (Nephro-Fady) 1 tab DAILY PO ; Start at 09:00 Hydralazine HCl (Apresoline) 50 mg TID PO Last administered on 03/14/17 21:01; Start 03/13/17 at 14:00 Albuterol/ Ipratropium (Duoneb) 3 ml QID NEB Last administered on 03/14/17 11: 43; Start 03/13/17 at 13:00 Levothyroxine Sodium (Synthroid) 75 mcg DAILY06 PO ; Start 03/14/17 at 06:00 Magnesium Hydroxide (Milk Of Magnesia) 2,400 mg PRN QHS PRN PO CONSTIPATION; Start 03/13/17 at 11:45 Memantine (Namenda) 10 mg BID PO ; Start 03/13/17 at 21:00; Stop 03/13/17 at 21:00 ; Status DC Rifaximin (Xifaxan) 550 mg BID PO Last administered on 03/14/17 21:00; Start at 21:00 Sennosides (Senna) 8.6 mg HS PO Last administered on 03/14/17 21:00; Start 03/13 at 21:00 Sertraline HCl (Zoloft) 25 mg QHS PO Last administered on 03/14/17 21:00; Start 03/13/17 at 21:00 Sodium Chloride (Saline Mist Nasal) 1 ezio PRN Q4HRS PRN NS rhinitis; Start 03/13 at 11:45 Amantadine HCl (Symmetrel) 100 mg QODAY PO ; Start 03/15/17 at 09:00 Artificial Tears (Artificial Tears) 2 drop DAILY OU ; Start 03/14/17 at 09:00 Non-Formulary Medication 1 puff DAILY IH ; Start 03/14/17 at 09:00; Stop 03/14/17 at 09:00; Status DC Lactulose 20 gm DAILY PO ; Start 03/14/17 at 09:00 Loxapine Succinate (Loxitane) 10 mg QHS PO ; Start 03/13/17 at 21:00; Stop at 21:00; Status DC Magnesium Hydroxide (Milk Of Magnesia) 2,400 mg PRN AFTMEALHC PRN PO HEARTBURN / GAS; Start 03/13/17 at 12:15 Pantoprazole Sodium (Protonix) 40 mg BIDWMEALS PO ; Start 03/13/17 at 17:00 Albuterol Sulfate (Ventolin) 2.5 mg RTQID NEB ; Start 03/13/17 at 16:00; Stop 03/13/17 at 16:00; Status DC Budesonide (Pulmicort) 0.5 mg RTBID NEB Last administered on 03/14/17 11:43; Start 03/13/17 at 20:00 Hydralazine HCl (Apresoline) 10 mg PRN Q4HRS PRN IV ELEVATED BP, SEE COMMENTS Last administered on 03/13/17 21:20; Start 03/13/17 at 15:45 Nystatin (Nystop) 1 ezio BID TP Last administered on 03/14/17 08:13; Start at 21:00 Glucose (Insta-Glucose) 15 gm PRN Q15MIN PRN PO LOW BLOOD SUGAR; Start 03/12/17 at 07:20; Stop 03/13/17 at 16:42; Status DC Labetalol HCl (Normodyne) 20 mg BID IVP Last administered on 03/14/17 21:15; Start 03/13/17 at 18:30 Loxapine Succinate (Loxitane) 10 mg BID94 PO ; Start 03/14/17 at 09:00 Potassium Chloride/Dextrose/ Sod Cl 1,000 ml @ 80 mls/hr [id number] IV Last administered on 03/14/17 17:20; Start 03/14/17 at 06:45 Divalproex Sodium (Depakote Sprinkles) 250 mg BID PO Last administered on 21:01; Start 03/14/17 at 21:00 Active Scripts Active Reported Ceftriaxone 1 Gm Piggyback (Ceftriaxone Na/Dextrose,Iso) 1 Gm/50 Ml Froz.piggy 1 Gm IV QHS Sodium Chloride (Sodium Chloride 0.45 %) 1,000 Ml Iv.soln 1,000 Ml IV [id number] Albuterol Sulfate Neb Soln (Albuterol Sulfate) 2.5 Mg/3 Ml Vial.neb 2.5 Mg NEB PRN QID PRN Norvasc (Amlodipine Besylate) 10 Mg Tablet 10 Mg PO DAILY Zoloft (Sertraline Hcl) 25 Mg Tablet 25 Mg PO QHS Zyprexa Zydis (Olanzapine) 5 Mg Tab.rapdis 2.5 Mg PO PRN Q2HR PRN Milk Of Magnesia (Magnesium Hydroxide) 400 Mg/5 Ml Oral.susp 2,400 Mg PO PRN QHS PRN Loxapine (Loxapine Succinate) 10 Mg Capsule 10 Mg PO QHS Maximum D3 (Cholecalciferol (Vitamin D3)) 10,000 Unit Capsule 50,000 Unit PO WEEKLY Xifaxan (Rifaximin) 550 Mg Tablet 550 Mg PO BID Tramadol Hcl (Tramadol HCl) 50 Mg Tablet 50 Mg PO PRN Q12HR PRN Tessalon Perle (Benzonatate) 100 Mg Capsule 100 Mg PO PRN Q4HRS PRN Senokot (Sennosides) 8.6 Mg Tablet 8.6 Mg PO HS Saline Nasal [place] (Sodium Chloride) 30 Ml [place] 2 Sprays NS PRN Q4HRS PRN Robitussin Nighttime Cough Dm (Dextromethorphan Hb/Doxylamine) 237 Ml Liquid 10 Ml PO PRN Q4HRS PRN Omeprazole 40 Mg Capsule.dr 40 Mg PO BIDWMEALS Nephro-Fady Tablet (Folic Acid/Vitamin B Comp W-C) 0.8 Mg Tablet 1 Tab PO DAILY Alum-Mag Hydroxide-Simeth Liq (Mag Hydrox/Al Hydrox/Simeth) 360 Ml Oral.susp 15 Ml PO PRN AFTMEALHC PRN Montelukast Sodium Tablet (Montelukast Sodium) 10 Mg Tablet 10 Mg PO HS Namenda (Memantine Hcl) 10 Mg Tablet 10 Mg PO BID Lorazepam 0.5 Mg Tablet 0.5 Mg PO PRN Q6HRS PRN Levothyroxine Sodium 75 Mcg Tablet 75 Mcg PO DAILY06 Lactulose 10 Gm/15 Ml Solution 20 Gm PO DAILY Duoneb 0.5-3(2.5) Mg/3 Ml (Albuterol/Ipratropium) 3 Ml Ampul.neb 3 Ml NEB QID Icy Hot Cream (Methyl Salicylate/Menthol) 35.4 Gm Cream..g. 1 Applic TP PRN QID PRN Hydralazine Hcl 50 Mg Tablet 50 Mg PO TID Guaifenesin 600 Mg Tablet.er 600 Mg PO BID Fluticasone Propionate Nasal [place] (Fluticasone Propionate) 16 Gm [place].susp 2 [place] NS PRN BID PRN Breo Ellipta 100-25 Mcg Inh (Fluticasone/Vilanterol) 1 Each Aer.pow.ba 1 Puff IH DAILY Ferrous Sulfate 325 Mg Tablet 325 Mg PO BID Donepezil Hcl 5 Mg Tablet 5 Mg PO HS Depakote Sprinkle (Divalproex Sodium) 125 Mg Cap.sprink 250 Mg PO BID Cetirizine Hcl 10 Mg Tablet 10 Mg PO DAILY Carvedilol 12.5 Mg Tablet 12.5 Mg PO BID Calcium Polycarbophil 625 Mg Tablet 625 Mg PO DAILY Buspirone Hcl 5 Mg Tablet 5 Mg PO QID Benztropine Mesylate 0.5 Mg Tablet 0.5 Mg PO DAILY Atorvastatin Calcium 10 Mg Tablet 5 Mg PO QHS PRN Artificial Tears Eye Drops (Dextran 70/Hypromellose) 15 Ml Drops 2 Drop OU DAILY Amantadine (Amantadine Hcl) 100 Mg Tablet 100 Mg PO QODAY Tylenol (Acetaminophen) 325 Mg Tablet 650 Mg PO PRN Q4HRS PRN Diagnosis: Problems: (1) Bipolar 1 disorder, mixed, moderate (2) Mnuct-fs-kwacerp renal failure (3) Dehydration, severe (4) Impulse control disorder (5) Anxiety disorder (6) Dementia in Alzheimer's disease with delusions SHANE BUTTS MD Mar 14, 2017 21:58
[2017-03-14 22:16] VITALS: BP 176/69
--- NOTE | 2017-03-14 23:15 | PDOC ---
SUBJECTIVE: The patient appears better. OBJECTIVE: WD/WN AAF NAD. Vital Signs: Vital Signs Date Time Temp Pulse Resp B/P (MAP) Pulse Ox O2 Delivery O2 Flow Rate FiO2 03/14/17 22:16 97.8 99 18 176/69 (104) 96 Room Air I & O Intake and Output 03/14/17 06:59 Intake Total 997.8 ml Output Total 1900 ml Balance -902.2 ml Intake Oral 0 ml IV Total 997.8 ml Output Urine Total 1900 ml Labs: Laboratory Tests Test 03/13/17 06:20 03/13/17 07:53 03/13/17 11:53 03/13/17 16:47 White Blood Count 6.4 x10^3/uL (4.0-11.0) Red Blood Count 5.06 x10^6/uL (3.50-5.40) Hemoglobin 15.1 g/dL (12.0-15.5) Hematocrit 45.6 % (36.0-47.0) Mean Corpuscular Volume 90 fL (79-100) Mean Corpuscular Hemoglobin 30 pg (25-35) Mean Corpuscular Hemoglobin Concent 33 g/dL (31-37) Red Cell Distribution Width 16.4 % (11.5-14.5) Platelet Count 126 x10^3/uL (140-400) Neutrophils (%) (Auto) 82 % (31-73) Lymphocytes (%) (Auto) 8 % (24-48) Monocytes (%) (Auto) 10 % (0-9) Eosinophils (%) (Auto) 1 % (0-3) Basophils (%) (Auto) 0 % (0-3) Neutrophils # (Auto) 5.2 x10^3uL (1.8-7.7) Lymphocytes # (Auto) 0.5 x10^3/uL (1.0-4.8) Monocytes # (Auto) 0.6 x10^3/uL (0.0-1.1) Eosinophils # (Auto) 0.0 x10^3/uL (0.0-0.7) Basophils # (Auto) 0.0 x10^3/uL (0.0-0.2) Sodium Level 140 mmol/L (136-145) Potassium Level 3.6 mmol/L (3.5-5.1) Chloride Level 102 mmol/L (98-107) Carbon Dioxide Level 25 mmol/L (21-32) Anion Gap 13 (6-14) Blood Urea Nitrogen 59 mg/dL (7-20) Creatinine 3.7 mg/dL (0.6-1.0) Estimated GFR (Cockcroft-Gault) 14.4 Glucose Level 67 mg/dL (70-99) Calcium Level 8.4 mg/dL (8.5-10.1) Magnesium Level 2.2 mg/dL (1.8-2.4) Albumin 3.0 g/dL (3.4-5.0) Glucose (Fingerstick) 72 mg/dL (70-99) 93 mg/dL (70-99) 108 mg/dL (70-99) Test 03/13/17 19:40 03/14/17 06:04 03/14/17 07:45 03/14/17 12:25 Ammonia < 10 mcmol/L (11-34) Sodium Level 139 mmol/L (136-145) Potassium Level 3.3 mmol/L (3.5-5.1) Chloride Level 105 mmol/L (98-107) Carbon Dioxide Level 23 mmol/L (21-32) Anion Gap 11 (6-14) Blood Urea Nitrogen 42 mg/dL (7-20) Creatinine 2.6 mg/dL (0.6-1.0) Estimated GFR (Cockcroft-Gault) 21.7 Glucose Level 89 mg/dL (70-99) Calcium Level 8.3 mg/dL (8.5-10.1) Glucose (Fingerstick) 86 mg/dL (70-99) 86 mg/dL (70-99) Test 03/14/17 20:52 Glucose (Fingerstick) 105 mg/dL (70-99) Physical Exam: General:. HEENT: normocephalic, atraumatic, otherwise unremarkable. Neck: supple , negative for JVD, carotid bruit, lymphoadenopathy or thyroidomegaly. Lungs: clear. Cardiovascular: normal S1, S2 without murmur. Abdomen: soft, no tenderness, mass or organomegaly. Extremities: no edema, or clubbing but positive for stasis dermatitis. The peripheral pulses were normal. Neurological Examination: 1- Mental status: alert and oriented to time x1 follows simple commands further evaluation is difficult to asses. 2- Cranial Nerves:. The pupils were equal and reactive to light and accommodation. The extra ocular movements were intact; there was no nystagmus on horizontal or vertical gazes. Fundoscopic exam revealed no retinal bleeding or papilledma. There were no facial, motor or sensory deficits. The hearing was intact. The palate was elevated symmetrically. The sternocleidomastoids were powerful bilaterally. The patient protruded the tongue in the midline without fasciculations or atrophy. 3-Motor Examination: No focal muscle bulk wasting. The strength was 4/5 throughout. 4-Sensory Examination: Normal pinprick, light touch, vibratory, and position senses. 5-Deep Tendon Reflexes: Were symmetric and active without pathologic responses. 6-Coordinations and Gait: Not tested Impression: 1-Acute encephalopathy metabolic/infectious- improved. 2- UTI 3- Dementia 4- chronic renal failure 5- Bipolar ASSESSMENT: 1- Acute encephalopathy- improved. 2 UTI 3-Chronic renal failure. 4-Dementia 5-Bipolar disorder. PLAN: plan: Continue with current management Mandy TEMPLE MD Mar 14, 2017 23:15
[2017-03-15] VITALS (17 sets, daily range): BP systolic 115–230; BP diastolic 66–107
[2017-03-15] MEDS: POTASSIUM CL 20MEQ D5-0.45NACL 1,000 ML IV SCH (03:35)
[2017-03-15] MEDS: IPRATRPIUM/ALBUTEROL 0.5/2.5MG 3 ML NEBU. NEB SCH ×4 (04:30→20:26)
--- NOTE | 2017-03-15 05:51 | NUR ---
Nursing Note: Last evening, Pt requested assist to get up to the bed side commode, [employer] in to assist, Pt stated she had to picked up because she couldn't stand, Nurse in to discuss pt's ability to stand and informed pt if she could not stand then she would need to use the bedpan, Pt stated she could stand, Nurse and [employer] remained in pt room for 30 minutes before pt stood and [place] [facility] [place] Pt then refused to return to bed stating she had to sit for a while. [employer] remained with pt for 90 minutes before pt stated she was finished, Pt then assisted back to bed and positioned for comfort. Pt awake all night, Multiple attempts to reposition and encourage pt to rest, Pt noted to have conversations with herself through out the night, television remained on, Pt refused adamantly to have it shut off. Pt also noted to be pulling on her Urostomy tubing causing the tubing to become disconnected multiple times last evening, Bed bag and extra tubing removed and normal urostomy bag spout closed, bag emptied every 2 hours through the night, Pt continues to request to have the tubing and bed bag reapplied, Nurse declined explaining that she continued to pull the tubing apart leading to bed change and increased risk for skin issues. Pt did not become agitated, combative or aggressive but noted to extensive attention seeking behaviors through the Night.
[2017-03-15] MEDS: LEVOTHYROXINE 75 MCG TABLET PO SCH (06:12)
[2017-03-15 06:36] LABS: CALCIUM 8.7 mg/dL (8.5-10.1); CREATININE 1.9 mg/dL (0.6-1.0); GFR 31.1; POTASSIUM 3.9 mmol/L (3.5-5.1)
[2017-03-15] MEDS: PANTOPRAZOLE 40 MG TABLET. PO SCH ×2 (08:00→17:00)
--- NOTE | 2017-03-15 08:44 | NUR ---
Called and left message with speech therapy in regards to swallow study and notified them that pt has been NPO, wanting to check plans on study.
[2017-03-15] MEDS: rifAXIMin 550 MG TABLET PO SCH ×2 (09:00→21:00)
[2017-03-15] MEDS: CARVEDILOL 12.5 MG TABLET PO SCH ×2 (09:00→21:00)
[2017-03-15] MEDS: AMANTADINE HCL 100 MG CAPSULE PO SCH (09:00)
[2017-03-15] MEDS: DIVALPROEX 125 MG CAP.SPRINK PO SCH ×2 (09:00→21:00)
[2017-03-15] MEDS: LOXAPINE SUCCINATE 5 MG CAPSULE PO SCH ×2 (09:00→16:00)
[2017-03-15] MEDS: FOLIC/VIT B COMP W-C (RENAL) TABLET. PO SCH (09:00)
[2017-03-15] MEDS: BENZTROPINE MESYLATE 0.5 MG TABLET PO SCH (09:00)
[2017-03-15] MEDS: amLODIPine BESYLATE 10 MG TABLET PO SCH (09:00)
[2017-03-15] MEDS: LACTULOSE 20 GM/30 ML SOLUTION. PO SCH (09:00)
[2017-03-15] MEDS: LABETALOL 20 MG/4 ML DISP.SYRIN. IVP SCH ×2 (09:09→21:00)
[2017-03-15] MEDS: POLYVINYL ALCOHOL 1.4% OPHTH SOLUTION 15ML BOTTLE. OU SCH (09:09)
--- NOTE | 2017-03-15 09:11 | PDOC ---
SUBJECTIVE: No new neurological c/o. OBJECTIVE: WD/WN NAD. Vital Signs: Vital Signs Date Time Temp Pulse Resp B/P (MAP) Pulse Ox O2 Delivery O2 Flow Rate FiO2 03/15/17 06:25 98.1 58 20 214/78 (123) 94 Room Air I & O Intake and Output 03/15/17 07:00 Intake Total 3286 ml Output Total 1650 ml Balance 1636 ml Intake Oral 0 ml IV Total 3286 ml Output Urine Total 1650 ml # Bowel Movements 1 Labs: Laboratory Tests Test 03/13/17 11:53 03/13/17 16:47 03/13/17 19:40 03/13/17 20:42 Glucose (Fingerstick) 93 mg/dL (70-99) 108 mg/dL (70-99) 113 mg/dL (70-99) Ammonia < 10 mcmol/L (11-34) Test 03/14/17 06:04 03/14/17 07:45 03/14/17 12:25 03/14/17 20:52 Sodium Level 139 mmol/L (136-145) Potassium Level 3.3 mmol/L (3.5-5.1) Chloride Level 105 mmol/L (98-107) Carbon Dioxide Level 23 mmol/L (21-32) Anion Gap 11 (6-14) Blood Urea Nitrogen 42 mg/dL (7-20) Creatinine 2.6 mg/dL (0.6-1.0) Estimated GFR (Cockcroft-Gault) 21.7 Glucose Level 89 mg/dL (70-99) Calcium Level 8.3 mg/dL (8.5-10.1) Glucose (Fingerstick) 86 mg/dL (70-99) 86 mg/dL (70-99) 105 mg/dL (70-99) Test 03/15/17 06:20 03/15/17 07:31 Sodium Level 139 mmol/L (136-145) Potassium Level 3.9 mmol/L (3.5-5.1) Chloride Level 107 mmol/L (98-107) Carbon Dioxide Level 24 mmol/L (21-32) Anion Gap 8 (6-14) Blood Urea Nitrogen 31 mg/dL (7-20) Creatinine 1.9 mg/dL (0.6-1.0) Estimated GFR (Cockcroft-Gault) 31.1 Glucose Level 117 mg/dL (70-99) Calcium Level 8.7 mg/dL (8.5-10.1) Glucose (Fingerstick) 126 mg/dL (70-99) Physical Exam: neral:. HEENT: normocephalic, atraumatic, otherwise unremarkable. Neck: supple, negative for JVD, carotid bruit, lymphadenopathy or thyromegaly. Lungs: clear. Cardiovascular: normal S1, S2, systolic murmur.. Abdomen: soft, no tenderness, mass or organomegaly. Extremities: no edema, or clubbing but positive for stasis dermatitis. The peripheral pulses were normal. Neurological Examination: 1- Mental status: alert and oriented to time x2 follows simple commands, fluent speech, 2- Cranial Nerves:. The pupils were equal and reactive to light and accommodation. The extra ocular movements were intact; there was no nystagmus on horizontal or vertical gazes. There were no facial, motor or sensory deficits. The hearing was intact. The palate was elevated symmetrically. The sternocleidomastoids were powerful bilaterally. The patient protruded the tongue in the midline without fasciculations or atrophy. 3-Motor Examination: No focal muscle bulk wasting. The strength was 4/5 throughout. 4-Sensory Examination: Normal pinprick, light touch, vibratory, and position senses. 5-Deep Tendon Reflexes: Were symmetric and active without pathologic responses. 6-Coordinations and Gait: Not tested ASSESSMENT: mpression: 1-Acute encephalopathy metabolic/infectious- improved. 2- UTI 3- Dementia 4- chronic renal failure 5- Bipolar ASSESSMENT: 1- Acute encephalopathy- improved. 2 UTI 3-Chronic renal failure. 4-Dementia 5-Bipolar disorder. PLAN: plan: Continue with current management Mandy TEMPLE MD Mar 15, 2017 09:11
[2017-03-15] MEDS: HEPARIN PF for SUB-Q USE 5,000 UNIT/0.5 ML VIAL. SQ SCH ×2 (09:14→21:45)
[2017-03-15] MEDS: BUDESONIDE 0.5 MG/2 ML NEBU NEB SCH ×2 (09:48→20:26)
[2017-03-15] MEDS: NYSTATIN TOPICAL POWDER 15GM BOTTLE. TP SCH ×2 (09:53→21:44)
[2017-03-15] MEDS: hydrALAZINE 20 MG/ML VIAL. IV SCH ×2 (10:30→17:40)
--- NOTE | 2017-03-15 10:42 | NUR ---
Administered 10mg of IV Hydralazine per Dr. Herbert, will recheck BP at 1100.
--- NOTE | 2017-03-15 11:20 | NUR ---
RENAL DOSING NOTE: SCR=1.9 CRCL 24.7 The order for Rocephin 1gm IV every other day has been changed to Rocephin 1g IV daily per dosing recommendations and current renal function. Pharmacy will continue to monitor this patient and make adjustment to therapy as needed for renal function.
--- NOTE | 2017-03-15 11:27 | NUR ---
Pt sitting in chair, upright at 90 degree angle. Bedside RN swallow study completed. Pt given 3 swallows of water and tolerated well, can hear pt swallowing. Pt given 3 bites of chocolate pudding and tolerated well, swallowing with no remains in mouth in between bites. Upon 3rd bite, as pt is swallowing, pt begins to vomit. Continues to vomit white frothy emesis with chocolate pudding. While assisting pt she continues to try and clear throat and c/o nausea. Prior to this study pt was asking for chicken noodle soup. Will report results, ST can not do study until tomorrow. Addendum: 03/15/17 at 1132 by DEISI SUERO RN Amended: Links added.
--- NOTE | 2017-03-15 11:37 | NUR ---
BP remains 209/81 in right arm and 213/[address] Herbert notified and other 10mg hydralazine administered IV push at this time.
[2017-03-15] MEDS ORDERED: FUROSEMIDE 20 MG/2 ML VIAL IVP ONE ×2 (14:00→14:30)
[2017-03-15] MEDS ORDERED: hydrALAZINE 20 MG/ML VIAL. IV ONE (14:30)
--- NOTE | 2017-03-15 15:44 | NUR ---
Pt transfered to ICU 2 due to Increased BP and headache. BP remains elevated at this time, 40 lasix and 10 Hydralazine given at time of arrival. Pt resting comfortably at this time. Pt has X2 IV access. Awaiting response from [facility].
[2017-03-15] MEDS ORDERED: ONDANSETRON PF 4 MG/2 ML VIAL. IV PRN (16:00)
[2017-03-15] MEDS ORDERED: POTASSIUM CL 40MEQ D5-0.45NACL 1,000 ML IV SCH (16:00)
[2017-03-15] MEDS: AA 3%/ELECTROLYTE-TPN SOLN/GLY 1,000 ML IV SCH (16:48)
--- NOTE | 2017-03-15 17:12 | PDOC ---
PROVIDER NOTE PROVIDER NOTE PROVIDER NOTE This is a progress note on Izabela Hope on 03/15/2017 Current problems: #1 acute on chronic renal failure now resolved #2 dehydration-resolved #3 dysphagia with evidence of aspiration #4 DVT prophylaxis #5 dementia #6-colored disorder #7 accelerated hypertension #8 urinary tract infection with Escherichia coli number not 9 acute encephalopathy improving S: This is a 76-year-old female who was admitted from the [facility] unit because of worsening renal function. She had refused to eat or drink for 3 days and went into acute renal failure. She was also subsequently observed to have choked on a piece of spinach from several days previous and so has been nothing by mouth. She has been given IV fluids and her renal function has improved considerably. She flunked the nurses bedside swallow study. And remains nothing by mouth. Because of him being nothing by mouth having considerable problems controlling her blood pressure and because of that she has been transferred to the ICU for more closely monitoring. I have consulted cardiology. Objective systolic blood pressure 204/78 pulse 58 She is alert but confused, she is edentulous, tongue was slightly dry, neck was supple, lungs were clear, cardiovascular slightly irregular rhythm and rate, extremities without edema, urostomy tube in place draining clear yellow urine Labs creatinine is 1.9 today from 3.8 Plan transfer to the ICU will have asked cardiology to assist with blood pressure control. He has been given hydralazine IV and a small dose of Lasix. Will continue on Rocephin for now we'll need to discuss with family after these swallowing study to plan for her nutrition thanks for now started her on ProcalAmine. CHANELLE PERAZA DO Mar 15, 2017 17:12
[2017-03-15] MEDS: SENNOSIDES 8.6 MG TABLET PO SCH (21:00)
[2017-03-15] MEDS: SERTRALINE 25 MG TABLET. PO SCH (21:00)
--- NOTE | 2017-03-15 21:47 | PDOC ---
Exam Robin Demential Exam: Robin Note: Please also refer to the separate dictated note~for this date of service dictated separately.~Patient seen individually. Discussed the patient with Nursing staff reviewed the chart.~Reviewed interim history and current functioning. Reviewed vital signs,~Labs/ Radiology~and current medications noted below. Continue current treatment with the changes noted in the dictated addendum note Assessment: Vital Signs: Vital Signs Date Time Temp Pulse Resp B/P (MAP) Pulse Ox O2 Delivery O2 Flow Rate FiO2 03/15/17 20:26 96 Room Air 03/15/17 17:40 90 20 115/78 (90) 03/15/17 15:19 97.4 I&O Intake and Output 03/15/17 07:00 Intake Total 3286 ml Output Total 1650 ml Balance 1636 ml Intake Oral 0 ml IV Total 3286 ml Output Urine Total 1650 ml # Bowel Movements 1 Labs: Laboratory Tests Test 03/15/17 06:20 03/15/17 07:31 03/15/17 11:53 Sodium Level 139 mmol/L (136-145) Potassium Level 3.9 mmol/L (3.5-5.1) Chloride Level 107 mmol/L (98-107) Carbon Dioxide Level 24 mmol/L (21-32) Anion Gap 8 (6-14) Blood Urea Nitrogen 31 mg/dL (7-20) H Creatinine 1.9 mg/dL (0.6-1.0) H Estimated GFR (Cockcroft-Gault) 31.1 Glucose Level 117 mg/dL (70-99) H Calcium Level 8.7 mg/dL (8.5-10.1) Glucose (Fingerstick) 126 mg/dL (70-99) H 151 mg/dL (70-99) H Current Medications: Meds: Current Medications Sodium Chloride (Normal Saline Flush) 3 ml PRN DAILY PRN IV AFTER MEDS AND BLOOD DRAWS; Start 03/12/17 at 21:00; Stop 03/13/17 at 12:10; Status DC Dextrose/Sodium Chloride 1,000 ml @ 100 mls/hr Q10H IV Last administered on t 18:05; Start 03/12/17 at 20:54; Stop 03/14/17 at 06:41; Status DC Calcium Carbonate/ Glycine (Tums) 500 mg PRN Q3HRS PRN PO HEARTBURN / GAS Last administered on 03/15/17 06:32; Start 03/12/17 at 21:00 Heparin Sodium (Porcine) 5,000 unit Q12H SQ Last administered on 03/15/17 21: 45; Start 03/12/17 at 21:00 Ceftriaxone Sodium 1 gm/ Sodium Chloride 50 ml @ 100 mls/hr QODAY IV Last administered on 03/14/17 08:13; Start 03/12/17 at 21:30; Stop 03/15/17 at 11:17; Status DC Sodium Chloride 50 ml @ As Directed STK-MED ONCE .ROUTE Last administered on 22:07; Start 03/12/17 at 22:07; Stop 03/12/17 at 22:08; Status DC Benztropine Mesylate (Cogentin) 0.5 mg DAILY PO ; Start 03/13/17 at 09:00 Buspirone HCl (Buspar) 5 mg QID PO ; Start 03/13/17 at 09:00; Stop 03/13/17 at 19: 15; Status DC Lorazepam (Ativan) 0.5 mg PRN Q6HRS PRN PO ANXIETY / AGITATION; Start 03/12/17 at 22:15 Olanzapine (ZyPREXA ZYDIS) 2.5 mg PRN Q2HR PRN PO PSYCHOSIS Last administered on 03/13/17 21:38; Start 03/12/17 at 22:15 Acetaminophen (Tylenol) 650 mg PRN Q4HRS PRN PO PAIN / TEMP; Start 03/13/17 at 11:45 Albuterol Sulfate (Ventolin) 2.5 mg PRN QID PRN NEB SHORTNESS OF BREATH; Start 03/13/17 at 11:45 Amlodipine Besylate (Norvasc) 10 mg DAILY PO ; Start 03/14/17 at 09:00 Carvedilol (Coreg) 12.5 mg BID PO Last administered on 03/14/17 21:01; Start at 21:00 Divalproex Sodium (Depakote Sprinkles) 250 mg BID PO ; Start 03/13/17 at 21:00; Stop 03/13/17 at 21:00; Status DC Donepezil HCl (Aricept) 5 mg HS PO ; Start 03/13/17 at 21:00; Stop 03/13/17 at 21: 00; Status DC Multivit/Ca Carb/ B Cmplx/FA/Prenat (Nephro-Fady) 1 tab DAILY PO ; Start at 09:00 Hydralazine HCl (Apresoline) 50 mg TID PO Last administered on 03/14/17 21:01; Start 03/13/17 at 14:00 Albuterol/ Ipratropium (Duoneb) 3 ml QID NEB Last administered on 03/15/17 20: 26; Start 03/13/17 at 13:00 Levothyroxine Sodium (Synthroid) 75 mcg DAILY06 PO Last administered on 06:12; Start 03/14/17 at 06:00 Magnesium Hydroxide (Milk Of Magnesia) 2,400 mg PRN QHS PRN PO CONSTIPATION; Start 03/13/17 at 11:45 Memantine (Namenda) 10 mg BID PO ; Start 03/13/17 at 21:00; Stop 03/13/17 at 21:00 ; Status DC Rifaximin (Xifaxan) 550 mg BID PO Last administered on 03/14/17 21:00; Start at 21:00 Sennosides (Senna) 8.6 mg HS PO Last administered on 03/14/17 21:00; Start 03/13 at 21:00 Sertraline HCl (Zoloft) 25 mg QHS PO Last administered on 03/14/17 21:00; Start 03/13/17 at 21:00 Sodium Chloride (Saline Mist Nasal) 1 ezio PRN Q4HRS PRN NS rhinitis; Start 03/13 at 11:45 Amantadine HCl (Symmetrel) 100 mg QODAY PO Last administered on 03/15/17 09:00 ; Start 03/15/17 at 09:00 Artificial Tears (Artificial Tears) 2 drop DAILY OU Last administered on 09:09; Start 03/14/17 at 09:00 Non-Formulary Medication 1 puff DAILY IH ; Start 03/14/17 at 09:00; Stop 03/14/17 at 09:00; Status DC Lactulose 20 gm DAILY PO ; Start 03/14/17 at 09:00 Loxapine Succinate (Loxitane) 10 mg QHS PO ; Start 03/13/17 at 21:00; Stop at 21:00; Status DC Magnesium Hydroxide (Milk Of Magnesia) 2,400 mg PRN AFTMEALHC PRN PO HEARTBURN / GAS; Start 03/13/17 at 12:15 Pantoprazole Sodium (Protonix) 40 mg BIDWMEALS PO ; Start 03/13/17 at 17:00 Albuterol Sulfate (Ventolin) 2.5 mg RTQID NEB ; Start 03/13/17 at 16:00; Stop 03/13/17 at 16:00; Status DC Budesonide (Pulmicort) 0.5 mg RTBID NEB Last administered on 03/15/17 20:26; Start 03/13/17 at 20:00 Hydralazine HCl (Apresoline) 10 mg PRN Q4HRS PRN IV ELEVATED BP, SEE COMMENTS Last administered on 03/13/17 21:20; Start 03/13/17 at 15:45 Nystatin (Nystop) 1 ezio BID TP Last administered on 03/15/17 21:44; Start 03/13 at 21:00 Glucose (Insta-Glucose) 15 gm PRN Q15MIN PRN PO LOW BLOOD SUGAR; Start 03/12/17 at 07:20; Stop 03/13/17 at 16:42; Status DC Labetalol HCl (Normodyne) 20 mg BID IVP Last administered on 03/15/17 09:09; Start 03/13/17 at 18:30 Loxapine Succinate (Loxitane) 10 mg BID94 PO ; Start 03/14/17 at 09:00 Potassium Chloride/Dextrose/ Sod Cl 1,000 ml @ 80 mls/hr [id number] IV Last administered on 03/15/17 03:35; Start 03/14/17 at 06:45; Stop 03/15/17 at 15:53 ; Status DC Divalproex Sodium (Depakote Sprinkles) 250 mg BID PO Last administered on 21:01; Start 03/14/17 at 21:00 Hydralazine HCl (Apresoline) 20 mg Q6HRS IV Last administered on 03/15/17 10: 30; Start 03/15/17 at 12:00 Ceftriaxone Sodium 1 gm/ Sodium Chloride 50 ml @ 100 mls/hr DAILY IV Last administered on 03/15/17 12:02; Start 03/15/17 at 12:00 Furosemide (Lasix) 20 mg 1X ONCE IVP Last administered on 03/15/17 15:40; Start 03/15/17 at 14:00; Stop 03/15/17 at 14:01; Status DC Furosemide (Lasix) 20 mg 1X ONCE IVP Last administered on 03/15/17 15:40; Start 03/15/17 at 14:30; Stop 03/15/17 at 14:31; Status DC Hydralazine HCl (Apresoline) 10 mg 1X ONCE IV Last administered on 03/15/17 15:42; Start 03/15/17 at 14:30; Stop 03/15/17 at 14:31; Status DC Ondansetron HCl (Zofran) 4 mg PRN Q6HRS PRN IV NAUSEA/VOMITING; Start 03/15/17 at 16:00 Potassium Chloride/Dextrose/ Sod Cl 1,000 ml @ 75 mls/hr [id number] IV ; Start 06/22 at 16:00; Stop 03/15/17 at 16:37; Status DC Amino Acids/ Glycerin/ Electrolytes 1,000 ml @ 80 mls/hr [id number] IV Last administered on 03/15/17 16:48; Start 03/15/17 at 16:00 Nicardipine HCl 50 mg/Sodium Chloride 270 ml @ 0 mls/hr CONT PRN IV SEE I/O RECORD Last administered on 03/15/17 16:52; Start 03/15/17 at 17:00 Active Scripts Active Reported Ceftriaxone 1 Gm Piggyback (Ceftriaxone Na/Dextrose,Iso) 1 Gm/50 Ml Froz.piggy 1 Gm IV QHS Sodium Chloride (Sodium Chloride 0.45 %) 1,000 Ml Iv.soln 1,000 Ml IV [id number] Albuterol Sulfate Neb Soln (Albuterol Sulfate) 2.5 Mg/3 Ml Vial.neb 2.5 Mg NEB PRN QID PRN Norvasc (Amlodipine Besylate) 10 Mg Tablet 10 Mg PO DAILY Zoloft (Sertraline Hcl) 25 Mg Tablet 25 Mg PO QHS Zyprexa Zydis (Olanzapine) 5 Mg Tab.rapdis 2.5 Mg PO PRN Q2HR PRN Milk Of Magnesia (Magnesium Hydroxide) 400 Mg/5 Ml Oral.susp 2,400 Mg PO PRN QHS PRN Loxapine (Loxapine Succinate) 10 Mg Capsule 10 Mg PO QHS Maximum D3 (Cholecalciferol (Vitamin D3)) 10,000 Unit Capsule 50,000 Unit PO WEEKLY Xifaxan (Rifaximin) 550 Mg Tablet 550 Mg PO BID Tramadol Hcl (Tramadol HCl) 50 Mg Tablet 50 Mg PO PRN Q12HR PRN Tessalon Perle (Benzonatate) 100 Mg Capsule 100 Mg PO PRN Q4HRS PRN Senokot (Sennosides) 8.6 Mg Tablet 8.6 Mg PO HS Saline Nasal [place] (Sodium Chloride) 30 Ml [place] 2 Sprays NS PRN Q4HRS PRN Robitussin Nighttime Cough Dm (Dextromethorphan Hb/Doxylamine) 237 Ml Liquid 10 Ml PO PRN Q4HRS PRN Omeprazole 40 Mg Capsule.dr 40 Mg PO BIDWMEALS Nephro-Fady Tablet (Folic Acid/Vitamin B Comp W-C) 0.8 Mg Tablet 1 Tab PO DAILY Alum-Mag Hydroxide-Simeth Liq (Mag Hydrox/Al Hydrox/Simeth) 360 Ml Oral.susp 15 Ml PO PRN AFTMEALHC PRN Montelukast Sodium Tablet (Montelukast Sodium) 10 Mg Tablet 10 Mg PO HS Namenda (Memantine Hcl) 10 Mg Tablet 10 Mg PO BID Lorazepam 0.5 Mg Tablet 0.5 Mg PO PRN Q6HRS PRN Levothyroxine Sodium 75 Mcg Tablet 75 Mcg PO DAILY06 Lactulose 10 Gm/15 Ml Solution 20 Gm PO DAILY Duoneb 0.5-3(2.5) Mg/3 Ml (Albuterol/Ipratropium) 3 Ml Ampul.neb 3 Ml NEB QID Icy Hot Cream (Methyl Salicylate/Menthol) 35.4 Gm Cream..g. 1 Applic TP PRN QID PRN Hydralazine Hcl 50 Mg Tablet 50 Mg PO TID Guaifenesin 600 Mg Tablet.er 600 Mg PO BID Fluticasone Propionate Nasal [place] (Fluticasone Propionate) 16 Gm [place].susp 2 [place] NS PRN BID PRN Breo Ellipta 100-25 Mcg Inh (Fluticasone/Vilanterol) 1 Each Aer.pow.ba 1 Puff IH DAILY Ferrous Sulfate 325 Mg Tablet 325 Mg PO BID Donepezil Hcl 5 Mg Tablet 5 Mg PO HS Depakote Sprinkle (Divalproex Sodium) 125 Mg Cap.sprink 250 Mg PO BID Cetirizine Hcl 10 Mg Tablet 10 Mg PO DAILY Carvedilol 12.5 Mg Tablet 12.5 Mg PO BID Calcium Polycarbophil 625 Mg Tablet 625 Mg PO DAILY Buspirone Hcl 5 Mg Tablet 5 Mg PO QID Benztropine Mesylate 0.5 Mg Tablet 0.5 Mg PO DAILY Atorvastatin Calcium 10 Mg Tablet 5 Mg PO QHS PRN Artificial Tears Eye Drops (Dextran 70/Hypromellose) 15 Ml Drops 2 Drop OU DAILY Amantadine (Amantadine Hcl) 100 Mg Tablet 100 Mg PO QODAY Tylenol (Acetaminophen) 325 Mg Tablet 650 Mg PO PRN Q4HRS PRN Diagnosis: Problems: (1) Bipolar 1 disorder, mixed, moderate (2) Bvvlm-lm-ohzpmlb renal failure (3) Dehydration, severe (4) Anxiety disorder (5) Impulse control disorder (6) Dementia in Alzheimer's disease with delusions SHANE BUTTS MD Mar 15, 2017 21:47
[2017-03-16] VITALS (27 sets, daily range): BP systolic 120–173; BP diastolic 61–79
[2017-03-16] MEDS: IPRATRPIUM/ALBUTEROL 0.5/2.5MG 3 ML NEBU. NEB SCH ×4 (05:24→20:25)
[2017-03-16] MEDS: hydrALAZINE 20 MG/ML VIAL. IV SCH ×4 (06:00→17:53)
[2017-03-16] MEDS: LEVOTHYROXINE 75 MCG TABLET PO SCH (06:00)
[2017-03-16] MEDS: AA 3%/ELECTROLYTE-TPN SOLN/GLY 1,000 ML IV SCH ×2 (07:29→17:00)
[2017-03-16] MEDS: CARVEDILOL 12.5 MG TABLET PO SCH ×2 (07:36→21:00)
[2017-03-16] MEDS: PANTOPRAZOLE 40 MG TABLET. PO SCH ×2 (07:36→17:00)
[2017-03-16] MEDS: amLODIPine BESYLATE 10 MG TABLET PO SCH (07:37)
[2017-03-16] MEDS: rifAXIMin 550 MG TABLET PO SCH ×2 (07:38→21:00)
[2017-03-16] MEDS: LACTULOSE 20 GM/30 ML SOLUTION. PO SCH (08:38)
[2017-03-16] MEDS: FOLIC/VIT B COMP W-C (RENAL) TABLET. PO SCH (08:39)
[2017-03-16] MEDS: DIVALPROEX 125 MG CAP.SPRINK PO SCH ×2 (08:39→21:00)
[2017-03-16] MEDS: BENZTROPINE MESYLATE 0.5 MG TABLET PO SCH (08:39)
[2017-03-16] MEDS: LOXAPINE SUCCINATE 5 MG CAPSULE PO SCH ×2 (08:39→13:09)
--- NOTE | 2017-03-16 08:58 | PDOC ---
SUBJECTIVE: No new neurological complaints. She was transfered to ICU because of severe hypertension. currently on Nicardipine drip. OBJECTIVE: Vital Signs: Vital Signs Date Time Temp Pulse Resp B/P (MAP) Pulse Ox O2 Delivery O2 Flow Rate FiO2 03/16/17 07:37 76 03/16/17 07:30 Room Air 03/16/17 07:30 18 142/67 (92) 96 03/16/17 06:00 97.9 I & O Intake and Output 03/16/17 07:00 Intake Total 2009 ml Output Total 2450 ml Balance -440 ml IV Total 2009 ml Output Urine Total 2450 ml Labs: Laboratory Tests Test 03/14/17 12:25 03/14/17 20:52 03/15/17 06:20 03/15/17 07:31 Glucose (Fingerstick) 86 mg/dL (70-99) 105 mg/dL (70-99) 126 mg/dL (70-99) Sodium Level 139 mmol/L (136-145) Potassium Level 3.9 mmol/L (3.5-5.1) Chloride Level 107 mmol/L (98-107) Carbon Dioxide Level 24 mmol/L (21-32) Anion Gap 8 (6-14) Blood Urea Nitrogen 31 mg/dL (7-20) Creatinine 1.9 mg/dL (0.6-1.0) Estimated GFR (Cockcroft-Gault) 31.1 Glucose Level 117 mg/dL (70-99) Calcium Level 8.7 mg/dL (8.5-10.1) Test 03/15/17 11:53 Glucose (Fingerstick) 151 mg/dL (70-99) ASSESSMENT: General:. HEENT: normocephalic, atraumatic, otherwise unremarkable. Neck: supple , negative for JVD, carotid bruit, lymphoadenopathy or thyroidomegaly. Lungs: clear. Cardiovascular: normal S1, S2 without murmur. Abdomen: soft, no tenderness, mass or organomegaly. Extremities: no edema, or clubbing but positive for stasis dermatitis. The peripheral pulses were normal. Neurological Examination: 1- Mental status: alert and oriented to time x2 follows simple commands. speech is fluent . no language dysfunction. memeory , judgment and abstracting thinking are impaired. 2- Cranial Nerves:. The pupils were equal and reactive to light and accommodation. The extra ocular movements were intact; there was no nystagmus on horizontal or vertical gazes. There were no facial, motor or sensory deficits. The hearing was intact. The palate was elevated symmetrically. The sternocleidomastoids The patient protruded the tongue in the midline without fasciculations or atrophy. 3-Motor Examination: No focal muscle bulk wasting. The strength was 4/5 throughout. 4-Sensory Examination: Normal pinprick, light touch, vibratory, and position senses. 5-Deep Tendon Reflexes: Were symmetric and hypoactive without pathologic responses. 6-Coordinations and Gait: Not tested PLAN: ASSESSMENT: mpression: 1-Acute encephalopathy metabolic/infectious- improved. 2- UTI 3- Dementia 4- chronic renal failure improved 5- Bipolar 6- severe hypertension improved with nicardipine. PLAN: plan: Continue with current management Mandy TEMPLE MD Mar 16, 2017 08:58
[2017-03-16] MEDS: LABETALOL 20 MG/4 ML DISP.SYRIN. IVP SCH ×2 (09:00→20:51)
[2017-03-16] MEDS: POLYVINYL ALCOHOL 1.4% OPHTH SOLUTION 15ML BOTTLE. OU SCH (09:00)
--- NOTE | 2017-03-16 09:21 | PDOC2 ---
CONSULT Date of Admission DATE: 03/16/17 TIME: 09:20 Reason for Consult: accelerated hypertension History of Present Illness Ms Melendez is a 76 year old female who was originally admitted to [facility] floor at the end of February, from [facility] [place] of due to worsening behaviors. She apparently developed increased confusion and was hallucinating, acute renal failure and UTI so was transferred to medical. She had also been refusing medications, food and drink for a few days. Yesterday it was noted that her blood pressure was uncontrolled. She was started on labetalol and hydralazine IV with little success in reducing it so consult was called and she was started on Cardene drip. She is also apparently having swallowing difficulties and speech eval is pending so she is currently NPO on procalamine. She is currently awake and alert oriented x 3 but a very poor historian so history was obtained from the chart. She denies any chest discomfort, dyspnea or palpitations. Chief Complaint: Dehydration Allergies: Coded Allergies: Sulfa (Sulfonamide Antibiotics) (Verified Allergy, Intermediate, 03/02/17) allopurinol (Verified Allergy, Intermediate, 03/03/17) clonidine (Verified Allergy, Intermediate, 03/03/17) lisinopril (Verified Allergy, Intermediate, 03/03/17) Past Medical History Past Medical History Cardiac: Other (Reportedly has a cardiac history with possible history of heart failure)PVD Pulmonary: COPD [employer]: Dementia GI: Constipation Psych: Bipolar Renal/: Chronic renal failure, Urinary Incontinence Past Surgical History Past Surgical History: Urostomy Family History Family History: Other (Unknown) Social History Past Social History Smoke: No Alcohol: none Drugs: None Lives: [facility] Current Medications Current Medications Sodium Chloride (Normal Saline Flush) 3 ml PRN DAILY PRN IV AFTER MEDS AND BLOOD DRAWS; Start 03/12/17 at 21:00; Stop 03/13/17 at 12:10; Status DC Dextrose/Sodium Chloride 1,000 ml @ 100 mls/hr Q10H IV Last administered on 18:05; Start 03/12/17 at 20:54; Stop 03/14/17 at 06:41; Status DC Calcium Carbonate/ Glycine (Tums) 500 mg PRN Q3HRS PRN PO HEARTBURN / GAS Last administered on 03/15/17 06:32; Start 03/12/17 at 21:00; Status Future hold Heparin Sodium (Porcine) 5,000 unit Q12H SQ Last administered on 03/15/17 21: 45; Start 03/12/17 at 21:00 Ceftriaxone Sodium 1 gm/ Sodium Chloride 50 ml @ 100 mls/hr QODAY IV Last administered on 03/14/17 08:13; Start 03/12/17 at 21:30; Stop 03/15/17 at 11:17; Status DC Sodium Chloride 50 ml @ As Directed STK-MED ONCE .ROUTE Last administered on 22:07; Start 03/12/17 at 22:07; Stop 03/12/17 at 22:08; Status DC Benztropine Mesylate (Cogentin) 0.5 mg DAILY PO ; Start 03/13/17 at 09:00; Status Future hold Buspirone HCl (Buspar) 5 mg QID PO ; Start 03/13/17 at 09:00; Stop 03/13/17 at 19: 15; Status DC Lorazepam (Ativan) 0.5 mg PRN Q6HRS PRN PO ANXIETY / AGITATION; Start 03/12/17 at 22:15 Olanzapine (ZyPREXA ZYDIS) 2.5 mg PRN Q2HR PRN PO PSYCHOSIS Last administered on 03/13/17 21:38; Start 03/12/17 at 22:15 Acetaminophen (Tylenol) 650 mg PRN Q4HRS PRN PO PAIN / TEMP; Start 03/13/17 at 11:45 Albuterol Sulfate (Ventolin) 2.5 mg PRN QID PRN NEB SHORTNESS OF BREATH; Start 03/13/17 at 11:45 Amlodipine Besylate (Norvasc) 10 mg DAILY PO ; Start 03/14/17 at 09:00 Carvedilol (Coreg) 12.5 mg BID PO Last administered on 03/14/17 21:01; Start at 21:00 Divalproex Sodium (Depakote Sprinkles) 250 mg BID PO ; Start 03/13/17 at 21:00; Stop 03/13/17 at 21:00; Status DC Donepezil HCl (Aricept) 5 mg HS PO ; Start 03/13/17 at 21:00; Stop 03/13/17 at 21: 00; Status DC Multivit/Ca Carb/ B Cmplx/FA/Prenat (Nephro-Fady) 1 tab DAILY PO ; Start at 09:00; Status Future hold Hydralazine HCl (Apresoline) 50 mg TID PO Last administered on 03/14/17 21:01; Start 03/13/17 at 14:00 Albuterol/ Ipratropium (Duoneb) 3 ml QID NEB Last administered on 03/16/17 05: 24; Start 03/13/17 at 13:00 Levothyroxine Sodium (Synthroid) 75 mcg DAILY06 PO Last administered on 06:12; Start 03/14/17 at 06:00 Magnesium Hydroxide (Milk Of Magnesia) 2,400 mg PRN QHS PRN PO CONSTIPATION; Start 03/13/17 at 11:45 Memantine (Namenda) 10 mg BID PO ; Start 03/13/17 at 21:00; Stop 03/13/17 at 21:00 ; Status DC Rifaximin (Xifaxan) 550 mg BID PO Last administered on 03/14/17 21:00; Start at 21:00 Sennosides (Senna) 8.6 mg HS PO Last administered on 03/14/17 21:00; Start 03/13 at 21:00; Status Future hold Sertraline HCl (Zoloft) 25 mg QHS PO Last administered on 03/14/17 21:00; Start 03/13/17 at 21:00; Status Future hold Sodium Chloride (Saline Mist Nasal) 1 ezio PRN Q4HRS PRN NS rhinitis; Start 03/13 at 11:45 Amantadine HCl (Symmetrel) 100 mg QODAY PO Last administered on 03/15/17 09:00 ; Start 03/15/17 at 09:00; Status Future hold Artificial Tears (Artificial Tears) 2 drop DAILY OU Last administered on 09:09; Start 03/14/17 at 09:00 Non-Formulary Medication 1 puff DAILY IH ; Start 03/14/17 at 09:00; Stop 03/14/17 at 09:00; Status DC Lactulose 20 gm DAILY PO ; Start 03/14/17 at 09:00; Status Future hold Loxapine Succinate (Loxitane) 10 mg QHS PO ; Start 03/13/17 at 21:00; Stop at 21:00; Status DC Magnesium Hydroxide (Milk Of Magnesia) 2,400 mg PRN AFTMEALHC PRN PO HEARTBURN / GAS; Start 03/13/17 at 12:15 Pantoprazole Sodium (Protonix) 40 mg BIDWMEALS PO ; Start 03/13/17 at 17:00 Albuterol Sulfate (Ventolin) 2.5 mg RTQID NEB ; Start 03/13/17 at 16:00; Stop 03/13/17 at 16:00; Status DC Budesonide (Pulmicort) 0.5 mg RTBID NEB Last administered on 03/15/17 20:26; Start 03/13/17 at 20:00 Hydralazine HCl (Apresoline) 10 mg PRN Q4HRS PRN IV ELEVATED BP, SEE COMMENTS Last administered on 03/13/17 21:20; Start 03/13/17 at 15:45 Nystatin (Nystop) 1 ezio BID TP Last administered on 03/15/17 21:44; Start 03/13 at 21:00 Glucose (Insta-Glucose) 15 gm PRN Q15MIN PRN PO LOW BLOOD SUGAR; Start 03/12/17 at 07:20; Stop 03/13/17 at 16:42; Status DC Labetalol HCl (Normodyne) 20 mg BID IVP Last administered on 03/15/17 09:09; Start 03/13/17 at 18:30 Loxapine Succinate (Loxitane) 10 mg BID94 PO ; Start 03/14/17 at 09:00; Status Future hold Potassium Chloride/Dextrose/ Sod Cl 1,000 ml @ 80 mls/hr [id number] IV Last administered on 03/15/17 03:35; Start 03/14/17 at 06:45; Stop 03/15/17 at 15:53 ; Status DC Divalproex Sodium (Depakote Sprinkles) 250 mg BID PO Last administered on 21:01; Start 03/14/17 at 21:00 Hydralazine HCl (Apresoline) 20 mg Q6HRS IV Last administered on 03/15/17 10: 30; Start 03/15/17 at 12:00 Ceftriaxone Sodium 1 gm/ Sodium Chloride 50 ml @ 100 mls/hr DAILY IV Last administered on 03/16/17 07:29; Start 03/15/17 at 12:00 Furosemide (Lasix) 20 mg 1X ONCE IVP Last administered on 03/15/17 15:40; Start 03/15/17 at 14:00; Stop 03/15/17 at 14:01; Status DC Furosemide (Lasix) 20 mg 1X ONCE IVP Last administered on 03/15/17 15:40; Start 03/15/17 at 14:30; Stop 03/15/17 at 14:31; Status DC Hydralazine HCl (Apresoline) 10 mg 1X ONCE IV Last administered on 03/15/17 15:42; Start 03/15/17 at 14:30; Stop 03/15/17 at 14:31; Status DC Ondansetron HCl (Zofran) 4 mg PRN Q6HRS PRN IV NAUSEA/VOMITING; Start 03/15/17 at 16:00 Potassium Chloride/Dextrose/ Sod Cl 1,000 ml @ 75 mls/hr [id number] IV ; Start 06/22 at 16:00; Stop 03/15/17 at 16:37; Status DC Amino Acids/ Glycerin/ Electrolytes 1,000 ml @ 80 mls/hr [id number] IV Last administered on 03/16/17 07:29; Start 03/15/17 at 16:00 Nicardipine HCl 50 mg/Sodium Chloride 270 ml @ 0 mls/hr CONT PRN IV SEE I/O RECORD Last administered on 03/15/17 16:52; Start 03/15/17 at 17:00 Active Scripts Active Reported Ceftriaxone 1 Gm Piggyback (Ceftriaxone Na/Dextrose,Iso) 1 Gm/50 Ml Froz.piggy 1 Gm IV QHS Sodium Chloride (Sodium Chloride 0.45 %) 1,000 Ml Iv.soln 1,000 Ml IV [id number] Albuterol Sulfate Neb Soln (Albuterol Sulfate) 2.5 Mg/3 Ml Vial.neb 2.5 Mg NEB PRN QID PRN Norvasc (Amlodipine Besylate) 10 Mg Tablet 10 Mg PO DAILY Zoloft (Sertraline Hcl) 25 Mg Tablet 25 Mg PO QHS Zyprexa Zydis (Olanzapine) 5 Mg Tab.rapdis 2.5 Mg PO PRN Q2HR PRN Milk Of Magnesia (Magnesium Hydroxide) 400 Mg/5 Ml Oral.susp 2,400 Mg PO PRN QHS PRN Loxapine (Loxapine Succinate) 10 Mg Capsule 10 Mg PO QHS Maximum D3 (Cholecalciferol (Vitamin D3)) 10,000 Unit Capsule 50,000 Unit PO WEEKLY Xifaxan (Rifaximin) 550 Mg Tablet 550 Mg PO BID Tramadol Hcl (Tramadol HCl) 50 Mg Tablet 50 Mg PO PRN Q12HR PRN Tessalon Perle (Benzonatate) 100 Mg Capsule 100 Mg PO PRN Q4HRS PRN Senokot (Sennosides) 8.6 Mg Tablet 8.6 Mg PO HS Saline Nasal Canyon (Sodium Chloride) 30 Ml Canyon 2 Sprays NS PRN Q4HRS PRN Robitussin Nighttime Cough Dm (Dextromethorphan Hb/Doxylamine) 237 Ml Liquid 10 Ml PO PRN Q4HRS PRN Omeprazole 40 Mg Capsule.dr 40 Mg PO BIDWMEALS Nephro-Fady Tablet (Folic Acid/Vitamin B Comp W-C) 0.8 Mg Tablet 1 Tab PO DAILY Alum-Mag Hydroxide-Simeth Liq (Mag Hydrox/Al Hydrox/Simeth) 360 Ml Oral.susp 15 Ml PO PRN AFTMEALHC PRN Montelukast Sodium Tablet (Montelukast Sodium) 10 Mg Tablet 10 Mg PO HS Namenda (Memantine Hcl) 10 Mg Tablet 10 Mg PO BID Lorazepam 0.5 Mg Tablet 0.5 Mg PO PRN Q6HRS PRN Levothyroxine Sodium 75 Mcg Tablet 75 Mcg PO DAILY06 Lactulose 10 Gm/15 Ml Solution 20 Gm PO DAILY Duoneb 0.5-3(2.5) Mg/3 Ml (Albuterol/Ipratropium) 3 Ml Ampul.neb 3 Ml NEB QID Icy Hot Cream (Methyl Salicylate/Menthol) 35.4 Gm Cream..g. 1 Applic TP PRN QID PRN Hydralazine Hcl 50 Mg Tablet 50 Mg PO TID Guaifenesin 600 Mg Tablet.er 600 Mg PO BID Fluticasone Propionate Nasal [place] (Fluticasone Propionate) 16 Gm Canyon.susp 2 Canyon NS PRN BID PRN Breo Ellipta 100-25 Mcg Inh (Fluticasone/Vilanterol) 1 Each Aer.pow.ba 1 Puff IH DAILY Ferrous Sulfate 325 Mg Tablet 325 Mg PO BID Donepezil Hcl 5 Mg Tablet 5 Mg PO HS Depakote Sprinkle (Divalproex Sodium) 125 Mg Cap.sprink 250 Mg PO BID Cetirizine Hcl 10 Mg Tablet 10 Mg PO DAILY Carvedilol 12.5 Mg Tablet 12.5 Mg PO BID Calcium Polycarbophil 625 Mg Tablet 625 Mg PO DAILY Buspirone Hcl 5 Mg Tablet 5 Mg PO QID Benztropine Mesylate 0.5 Mg Tablet 0.5 Mg PO DAILY Atorvastatin Calcium 10 Mg Tablet 5 Mg PO QHS PRN Artificial Tears Eye Drops (Dextran 70/Hypromellose) 15 Ml Drops 2 Drop OU DAILY Amantadine (Amantadine Hcl) 100 Mg Tablet 100 Mg PO QODAY Tylenol (Acetaminophen) 325 Mg Tablet 650 Mg PO PRN Q4HRS PRN Allergies: Coded Allergies: Sulfa (Sulfonamide Antibiotics) (Verified Allergy, Intermediate, 03/02/17) allopurinol (Verified Allergy, Intermediate, 03/03/17) clonidine (Verified Allergy, Intermediate, 03/03/17) lisinopril (Verified Allergy, Intermediate, 03/03/17) Review of System She denies complaints General: Alert, Oriented X3, Cooperative, No acute distress Lungs: Other (few scattered basilar crackles) Heart: Regular rate, Normal S1, Normal S2, Other (+ 2/6 murmur, no gallops, clicks or rubs) Abdomen: Normal bowel sounds, Soft, No tenderness Extremities: No cyanosis, Other (significant venous stasis changes and weak but palpable pulses bilaterally in lower ext.) Psych/Mental Status: Mood NL VITALS Vital Signs Date Time Temp Pulse Resp B/P (MAP) Pulse Ox O2 Delivery O2 Flow Rate FiO2 03/16/17 07:37 76 03/16/17 07:30 Room Air 03/16/17 07:30 18 142/67 (92) 96 03/16/17 06:00 97.9 Labs Laboratory Tests Test 03/14/17 12:25 03/14/17 20:52 03/15/17 06:20 03/15/17 07:31 Glucose (Fingerstick) 86 mg/dL (70-99) 105 mg/dL (70-99) 126 mg/dL (70-99) Sodium Level 139 mmol/L (136-145) Potassium Level 3.9 mmol/L (3.5-5.1) Chloride Level 107 mmol/L (98-107) Carbon Dioxide Level 24 mmol/L (21-32) Anion Gap 8 (6-14) Blood Urea Nitrogen 31 mg/dL (7-20) Creatinine 1.9 mg/dL (0.6-1.0) Estimated GFR (Cockcroft-Gault) 31.1 Glucose Level 117 mg/dL (70-99) Calcium Level 8.7 mg/dL (8.5-10.1) Test 03/15/17 11:53 Glucose (Fingerstick) 151 mg/dL (70-99) Images CT head 03/13/16 1. No acute intracranial findings. 2. Small soft tissue contusion identified in the left forehead region. Assessment/Plan 1. Accelerated hypertension - Cardene drip. Speech eval and possible restart oral meds. Goal SBP~130 mmHg systolic. Echo - <Conclusion> The left ventricular systolic function is normal and the ejection fraction is within normal range. The Ejection Fraction is 65-70%. There is moderate concentric left ventricular hypertrophy. Calculated aortic valve area is 1.2-1.4 cm2 with maximum pressure gradient of 52 mmHg and mean pressure gradient of 33 mmHg. Dimensionless index is .37 consistent with moderate aortic valve stenosis. There is mild mitral valve stenosis. Calculated mitral valve area is 1.8 cm2 with maximum pressure gradient of 20 mmHg and mean pressure gradient of 5 mmHg. The ascending aorta is mildly dilated (3.7 cm) 2. Aortic stenosis 3. history of heart failure - no overt heart failure symptoms currently 4. CKD - Cr returning to baseline 5. dementia - LOC improved, mgmt per neuro and psych Problems: PATTY ROMERO APRN Mar 16, 2017 09:21
[2017-03-16 10:10] LABS: BASO % 1 % (0-3); EOS # 0.2 x10^3/uL (0.0-0.7); EOS % 4 % (0-3); HEMOGLOBIN 15.6 g/dL (12.0-15.5); LYMPH % 18 % (24-48); MEAN CORPUSCULAR HEMOGLOBIN 29 pg (25-35); MEAN CORPUSCULAR HGB CONC 32 g/dL (31-37); MEAN CORPUSCULAR VOLUME 91 fL (79-100); MONO # 1.1 x10^3/uL (0.0-1.1); MONO % 19 % (0-9); NEUT # 3.3 x10^3uL (1.8-7.7); NEUT % 58 % (31-73); PLATELET COUNT 133 x10^3/uL (140-400); RED CELL DISTRIBUTION WIDTH 16.8 % (11.5-14.5); WHITE BLOOD COUNT 5.6 x10^3/uL (4.0-11.0)
[2017-03-16 10:24] LABS: ALBUMIN 2.7 g/dL (3.4-5.0); ALBUMIN/GLOBULIN RATIO 0.6 (1.0-1.7); GFR 29.3; MAGNESIUM 1.5 mg/dL (1.8-2.4); POTASSIUM 4.6 mmol/L (3.5-5.1); TOTAL BILIRUBIN 0.4 mg/dL (0.2-1.0); TOTAL PROTEIN 7.4 g/dL (6.4-8.2)
[2017-03-16] MEDS: BUDESONIDE 0.5 MG/2 ML NEBU NEB SCH ×2 (11:59→20:25)
--- NOTE | 2017-03-16 12:19 | CARD ---
APPROVED REPORT EXAM: Two-dimensional and M-mode echocardiogram with Doppler and color Doppler. Other Information Quality : GoodHR: 73bpm Rhythm : NSR INDICATION Accelerated hypertension, Murmur 2D DIMENSIONS RVDd2.5 (2.9-3.5cm)Left Atrium(2D)3.8 (1.6-4.0cm) IVSd1.6 (0.7-1.1cm)Aortic Root(2D)2.2 (2.0-3.7cm) LVDd3.7 (3.9-5.9cm)LVOT Diameter2.2 (1.8-2.4cm) PWd1.6 (0.7-1.1cm)LVDs2.4 (2.5-4.0cm) FS (%) 35.6 %SV38.5 ml LVEF(%)65.9 (>50%) Aortic Valve AoV Peak Jayy.361.1cm/sAoV VTI68.8cm AO Peak GR.52.2mmHgLVOT Peak Jayy.120.2cm/s LVOT VTI 25.57cmAO Mean GR.33mmHg RAHUL (VMAX)1.54hu2JWU (VTI)1.37cm2 AI P 1/2 [id number] Mitral Valve MV E Zcmngnqx58.5cm/sMV E Peak Gr.20mmHg MV DECEL [id number] A Kcdxemjv991.5cm/s MV E Mean Gr.5mmHgE/A Ratio0.4 MV A [id number] LEFT VENTRICLE The left ventricle cavity is small. There is moderate concentric left ventricular hypertrophy. The le ft ventricular systolic function is normal and the ejection fraction is within normal range. The Ejec tion Fraction is 65-70%. There is normal LV segmental wall motion. Transmitral Doppler flow pattern i s Grade I-abnormal relaxation pattern. RIGHT VENTRICLE The right ventricle is normal size. There is normal right ventricular wall thickness. The right ventr icular systolic function is normal. ATRIA The left atrium is moderately dilated. The right atrium size is normal. The interatrial septum is int act with no evidence for an atrial septal defect or patent foramen ovale as noted on 2-D or Doppler i maging. AORTIC VALVE The aortic valve is not well visualized but is severely calcified and displays a decreased opening. D oppler and Color Flow revealed mild aortic regurgitation. Calculated aortic valve area is 1.2-1.4 cm2 with maximum pressure gradient of 52 mmHg and mean pressure gradient of 33 mmHg. Dimensionless index is .37 consistent with moderate aortic valve stenosis. MITRAL VALVE Mitral annular calcification is moderate.The mitral valve leaflets are thickened. There is no evidenc e of mitral valve prolapse. There is mild mitral valve stenosis. Calculated mitral valve area is 1.8 cm2 with maximum pressure gradient of 20 mmHg and mean pressure gradient of 5 mmHg. Doppler and Color Flow revealed no mitral valve regurgitation noted. TRICUSPID VALVE Doppler and Color Flow revealed no tricuspid valve regurgitation noted. Unable to estimate the RVSP a t exam time. PULMONIC VALVE The pulmonic valve is not well visualized but appears to open well. Doppler and Color Flow revealed n o pulmonic valvular regurgitation. There is no pulmonic valvular stenosis by spectral Doppler. GREAT VESSELS The aortic root is normal in size. The ascending aorta is mildly dilated. The IVC is normal in size a nd collapses >50% with inspiration. PERICARDIAL EFFUSION There is no evidence of significant pericardial effusion. Critical Notification Critical Value: No <Conclusion> The left ventricular systolic function is normal and the ejection fraction is within normal range. Th e Ejection Fraction is 65-70%. There is moderate concentric left ventricular hypertrophy. Calculated aortic valve area is 1.2-1.4 cm2 with maximum pressure gradient of 52 mmHg and mean pressu re gradient of 33 mmHg. Dimensionless index is .37 consistent with moderate aortic valve stenosis. There is mild mitral valve stenosis. Calculated mitral valve area is 1.8 cm2 with maximum pressure gr adient of 20 mmHg and mean pressure gradient of 5 mmHg. The ascending aorta is mildly dilated (3.7 cm)
--- NOTE | 2017-03-16 13:03 | PDOC ---
SUBJECTIVE: Doing a little bit better. Tried a few ice chips while waiting for speech. Coughed a little. On Procalamine for now. Much more alert now that she has been rehydrated. Spoke to her son today. On a Cardene drip for bp control nirav to NPO status. OBJECTIVE: Problems: #1 acute on chronic renal failure resolved and back to baseline #2 dehydration-resolved #3 aortic stenosis moderate #4 esophageal dysmotility-speech eval pending 5 metabolic encephalopathy-improved #6accelebrated hypertension-on cardene drip #7 bipolar 1 disorder mixed, moderate #8 left ventricular hypertrophy-hypertensiv2 #9 dementia and Alzheimer's disease #10 DVT prophylaxis-on heparin #11 impulse control disorder #12 severe protein calorie malnutrition-on Procalamine #13 hypomagnesemia-replace 14 urostomy status #15Aspiration risk #16 UTI-ecoli- on Rocephin and will finish in a few days Vital Signs: Vital Signs Date Time Temp Pulse Resp B/P (MAP) Pulse Ox O2 Delivery O2 Flow Rate FiO2 03/16/17 12:03 94 Room Air 03/16/17 09:30 87 20 157/66 (96) 03/16/17 06:00 97.9 I & O Intake and Output 03/16/17 07:00 Intake Total 2009 ml Output Total 2450 ml Balance -440 ml IV Total 2009 ml Output Urine Total 2450 ml Labs: Laboratory Tests Test 03/14/17 20:52 03/15/17 06:20 03/15/17 07:31 03/15/17 11:53 Glucose (Fingerstick) 105 mg/dL (70-99) 126 mg/dL (70-99) 151 mg/dL (70-99) Sodium Level 139 mmol/L (136-145) Potassium Level 3.9 mmol/L (3.5-5.1) Chloride Level 107 mmol/L (98-107) Carbon Dioxide Level 24 mmol/L (21-32) Anion Gap 8 (6-14) Blood Urea Nitrogen 31 mg/dL (7-20) Creatinine 1.9 mg/dL (0.6-1.0) Estimated GFR (Cockcroft-Gault) 31.1 Glucose Level 117 mg/dL (70-99) Calcium Level 8.7 mg/dL (8.5-10.1) Test 03/16/17 09:46 White Blood Count 5.6 x10^3/uL (4.0-11.0) Red Blood Count 5.30 x10^6/uL (3.50-5.40) Hemoglobin 15.6 g/dL (12.0-15.5) Hematocrit 48.0 % (36.0-47.0) Mean Corpuscular Volume 91 fL (79-100) Mean Corpuscular Hemoglobin 29 pg (25-35) Mean Corpuscular Hemoglobin Concent 32 g/dL (31-37) Red Cell Distribution Width 16.8 % (11.5-14.5) Platelet Count 133 x10^3/uL (140-400) Neutrophils (%) (Auto) 58 % (31-73) Lymphocytes (%) (Auto) 18 % (24-48) Monocytes (%) (Auto) 19 % (0-9) Eosinophils (%) (Auto) 4 % (0-3) Basophils (%) (Auto) 1 % (0-3) Neutrophils # (Auto) 3.3 x10^3uL (1.8-7.7) Lymphocytes # (Auto) 1.0 x10^3/uL (1.0-4.8) Monocytes # (Auto) 1.1 x10^3/uL (0.0-1.1) Eosinophils # (Auto) 0.2 x10^3/uL (0.0-0.7) Basophils # (Auto) 0.0 x10^3/uL (0.0-0.2) Sodium Level 139 mmol/L (136-145) Potassium Level 4.6 mmol/L (3.5-5.1) Chloride Level 105 mmol/L (98-107) Carbon Dioxide Level 25 mmol/L (21-32) Anion Gap 9 (6-14) Blood Urea Nitrogen 30 mg/dL (7-20) Creatinine 2.0 mg/dL (0.6-1.0) Estimated GFR (Cockcroft-Gault) 29.3 BUN/Creatinine Ratio 15 (6-20) Glucose Level 109 mg/dL (70-99) Calcium Level 9.0 mg/dL (8.5-10.1) Magnesium Level 1.5 mg/dL (1.8-2.4) Total Bilirubin 0.4 mg/dL (0.2-1.0) Aspartate Amino Transf (AST/SGOT) 22 U/L (15-37) Alanine Aminotransferase (ALT/SGPT) 34 U/L (14-59) Alkaline Phosphatase 91 U/L (46-116) Total Protein 7.4 g/dL (6.4-8.2) Albumin 2.7 g/dL (3.4-5.0) Albumin/Globulin Ratio 0.6 (1.0-1.7) Physical Exam: Alert, calm and cooperative Tongue moist, throat clear Neck supple withour adenapathy Lungs clear to auscultation CV RRR with 2/6 systolic murmur Abdomen soft, non tender, urostomy bag in place draining clear yellow urine Ext-markedly less edema than it was upstairs. ASSESSMENT: See ABOVE problem list PLAN: Await the results of the swallow study, we are waiting fot speech therapy. Hopefully a modified diet will be in order. I don't think she will tolerate a feeding tube. Continue the Procalamine for now. Cardiology assisting with bp management. Replace magnesium. CHANELLE PERAZA DO Mar 16, 2017 13:03
[2017-03-16] MEDS ORDERED: MAGNESIUM SULFATE 2GM 50 ML IV ONE (13:15)
[2017-03-16] MEDS: HEPARIN PF for SUB-Q USE 5,000 UNIT/0.5 ML VIAL. SQ SCH ×2 (14:13→20:53)
[2017-03-16] MEDS: NYSTATIN TOPICAL POWDER 15GM BOTTLE. TP SCH ×2 (14:13→21:03)
--- NOTE | 2017-03-16 20:00 | NUR ---
Pt is NPO, having swallow study tomorrow. Pt is on cardene drip for BP control. She is also getting labetalol and hydralazaline IV, all po meds are hold right now until after swallow test tomorrow.
[2017-03-16] MEDS: SENNOSIDES 8.6 MG TABLET PO SCH (21:00)
[2017-03-16] MEDS: SERTRALINE 25 MG TABLET. PO SCH (21:00)
[2017-03-17] VITALS (23 sets, daily range): BP systolic 110–185; BP diastolic 62–83
[2017-03-17] MEDS: hydrALAZINE 20 MG/ML VIAL. IV SCH ×4 (01:54→18:00)
[2017-03-17] MEDS: AA 3%/ELECTROLYTE-TPN SOLN/GLY 1,000 ML IV SCH ×2 (05:30→17:02)
[2017-03-17] MEDS: IPRATRPIUM/ALBUTEROL 0.5/2.5MG 3 ML NEBU. NEB SCH ×4 (05:50→20:38)
[2017-03-17] MEDS: LEVOTHYROXINE 75 MCG TABLET PO SCH (06:00)
[2017-03-17] MEDS: PANTOPRAZOLE 40 MG TABLET. PO SCH (07:43)
[2017-03-17] MEDS: CARVEDILOL 12.5 MG TABLET PO SCH ×2 (07:44→21:17)
[2017-03-17] MEDS: LOXAPINE SUCCINATE 5 MG CAPSULE PO SCH ×2 (07:44→17:00)
[2017-03-17] MEDS: DIVALPROEX 125 MG CAP.SPRINK PO SCH ×2 (07:44→21:16)
[2017-03-17] MEDS: BENZTROPINE MESYLATE 0.5 MG TABLET PO SCH (07:44)
[2017-03-17] MEDS: LACTULOSE 20 GM/30 ML SOLUTION. PO SCH (07:44)
[2017-03-17] MEDS: FOLIC/VIT B COMP W-C (RENAL) TABLET. PO SCH (07:45)
[2017-03-17] MEDS: amLODIPine BESYLATE 10 MG TABLET PO SCH (07:45)
[2017-03-17] MEDS: rifAXIMin 550 MG TABLET PO SCH ×2 (07:45→21:16)
[2017-03-17] MEDS: AMANTADINE HCL 100 MG CAPSULE PO SCH (07:45)
[2017-03-17 08:13] LABS: HEMATOCRIT 51.9 % (36.0-47.0); RED BLOOD COUNT 5.78 x10^6/uL (3.50-5.40); RED CELL DISTRIBUTION WIDTH 17.2 % (11.5-14.5); WHITE BLOOD COUNT 6.1 x10^3/uL (4.0-11.0)
[2017-03-17 08:25] LABS: ALBUMIN 3.2 g/dL (3.4-5.0); ALBUMIN/GLOBULIN RATIO 0.7 (1.0-1.7); CALCIUM 9.3 mg/dL (8.5-10.1); CREATININE 1.9 mg/dL (0.6-1.0); GFR 31.1; MAGNESIUM 2.2 mg/dL (1.8-2.4); POTASSIUM 4.5 mmol/L (3.5-5.1); TOTAL BILIRUBIN 0.4 mg/dL (0.2-1.0); TOTAL PROTEIN 7.7 g/dL (6.4-8.2)
[2017-03-17] MEDS: LABETALOL 20 MG/4 ML DISP.SYRIN. IVP SCH ×2 (08:45→21:00)
[2017-03-17] MEDS: POLYVINYL ALCOHOL 1.4% OPHTH SOLUTION 15ML BOTTLE. OU SCH (08:55)
[2017-03-17] MEDS: NYSTATIN TOPICAL POWDER 15GM BOTTLE. TP SCH ×2 (08:57→22:12)
[2017-03-17] MEDS: HEPARIN PF for SUB-Q USE 5,000 UNIT/0.5 ML VIAL. SQ SCH ×2 (08:59→22:09)
--- NOTE | 2017-03-17 09:44 | PDOC ---
SUBJECTIVE: No new neuro c/o OBJECTIVE: Vital Signs: Vital Signs Date Time Temp Pulse Resp B/P (MAP) Pulse Ox O2 Delivery O2 Flow Rate FiO2 03/17/17 09:18 73 161/74 03/17/17 06:00 97.9 22 96 Room Air I & O Intake and Output 03/17/17 07:00 Intake Total 465 ml Output Total 1875 ml Balance -1410 ml Intake Oral 0 ml IV Total 465 ml Output Urine Total 1875 ml Labs: Laboratory Tests Test 03/15/17 11:53 03/16/17 09:46 03/16/17 16:48 03/16/17 21:19 Glucose (Fingerstick) 151 mg/dL (70-99) 86 mg/dL (70-99) 93 mg/dL (70-99) White Blood Count 5.6 x10^3/uL (4.0-11.0) Red Blood Count 5.30 x10^6/uL (3.50-5.40) Hemoglobin 15.6 g/dL (12.0-15.5) Hematocrit 48.0 % (36.0-47.0) Mean Corpuscular Volume 91 fL (79-100) Mean Corpuscular Hemoglobin 29 pg (25-35) Mean Corpuscular Hemoglobin Concent 32 g/dL (31-37) Red Cell Distribution Width 16.8 % (11.5-14.5) Platelet Count 133 x10^3/uL (140-400) Neutrophils (%) (Auto) 58 % (31-73) Lymphocytes (%) (Auto) 18 % (24-48) Monocytes (%) (Auto) 19 % (0-9) Eosinophils (%) (Auto) 4 % (0-3) Basophils (%) (Auto) 1 % (0-3) Neutrophils # (Auto) 3.3 x10^3uL (1.8-7.7) Lymphocytes # (Auto) 1.0 x10^3/uL (1.0-4.8) Monocytes # (Auto) 1.1 x10^3/uL (0.0-1.1) Eosinophils # (Auto) 0.2 x10^3/uL (0.0-0.7) Basophils # (Auto) 0.0 x10^3/uL (0.0-0.2) Sodium Level 139 mmol/L (136-145) Potassium Level 4.6 mmol/L (3.5-5.1) Chloride Level 105 mmol/L (98-107) Carbon Dioxide Level 25 mmol/L (21-32) Anion Gap 9 (6-14) Blood Urea Nitrogen 30 mg/dL (7-20) Creatinine 2.0 mg/dL (0.6-1.0) Estimated GFR (Cockcroft-Gault) 29.3 BUN/Creatinine Ratio 15 (6-20) Glucose Level 109 mg/dL (70-99) Calcium Level 9.0 mg/dL (8.5-10.1) Magnesium Level 1.5 mg/dL (1.8-2.4) Total Bilirubin 0.4 mg/dL (0.2-1.0) Aspartate Amino Transf (AST/SGOT) 22 U/L (15-37) Alanine Aminotransferase (ALT/SGPT) 34 U/L (14-59) Alkaline Phosphatase 91 U/L (46-116) Total Protein 7.4 g/dL (6.4-8.2) Albumin 2.7 g/dL (3.4-5.0) Albumin/Globulin Ratio 0.6 (1.0-1.7) Test 03/17/17 08:00 White Blood Count 6.1 x10^3/uL (4.0-11.0) Red Blood Count 5.78 x10^6/uL (3.50-5.40) Hemoglobin 17.0 g/dL (12.0-15.5) Hematocrit 51.9 % (36.0-47.0) Mean Corpuscular Volume 90 fL (79-100) Mean Corpuscular Hemoglobin 30 pg (25-35) Mean Corpuscular Hemoglobin Concent 33 g/dL (31-37) Red Cell Distribution Width 17.2 % (11.5-14.5) Platelet Count 128 x10^3/uL (140-400) Sodium Level 141 mmol/L (136-145) Potassium Level 4.5 mmol/L (3.5-5.1) Chloride Level 106 mmol/L (98-107) Carbon Dioxide Level 24 mmol/L (21-32) Anion Gap 11 (6-14) Blood Urea Nitrogen 33 mg/dL (7-20) Creatinine 1.9 mg/dL (0.6-1.0) Estimated GFR (Cockcroft-Gault) 31.1 BUN/Creatinine Ratio 17 (6-20) Glucose Level 99 mg/dL (70-99) Calcium Level 9.3 mg/dL (8.5-10.1) Magnesium Level 2.2 mg/dL (1.8-2.4) Total Bilirubin 0.4 mg/dL (0.2-1.0) Aspartate Amino Transf (AST/SGOT) 22 U/L (15-37) Alanine Aminotransferase (ALT/SGPT) 33 U/L (14-59) Alkaline Phosphatase 99 U/L (46-116) Total Protein 7.7 g/dL (6.4-8.2) Albumin 3.2 g/dL (3.4-5.0) Albumin/Globulin Ratio 0.7 (1.0-1.7) ASSESSMENT: General:. HEENT: normocephalic, atraumatic, otherwise unremarkable. Neck: supple , negative for JVD, carotid bruit, lymphoadenopathy or thyroidomegaly. Lungs: clear. Cardiovascular: normal S1, S2 without murmur. Abdomen: soft, no tenderness, mass or organomegaly. Extremities: no edema, or clubbing but positive for stasis dermatitis. The peripheral pulses were normal. Neurological Examination: 1- Mental status: alert and oriented to time x2 follows simple commands. speech is fluent . no language dysfunction. memeory , judgment and abstracting thinking are impaired. 2- Cranial Nerves:. The pupils were equal and reactive to light and accommodation. The extra ocular movements were intact; there was no nystagmus on horizontal or vertical gazes. There were no facial, motor or sensory deficits. The hearing was intact. The palate was elevated symmetrically. The sternocleidomastoids The patient protruded the tongue in the midline without fasciculations or atrophy. 3-Motor Examination: No focal muscle bulk wasting. The strength was 4/5 throughout. 4-Sensory Examination: Normal pinprick, light touch, vibratory, and position senses. 5-Deep Tendon Reflexes: Were symmetric and hypoactive without pathologic responses. 6-Coordinations and Gait: Not tested PLAN: ASSESSMENT: mpression: 1-Acute encephalopathy metabolic/infectious- improved. 2- UTI 3- Dementia 4- chronic renal failure improved 5- Bipolar 6- severe hypertension improved with nicardipine. PLAN: plan: Continue with current management Mandy TEMPLE MD Mar 16, 2017 08:58 Mandy TEMPLE MD Mar 17, 2017 09:44
--- NOTE | 2017-03-17 10:30 | NUR ---
Pt completed swallow study, new order for Purree diet with thin liquids. Dietary notified. Pt states she doesnt ahve an appetite, was able to eat 1/2 of ice cream and 100% of milk. Pt VSS and continues to be off cardene drip.
--- NOTE | 2017-03-17 10:56 | PDOC ---
PROGRESS NOTES Assessment 1. Accelerated hypertension - Cardene drip. video swallow today. plan to resume oral antihypertensives if possible and wean cardene. Goal SBP~130 mmHg systolic. Echo - <Conclusion> The left ventricular systolic function is normal and the ejection fraction is within normal range. The Ejection Fraction is 65-70%. There is moderate concentric left ventricular hypertrophy. Calculated aortic valve area is 1.2-1.4 cm2 with maximum pressure gradient of 52 mmHg and mean pressure gradient of 33 mmHg. Dimensionless index is .37 consistent with moderate aortic valve stenosis. There is mild mitral valve stenosis. Calculated mitral valve area is 1.8 cm2 with maximum pressure gradient of 20 mmHg and mean pressure gradient of 5 mmHg. The ascending aorta is mildly dilated (3.7 cm) 2. Aortic stenosis - mild to mod, medical mgmt 3. history of heart failure - she appears euvolemic, no overt heart failure. 4. CKD - Cr appears stable at 1.9 - 2.0 5. dysphagia - video swallow pending Problems: Subjective c/o "tired" today. no chest pain, dyspnea or palpitations. Objective Vital Signs Date Time Temp Pulse Resp B/P (MAP) Pulse Ox O2 Delivery O2 Flow Rate FiO2 03/17/17 09:18 73 161/74 03/17/17 06:00 97.9 22 96 Room Air Intake and Output 03/17/17 07:00 Intake Total 465 ml Output Total 1875 ml Balance -1410 ml Intake Oral 0 ml IV Total 465 ml Output Urine Total 1875 ml Abdomen: Normal bowel sounds, Soft Heart: Regular rate, Normal S1, Normal S2, Other (+2/6 ESM) Extremities: No cyanosis, Normal pulses General: Alert, Cooperative, No acute distress HEENT: Mucous membr. moist/pink Lungs: Clear to auscultation Psych/Mental Status: Mood NL Review of Relevant I have reviewed the following items tony (where applicable) has been applied. Labs Laboratory Tests Test 03/15/17 11:53 03/16/17 09:46 03/16/17 16:48 03/16/17 21:19 Glucose (Fingerstick) 151 mg/dL (70-99) 86 mg/dL (70-99) 93 mg/dL (70-99) White Blood Count 5.6 x10^3/uL (4.0-11.0) Red Blood Count 5.30 x10^6/uL (3.50-5.40) Hemoglobin 15.6 g/dL (12.0-15.5) Hematocrit 48.0 % (36.0-47.0) Mean Corpuscular Volume 91 fL (79-100) Mean Corpuscular Hemoglobin 29 pg (25-35) Mean Corpuscular Hemoglobin Concent 32 g/dL (31-37) Red Cell Distribution Width 16.8 % (11.5-14.5) Platelet Count 133 x10^3/uL (140-400) Neutrophils (%) (Auto) 58 % (31-73) Lymphocytes (%) (Auto) 18 % (24-48) Monocytes (%) (Auto) 19 % (0-9) Eosinophils (%) (Auto) 4 % (0-3) Basophils (%) (Auto) 1 % (0-3) Neutrophils # (Auto) 3.3 x10^3uL (1.8-7.7) Lymphocytes # (Auto) 1.0 x10^3/uL (1.0-4.8) Monocytes # (Auto) 1.1 x10^3/uL (0.0-1.1) Eosinophils # (Auto) 0.2 x10^3/uL (0.0-0.7) Basophils # (Auto) 0.0 x10^3/uL (0.0-0.2) Sodium Level 139 mmol/L (136-145) Potassium Level 4.6 mmol/L (3.5-5.1) Chloride Level 105 mmol/L (98-107) Carbon Dioxide Level 25 mmol/L (21-32) Anion Gap 9 (6-14) Blood Urea Nitrogen 30 mg/dL (7-20) Creatinine 2.0 mg/dL (0.6-1.0) Estimated GFR (Cockcroft-Gault) 29.3 BUN/Creatinine Ratio 15 (6-20) Glucose Level 109 mg/dL (70-99) Calcium Level 9.0 mg/dL (8.5-10.1) Magnesium Level 1.5 mg/dL (1.8-2.4) Total Bilirubin 0.4 mg/dL (0.2-1.0) Aspartate Amino Transf (AST/SGOT) 22 U/L (15-37) Alanine Aminotransferase (ALT/SGPT) 34 U/L (14-59) Alkaline Phosphatase 91 U/L (46-116) Total Protein 7.4 g/dL (6.4-8.2) Albumin 2.7 g/dL (3.4-5.0) Albumin/Globulin Ratio 0.6 (1.0-1.7) Test 03/17/17 08:00 White Blood Count 6.1 x10^3/uL (4.0-11.0) Red Blood Count 5.78 x10^6/uL (3.50-5.40) Hemoglobin 17.0 g/dL (12.0-15.5) Hematocrit 51.9 % (36.0-47.0) Mean Corpuscular Volume 90 fL (79-100) Mean Corpuscular Hemoglobin 30 pg (25-35) Mean Corpuscular Hemoglobin Concent 33 g/dL (31-37) Red Cell Distribution Width 17.2 % (11.5-14.5) Platelet Count 128 x10^3/uL (140-400) Sodium Level 141 mmol/L (136-145) Potassium Level 4.5 mmol/L (3.5-5.1) Chloride Level 106 mmol/L (98-107) Carbon Dioxide Level 24 mmol/L (21-32) Anion Gap 11 (6-14) Blood Urea Nitrogen 33 mg/dL (7-20) Creatinine 1.9 mg/dL (0.6-1.0) Estimated GFR (Cockcroft-Gault) 31.1 BUN/Creatinine Ratio 17 (6-20) Glucose Level 99 mg/dL (70-99) Calcium Level 9.3 mg/dL (8.5-10.1) Magnesium Level 2.2 mg/dL (1.8-2.4) Total Bilirubin 0.4 mg/dL (0.2-1.0) Aspartate Amino Transf (AST/SGOT) 22 U/L (15-37) Alanine Aminotransferase (ALT/SGPT) 33 U/L (14-59) Alkaline Phosphatase 99 U/L (46-116) Total Protein 7.7 g/dL (6.4-8.2) Albumin 3.2 g/dL (3.4-5.0) Albumin/Globulin Ratio 0.7 (1.0-1.7) Medications Current Medications Sodium Chloride (Normal Saline Flush) 3 ml PRN DAILY PRN IV AFTER MEDS AND BLOOD DRAWS; Start 03/12/17 at 21:00; Stop 03/13/17 at 12:10; Status DC Dextrose/Sodium Chloride 1,000 ml @ 100 mls/hr Q10H IV Last administered on 18:05; Start 03/12/17 at 20:54; Stop 03/14/17 at 06:41; Status DC Calcium Carbonate/ Glycine (Tums) 500 mg PRN Q3HRS PRN PO HEARTBURN / GAS Last administered on 03/15/17 06:32; Start 03/12/17 at 21:00; Status Future hold Heparin Sodium (Porcine) 5,000 unit Q12H SQ Last administered on 03/17/17 08: 59; Start 03/12/17 at 21:00 Ceftriaxone Sodium 1 gm/ Sodium Chloride 50 ml @ 100 mls/hr QODAY IV Last administered on 03/14/17 08:13; Start 03/12/17 at 21:30; Stop 03/15/17 at 11:17; Status DC Sodium Chloride 50 ml @ As Directed STK-MED ONCE .ROUTE Last administered on 22:07; Start 03/12/17 at 22:07; Stop 03/12/17 at 22:08; Status DC Benztropine Mesylate (Cogentin) 0.5 mg DAILY PO ; Start 03/13/17 at 09:00; Status Future hold Buspirone HCl (Buspar) 5 mg QID PO ; Start 03/13/17 at 09:00; Stop 03/13/17 at 19: 15; Status DC Lorazepam (Ativan) 0.5 mg PRN Q6HRS PRN PO ANXIETY / AGITATION; Start 03/12/17 at 22:15 Olanzapine (ZyPREXA ZYDIS) 2.5 mg PRN Q2HR PRN PO PSYCHOSIS Last administered on 03/13/17 21:38; Start 03/12/17 at 22:15 Acetaminophen (Tylenol) 650 mg PRN Q4HRS PRN PO PAIN / TEMP; Start 03/13/17 at 11:45 Albuterol Sulfate (Ventolin) 2.5 mg PRN QID PRN NEB SHORTNESS OF BREATH; Start 03/13/17 at 11:45 Amlodipine Besylate (Norvasc) 10 mg DAILY PO ; Start 03/14/17 at 09:00 Carvedilol (Coreg) 12.5 mg BID PO Last administered on 03/14/17 21:01; Start at 21:00 Divalproex Sodium (Depakote Sprinkles) 250 mg BID PO ; Start 03/13/17 at 21:00; Stop 03/13/17 at 21:00; Status DC Donepezil HCl (Aricept) 5 mg HS PO ; Start 03/13/17 at 21:00; Stop 03/13/17 at 21: 00; Status DC Multivit/Ca Carb/ B Cmplx/FA/Prenat (Nephro-Fady) 1 tab DAILY PO ; Start at 09:00; Status Future hold Hydralazine HCl (Apresoline) 50 mg TID PO Last administered on 03/14/17 21:01; Start 03/13/17 at 14:00 Albuterol/ Ipratropium (Duoneb) 3 ml QID NEB Last administered on 03/17/17 05: 50; Start 03/13/17 at 13:00 Levothyroxine Sodium (Synthroid) 75 mcg DAILY06 PO Last administered on 06:12; Start 03/14/17 at 06:00 Magnesium Hydroxide (Milk Of Magnesia) 2,400 mg PRN QHS PRN PO CONSTIPATION; Start 03/13/17 at 11:45 Memantine (Namenda) 10 mg BID PO ; Start 03/13/17 at 21:00; Stop 03/13/17 at 21:00 ; Status DC Rifaximin (Xifaxan) 550 mg BID PO Last administered on 03/14/17 21:00; Start at 21:00 Sennosides (Senna) 8.6 mg HS PO Last administered on 03/14/17 21:00; Start 03/13 at 21:00; Status Future hold Sertraline HCl (Zoloft) 25 mg QHS PO Last administered on 03/14/17 21:00; Start 03/13/17 at 21:00; Status Future hold Sodium Chloride (Saline Mist Nasal) 1 ezio PRN Q4HRS PRN NS rhinitis; Start 03/13 at 11:45 Amantadine HCl (Symmetrel) 100 mg QODAY PO Last administered on 03/15/17 09:00 ; Start 03/15/17 at 09:00; Status Future hold Artificial Tears (Artificial Tears) 2 drop DAILY OU Last administered on 09:00; Start 03/14/17 at 09:00; Stop 03/16/17 at 14:19; Status DC Non-Formulary Medication 1 puff DAILY IH ; Start 03/14/17 at 09:00; Stop 03/14/17 at 09:00; Status DC Lactulose 20 gm DAILY PO ; Start 03/14/17 at 09:00; Status Future hold Loxapine Succinate (Loxitane) 10 mg QHS PO ; Start 03/13/17 at 21:00; Stop at 21:00; Status DC Magnesium Hydroxide (Milk Of Magnesia) 2,400 mg PRN AFTMEALHC PRN PO HEARTBURN / GAS; Start 03/13/17 at 12:15 Pantoprazole Sodium (Protonix) 40 mg BIDWMEALS PO ; Start 03/13/17 at 17:00 Albuterol Sulfate (Ventolin) 2.5 mg RTQID NEB ; Start 03/13/17 at 16:00; Stop 03/13/17 at 16:00; Status DC Budesonide (Pulmicort) 0.5 mg RTBID NEB Last administered on 03/16/17 20:25; Start 03/13/17 at 20:00 Hydralazine HCl (Apresoline) 10 mg PRN Q4HRS PRN IV ELEVATED BP, SEE COMMENTS Last administered on 03/13/17 21:20; Start 03/13/17 at 15:45 Nystatin (Nystop) 1 ezio BID TP Last administered on 03/17/17 08:57; Start 03/13 at 21:00 Glucose (Insta-Glucose) 15 gm PRN Q15MIN PRN PO LOW BLOOD SUGAR; Start 03/12/17 at 07:20; Stop 03/13/17 at 16:42; Status DC Labetalol HCl (Normodyne) 20 mg BID IVP Last administered on 03/17/17 08:45; Start 03/13/17 at 18:30 Loxapine Succinate (Loxitane) 10 mg BID94 PO ; Start 03/14/17 at 09:00; Status Future hold Potassium Chloride/Dextrose/ Sod Cl 1,000 ml @ 80 mls/hr [id number] IV Last administered on 03/15/17 03:35; Start 03/14/17 at 06:45; Stop 03/15/17 at 15:53 ; Status DC Divalproex Sodium (Depakote Sprinkles) 250 mg BID PO Last administered on 21:01; Start 03/14/17 at 21:00 Hydralazine HCl (Apresoline) 20 mg Q6HRS IV Last administered on 03/17/17 09: 18; Start 03/15/17 at 12:00 Ceftriaxone Sodium 1 gm/ Sodium Chloride 50 ml @ 100 mls/hr DAILY IV Last administered on 03/17/17 09:17; Start 03/15/17 at 12:00 Furosemide (Lasix) 20 mg 1X ONCE IVP Last administered on 03/15/17 15:40; Start 03/15/17 at 14:00; Stop 03/15/17 at 14:01; Status DC Furosemide (Lasix) 20 mg 1X ONCE IVP Last administered on 03/15/17 15:40; Start 03/15/17 at 14:30; Stop 03/15/17 at 14:31; Status DC Hydralazine HCl (Apresoline) 10 mg 1X ONCE IV Last administered on 03/15/17 15:42; Start 03/15/17 at 14:30; Stop 03/15/17 at 14:31; Status DC Ondansetron HCl (Zofran) 4 mg PRN Q6HRS PRN IV NAUSEA/VOMITING; Start 03/15/17 at 16:00 Potassium Chloride/Dextrose/ Sod Cl 1,000 ml @ 75 mls/hr [id number] IV ; Start 06/22 at 16:00; Stop 03/15/17 at 16:37; Status DC Amino Acids/ Glycerin/ Electrolytes 1,000 ml @ 80 mls/hr [id number] IV Last administered on 03/16/17 07:29; Start 03/15/17 at 16:00 Nicardipine HCl 50 mg/Sodium Chloride 270 ml @ 0 mls/hr CONT PRN IV SEE I/O RECORD Last administered on 03/17/17 00:09; Start 03/15/17 at 17:00 Magnesium Sulfate 50 ml @ 25 mls/hr 1X ONCE IV Last administered on 03/16/17 14:14; Start 03/16/17 at 13:15; Stop 03/16/17 at 15:14; Status DC Artificial Tears (Artificial Tears) 2 drop DAILY OU Last administered on 08:55; Start 03/16/17 at 14:19 Active Scripts Active Reported Ceftriaxone 1 Gm Piggyback (Ceftriaxone Na/Dextrose,Iso) 1 Gm/50 Ml Froz.piggy 1 Gm IV QHS Sodium Chloride (Sodium Chloride 0.45 %) 1,000 Ml Iv.soln 1,000 Ml IV [id number] Albuterol Sulfate Neb Soln (Albuterol Sulfate) 2.5 Mg/3 Ml Vial.neb 2.5 Mg NEB PRN QID PRN Norvasc (Amlodipine Besylate) 10 Mg Tablet 10 Mg PO DAILY Zoloft (Sertraline Hcl) 25 Mg Tablet 25 Mg PO QHS Zyprexa Zydis (Olanzapine) 5 Mg Tab.rapdis 2.5 Mg PO PRN Q2HR PRN Milk Of Magnesia (Magnesium Hydroxide) 400 Mg/5 Ml Oral.susp 2,400 Mg PO PRN QHS PRN Loxapine (Loxapine Succinate) 10 Mg Capsule 10 Mg PO QHS Maximum D3 (Cholecalciferol (Vitamin D3)) 10,000 Unit Capsule 50,000 Unit PO WEEKLY Xifaxan (Rifaximin) 550 Mg Tablet 550 Mg PO BID Tramadol Hcl (Tramadol HCl) 50 Mg Tablet 50 Mg PO PRN Q12HR PRN Tessalon Perle (Benzonatate) 100 Mg Capsule 100 Mg PO PRN Q4HRS PRN Senokot (Sennosides) 8.6 Mg Tablet 8.6 Mg PO HS Saline Nasal [place] (Sodium Chloride) 30 Ml [place] 2 Sprays NS PRN Q4HRS PRN Robitussin Nighttime Cough Dm (Dextromethorphan Hb/Doxylamine) 237 Ml Liquid 10 Ml PO PRN Q4HRS PRN Omeprazole 40 Mg Capsule.dr 40 Mg PO BIDWMEALS Nephro-Fady Tablet (Folic Acid/Vitamin B Comp W-C) 0.8 Mg Tablet 1 Tab PO DAILY Alum-Mag Hydroxide-Simeth Liq (Mag Hydrox/Al Hydrox/Simeth) 360 Ml Oral.susp 15 Ml PO PRN AFTMEALHC PRN Montelukast Sodium Tablet (Montelukast Sodium) 10 Mg Tablet 10 Mg PO HS Namenda (Memantine Hcl) 10 Mg Tablet 10 Mg PO BID Lorazepam 0.5 Mg Tablet 0.5 Mg PO PRN Q6HRS PRN Levothyroxine Sodium 75 Mcg Tablet 75 Mcg PO DAILY06 Lactulose 10 Gm/15 Ml Solution 20 Gm PO DAILY Duoneb 0.5-3(2.5) Mg/3 Ml (Albuterol/Ipratropium) 3 Ml Ampul.neb 3 Ml NEB QID Icy Hot Cream (Methyl Salicylate/Menthol) 35.4 Gm Cream..g. 1 Applic TP PRN QID PRN Hydralazine Hcl 50 Mg Tablet 50 Mg PO TID Guaifenesin 600 Mg Tablet.er 600 Mg PO BID Fluticasone Propionate Nasal [place] (Fluticasone Propionate) 16 Gm [place].susp 2 [place] NS PRN BID PRN Breo Ellipta 100-25 Mcg Inh (Fluticasone/Vilanterol) 1 Each Aer.pow.ba 1 Puff IH DAILY Ferrous Sulfate 325 Mg Tablet 325 Mg PO BID Donepezil Hcl 5 Mg Tablet 5 Mg PO HS Depakote Sprinkle (Divalproex Sodium) 125 Mg Cap.sprink 250 Mg PO BID Cetirizine Hcl 10 Mg Tablet 10 Mg PO DAILY Carvedilol 12.5 Mg Tablet 12.5 Mg PO BID Calcium Polycarbophil 625 Mg Tablet 625 Mg PO DAILY Buspirone Hcl 5 Mg Tablet 5 Mg PO QID Benztropine Mesylate 0.5 Mg Tablet 0.5 Mg PO DAILY Atorvastatin Calcium 10 Mg Tablet 5 Mg PO QHS PRN Artificial Tears Eye Drops (Dextran 70/Hypromellose) 15 Ml Drops 2 Drop OU DAILY Amantadine (Amantadine Hcl) 100 Mg Tablet 100 Mg PO QODAY Tylenol (Acetaminophen) 325 Mg Tablet 650 Mg PO PRN Q4HRS PRN Vitals/I & O Vital Sign - Last 24 Hours 03/16/17 03/16/17 03/16/17 03/16/17 10:58 11:00 11:00 11:28 Pulse 79 87 B/P (MAP) 160/79 (106) 153/74 (100) Pulse Ox 96 O2 Delivery Room Air Room Air 03/16/17 03/16/17 03/16/17 03/16/17 11:58 12:02 12:03 12:28 Pulse 83 82 B/P (MAP) 145/68 (93) 167/75 (105) Pulse Ox 94 94 O2 Delivery Room Air Room Air 03/16/17 03/16/17 03/16/17 03/16/17 12:58 13:00 13:28 13:58 Pulse 84 86 82 B/P (MAP) 171/72 (105) 149/79 (102) 161/76 (104) Pulse Ox 97 O2 Delivery Room Air 03/16/17 03/16/17 03/16/17 03/16/17 14:14 14:28 14:58 15:28 Pulse 80 78 88 83 B/P (MAP) 156/72 (100) 145/66 (92) 134/63 (86) 03/16/17 03/16/17 03/16/17 03/16/17 15:58 16:10 16:26 16:28 Pulse 88 105 100 B/P (MAP) 161/76 (104) 173/77 (109) 138/70 (92) O2 Delivery Room Air 03/16/17 03/16/17 03/16/17 03/16/17 17:20 17:49 18:50 19:45 Temp 98.0 98.4 Pulse 103 97 97 Resp 20 20 20 B/P (MAP) 120/67 (84) 147/72 (97) 150/75 (100) Pulse Ox 97 94 94 94 O2 Delivery Room Air Room Air Room Air Room Air 03/16/17 03/16/17 03/16/17 03/16/17 20:00 20:26 20:29 20:51 Pulse 99 B/P (MAP) 162/69 Pulse Ox 97 97 O2 Delivery Room Air Room Air Room Air 03/16/17 03/16/17 03/16/17 03/16/17 21:00 21:00 21:15 22:39 Pulse 93 93 93 74 Resp 23 16 B/P (MAP) 140/72 140/72 140/72 (94) 134/62 (86) Pulse Ox 95 97 O2 Delivery Room Air 03/17/17 03/17/17 03/17/17 03/17/17 00:00 00:18 01:00 01:54 Pulse 70 73 74 Resp 19 22 B/P (MAP) 162/72 (102) 185/76 (112) 170/65 Pulse Ox 95 O2 Delivery Room Air Room Air 03/17/17 03/17/17 03/17/17 03/17/17 02:00 03:00 04:00 04:00 Pulse 82 74 82 Resp 18 20 23 B/P (MAP) 181/71 (107) 150/70 (96) 145/72 (96) Pulse Ox 95 O2 Delivery Room Air Room Air Room Air Room Air 03/17/17 03/17/17 03/17/17 03/17/17 05:00 05:50 06:00 08:45 Temp 97.9 Pulse 87 88 92 Resp 24 22 B/P (MAP) 161/75 (103) 159/72 (101) 173/75 Pulse Ox 94 96 O2 Delivery Room Air Room Air Room Air 03/17/17 09:18 Pulse 73 B/P (MAP) 161/74 Intake and Output 03/16/17 03/16/17 03/17/17 15:00 23:00 07:00 Intake Total 50 ml 50 ml 365 ml Output Total 1075 ml 800 ml Balance 50 ml -1025 ml -435 ml PATTY ROMERO APRN Mar 17, 2017 10:56
[2017-03-17] MEDS: BUDESONIDE 0.5 MG/2 ML NEBU NEB SCH ×2 (11:38→20:38)
--- NOTE | 2017-03-17 12:20 | RAD ---
Serial swallows study 03/17/2017 at 1046 hours Indication: Dysphasia Comparison: None available Technique:. Fluoroscopy was performed for evaluation of swallowing function after the ingestion of barium coated solids, pureed foods, thin and thick barium liquids. Findings: No evidence for aspiration with all consistencies ingested. Premature spilling of thick and thin barium liquids in the vallecula and piriform sinuses. There is transient penetration with thin barium liquids which extends to the level of the cords. Delayed oral phase of swallow. Impression: 1. No evidence for aspiration. Deep transient penetration is noted with thin barium liquids. 2. Recommend correlation with speech pathology report for further details.
--- NOTE | 2017-03-17 14:36 | PDOC ---
PROGRESS NOTES Assessment lerated hypertension - Cardene drip. video swallow today. plan to resume oral antihypertensives if possible and wean cardene. Goal SBP~130 mmHg systolic. . 2. Aortic stenosis - mild to mod, medical mgmt 3. history of heart failure - she appears euvolemic, no overt heart failure. 4. CKD - Cr appears stable at 1.9 - 2.0 5. dysphagA 6. acute on chronic renal failure resolved and back to baseline #2 dehydration-resolved #3 aortic stenosis moderate #4 esophageal dysmotility-speech eval pending 5 metabolic encephalopathy-improved #6accelebrated hypertension-on cardene drip #7 bipolar 1 disorder mixed, moderate #8 left ventricular hypertrophy-hypertensiv2 #9 dementia and Alzheimer's disease #10 DVT prophylaxis-on heparin #11 impulse control disorder #12 severe protein calorie malnutrition-on Procalamine #13 hypomagnesemia-replace 14 urostomy status #15Aspiration risk #16 UTI-ecoli- on Rocephin and will finish in a few days PLAN wEAN OFF cARDENE DRIP. sTART TO FEED. aPPETIE STIMULANT IF NECESSARY. dISCUSSED WITH DAUGHTER KYLER. DISCUSS DISPOSITION WITH DR. BUTTS, Objective Vital Signs Date Time Temp Pulse Resp B/P (MAP) Pulse Ox O2 Delivery O2 Flow Rate FiO2 03/17/17 14:06 74 138/74 03/17/17 13:39 19 Room Air 03/17/17 12:28 99 03/17/17 06:00 97.9 Intake and Output 03/17/17 07:00 Intake Total 465 ml Output Total 1875 ml Balance -1410 ml Intake Oral 0 ml IV Total 465 ml Output Urine Total 1875 ml Physical Exam sLEEPY TODAY, CALM AND COOPERATIVE. EDENTULOUS, TONGUE MOIST, LUNGS CLEAR, CV- IRREGULAR RHYTHM AND RATE. LOUD 2/6 SYSTOLIC MURMUR, EXTREMETIES WITH SLIGHT EDEMA. Review of Relevant LABS REVIEWED. NOTED HGB AND HCT GOING BACK UP A LITTLE.I have reviewed the following items tony (where applicable) has been applied. Labs Laboratory Tests Test 03/16/17 09:46 03/16/17 16:48 03/16/17 21:19 03/17/17 08:00 White Blood Count 5.6 x10^3/uL (4.0-11.0) 6.1 x10^3/uL (4.0-11.0) Red Blood Count 5.30 x10^6/uL (3.50-5.40) 5.78 x10^6/uL (3.50-5.40) Hemoglobin 15.6 g/dL (12.0-15.5) 17.0 g/dL (12.0-15.5) Hematocrit 48.0 % (36.0-47.0) 51.9 % (36.0-47.0) Mean Corpuscular Volume 91 fL (79-100) 90 fL (79-100) Mean Corpuscular Hemoglobin 29 pg (25-35) 30 pg (25-35) Mean Corpuscular Hemoglobin Concent 32 g/dL (31-37) 33 g/dL (31-37) Red Cell Distribution Width 16.8 % (11.5-14.5) 17.2 % (11.5-14.5) Platelet Count 133 x10^3/uL (140-400) 128 x10^3/uL (140-400) Neutrophils (%) (Auto) 58 % (31-73) Lymphocytes (%) (Auto) 18 % (24-48) Monocytes (%) (Auto) 19 % (0-9) Eosinophils (%) (Auto) 4 % (0-3) Basophils (%) (Auto) 1 % (0-3) Neutrophils # (Auto) 3.3 x10^3uL (1.8-7.7) Lymphocytes # (Auto) 1.0 x10^3/uL (1.0-4.8) Monocytes # (Auto) 1.1 x10^3/uL (0.0-1.1) Eosinophils # (Auto) 0.2 x10^3/uL (0.0-0.7) Basophils # (Auto) 0.0 x10^3/uL (0.0-0.2) Sodium Level 139 mmol/L (136-145) 141 mmol/L (136-145) Potassium Level 4.6 mmol/L (3.5-5.1) 4.5 mmol/L (3.5-5.1) Chloride Level 105 mmol/L (98-107) 106 mmol/L (98-107) Carbon Dioxide Level 25 mmol/L (21-32) 24 mmol/L (21-32) Anion Gap 9 (6-14) 11 (6-14) Blood Urea Nitrogen 30 mg/dL (7-20) 33 mg/dL (7-20) Creatinine 2.0 mg/dL (0.6-1.0) 1.9 mg/dL (0.6-1.0) Estimated GFR (Cockcroft-Gault) 29.3 31.1 BUN/Creatinine Ratio 15 (6-20) 17 (6-20) Glucose Level 109 mg/dL (70-99) 99 mg/dL (70-99) Calcium Level 9.0 mg/dL (8.5-10.1) 9.3 mg/dL (8.5-10.1) Magnesium Level 1.5 mg/dL (1.8-2.4) 2.2 mg/dL (1.8-2.4) Total Bilirubin 0.4 mg/dL (0.2-1.0) 0.4 mg/dL (0.2-1.0) Aspartate Amino Transf (AST/SGOT) 22 U/L (15-37) 22 U/L (15-37) Alanine Aminotransferase (ALT/SGPT) 34 U/L (14-59) 33 U/L (14-59) Alkaline Phosphatase 91 U/L (46-116) 99 U/L (46-116) Total Protein 7.4 g/dL (6.4-8.2) 7.7 g/dL (6.4-8.2) Albumin 2.7 g/dL (3.4-5.0) 3.2 g/dL (3.4-5.0) Albumin/Globulin Ratio 0.6 (1.0-1.7) 0.7 (1.0-1.7) Glucose (Fingerstick) 86 mg/dL (70-99) 93 mg/dL (70-99) Medications Current Medications Sodium Chloride (Normal Saline Flush) 3 ml PRN DAILY PRN IV AFTER MEDS AND BLOOD DRAWS; Start 03/12/17 at 21:00; Stop 03/13/17 at 12:10; Status DC Dextrose/Sodium Chloride 1,000 ml @ 100 mls/hr Q10H IV Last administered on t 18:05; Start 03/12/17 at 20:54; Stop 03/14/17 at 06:41; Status DC Calcium Carbonate/ Glycine (Tums) 500 mg PRN Q3HRS PRN PO HEARTBURN / GAS Last administered on 03/15/17 06:32; Start 03/12/17 at 21:00; Status Future hold Heparin Sodium (Porcine) 5,000 unit Q12H SQ Last administered on 03/17/17 08: 59; Start 03/12/17 at 21:00 Ceftriaxone Sodium 1 gm/ Sodium Chloride 50 ml @ 100 mls/hr QODAY IV Last administered on 03/14/17 08:13; Start 03/12/17 at 21:30; Stop 03/15/17 at 11:17; Status DC Sodium Chloride 50 ml @ As Directed STK-MED ONCE .ROUTE Last administered on 22:07; Start 03/12/17 at 22:07; Stop 03/12/17 at 22:08; Status DC Benztropine Mesylate (Cogentin) 0.5 mg DAILY PO ; Start 03/13/17 at 09:00; Status Future hold Buspirone HCl (Buspar) 5 mg QID PO ; Start 03/13/17 at 09:00; Stop 03/13/17 at 19: 15; Status DC Lorazepam (Ativan) 0.5 mg PRN Q6HRS PRN PO ANXIETY / AGITATION; Start 03/12/17 at 22:15 Olanzapine (ZyPREXA ZYDIS) 2.5 mg PRN Q2HR PRN PO PSYCHOSIS Last administered on 03/13/17 21:38; Start 03/12/17 at 22:15 Acetaminophen (Tylenol) 650 mg PRN Q4HRS PRN PO PAIN / TEMP; Start 03/13/17 at 11:45 Albuterol Sulfate (Ventolin) 2.5 mg PRN QID PRN NEB SHORTNESS OF BREATH; Start 03/13/17 at 11:45 Amlodipine Besylate (Norvasc) 10 mg DAILY PO ; Start 03/14/17 at 09:00 Carvedilol (Coreg) 12.5 mg BID PO Last administered on 03/14/17 21:01; Start at 21:00 Divalproex Sodium (Depakote Sprinkles) 250 mg BID PO ; Start 03/13/17 at 21:00; Stop 03/13/17 at 21:00; Status DC Donepezil HCl (Aricept) 5 mg HS PO ; Start 03/13/17 at 21:00; Stop 03/13/17 at 21: 00; Status DC Multivit/Ca Carb/ B Cmplx/FA/Prenat (Nephro-Fady) 1 tab DAILY PO ; Start at 09:00; Status Future hold Hydralazine HCl (Apresoline) 50 mg TID PO Last administered on 03/17/17 14:06 ; Start 03/13/17 at 14:00 Albuterol/ Ipratropium (Duoneb) 3 ml QID NEB Last administered on 03/17/17 11: 38; Start 03/13/17 at 13:00 Levothyroxine Sodium (Synthroid) 75 mcg DAILY06 PO Last administered on 06:12; Start 03/14/17 at 06:00 Magnesium Hydroxide (Milk Of Magnesia) 2,400 mg PRN QHS PRN PO CONSTIPATION; Start 03/13/17 at 11:45 Memantine (Namenda) 10 mg BID PO ; Start 03/13/17 at 21:00; Stop 03/13/17 at 21:00 ; Status DC Rifaximin (Xifaxan) 550 mg BID PO Last administered on 03/14/17 21:00; Start at 21:00 Sennosides (Senna) 8.6 mg HS PO Last administered on 03/14/17 21:00; Start 03/13 at 21:00; Status Future hold Sertraline HCl (Zoloft) 25 mg QHS PO Last administered on 03/14/17 21:00; Start 03/13/17 at 21:00; Status Future hold Sodium Chloride (Saline Mist Nasal) 1 ezio PRN Q4HRS PRN NS rhinitis; Start 03/13 at 11:45 Amantadine HCl (Symmetrel) 100 mg QODAY PO Last administered on 03/15/17 09:00 ; Start 03/15/17 at 09:00; Status Future hold Artificial Tears (Artificial Tears) 2 drop DAILY OU Last administered on 09:00; Start 03/14/17 at 09:00; Stop 03/16/17 at 14:19; Status DC Non-Formulary Medication 1 puff DAILY IH ; Start 03/14/17 at 09:00; Stop 03/14/17 at 09:00; Status DC Lactulose 20 gm DAILY PO ; Start 03/14/17 at 09:00; Status Future hold Loxapine Succinate (Loxitane) 10 mg QHS PO ; Start 03/13/17 at 21:00; Stop at 21:00; Status DC Magnesium Hydroxide (Milk Of Magnesia) 2,400 mg PRN AFTMEALHC PRN PO HEARTBURN / GAS; Start 03/13/17 at 12:15 Pantoprazole Sodium (Protonix) 40 mg BIDWMEALS PO ; Start 03/13/17 at 17:00 Albuterol Sulfate (Ventolin) 2.5 mg RTQID NEB ; Start 03/13/17 at 16:00; Stop 03/13/17 at 16:00; Status DC Budesonide (Pulmicort) 0.5 mg RTBID NEB Last administered on 03/17/17 11:38; Start 03/13/17 at 20:00 Hydralazine HCl (Apresoline) 10 mg PRN Q4HRS PRN IV ELEVATED BP, SEE COMMENTS Last administered on 03/13/17 21:20; Start 03/13/17 at 15:45 Nystatin (Nystop) 1 ezio BID TP Last administered on 03/17/17 08:57; Start 03/13 at 21:00 Glucose (Insta-Glucose) 15 gm PRN Q15MIN PRN PO LOW BLOOD SUGAR; Start 03/12/17 at 07:20; Stop 03/13/17 at 16:42; Status DC Labetalol HCl (Normodyne) 20 mg BID IVP Last administered on 03/17/17 08:45; Start 03/13/17 at 18:30 Loxapine Succinate (Loxitane) 10 mg BID94 PO ; Start 03/14/17 at 09:00; Status Future hold Potassium Chloride/Dextrose/ Sod Cl 1,000 ml @ 80 mls/hr [id number] IV Last administered on 03/15/17 03:35; Start 03/14/17 at 06:45; Stop 03/15/17 at 15:53 ; Status DC Divalproex Sodium (Depakote Sprinkles) 250 mg BID PO Last administered on 21:01; Start 03/14/17 at 21:00 Hydralazine HCl (Apresoline) 20 mg Q6HRS IV Last administered on 03/17/17 09: 18; Start 03/15/17 at 12:00 Ceftriaxone Sodium 1 gm/ Sodium Chloride 50 ml @ 100 mls/hr DAILY IV Last administered on 03/17/17 09:17; Start 03/15/17 at 12:00 Furosemide (Lasix) 20 mg 1X ONCE IVP Last administered on 03/15/17 15:40; Start 03/15/17 at 14:00; Stop 03/15/17 at 14:01; Status DC Furosemide (Lasix) 20 mg 1X ONCE IVP Last administered on 03/15/17 15:40; Start 03/15/17 at 14:30; Stop 03/15/17 at 14:31; Status DC Hydralazine HCl (Apresoline) 10 mg 1X ONCE IV Last administered on 03/15/17 15:42; Start 03/15/17 at 14:30; Stop 03/15/17 at 14:31; Status DC Ondansetron HCl (Zofran) 4 mg PRN Q6HRS PRN IV NAUSEA/VOMITING; Start 03/15/17 at 16:00 Potassium Chloride/Dextrose/ Sod Cl 1,000 ml @ 75 mls/hr [id number] IV ; Start 06/22 at 16:00; Stop 03/15/17 at 16:37; Status DC Amino Acids/ Glycerin/ Electrolytes 1,000 ml @ 80 mls/hr [id number] IV Last administered on 03/16/17 07:29; Start 03/15/17 at 16:00 Nicardipine HCl 50 mg/Sodium Chloride 270 ml @ 0 mls/hr CONT PRN IV SEE I/O RECORD Last administered on 03/17/17 00:09; Start 03/15/17 at 17:00 Magnesium Sulfate 50 ml @ 25 mls/hr 1X ONCE IV Last administered on 03/16/17 14:14; Start 03/16/17 at 13:15; Stop 03/16/17 at 15:14; Status DC Artificial Tears (Artificial Tears) 2 drop DAILY OU Last administered on t 08:55; Start 03/16/17 at 14:19 Active Scripts Active Reported Ceftriaxone 1 Gm Piggyback (Ceftriaxone Na/Dextrose,Iso) 1 Gm/50 Ml Froz.piggy 1 Gm IV QHS Sodium Chloride (Sodium Chloride 0.45 %) 1,000 Ml Iv.soln 1,000 Ml IV [id number] Albuterol Sulfate Neb Soln (Albuterol Sulfate) 2.5 Mg/3 Ml Vial.neb 2.5 Mg NEB PRN QID PRN Norvasc (Amlodipine Besylate) 10 Mg Tablet 10 Mg PO DAILY Zoloft (Sertraline Hcl) 25 Mg Tablet 25 Mg PO QHS Zyprexa Zydis (Olanzapine) 5 Mg Tab.rapdis 2.5 Mg PO PRN Q2HR PRN Milk Of Magnesia (Magnesium Hydroxide) 400 Mg/5 Ml Oral.susp 2,400 Mg PO PRN QHS PRN Loxapine (Loxapine Succinate) 10 Mg Capsule 10 Mg PO QHS Maximum D3 (Cholecalciferol (Vitamin D3)) 10,000 Unit Capsule 50,000 Unit PO WEEKLY Xifaxan (Rifaximin) 550 Mg Tablet 550 Mg PO BID Tramadol Hcl (Tramadol HCl) 50 Mg Tablet 50 Mg PO PRN Q12HR PRN Tessalon Perle (Benzonatate) 100 Mg Capsule 100 Mg PO PRN Q4HRS PRN Senokot (Sennosides) 8.6 Mg Tablet 8.6 Mg PO HS Saline Nasal Taylor (Sodium Chloride) 30 Ml Taylor 2 Sprays NS PRN Q4HRS PRN Robitussin Nighttime Cough Dm (Dextromethorphan Hb/Doxylamine) 237 Ml Liquid 10 Ml PO PRN Q4HRS PRN Omeprazole 40 Mg Capsule.dr 40 Mg PO BIDWMEALS Nephro-Fady Tablet (Folic Acid/Vitamin B Comp W-C) 0.8 Mg Tablet 1 Tab PO DAILY Alum-Mag Hydroxide-Simeth Liq (Mag Hydrox/Al Hydrox/Simeth) 360 Ml Oral.susp 15 Ml PO PRN AFTMEALHC PRN Montelukast Sodium Tablet (Montelukast Sodium) 10 Mg Tablet 10 Mg PO HS Namenda (Memantine Hcl) 10 Mg Tablet 10 Mg PO BID Lorazepam 0.5 Mg Tablet 0.5 Mg PO PRN Q6HRS PRN Levothyroxine Sodium 75 Mcg Tablet 75 Mcg PO DAILY06 Lactulose 10 Gm/15 Ml Solution 20 Gm PO DAILY Duoneb 0.5-3(2.5) Mg/3 Ml (Albuterol/Ipratropium) 3 Ml Ampul.neb 3 Ml NEB QID Icy Hot Cream (Methyl Salicylate/Menthol) 35.4 Gm Cream..g. 1 Applic TP PRN QID PRN Hydralazine Hcl 50 Mg Tablet 50 Mg PO TID Guaifenesin 600 Mg Tablet.er 600 Mg PO BID Fluticasone Propionate Nasal Taylor (Fluticasone Propionate) 16 Gm Taylor.susp 2 Taylor NS PRN BID PRN Breo Ellipta 100-25 Mcg Inh (Fluticasone/Vilanterol) 1 Each Aer.pow.ba 1 Puff IH DAILY Ferrous Sulfate 325 Mg Tablet 325 Mg PO BID Donepezil Hcl 5 Mg Tablet 5 Mg PO HS Depakote Sprinkle (Divalproex Sodium) 125 Mg Cap.sprink 250 Mg PO BID Cetirizine Hcl 10 Mg Tablet 10 Mg PO DAILY Carvedilol 12.5 Mg Tablet 12.5 Mg PO BID Calcium Polycarbophil 625 Mg Tablet 625 Mg PO DAILY Buspirone Hcl 5 Mg Tablet 5 Mg PO QID Benztropine Mesylate 0.5 Mg Tablet 0.5 Mg PO DAILY Atorvastatin Calcium 10 Mg Tablet 5 Mg PO QHS PRN Artificial Tears Eye Drops (Dextran 70/Hypromellose) 15 Ml Drops 2 Drop OU DAILY Amantadine (Amantadine Hcl) 100 Mg Tablet 100 Mg PO QODAY Tylenol (Acetaminophen) 325 Mg Tablet 650 Mg PO PRN Q4HRS PRN Vitals/I & O Vital Sign - Last 24 Hours 03/16/17 03/16/17 03/16/17 03/16/17 14:58 15:28 15:58 16:10 Pulse 88 83 88 B/P (MAP) 145/66 (92) 134/63 (86) 161/76 (104) O2 Delivery Room Air 03/16/17 03/16/17 03/16/17 03/16/17 16:26 16:28 17:20 17:49 Temp 98.0 Pulse 105 100 103 Resp 20 B/P (MAP) 173/77 (109) 138/70 (92) 120/67 (84) Pulse Ox 97 94 O2 Delivery Room Air Room Air 03/16/17 03/16/17 03/16/17 03/16/17 18:50 19:45 20:00 20:26 Temp 98.4 Pulse 97 97 Resp 20 20 B/P (MAP) 147/72 (97) 150/75 (100) Pulse Ox 94 94 97 O2 Delivery Room Air Room Air Room Air Room Air 03/16/17 03/16/17 03/16/17 03/16/17 20:29 20:51 21:00 21:00 Pulse 99 93 93 B/P (MAP) 162/69 140/72 140/72 Pulse Ox 97 O2 Delivery Room Air 03/16/17 03/16/17 03/17/17 03/17/17 21:15 22:39 00:00 00:18 Pulse 93 74 70 Resp 23 16 19 B/P (MAP) 140/72 (94) 134/62 (86) 162/72 (102) Pulse Ox 95 97 95 O2 Delivery Room Air Room Air 03/17/17 03/17/17 03/17/17 03/17/17 01:00 01:54 02:00 03:00 Pulse 73 74 82 74 Resp 22 18 20 B/P (MAP) 185/76 (112) 170/65 181/71 (107) 150/70 (96) Pulse Ox 95 O2 Delivery Room Air Room Air Room Air 03/17/17 03/17/17 03/17/17 03/17/17 04:00 04:00 05:00 05:50 Pulse 82 87 Resp 23 24 B/P (MAP) 145/72 (96) 161/75 (103) Pulse Ox 94 O2 Delivery Room Air Room Air Room Air Room Air 03/17/17 03/17/17 03/17/17 03/17/17 06:00 06:58 07:58 08:00 Temp 97.9 Pulse 88 94 82 Resp 22 20 24 B/P (MAP) 159/72 (101) 150/76 (100) 163/83 (109) Pulse Ox 96 O2 Delivery Room Air Room Air Room Air Room Air 03/17/17 03/17/17 03/17/17 03/17/17 08:45 08:58 09:18 10:17 Pulse 92 80 73 70 Resp 26 21 B/P (MAP) 173/75 161/74 (103) 161/74 145/72 (96) Pulse Ox 99 99 O2 Delivery Room Air Room Air 03/17/17 03/17/17 03/17/17 03/17/17 10:58 11:28 11:38 11:39 Pulse 72 76 Resp 12 12 B/P (MAP) 137/66 (89) 123/62 (82) Pulse Ox 99 99 93 93 O2 Delivery Room Air Room Air Room Air Room Air 03/17/17 03/17/17 03/17/17 03/17/17 12:28 12:33 13:39 14:06 Pulse 87 85 74 Resp 12 19 B/P (MAP) 110/66 (81) 119/64 (82) 138/74 Pulse Ox 99 O2 Delivery Room Air Room Air Room Air Intake and Output 03/16/17 03/16/17 03/17/17 15:00 23:00 07:00 Intake Total 50 ml 50 ml 365 ml Output Total 1075 ml 800 ml Balance 50 ml -1025 ml -435 ml Nutrition Consultation Dietary Evaluation: Expected Outcomes/Goals: VIDEO SWALLOW SHOWS NO ASPIRATION AND WILL B ON A PUREED DIET WITH THIN LIQUIDS CHANELLE PERAZA DO Mar 17, 2017 14:36
--- NOTE | 2017-03-17 15:13 | NUR ---
Pt resting in chair at this time. Nurse and PICC line nurse assessed patient, unable to access new IV with ultrasound. Pt off cardene drip at this time, VSS and tolerating PO medication. Procalamine administered at this time.
[2017-03-17] MEDS ORDERED: SENNOSIDES 8.6 MG TABLET PO PRN (15:45)
[2017-03-17] MEDS ORDERED: LANSOPRAZOLE 30 MG TAB.RAP.DR FT SCH (16:30)
[2017-03-17] MEDS: PANTOPRAZOLE 40 MG PACKET. PO SCH (17:01)
--- NOTE | 2017-03-17 17:09 | NUR ---
Pt took PO medication without difficulty, meds crushed in food. Pt appears to not like puree diet and does not have much of an appetite. Requesting ice cream and milk.
--- NOTE | 2017-03-17 18:01 | NUR ---
Held IV hydralazine, pt took PO hydralazine 3 hours prior. Will be getting HS BP medications. Will continue to monitor BP, stable at this time.
--- NOTE | 2017-03-17 18:35 | PDOC ---
Exam Robin Demential Exam: Robin Note: Please also refer to the separate dictated note~for this date of service dictated separately.~Patient seen individually. Discussed the patient with Nursing staff reviewed the chart.~Reviewed interim history and current functioning. Reviewed vital signs,~Labs/ Radiology~and current medications noted below. Continue current treatment with the changes noted in the dictated addendum note Assessment: Vital Signs: Vital Signs Date Time Temp Pulse Resp B/P (MAP) Pulse Ox O2 Delivery O2 Flow Rate FiO2 03/17/17 17:12 93 21 135/72 (93) 95 Room Air 03/17/17 16:59 2.0 03/17/17 06:00 97.9 I&O Intake and Output 03/17/17 07:00 Intake Total 465 ml Output Total 1875 ml Balance -1410 ml Intake Oral 0 ml IV Total 465 ml Output Urine Total 1875 ml Labs: Laboratory Tests Test 03/16/17 21:19 03/17/17 08:00 Glucose (Fingerstick) 93 mg/dL (70-99) White Blood Count 6.1 x10^3/uL (4.0-11.0) Red Blood Count 5.78 x10^6/uL (3.50-5.40) H Hemoglobin 17.0 g/dL (12.0-15.5) H Hematocrit 51.9 % (36.0-47.0) H Mean Corpuscular Volume 90 fL (79-100) Mean Corpuscular Hemoglobin 30 pg (25-35) Mean Corpuscular Hemoglobin Concent 33 g/dL (31-37) Red Cell Distribution Width 17.2 % (11.5-14.5) H Platelet Count 128 x10^3/uL (140-400) L Sodium Level 141 mmol/L (136-145) Potassium Level 4.5 mmol/L (3.5-5.1) Chloride Level 106 mmol/L (98-107) Carbon Dioxide Level 24 mmol/L (21-32) Anion Gap 11 (6-14) Blood Urea Nitrogen 33 mg/dL (7-20) H Creatinine 1.9 mg/dL (0.6-1.0) H Estimated GFR (Cockcroft-Gault) 31.1 BUN/Creatinine Ratio 17 (6-20) Glucose Level 99 mg/dL (70-99) Calcium Level 9.3 mg/dL (8.5-10.1) Magnesium Level 2.2 mg/dL (1.8-2.4) Total Bilirubin 0.4 mg/dL (0.2-1.0) Aspartate Amino Transferase (AST) 22 U/L (15-37) Alanine Aminotransferase (ALT) 33 U/L (14-59) Alkaline Phosphatase 99 U/L (46-116) Total Protein 7.7 g/dL (6.4-8.2) Albumin 3.2 g/dL (3.4-5.0) L Albumin/Globulin Ratio 0.7 (1.0-1.7) L Current Medications: Meds: Current Medications Sodium Chloride (Normal Saline Flush) 3 ml PRN DAILY PRN IV AFTER MEDS AND BLOOD DRAWS; Start 03/12/17 at 21:00; Stop 03/13/17 at 12:10; Status DC Dextrose/Sodium Chloride 1,000 ml @ 100 mls/hr Q10H IV Last administered on 18:05; Start 03/12/17 at 20:54; Stop 03/14/17 at 06:41; Status DC Calcium Carbonate/ Glycine (Tums) 500 mg PRN Q3HRS PRN PO HEARTBURN / GAS Last administered on 03/15/17 06:32; Start 03/12/17 at 21:00; Status Future hold Heparin Sodium (Porcine) 5,000 unit Q12H SQ Last administered on 03/17/17 08: 59; Start 03/12/17 at 21:00 Ceftriaxone Sodium 1 gm/ Sodium Chloride 50 ml @ 100 mls/hr QODAY IV Last administered on 03/14/17 08:13; Start 03/12/17 at 21:30; Stop 03/15/17 at 11:17; Status DC Sodium Chloride 50 ml @ As Directed STK-MED ONCE .ROUTE Last administered on 22:07; Start 03/12/17 at 22:07; Stop 03/12/17 at 22:08; Status DC Benztropine Mesylate (Cogentin) 0.5 mg DAILY PO ; Start 03/13/17 at 09:00; Status Future hold Buspirone HCl (Buspar) 5 mg QID PO ; Start 03/13/17 at 09:00; Stop 03/13/17 at 19: 15; Status DC Lorazepam (Ativan) 0.5 mg PRN Q6HRS PRN PO ANXIETY / AGITATION; Start 03/12/17 at 22:15 Olanzapine (ZyPREXA ZYDIS) 2.5 mg PRN Q2HR PRN PO PSYCHOSIS Last administered on 03/13/17 21:38; Start 03/12/17 at 22:15 Acetaminophen (Tylenol) 650 mg PRN Q4HRS PRN PO PAIN / TEMP; Start 03/13/17 at 11:45 Albuterol Sulfate (Ventolin) 2.5 mg PRN QID PRN NEB SHORTNESS OF BREATH; Start 03/13/17 at 11:45 Amlodipine Besylate (Norvasc) 10 mg DAILY PO ; Start 03/14/17 at 09:00 Carvedilol (Coreg) 12.5 mg BID PO Last administered on 03/14/17 21:01; Start at 21:00 Divalproex Sodium (Depakote Sprinkles) 250 mg BID PO ; Start 03/13/17 at 21:00; Stop 03/13/17 at 21:00; Status DC Donepezil HCl (Aricept) 5 mg HS PO ; Start 03/13/17 at 21:00; Stop 03/13/17 at 21: 00; Status DC Multivit/Ca Carb/ B Cmplx/FA/Prenat (Nephro-Fady) 1 tab DAILY PO ; Start at 09:00; Status Future hold Hydralazine HCl (Apresoline) 50 mg TID PO Last administered on 03/17/17 14:06 ; Start 03/13/17 at 14:00 Albuterol/ Ipratropium (Duoneb) 3 ml QID NEB Last administered on 03/17/17 16: 59; Start 03/13/17 at 13:00 Levothyroxine Sodium (Synthroid) 75 mcg DAILY06 PO Last administered on 06:12; Start 03/14/17 at 06:00 Magnesium Hydroxide (Milk Of Magnesia) 2,400 mg PRN QHS PRN PO CONSTIPATION; Start 03/13/17 at 11:45 Memantine (Namenda) 10 mg BID PO ; Start 03/13/17 at 21:00; Stop 03/13/17 at 21:00 ; Status DC Rifaximin (Xifaxan) 550 mg BID PO Last administered on 03/14/17 21:00; Start at 21:00 Sennosides (Senna) 8.6 mg HS PO Last administered on 03/14/17 21:00; Start 03/13 at 21:00; Status Future hold Sertraline HCl (Zoloft) 25 mg QHS PO Last administered on 03/14/17 21:00; Start 03/13/17 at 21:00; Status Future hold Sodium Chloride (Saline Mist Nasal) 1 ezio PRN Q4HRS PRN NS rhinitis; Start 03/13 at 11:45 Amantadine HCl (Symmetrel) 100 mg QODAY PO Last administered on 03/15/17 09:00 ; Start 03/15/17 at 09:00; Status Future hold Artificial Tears (Artificial Tears) 2 drop DAILY OU Last administered on 09:00; Start 03/14/17 at 09:00; Stop 03/16/17 at 14:19; Status DC Non-Formulary Medication 1 puff DAILY IH ; Start 03/14/17 at 09:00; Stop 03/14/17 at 09:00; Status DC Lactulose 20 gm DAILY PO ; Start 03/14/17 at 09:00; Status Future hold Loxapine Succinate (Loxitane) 10 mg QHS PO ; Start 03/13/17 at 21:00; Stop at 21:00; Status DC Magnesium Hydroxide (Milk Of Magnesia) 2,400 mg PRN AFTMEALHC PRN PO HEARTBURN / GAS; Start 03/13/17 at 12:15 Pantoprazole Sodium (Protonix) 40 mg BIDWMEALS PO ; Start 03/13/17 at 17:00; Stop 03/17/17 at 16:32; Status DC Albuterol Sulfate (Ventolin) 2.5 mg RTQID NEB ; Start 03/13/17 at 16:00; Stop 03/13/17 at 16:00; Status DC Budesonide (Pulmicort) 0.5 mg RTBID NEB Last administered on 03/17/17 11:38; Start 03/13/17 at 20:00 Hydralazine HCl (Apresoline) 10 mg PRN Q4HRS PRN IV ELEVATED BP, SEE COMMENTS Last administered on 03/13/17 21:20; Start 03/13/17 at 15:45 Nystatin (Nystop) 1 ezio BID TP Last administered on 03/17/17 08:57; Start 03/13 at 21:00 Glucose (Insta-Glucose) 15 gm PRN Q15MIN PRN PO LOW BLOOD SUGAR; Start 03/12/17 at 07:20; Stop 03/13/17 at 16:42; Status DC Labetalol HCl (Normodyne) 20 mg BID IVP Last administered on 03/17/17 08:45; Start 03/13/17 at 18:30 Loxapine Succinate (Loxitane) 10 mg BID94 PO Last administered on 03/17/17 17: 00; Start 03/14/17 at 09:00; Status Future hold Potassium Chloride/Dextrose/ Sod Cl 1,000 ml @ 80 mls/hr [id number] IV Last administered on 03/15/17 03:35; Start 03/14/17 at 06:45; Stop 03/15/17 at 15:53 ; Status DC Divalproex Sodium (Depakote Sprinkles) 250 mg BID PO Last administered on 21:01; Start 03/14/17 at 21:00 Hydralazine HCl (Apresoline) 20 mg Q6HRS IV Last administered on 03/17/17 09: 18; Start 03/15/17 at 12:00 Ceftriaxone Sodium 1 gm/ Sodium Chloride 50 ml @ 100 mls/hr DAILY IV Last administered on 03/17/17 09:17; Start 03/15/17 at 12:00; Stop 03/18/17 at 12:00 Furosemide (Lasix) 20 mg 1X ONCE IVP Last administered on 03/15/17 15:40; Start 03/15/17 at 14:00; Stop 03/15/17 at 14:01; Status DC Furosemide (Lasix) 20 mg 1X ONCE IVP Last administered on 03/15/17 15:40; Start 03/15/17 at 14:30; Stop 03/15/17 at 14:31; Status DC Hydralazine HCl (Apresoline) 10 mg 1X ONCE IV Last administered on 03/15/17 15:42; Start 03/15/17 at 14:30; Stop 03/15/17 at 14:31; Status DC Ondansetron HCl (Zofran) 4 mg PRN Q6HRS PRN IV NAUSEA/VOMITING; Start 03/15/17 at 16:00 Potassium Chloride/Dextrose/ Sod Cl 1,000 ml @ 75 mls/hr [id number] IV ; Start 06/22 at 16:00; Stop 03/15/17 at 16:37; Status DC Amino Acids/ Glycerin/ Electrolytes 1,000 ml @ 80 mls/hr [id number] IV Last administered on 03/16/17 07:29; Start 03/15/17 at 16:00 Nicardipine HCl 50 mg/Sodium Chloride 270 ml @ 0 mls/hr CONT PRN IV SEE I/O RECORD Last administered on 03/17/17 00:09; Start 03/15/17 at 17:00 Magnesium Sulfate 50 ml @ 25 mls/hr 1X ONCE IV Last administered on 03/16/17 14:14; Start 03/16/17 at 13:15; Stop 03/16/17 at 15:14; Status DC Artificial Tears (Artificial Tears) 2 drop DAILY OU Last administered on 08:55; Start 03/16/17 at 14:19 Sennosides (Senna) 8.6 mg PRN BID PRN PO CONSTIPATION; Start 03/17/17 at 15:45 Lansoprazole (Prevacid) 30 mg BIDBFRMEAL FT ; Start 03/17/17 at 16:30; Status Cancel Pantoprazole Sodium (Protonix Packet) 40 mg BIDBFRMEAL PO Last administered on 03/17/17 17:01; Start 03/17/17 at 16:30 Active Scripts Active Reported Ceftriaxone 1 Gm Piggyback (Ceftriaxone Na/Dextrose,Iso) 1 Gm/50 Ml Froz.piggy 1 Gm IV QHS Sodium Chloride (Sodium Chloride 0.45 %) 1,000 Ml Iv.soln 1,000 Ml IV [id number] Albuterol Sulfate Neb Soln (Albuterol Sulfate) 2.5 Mg/3 Ml Vial.neb 2.5 Mg NEB PRN QID PRN Norvasc (Amlodipine Besylate) 10 Mg Tablet 10 Mg PO DAILY Zoloft (Sertraline Hcl) 25 Mg Tablet 25 Mg PO QHS Zyprexa Zydis (Olanzapine) 5 Mg Tab.rapdis 2.5 Mg PO PRN Q2HR PRN Milk Of Magnesia (Magnesium Hydroxide) 400 Mg/5 Ml Oral.susp 2,400 Mg PO PRN QHS PRN Loxapine (Loxapine Succinate) 10 Mg Capsule 10 Mg PO QHS Maximum D3 (Cholecalciferol (Vitamin D3)) 10,000 Unit Capsule 50,000 Unit PO WEEKLY Xifaxan (Rifaximin) 550 Mg Tablet 550 Mg PO BID Tramadol Hcl (Tramadol HCl) 50 Mg Tablet 50 Mg PO PRN Q12HR PRN Tessalon Perle (Benzonatate) 100 Mg Capsule 100 Mg PO PRN Q4HRS PRN Senokot (Sennosides) 8.6 Mg Tablet 8.6 Mg PO HS Saline Nasal [place] (Sodium Chloride) 30 Ml [place] 2 Sprays NS PRN Q4HRS PRN Robitussin Nighttime Cough Dm (Dextromethorphan Hb/Doxylamine) 237 Ml Liquid 10 Ml PO PRN Q4HRS PRN Omeprazole 40 Mg Capsule.dr 40 Mg PO BIDWMEALS Nephro-Fady Tablet (Folic Acid/Vitamin B Comp W-C) 0.8 Mg Tablet 1 Tab PO DAILY Alum-Mag Hydroxide-Simeth Liq (Mag Hydrox/Al Hydrox/Simeth) 360 Ml Oral.susp 15 Ml PO PRN AFTMEALHC PRN Montelukast Sodium Tablet (Montelukast Sodium) 10 Mg Tablet 10 Mg PO HS Namenda (Memantine Hcl) 10 Mg Tablet 10 Mg PO BID Lorazepam 0.5 Mg Tablet 0.5 Mg PO PRN Q6HRS PRN Levothyroxine Sodium 75 Mcg Tablet 75 Mcg PO DAILY06 Lactulose 10 Gm/15 Ml Solution 20 Gm PO DAILY Duoneb 0.5-3(2.5) Mg/3 Ml (Albuterol/Ipratropium) 3 Ml Ampul.neb 3 Ml NEB QID Icy Hot Cream (Methyl Salicylate/Menthol) 35.4 Gm Cream..g. 1 Applic TP PRN QID PRN Hydralazine Hcl 50 Mg Tablet 50 Mg PO TID Guaifenesin 600 Mg Tablet.er 600 Mg PO BID Fluticasone Propionate Nasal [place] (Fluticasone Propionate) 16 Gm [place].susp 2 [place] NS PRN BID PRN Breo Ellipta 100-25 Mcg Inh (Fluticasone/Vilanterol) 1 Each Aer.pow.ba 1 Puff IH DAILY Ferrous Sulfate 325 Mg Tablet 325 Mg PO BID Donepezil Hcl 5 Mg Tablet 5 Mg PO HS Depakote Sprinkle (Divalproex Sodium) 125 Mg Cap.sprink 250 Mg PO BID Cetirizine Hcl 10 Mg Tablet 10 Mg PO DAILY Carvedilol 12.5 Mg Tablet 12.5 Mg PO BID Calcium Polycarbophil 625 Mg Tablet 625 Mg PO DAILY Buspirone Hcl 5 Mg Tablet 5 Mg PO QID Benztropine Mesylate 0.5 Mg Tablet 0.5 Mg PO DAILY Atorvastatin Calcium 10 Mg Tablet 5 Mg PO QHS PRN Artificial Tears Eye Drops (Dextran 70/Hypromellose) 15 Ml Drops 2 Drop OU DAILY Amantadine (Amantadine Hcl) 100 Mg Tablet 100 Mg PO QODAY Tylenol (Acetaminophen) 325 Mg Tablet 650 Mg PO PRN Q4HRS PRN Diagnosis: Problems: (1) Bipolar 1 disorder, mixed, moderate (2) Impulse control disorder (3) Anxiety disorder SHANE BUTTS MD Mar 17, 2017 18:35
--- NOTE | 2017-03-17 20:02 | PDOC ---
Exam Robin Demential Exam: Robin Note: Please also refer to the separate dictated note~for this date of service dictated separately.~Patient seen individually. Discussed the patient with Nursing staff reviewed the chart.~Reviewed interim history and current functioning. Reviewed vital signs,~Labs/ Radiology~and current medications noted below. Continue current treatment with the changes noted in the dictated addendum note S/O: This is a late entry for date of service 03/13/2017. The patient was seen individually on evening of March 13 and I have discussed with the nursing staff earlier in the day and [facility] nursing staff yesterday after the patient was transferred to [facility] from the [facility] consequent to acute on chronic renal failure, worsening confusion, and possible UTI, significant dehydration. While on the unit last night, the patient was hallucinating but today during the day she has been quite sedated, withdrawn, and not actively hallucinating. Her labs are improving just slightly. This note covers elements not covered in my initial note of March 13. MSE: The patient is lying in bed, IV in place, not pulling on her lines. Insight, judgment, and recent memory are impaired; not very verbally interactive , somewhat sedated. No active suicidal or homicidal ideation. Appears withdrawn, somewhat depressed but understandable given her significant medical changes. Labs: Reviewed. Imp: Bipolar I disorder, mixed with psychotic features; acute on chronic kidney disease, dehydration, probable UTI. Plan: From a psychiatric standpoint, we will stop the Namenda and Aricept and Depakote. Increase the Loxitane from 10 mg a day to 10 mg twice a day, may need to increase further. Continue Zoloft 25 mg a day, we need to increase this as well when she is medically stabilized. Ammonia level is being checked along with the CT head. I will continue to follow the patient as requested by Dr. Gonzales. Assessment: Vital Signs: Vital Signs Date Time Temp Pulse Resp B/P (MAP) Pulse Ox O2 Delivery O2 Flow Rate FiO2 03/17/17 19:12 97.8 102 18 147/69 (95) 98 Room Air 03/17/17 16:59 2.0 I&O Intake and Output 03/17/17 07:00 Intake Total 465 ml Output Total 1875 ml Balance -1410 ml Intake Oral 0 ml IV Total 465 ml Output Urine Total 1875 ml Labs: Laboratory Tests Test 03/16/17 21:19 03/17/17 08:00 Glucose (Fingerstick) 93 mg/dL (70-99) White Blood Count 6.1 x10^3/uL (4.0-11.0) Red Blood Count 5.78 x10^6/uL (3.50-5.40) H Hemoglobin 17.0 g/dL (12.0-15.5) H Hematocrit 51.9 % (36.0-47.0) H Mean Corpuscular Volume 90 fL (79-100) Mean Corpuscular Hemoglobin 30 pg (25-35) Mean Corpuscular Hemoglobin Concent 33 g/dL (31-37) Red Cell Distribution Width 17.2 % (11.5-14.5) H Platelet Count 128 x10^3/uL (140-400) L Sodium Level 141 mmol/L (136-145) Potassium Level 4.5 mmol/L (3.5-5.1) Chloride Level 106 mmol/L (98-107) Carbon Dioxide Level 24 mmol/L (21-32) Anion Gap 11 (6-14) Blood Urea Nitrogen 33 mg/dL (7-20) H Creatinine 1.9 mg/dL (0.6-1.0) H Estimated GFR (Cockcroft-Gault) 31.1 BUN/Creatinine Ratio 17 (6-20) Glucose Level 99 mg/dL (70-99) Calcium Level 9.3 mg/dL (8.5-10.1) Magnesium Level 2.2 mg/dL (1.8-2.4) Total Bilirubin 0.4 mg/dL (0.2-1.0) Aspartate Amino Transferase (AST) 22 U/L (15-37) Alanine Aminotransferase (ALT) 33 U/L (14-59) Alkaline Phosphatase 99 U/L (46-116) Total Protein 7.7 g/dL (6.4-8.2) Albumin 3.2 g/dL (3.4-5.0) L Albumin/Globulin Ratio 0.7 (1.0-1.7) L Current Medications: Meds: Current Medications Sodium Chloride (Normal Saline Flush) 3 ml PRN DAILY PRN IV AFTER MEDS AND BLOOD DRAWS; Start 03/12/17 at 21:00; Stop 03/13/17 at 12:10; Status DC Dextrose/Sodium Chloride 1,000 ml @ 100 mls/hr Q10H IV Last administered on 18:05; Start 03/12/17 at 20:54; Stop 03/14/17 at 06:41; Status DC Calcium Carbonate/ Glycine (Tums) 500 mg PRN Q3HRS PRN PO HEARTBURN / GAS Last administered on 03/15/17 06:32; Start 03/12/17 at 21:00; Status Future hold Heparin Sodium (Porcine) 5,000 unit Q12H SQ Last administered on 03/17/17 08: 59; Start 03/12/17 at 21:00 Ceftriaxone Sodium 1 gm/ Sodium Chloride 50 ml @ 100 mls/hr QODAY IV Last administered on 03/14/17 08:13; Start 03/12/17 at 21:30; Stop 03/15/17 at 11:17; Status DC Sodium Chloride 50 ml @ As Directed STK-MED ONCE .ROUTE Last administered on 22:07; Start 03/12/17 at 22:07; Stop 03/12/17 at 22:08; Status DC Benztropine Mesylate (Cogentin) 0.5 mg DAILY PO ; Start 03/13/17 at 09:00; Status Future hold Buspirone HCl (Buspar) 5 mg QID PO ; Start 03/13/17 at 09:00; Stop 03/13/17 at 19: 15; Status DC Lorazepam (Ativan) 0.5 mg PRN Q6HRS PRN PO ANXIETY / AGITATION; Start 03/12/17 at 22:15 Olanzapine (ZyPREXA ZYDIS) 2.5 mg PRN Q2HR PRN PO PSYCHOSIS Last administered on 03/13/17 21:38; Start 03/12/17 at 22:15 Acetaminophen (Tylenol) 650 mg PRN Q4HRS PRN PO PAIN / TEMP; Start 03/13/17 at 11:45 Albuterol Sulfate (Ventolin) 2.5 mg PRN QID PRN NEB SHORTNESS OF BREATH; Start 03/13/17 at 11:45 Amlodipine Besylate (Norvasc) 10 mg DAILY PO ; Start 03/14/17 at 09:00 Carvedilol (Coreg) 12.5 mg BID PO Last administered on 03/14/17 21:01; Start at 21:00 Divalproex Sodium (Depakote Sprinkles) 250 mg BID PO ; Start 03/13/17 at 21:00; Stop 03/13/17 at 21:00; Status DC Donepezil HCl (Aricept) 5 mg HS PO ; Start 03/13/17 at 21:00; Stop 03/13/17 at 21: 00; Status DC Multivit/Ca Carb/ B Cmplx/FA/Prenat (Nephro-Fady) 1 tab DAILY PO ; Start at 09:00; Status Future hold Hydralazine HCl (Apresoline) 50 mg TID PO Last administered on 03/17/17 14:06 ; Start 03/13/17 at 14:00 Albuterol/ Ipratropium (Duoneb) 3 ml QID NEB Last administered on 03/17/17 16: 59; Start 03/13/17 at 13:00 Levothyroxine Sodium (Synthroid) 75 mcg DAILY06 PO Last administered on 06:12; Start 03/14/17 at 06:00 Magnesium Hydroxide (Milk Of Magnesia) 2,400 mg PRN QHS PRN PO CONSTIPATION; Start 03/13/17 at 11:45 Memantine (Namenda) 10 mg BID PO ; Start 03/13/17 at 21:00; Stop 03/13/17 at 21:00 ; Status DC Rifaximin (Xifaxan) 550 mg BID PO Last administered on 03/14/17 21:00; Start at 21:00 Sennosides (Senna) 8.6 mg HS PO Last administered on 03/14/17 21:00; Start 03/13 at 21:00; Status Future hold Sertraline HCl (Zoloft) 25 mg QHS PO Last administered on 03/14/17 21:00; Start 03/13/17 at 21:00; Status Future hold Sodium Chloride (Saline Mist Nasal) 1 ezio PRN Q4HRS PRN NS rhinitis; Start 03/13 at 11:45 Amantadine HCl (Symmetrel) 100 mg QODAY PO Last administered on 03/15/17 09:00 ; Start 03/15/17 at 09:00; Status Future hold Artificial Tears (Artificial Tears) 2 drop DAILY OU Last administered on 09:00; Start 03/14/17 at 09:00; Stop 03/16/17 at 14:19; Status DC Non-Formulary Medication 1 puff DAILY IH ; Start 03/14/17 at 09:00; Stop 03/14/17 at 09:00; Status DC Lactulose 20 gm DAILY PO ; Start 03/14/17 at 09:00; Status Future hold Loxapine Succinate (Loxitane) 10 mg QHS PO ; Start 03/13/17 at 21:00; Stop at 21:00; Status DC Magnesium Hydroxide (Milk Of Magnesia) 2,400 mg PRN AFTMEALHC PRN PO HEARTBURN / GAS; Start 03/13/17 at 12:15 Pantoprazole Sodium (Protonix) 40 mg BIDWMEALS PO ; Start 03/13/17 at 17:00; Stop 03/17/17 at 16:32; Status DC Albuterol Sulfate (Ventolin) 2.5 mg RTQID NEB ; Start 03/13/17 at 16:00; Stop 03/13/17 at 16:00; Status DC Budesonide (Pulmicort) 0.5 mg RTBID NEB Last administered on 03/17/17 11:38; Start 03/13/17 at 20:00 Hydralazine HCl (Apresoline) 10 mg PRN Q4HRS PRN IV ELEVATED BP, SEE COMMENTS Last administered on 03/13/17 21:20; Start 03/13/17 at 15:45 Nystatin (Nystop) 1 ezio BID TP Last administered on 03/17/17 08:57; Start 03/13 at 21:00 Glucose (Insta-Glucose) 15 gm PRN Q15MIN PRN PO LOW BLOOD SUGAR; Start 03/12/17 at 07:20; Stop 03/13/17 at 16:42; Status DC Labetalol HCl (Normodyne) 20 mg BID IVP Last administered on 03/17/17 08:45; Start 03/13/17 at 18:30 Loxapine Succinate (Loxitane) 10 mg BID94 PO Last administered on 03/17/17 17: 00; Start 03/14/17 at 09:00; Status Future hold Potassium Chloride/Dextrose/ Sod Cl 1,000 ml @ 80 mls/hr [id number] IV Last administered on 03/15/17 03:35; Start 03/14/17 at 06:45; Stop 03/15/17 at 15:53 ; Status DC Divalproex Sodium (Depakote Sprinkles) 250 mg BID PO Last administered on 21:01; Start 03/14/17 at 21:00 Hydralazine HCl (Apresoline) 20 mg Q6HRS IV Last administered on 03/17/17 09: 18; Start 03/15/17 at 12:00 Ceftriaxone Sodium 1 gm/ Sodium Chloride 50 ml @ 100 mls/hr DAILY IV Last administered on 03/17/17 09:17; Start 03/15/17 at 12:00; Stop 03/18/17 at 12:00 Furosemide (Lasix) 20 mg 1X ONCE IVP Last administered on 03/15/17 15:40; Start 03/15/17 at 14:00; Stop 03/15/17 at 14:01; Status DC Furosemide (Lasix) 20 mg 1X ONCE IVP Last administered on 03/15/17 15:40; Start 03/15/17 at 14:30; Stop 03/15/17 at 14:31; Status DC Hydralazine HCl (Apresoline) 10 mg 1X ONCE IV Last administered on 03/15/17 15:42; Start 03/15/17 at 14:30; Stop 03/15/17 at 14:31; Status DC Ondansetron HCl (Zofran) 4 mg PRN Q6HRS PRN IV NAUSEA/VOMITING; Start 03/15/17 at 16:00 Potassium Chloride/Dextrose/ Sod Cl 1,000 ml @ 75 mls/hr [id number] IV ; Start 06/22 at 16:00; Stop 03/15/17 at 16:37; Status DC Amino Acids/ Glycerin/ Electrolytes 1,000 ml @ 80 mls/hr [id number] IV Last administered on 03/16/17 07:29; Start 03/15/17 at 16:00 Nicardipine HCl 50 mg/Sodium Chloride 270 ml @ 0 mls/hr CONT PRN IV SEE I/O RECORD Last administered on 03/17/17 00:09; Start 03/15/17 at 17:00 Magnesium Sulfate 50 ml @ 25 mls/hr 1X ONCE IV Last administered on 03/16/17 14:14; Start 03/16/17 at 13:15; Stop 03/16/17 at 15:14; Status DC Artificial Tears (Artificial Tears) 2 drop DAILY OU Last administered on 08:55; Start 03/16/17 at 14:19 Sennosides (Senna) 8.6 mg PRN BID PRN PO CONSTIPATION; Start 03/17/17 at 15:45 Lansoprazole (Prevacid) 30 mg BIDBFRMEAL FT ; Start 03/17/17 at 16:30; Status Cancel Pantoprazole Sodium (Protonix Packet) 40 mg BIDBFRMEAL PO Last administered on 03/17/17 17:01; Start 03/17/17 at 16:30 Active Scripts Active Reported Ceftriaxone 1 Gm Piggyback (Ceftriaxone Na/Dextrose,Iso) 1 Gm/50 Ml Froz.piggy 1 Gm IV QHS Sodium Chloride (Sodium Chloride 0.45 %) 1,000 Ml Iv.soln 1,000 Ml IV [id number] Albuterol Sulfate Neb Soln (Albuterol Sulfate) 2.5 Mg/3 Ml Vial.neb 2.5 Mg NEB PRN QID PRN Norvasc (Amlodipine Besylate) 10 Mg Tablet 10 Mg PO DAILY Zoloft (Sertraline Hcl) 25 Mg Tablet 25 Mg PO QHS Zyprexa Zydis (Olanzapine) 5 Mg Tab.rapdis 2.5 Mg PO PRN Q2HR PRN Milk Of Magnesia (Magnesium Hydroxide) 400 Mg/5 Ml Oral.susp 2,400 Mg PO PRN QHS PRN Loxapine (Loxapine Succinate) 10 Mg Capsule 10 Mg PO QHS Maximum D3 (Cholecalciferol (Vitamin D3)) 10,000 Unit Capsule 50,000 Unit PO WEEKLY Xifaxan (Rifaximin) 550 Mg Tablet 550 Mg PO BID Tramadol Hcl (Tramadol HCl) 50 Mg Tablet 50 Mg PO PRN Q12HR PRN Tessalon Perle (Benzonatate) 100 Mg Capsule 100 Mg PO PRN Q4HRS PRN Senokot (Sennosides) 8.6 Mg Tablet 8.6 Mg PO HS Saline Nasal [place] (Sodium Chloride) 30 Ml [place] 2 Sprays NS PRN Q4HRS PRN Robitussin Nighttime Cough Dm (Dextromethorphan Hb/Doxylamine) 237 Ml Liquid 10 Ml PO PRN Q4HRS PRN Omeprazole 40 Mg Capsule.dr 40 Mg PO BIDWMEALS Nephro-Fady Tablet (Folic Acid/Vitamin B Comp W-C) 0.8 Mg Tablet 1 Tab PO DAILY Alum-Mag Hydroxide-Simeth Liq (Mag Hydrox/Al Hydrox/Simeth) 360 Ml Oral.susp 15 Ml PO PRN AFTMEALHC PRN Montelukast Sodium Tablet (Montelukast Sodium) 10 Mg Tablet 10 Mg PO HS Namenda (Memantine Hcl) 10 Mg Tablet 10 Mg PO BID Lorazepam 0.5 Mg Tablet 0.5 Mg PO PRN Q6HRS PRN Levothyroxine Sodium 75 Mcg Tablet 75 Mcg PO DAILY06 Lactulose 10 Gm/15 Ml Solution 20 Gm PO DAILY Duoneb 0.5-3(2.5) Mg/3 Ml (Albuterol/Ipratropium) 3 Ml Ampul.neb 3 Ml NEB QID Icy Hot Cream (Methyl Salicylate/Menthol) 35.4 Gm Cream..g. 1 Applic TP PRN QID PRN Hydralazine Hcl 50 Mg Tablet 50 Mg PO TID Guaifenesin 600 Mg Tablet.er 600 Mg PO BID Fluticasone Propionate Nasal [place] (Fluticasone Propionate) 16 Gm [place].susp 2 [place] NS PRN BID PRN Breo Ellipta 100-25 Mcg Inh (Fluticasone/Vilanterol) 1 Each Aer.pow.ba 1 Puff IH DAILY Ferrous Sulfate 325 Mg Tablet 325 Mg PO BID Donepezil Hcl 5 Mg Tablet 5 Mg PO HS Depakote Sprinkle (Divalproex Sodium) 125 Mg Cap.sprink 250 Mg PO BID Cetirizine Hcl 10 Mg Tablet 10 Mg PO DAILY Carvedilol 12.5 Mg Tablet 12.5 Mg PO BID Calcium Polycarbophil 625 Mg Tablet 625 Mg PO DAILY Buspirone Hcl 5 Mg Tablet 5 Mg PO QID Benztropine Mesylate 0.5 Mg Tablet 0.5 Mg PO DAILY Atorvastatin Calcium 10 Mg Tablet 5 Mg PO QHS PRN Artificial Tears Eye Drops (Dextran 70/Hypromellose) 15 Ml Drops 2 Drop OU DAILY Amantadine (Amantadine Hcl) 100 Mg Tablet 100 Mg PO QODAY Tylenol (Acetaminophen) 325 Mg Tablet 650 Mg PO PRN Q4HRS PRN SHANE BUTTS MD Mar 17, 2017 20:02
[2017-03-17] MEDS: SERTRALINE 25 MG TABLET. PO SCH (21:00)
--- NOTE | 2017-03-17 21:00 | NUR ---
held IV labetalol at 2100, pt's BP was 119/67 and pulse 92.
--- NOTE | 2017-03-17 21:06 | PDOC ---
Exam Robin Demential Exam: Robin Note: Please also refer to the separate dictated note~for this date of service dictated separately.~Patient seen individually. Discussed the patient with Nursing staff reviewed the chart.~Reviewed interim history and current functioning. Reviewed vital signs,~Labs/ Radiology~and current medications noted below. Continue current treatment with the changes noted in the dictated addendum note S/P: This is a late entry for date of service 03/14/2017 and covers elements not covered in my initial note. The patient is much more awake and alert today , still labile in her mood, somewhat psychotic, paranoid and this was evident as I met with her. Review of Systems: She complains of tiredness. No CV, , Pulmonary, Eye system symptoms on review. MSE: Oriented to herself and situation. Speech coherent. She is suspicious and told me "you are mixed in with them". No active suicidal or homicidal ideation. Labs: Creatinine has improved significantly. BUN still elevated. We will defer to Dr. Miranda/Dr. Herbert. Imp: Bipolar I disorder mixed with psychotic features, acute and chronic kidney injury, probable UTI, and dehydration. Plan: Continue to stabilize the patient medically. Restart Depakote and Loxitane at the prior dosage. We will follow labs level and adjust as clinically indicated. Assessment: Vital Signs: Vital Signs Date Time Temp Pulse Resp B/P (MAP) Pulse Ox O2 Delivery O2 Flow Rate FiO2 03/17/17 20:42 97 Nasal Cannula 2.0 03/17/17 20:39 98 18 142/83 (102) 03/17/17 19:12 97.8 I&O Intake and Output 03/17/17 07:00 Intake Total 465 ml Output Total 1875 ml Balance -1410 ml Intake Oral 0 ml IV Total 465 ml Output Urine Total 1875 ml Labs: Laboratory Tests Test 03/16/17 21:19 03/17/17 08:00 Glucose (Fingerstick) 93 mg/dL (70-99) White Blood Count 6.1 x10^3/uL (4.0-11.0) Red Blood Count 5.78 x10^6/uL (3.50-5.40) H Hemoglobin 17.0 g/dL (12.0-15.5) H Hematocrit 51.9 % (36.0-47.0) H Mean Corpuscular Volume 90 fL (79-100) Mean Corpuscular Hemoglobin 30 pg (25-35) Mean Corpuscular Hemoglobin Concent 33 g/dL (31-37) Red Cell Distribution Width 17.2 % (11.5-14.5) H Platelet Count 128 x10^3/uL (140-400) L Sodium Level 141 mmol/L (136-145) Potassium Level 4.5 mmol/L (3.5-5.1) Chloride Level 106 mmol/L (98-107) Carbon Dioxide Level 24 mmol/L (21-32) Anion Gap 11 (6-14) Blood Urea Nitrogen 33 mg/dL (7-20) H Creatinine 1.9 mg/dL (0.6-1.0) H Estimated GFR (Cockcroft-Gault) 31.1 BUN/Creatinine Ratio 17 (6-20) Glucose Level 99 mg/dL (70-99) Calcium Level 9.3 mg/dL (8.5-10.1) Magnesium Level 2.2 mg/dL (1.8-2.4) Total Bilirubin 0.4 mg/dL (0.2-1.0) Aspartate Amino Transferase (AST) 22 U/L (15-37) Alanine Aminotransferase (ALT) 33 U/L (14-59) Alkaline Phosphatase 99 U/L (46-116) Total Protein 7.7 g/dL (6.4-8.2) Albumin 3.2 g/dL (3.4-5.0) L Albumin/Globulin Ratio 0.7 (1.0-1.7) L Current Medications: Meds: Current Medications Sodium Chloride (Normal Saline Flush) 3 ml PRN DAILY PRN IV AFTER MEDS AND BLOOD DRAWS; Start 03/12/17 at 21:00; Stop 03/13/17 at 12:10; Status DC Dextrose/Sodium Chloride 1,000 ml @ 100 mls/hr Q10H IV Last administered on 18:05; Start 03/12/17 at 20:54; Stop 03/14/17 at 06:41; Status DC Calcium Carbonate/ Glycine (Tums) 500 mg PRN Q3HRS PRN PO HEARTBURN / GAS Last administered on 03/15/17 06:32; Start 03/12/17 at 21:00; Status Future hold Heparin Sodium (Porcine) 5,000 unit Q12H SQ Last administered on 03/17/17 08: 59; Start 03/12/17 at 21:00 Ceftriaxone Sodium 1 gm/ Sodium Chloride 50 ml @ 100 mls/hr QODAY IV Last administered on 03/14/17 08:13; Start 03/12/17 at 21:30; Stop 03/15/17 at 11:17; Status DC Sodium Chloride 50 ml @ As Directed STK-MED ONCE .ROUTE Last administered on 22:07; Start 03/12/17 at 22:07; Stop 03/12/17 at 22:08; Status DC Benztropine Mesylate (Cogentin) 0.5 mg DAILY PO ; Start 03/13/17 at 09:00; Status Future hold Buspirone HCl (Buspar) 5 mg QID PO ; Start 03/13/17 at 09:00; Stop 03/13/17 at 19: 15; Status DC Lorazepam (Ativan) 0.5 mg PRN Q6HRS PRN PO ANXIETY / AGITATION; Start 03/12/17 at 22:15 Olanzapine (ZyPREXA ZYDIS) 2.5 mg PRN Q2HR PRN PO PSYCHOSIS Last administered on 03/13/17 21:38; Start 03/12/17 at 22:15 Acetaminophen (Tylenol) 650 mg PRN Q4HRS PRN PO PAIN / TEMP; Start 03/13/17 at 11:45 Albuterol Sulfate (Ventolin) 2.5 mg PRN QID PRN NEB SHORTNESS OF BREATH; Start 03/13/17 at 11:45 Amlodipine Besylate (Norvasc) 10 mg DAILY PO ; Start 03/14/17 at 09:00 Carvedilol (Coreg) 12.5 mg BID PO Last administered on 03/14/17 21:01; Start at 21:00 Divalproex Sodium (Depakote Sprinkles) 250 mg BID PO ; Start 03/13/17 at 21:00; Stop 03/13/17 at 21:00; Status DC Donepezil HCl (Aricept) 5 mg HS PO ; Start 03/13/17 at 21:00; Stop 03/13/17 at 21: 00; Status DC Multivit/Ca Carb/ B Cmplx/FA/Prenat (Nephro-Fady) 1 tab DAILY PO ; Start at 09:00; Status Future hold Hydralazine HCl (Apresoline) 50 mg TID PO Last administered on 03/17/17 14:06 ; Start 03/13/17 at 14:00 Albuterol/ Ipratropium (Duoneb) 3 ml QID NEB Last administered on 03/17/17 20: 38; Start 03/13/17 at 13:00 Levothyroxine Sodium (Synthroid) 75 mcg DAILY06 PO Last administered on 06:12; Start 03/14/17 at 06:00 Magnesium Hydroxide (Milk Of Magnesia) 2,400 mg PRN QHS PRN PO CONSTIPATION; Start 03/13/17 at 11:45 Memantine (Namenda) 10 mg BID PO ; Start 03/13/17 at 21:00; Stop 03/13/17 at 21:00 ; Status DC Rifaximin (Xifaxan) 550 mg BID PO Last administered on 03/14/17 21:00; Start at 21:00 Sennosides (Senna) 8.6 mg HS PO Last administered on 03/14/17 21:00; Start 03/13 at 21:00; Status Future hold Sertraline HCl (Zoloft) 25 mg QHS PO Last administered on 03/14/17 21:00; Start 03/13/17 at 21:00; Status Future hold Sodium Chloride (Saline Mist Nasal) 1 ezio PRN Q4HRS PRN NS rhinitis; Start 03/13 at 11:45 Amantadine HCl (Symmetrel) 100 mg QODAY PO Last administered on 03/15/17 09:00 ; Start 03/15/17 at 09:00; Status Future hold Artificial Tears (Artificial Tears) 2 drop DAILY OU Last administered on 09:00; Start 03/14/17 at 09:00; Stop 03/16/17 at 14:19; Status DC Non-Formulary Medication 1 puff DAILY IH ; Start 03/14/17 at 09:00; Stop 03/14/17 at 09:00; Status DC Lactulose 20 gm DAILY PO ; Start 03/14/17 at 09:00; Status Future hold Loxapine Succinate (Loxitane) 10 mg QHS PO ; Start 03/13/17 at 21:00; Stop at 21:00; Status DC Magnesium Hydroxide (Milk Of Magnesia) 2,400 mg PRN AFTMEALHC PRN PO HEARTBURN / GAS; Start 03/13/17 at 12:15 Pantoprazole Sodium (Protonix) 40 mg BIDWMEALS PO ; Start 03/13/17 at 17:00; Stop 03/17/17 at 16:32; Status DC Albuterol Sulfate (Ventolin) 2.5 mg RTQID NEB ; Start 03/13/17 at 16:00; Stop 03/13/17 at 16:00; Status DC Budesonide (Pulmicort) 0.5 mg RTBID NEB Last administered on 03/17/17 20:38; Start 03/13/17 at 20:00 Hydralazine HCl (Apresoline) 10 mg PRN Q4HRS PRN IV ELEVATED BP, SEE COMMENTS Last administered on 03/13/17 21:20; Start 03/13/17 at 15:45 Nystatin (Nystop) 1 ezio BID TP Last administered on 03/17/17 08:57; Start 03/13 at 21:00 Glucose (Insta-Glucose) 15 gm PRN Q15MIN PRN PO LOW BLOOD SUGAR; Start 03/12/17 at 07:20; Stop 03/13/17 at 16:42; Status DC Labetalol HCl (Normodyne) 20 mg BID IVP Last administered on 03/17/17 08:45; Start 03/13/17 at 18:30 Loxapine Succinate (Loxitane) 10 mg [id number] PO Last administered on 03/17/17 17: 00; Start 03/14/17 at 09:00; Status Future hold Potassium Chloride/Dextrose/ Sod Cl 1,000 ml @ 80 mls/hr [id number] IV Last administered on 03/15/17 03:35; Start 03/14/17 at 06:45; Stop 03/15/17 at 15:53 ; Status DC Divalproex Sodium (Depakote Sprinkles) 250 mg BID PO Last administered on 21:01; Start 03/14/17 at 21:00 Hydralazine HCl (Apresoline) 20 mg Q6HRS IV Last administered on 03/17/17 09: 18; Start 03/15/17 at 12:00 Ceftriaxone Sodium 1 gm/ Sodium Chloride 50 ml @ 100 mls/hr DAILY IV Last administered on 03/17/17 09:17; Start 03/15/17 at 12:00; Stop 03/18/17 at 12:00 Furosemide (Lasix) 20 mg 1X ONCE IVP Last administered on 03/15/17 15:40; Start 03/15/17 at 14:00; Stop 03/15/17 at 14:01; Status DC Furosemide (Lasix) 20 mg 1X ONCE IVP Last administered on 03/15/17 15:40; Start 03/15/17 at 14:30; Stop 03/15/17 at 14:31; Status DC Hydralazine HCl (Apresoline) 10 mg 1X ONCE IV Last administered on 03/15/17 15:42; Start 03/15/17 at 14:30; Stop 03/15/17 at 14:31; Status DC Ondansetron HCl (Zofran) 4 mg PRN Q6HRS PRN IV NAUSEA/VOMITING; Start 03/15/17 at 16:00 Potassium Chloride/Dextrose/ Sod Cl 1,000 ml @ 75 mls/hr [id number] IV ; Start 06/22 at 16:00; Stop 03/15/17 at 16:37; Status DC Amino Acids/ Glycerin/ Electrolytes 1,000 ml @ 80 mls/hr [id number] IV Last administered on 03/16/17 07:29; Start 03/15/17 at 16:00 Nicardipine HCl 50 mg/Sodium Chloride 270 ml @ 0 mls/hr CONT PRN IV SEE I/O RECORD Last administered on 03/17/17 00:09; Start 03/15/17 at 17:00 Magnesium Sulfate 50 ml @ 25 mls/hr 1X ONCE IV Last administered on 03/16/17 14:14; Start 03/16/17 at 13:15; Stop 03/16/17 at 15:14; Status DC Artificial Tears (Artificial Tears) 2 drop DAILY OU Last administered on 7/12/ 17at 08:55; Start 03/16/17 at 14:19 Sennosides (Senna) 8.6 mg PRN BID PRN PO CONSTIPATION; Start 03/17/17 at 15:45 Lansoprazole (Prevacid) 30 mg BIDBFRMEAL FT ; Start 03/17/17 at 16:30; Status Cancel Pantoprazole Sodium (Protonix Packet) 40 mg BIDBFRMEAL PO Last administered on 03/17/17t 17:01; Start 03/17/17 at 16:30 Active Scripts Active Reported Ceftriaxone 1 Gm Piggyback (Ceftriaxone Na/Dextrose,Iso) 1 Gm/50 Ml Froz.piggy 1 Gm IV QHS Sodium Chloride (Sodium Chloride 0.45 %) 1,000 Ml Iv.soln 1,000 Ml IV [id number] Albuterol Sulfate Neb Soln (Albuterol Sulfate) 2.5 Mg/3 Ml Vial.neb 2.5 Mg NEB PRN QID PRN Norvasc (Amlodipine Besylate) 10 Mg Tablet 10 Mg PO DAILY Zoloft (Sertraline Hcl) 25 Mg Tablet 25 Mg PO QHS Zyprexa Zydis (Olanzapine) 5 Mg Tab.rapdis 2.5 Mg PO PRN Q2HR PRN Milk Of Magnesia (Magnesium Hydroxide) 400 Mg/5 Ml Oral.susp 2,400 Mg PO PRN QHS PRN Loxapine (Loxapine Succinate) 10 Mg Capsule 10 Mg PO QHS Maximum D3 (Cholecalciferol (Vitamin D3)) 10,000 Unit Capsule 50,000 Unit PO WEEKLY Xifaxan (Rifaximin) 550 Mg Tablet 550 Mg PO BID Tramadol Hcl (Tramadol HCl) 50 Mg Tablet 50 Mg PO PRN Q12HR PRN Tessalon Perle (Benzonatate) 100 Mg Capsule 100 Mg PO PRN Q4HRS PRN Senokot (Sennosides) 8.6 Mg Tablet 8.6 Mg PO HS Saline Nasal [place] (Sodium Chloride) 30 Ml [place] 2 Sprays NS PRN Q4HRS PRN Robitussin Nighttime Cough Dm (Dextromethorphan Hb/Doxylamine) 237 Ml Liquid 10 Ml PO PRN Q4HRS PRN Omeprazole 40 Mg Capsule.dr 40 Mg PO BIDWMEALS Nephro-Fady Tablet (Folic Acid/Vitamin B Comp W-C) 0.8 Mg Tablet 1 Tab PO DAILY Alum-Mag Hydroxide-Simeth Liq (Mag Hydrox/Al Hydrox/Simeth) 360 Ml Oral.susp 15 Ml PO PRN AFTMEALHC PRN Montelukast Sodium Tablet (Montelukast Sodium) 10 Mg Tablet 10 Mg PO HS Namenda (Memantine Hcl) 10 Mg Tablet 10 Mg PO BID Lorazepam 0.5 Mg Tablet 0.5 Mg PO PRN Q6HRS PRN Levothyroxine Sodium 75 Mcg Tablet 75 Mcg PO DAILY06 Lactulose 10 Gm/15 Ml Solution 20 Gm PO DAILY Duoneb 0.5-3(2.5) Mg/3 Ml (Albuterol/Ipratropium) 3 Ml Ampul.neb 3 Ml NEB QID Icy Hot Cream (Methyl Salicylate/Menthol) 35.4 Gm Cream..g. 1 Applic TP PRN QID PRN Hydralazine Hcl 50 Mg Tablet 50 Mg PO TID Guaifenesin 600 Mg Tablet.er 600 Mg PO BID Fluticasone Propionate Nasal [place] (Fluticasone Propionate) 16 Gm [place].susp 2 Hampton NS PRN BID PRN Breo Ellipta 100-25 Mcg Inh (Fluticasone/Vilanterol) 1 Each Aer.pow.ba 1 Puff IH DAILY Ferrous Sulfate 325 Mg Tablet 325 Mg PO BID Donepezil Hcl 5 Mg Tablet 5 Mg PO HS Depakote Sprinkle (Divalproex Sodium) 125 Mg Cap.sprink 250 Mg PO BID Cetirizine Hcl 10 Mg Tablet 10 Mg PO DAILY Carvedilol 12.5 Mg Tablet 12.5 Mg PO BID Calcium Polycarbophil 625 Mg Tablet 625 Mg PO DAILY Buspirone Hcl 5 Mg Tablet 5 Mg PO QID Benztropine Mesylate 0.5 Mg Tablet 0.5 Mg PO DAILY Atorvastatin Calcium 10 Mg Tablet 5 Mg PO QHS PRN Artificial Tears Eye Drops (Dextran 70/Hypromellose) 15 Ml Drops 2 Drop OU DAILY Amantadine (Amantadine Hcl) 100 Mg Tablet 100 Mg PO QODAY Tylenol (Acetaminophen) 325 Mg Tablet 650 Mg PO PRN Q4HRS PRN SHANE BUTTS MD Mar 17, 2017 21:06
[2017-03-17] MEDS: SENNOSIDES 8.6 MG TABLET PO SCH (21:16)
[2017-03-18] VITALS (14 sets, daily range): BP systolic 82–160; BP diastolic 46–75
--- NOTE | 2017-03-18 04:15 | NUR ---
Pt has been having ectopy in the last 20 minutes, she began having frequent PAC's, then a run of PAT/SVT non sustained rate of approximatedly 156, then about 10 minutes later had 3 runs of VTach that were 3 beats each, about 5 minutes apart. BP had risen to 160/62 at this time. Labetalol 20mg IV was given per orders. Ectopy resolved, pt denied any symptoms at this time. Pt had previously been off her carvediolol for a few days due to being NPO, it was resumed yesterday.
[2017-03-18] MEDS: LABETALOL 20 MG/4 ML DISP.SYRIN. IVP SCH (04:39)
[2017-03-18] MEDS: IPRATRPIUM/ALBUTEROL 0.5/2.5MG 3 ML NEBU. NEB SCH ×2 (05:33→09:28)
[2017-03-18] MEDS: LEVOTHYROXINE 75 MCG TABLET PO SCH (05:35)
--- NOTE | 2017-03-18 06:00 | NUR ---
Pt remains free from ectopy, pt is awake and alert.
[2017-03-18 06:23] LABS: HEMATOCRIT 48.9 % (36.0-47.0); HEMOGLOBIN 15.8 g/dL (12.0-15.5); RED BLOOD COUNT 5.35 x10^6/uL (3.50-5.40); RED CELL DISTRIBUTION WIDTH 16.9 % (11.5-14.5); WHITE BLOOD COUNT 5.9 x10^3/uL (4.0-11.0)
[2017-03-18 06:32] LABS: ALBUMIN 2.8 g/dL (3.4-5.0); ALBUMIN/GLOBULIN RATIO 0.6 (1.0-1.7); CALCIUM 9.2 mg/dL (8.5-10.1); CREATININE 2.2 mg/dL (0.6-1.0); GFR 26.3; MAGNESIUM 2.5 mg/dL (1.8-2.4); POTASSIUM 4.2 mmol/L (3.5-5.1); TOTAL BILIRUBIN 0.4 mg/dL (0.2-1.0); TOTAL PROTEIN 7.5 g/dL (6.4-8.2)
[2017-03-18] MEDS: hydrALAZINE 20 MG/ML VIAL. IV SCH ×3 (07:02→11:51)
[2017-03-18] MEDS: AA 3%/ELECTROLYTE-TPN SOLN/GLY 1,000 ML IV SCH (07:03)
[2017-03-18] MEDS: CARVEDILOL 12.5 MG TABLET PO SCH (08:26)
[2017-03-18] MEDS: DIVALPROEX 125 MG CAP.SPRINK PO SCH (08:27)
[2017-03-18] MEDS: LOXAPINE SUCCINATE 5 MG CAPSULE PO SCH (08:28)
[2017-03-18] MEDS: HEPARIN PF for SUB-Q USE 5,000 UNIT/0.5 ML VIAL. SQ SCH (08:28)
[2017-03-18] MEDS: FOLIC/VIT B COMP W-C (RENAL) TABLET. PO SCH (08:33)
[2017-03-18] MEDS: amLODIPine BESYLATE 10 MG TABLET PO SCH (08:33)
[2017-03-18] MEDS: POLYVINYL ALCOHOL 1.4% OPHTH SOLUTION 15ML BOTTLE. OU SCH (08:33)
[2017-03-18] MEDS: PANTOPRAZOLE 40 MG PACKET. PO SCH (08:34)
[2017-03-18] MEDS: rifAXIMin 550 MG TABLET PO SCH (08:34)
[2017-03-18] MEDS: BENZTROPINE MESYLATE 0.5 MG TABLET PO SCH (08:34)
[2017-03-18] MEDS ORDERED: IV NORMAL SALINE 500ML 500 ML IV ONE (09:00)
[2017-03-18] MEDS: LACTULOSE 20 GM/30 ML SOLUTION. PO SCH ×2 (09:00→13:11)
[2017-03-18] MEDS: BUDESONIDE 0.5 MG/2 ML NEBU NEB SCH (09:28)
--- NOTE | 2017-03-18 09:50 | PDOC ---
PROGRESS NOTES Assessment 1. Accelerated hypertension - Off Cardene drip since 10pm last night. Taking oral meds but resistant to taking all. Will rearrange medications to decrease number taken at once. Blood pressure currently well controlled at 126/55mmHg. Goal SBP~130 mmHg systolic. Echo - <Conclusion> The left ventricular systolic function is normal and the ejection fraction is within normal range. The Ejection Fraction is 65-70%. There is moderate concentric left ventricular hypertrophy. Calculated aortic valve area is 1.2-1.4 cm2 with maximum pressure gradient of 52 mmHg and mean pressure gradient of 33 mmHg. Dimensionless index is .37 consistent with moderate aortic valve stenosis. There is mild mitral valve stenosis. Calculated mitral valve area is 1.8 cm2 with maximum pressure gradient of 20 mmHg and mean pressure gradient of 5 mmHg. The ascending aorta is mildly dilated (3.7 cm) 2. Aortic stenosis - mild to mod, medical mgmt 3. history of heart failure - she continues to appear euvolemic, no overt heart failure. 4. CKD - Cr appears stable at 1.9 - 2.2 (stage III-IV) 5. dysphagia - diet as per PCP Problems: Subjective c/o "tired", says food is "nasty" and not eating well. Not taking all medications but willing to try if spread out through day. No chest pain, dyspnea or palpitations Objective telemetry - sinus rhythm Vital Signs Date Time Temp Pulse Resp B/P (MAP) Pulse Ox O2 Delivery O2 Flow Rate FiO2 03/18/17 09:30 99 Room Air 03/18/17 08:33 68 155/62 03/18/17 07:18 21 03/18/17 05:35 2.0 03/17/17 19:12 97.8 Intake and Output 03/18/17 07:00 Intake Total 1825 ml Output Total 521 ml Balance 1304 ml Intake Oral 1100 ml IV Total 725 ml Output Urine Total 521 ml Abdomen: Normal bowel sounds, Soft Heart: Regular rate, Normal S1, Normal S2, Other (+ESM 2/6, no gallops, clicks or rubs) Extremities: No cyanosis, Normal pulses, Other (chronic PVD changes) General: Alert, Cooperative, No acute distress Lungs: Clear to auscultation Neuro: Normal speech Psych/Mental Status: Mood NL Review of Relevant I have reviewed the following items tony (where applicable) has been applied. Labs Laboratory Tests Test 03/16/17 09:46 03/16/17 16:48 03/16/17 21:19 03/17/17 08:00 White Blood Count 5.6 x10^3/uL (4.0-11.0) 6.1 x10^3/uL (4.0-11.0) Red Blood Count 5.30 x10^6/uL (3.50-5.40) 5.78 x10^6/uL (3.50-5.40) Hemoglobin 15.6 g/dL (12.0-15.5) 17.0 g/dL (12.0-15.5) Hematocrit 48.0 % (36.0-47.0) 51.9 % (36.0-47.0) Mean Corpuscular Volume 91 fL (79-100) 90 fL (79-100) Mean Corpuscular Hemoglobin 29 pg (25-35) 30 pg (25-35) Mean Corpuscular Hemoglobin Concent 32 g/dL (31-37) 33 g/dL (31-37) Red Cell Distribution Width 16.8 % (11.5-14.5) 17.2 % (11.5-14.5) Platelet Count 133 x10^3/uL (140-400) 128 x10^3/uL (140-400) Neutrophils (%) (Auto) 58 % (31-73) Lymphocytes (%) (Auto) 18 % (24-48) Monocytes (%) (Auto) 19 % (0-9) Eosinophils (%) (Auto) 4 % (0-3) Basophils (%) (Auto) 1 % (0-3) Neutrophils # (Auto) 3.3 x10^3uL (1.8-7.7) Lymphocytes # (Auto) 1.0 x10^3/uL (1.0-4.8) Monocytes # (Auto) 1.1 x10^3/uL (0.0-1.1) Eosinophils # (Auto) 0.2 x10^3/uL (0.0-0.7) Basophils # (Auto) 0.0 x10^3/uL (0.0-0.2) Sodium Level 139 mmol/L (136-145) 141 mmol/L (136-145) Potassium Level 4.6 mmol/L (3.5-5.1) 4.5 mmol/L (3.5-5.1) Chloride Level 105 mmol/L (98-107) 106 mmol/L (98-107) Carbon Dioxide Level 25 mmol/L (21-32) 24 mmol/L (21-32) Anion Gap 9 (6-14) 11 (6-14) Blood Urea Nitrogen 30 mg/dL (7-20) 33 mg/dL (7-20) Creatinine 2.0 mg/dL (0.6-1.0) 1.9 mg/dL (0.6-1.0) Estimated GFR (Cockcroft-Gault) 29.3 31.1 BUN/Creatinine Ratio 15 (6-20) 17 (6-20) Glucose Level 109 mg/dL (70-99) 99 mg/dL (70-99) Calcium Level 9.0 mg/dL (8.5-10.1) 9.3 mg/dL (8.5-10.1) Magnesium Level 1.5 mg/dL (1.8-2.4) 2.2 mg/dL (1.8-2.4) Total Bilirubin 0.4 mg/dL (0.2-1.0) 0.4 mg/dL (0.2-1.0) Aspartate Amino Transf (AST/SGOT) 22 U/L (15-37) 22 U/L (15-37) Alanine Aminotransferase (ALT/SGPT) 34 U/L (14-59) 33 U/L (14-59) Alkaline Phosphatase 91 U/L (46-116) 99 U/L (46-116) Total Protein 7.4 g/dL (6.4-8.2) 7.7 g/dL (6.4-8.2) Albumin 2.7 g/dL (3.4-5.0) 3.2 g/dL (3.4-5.0) Albumin/Globulin Ratio 0.6 (1.0-1.7) 0.7 (1.0-1.7) Glucose (Fingerstick) 86 mg/dL (70-99) 93 mg/dL (70-99) Test 03/18/17 05:45 White Blood Count 5.9 x10^3/uL (4.0-11.0) Red Blood Count 5.35 x10^6/uL (3.50-5.40) Hemoglobin 15.8 g/dL (12.0-15.5) Hematocrit 48.9 % (36.0-47.0) Mean Corpuscular Volume 91 fL (79-100) Mean Corpuscular Hemoglobin 30 pg (25-35) Mean Corpuscular Hemoglobin Concent 32 g/dL (31-37) Red Cell Distribution Width 16.9 % (11.5-14.5) Platelet Count 136 x10^3/uL (140-400) Sodium Level 136 mmol/L (136-145) Potassium Level 4.2 mmol/L (3.5-5.1) Chloride Level 106 mmol/L (98-107) Carbon Dioxide Level 22 mmol/L (21-32) Anion Gap 8 (6-14) Blood Urea Nitrogen 47 mg/dL (7-20) Creatinine 2.2 mg/dL (0.6-1.0) Estimated GFR (Cockcroft-Gault) 26.3 BUN/Creatinine Ratio 21 (6-20) Glucose Level 94 mg/dL (70-99) Calcium Level 9.2 mg/dL (8.5-10.1) Magnesium Level 2.5 mg/dL (1.8-2.4) Total Bilirubin 0.4 mg/dL (0.2-1.0) Aspartate Amino Transf (AST/SGOT) 22 U/L (15-37) Alanine Aminotransferase (ALT/SGPT) 27 U/L (14-59) Alkaline Phosphatase 90 U/L (46-116) Total Protein 7.5 g/dL (6.4-8.2) Albumin 2.8 g/dL (3.4-5.0) Albumin/Globulin Ratio 0.6 (1.0-1.7) Medications Current Medications Sodium Chloride (Normal Saline Flush) 3 ml PRN DAILY PRN IV AFTER MEDS AND BLOOD DRAWS; Start 03/12/17 at 21:00; Stop 03/13/17 at 12:10; Status DC Dextrose/Sodium Chloride 1,000 ml @ 100 mls/hr Q10H IV Last administered on t 18:05; Start 03/12/17 at 20:54; Stop 03/14/17 at 06:41; Status DC Calcium Carbonate/ Glycine (Tums) 500 mg PRN Q3HRS PRN PO HEARTBURN / GAS Last administered on 03/15/17 06:32; Start 03/12/17 at 21:00; Status Future hold Heparin Sodium (Porcine) 5,000 unit Q12H SQ Last administered on 03/18/17 08: 28; Start 03/12/17 at 21:00 Ceftriaxone Sodium 1 gm/ Sodium Chloride 50 ml @ 100 mls/hr QODAY IV Last administered on 03/14/17 08:13; Start 03/12/17 at 21:30; Stop 03/15/17 at 11:17; Status DC Sodium Chloride 50 ml @ As Directed STK-MED ONCE .ROUTE Last administered on 22:07; Start 03/12/17 at 22:07; Stop 03/12/17 at 22:08; Status DC Benztropine Mesylate (Cogentin) 0.5 mg DAILY PO Last administered on 03/18/17 08:34; Start 03/13/17 at 09:00; Status Future hold Buspirone HCl (Buspar) 5 mg QID PO ; Start 03/13/17 at 09:00; Stop 03/13/17 at 19: 15; Status DC Lorazepam (Ativan) 0.5 mg PRN Q6HRS PRN PO ANXIETY / AGITATION; Start 03/12/17 at 22:15 Olanzapine (ZyPREXA ZYDIS) 2.5 mg PRN Q2HR PRN PO PSYCHOSIS Last administered on 03/13/17 21:38; Start 03/12/17 at 22:15 Acetaminophen (Tylenol) 650 mg PRN Q4HRS PRN PO PAIN / TEMP; Start 03/13/17 at 11:45 Albuterol Sulfate (Ventolin) 2.5 mg PRN QID PRN NEB SHORTNESS OF BREATH; Start 03/13/17 at 11:45 Amlodipine Besylate (Norvasc) 10 mg DAILY PO Last administered on 03/18/17 08: 33; Start 03/14/17 at 09:00 Carvedilol (Coreg) 12.5 mg BID PO Last administered on 03/18/17 08:26; Start 03/13/17 at 21:00 Divalproex Sodium (Depakote Sprinkles) 250 mg BID PO ; Start 03/13/17 at 21:00; Stop 03/13/17 at 21:00; Status DC Donepezil HCl (Aricept) 5 mg HS PO ; Start 03/13/17 at 21:00; Stop 03/13/17 at 21: 00; Status DC Multivit/Ca Carb/ B Cmplx/FA/Prenat (Nephro-Fady) 1 tab DAILY PO Last administered on 03/18/17 08:33; Start 03/14/17 at 09:00; Status Future hold Hydralazine HCl (Apresoline) 50 mg TID PO Last administered on 03/18/17 08:27 ; Start 03/13/17 at 14:00 Albuterol/ Ipratropium (Duoneb) 3 ml QID NEB Last administered on 03/18/17 09: 28; Start 03/13/17 at 13:00 Levothyroxine Sodium (Synthroid) 75 mcg DAILY06 PO Last administered on 05:35; Start 03/14/17 at 06:00 Magnesium Hydroxide (Milk Of Magnesia) 2,400 mg PRN QHS PRN PO CONSTIPATION; Start 03/13/17 at 11:45 Memantine (Namenda) 10 mg BID PO ; Start 03/13/17 at 21:00; Stop 03/13/17 at 21:00 ; Status DC Rifaximin (Xifaxan) 550 mg BID PO Last administered on 03/18/17 08:34; Start 03/13/17 at 21:00 Sennosides (Senna) 8.6 mg HS PO Last administered on 03/17/17 21:16; Start 03/13/17 at 21:00; Status Future hold Sertraline HCl (Zoloft) 25 mg QHS PO Last administered on 03/14/17 21:00; Start 03/13/17 at 21:00; Status Future hold Sodium Chloride (Saline Mist Nasal) 1 ezio PRN Q4HRS PRN NS rhinitis; Start 03/13 at 11:45 Amantadine HCl (Symmetrel) 100 mg QODAY PO Last administered on 03/15/17 09:00 ; Start 03/15/17 at 09:00; Status Future hold Artificial Tears (Artificial Tears) 2 drop DAILY OU Last administered on 09:00; Start 03/14/17 at 09:00; Stop 03/16/17 at 14:19; Status DC Non-Formulary Medication 1 puff DAILY IH ; Start 03/14/17 at 09:00; Stop 03/14/17 at 09:00; Status DC Lactulose 20 gm DAILY PO ; Start 03/14/17 at 09:00; Status Future hold Loxapine Succinate (Loxitane) 10 mg QHS PO ; Start 03/13/17 at 21:00; Stop at 21:00; Status DC Magnesium Hydroxide (Milk Of Magnesia) 2,400 mg PRN AFTMEALHC PRN PO HEARTBURN / GAS; Start 03/13/17 at 12:15 Pantoprazole Sodium (Protonix) 40 mg BIDWMEALS PO ; Start 03/13/17 at 17:00; Stop 03/17/17 at 16:32; Status DC Albuterol Sulfate (Ventolin) 2.5 mg RTQID NEB ; Start 03/13/17 at 16:00; Stop 03/13/17 at 16:00; Status DC Budesonide (Pulmicort) 0.5 mg RTBID NEB Last administered on 03/18/17 09:28; Start 03/13/17 at 20:00 Hydralazine HCl (Apresoline) 10 mg PRN Q4HRS PRN IV ELEVATED BP, SEE COMMENTS Last administered on 03/13/17 21:20; Start 03/13/17 at 15:45 Nystatin (Nystop) 1 ezio BID TP Last administered on 03/17/17 22:12; Start 03/13 at 21:00 Glucose (Insta-Glucose) 15 gm PRN Q15MIN PRN PO LOW BLOOD SUGAR; Start 03/12/17 at 07:20; Stop 03/13/17 at 16:42; Status DC Labetalol HCl (Normodyne) 20 mg BID IVP Last administered on 03/18/17 04:39; Start 03/13/17 at 18:30 Loxapine Succinate (Loxitane) 10 mg BID94 PO Last administered on 03/18/17 08: 28; Start 03/14/17 at 09:00; Status Future hold Potassium Chloride/Dextrose/ Sod Cl 1,000 ml @ 80 mls/hr [id number] IV Last administered on 03/15/17 03:35; Start 03/14/17 at 06:45; Stop 03/15/17 at 15:53 ; Status DC Divalproex Sodium (Depakote Sprinkles) 250 mg BID PO Last administered on 08:27; Start 03/14/17 at 21:00 Hydralazine HCl (Apresoline) 20 mg Q6HRS IV Last administered on 03/18/17 07: 02; Start 03/15/17 at 12:00 Ceftriaxone Sodium 1 gm/ Sodium Chloride 50 ml @ 100 mls/hr DAILY IV Last administered on 03/18/17 08:36; Start 03/15/17 at 12:00; Stop 03/18/17 at 12:00 Furosemide (Lasix) 20 mg 1X ONCE IVP Last administered on 03/15/17 15:40; Start 03/15/17 at 14:00; Stop 03/15/17 at 14:01; Status DC Furosemide (Lasix) 20 mg 1X ONCE IVP Last administered on 03/15/17 15:40; Start 03/15/17 at 14:30; Stop 03/15/17 at 14:31; Status DC Hydralazine HCl (Apresoline) 10 mg 1X ONCE IV Last administered on 03/15/17 15:42; Start 03/15/17 at 14:30; Stop 03/15/17 at 14:31; Status DC Ondansetron HCl (Zofran) 4 mg PRN Q6HRS PRN IV NAUSEA/VOMITING; Start 03/15/17 at 16:00 Potassium Chloride/Dextrose/ Sod Cl 1,000 ml @ 75 mls/hr [id number] IV ; Start 06/22 at 16:00; Stop 03/15/17 at 16:37; Status DC Amino Acids/ Glycerin/ Electrolytes 1,000 ml @ 80 mls/hr [id number] IV Last administered on 03/18/17 07:03; Start 03/15/17 at 16:00 Nicardipine HCl 50 mg/Sodium Chloride 270 ml @ 0 mls/hr CONT PRN IV SEE I/O RECORD Last administered on 03/17/17 00:09; Start 03/15/17 at 17:00 Magnesium Sulfate 50 ml @ 25 mls/hr 1X ONCE IV Last administered on 03/16/17 14:14; Start 03/16/17 at 13:15; Stop 03/16/17 at 15:14; Status DC Artificial Tears (Artificial Tears) 2 drop DAILY OU Last administered on 08:33; Start 03/16/17 at 14:19 Sennosides (Senna) 8.6 mg PRN BID PRN PO CONSTIPATION; Start 03/17/17 at 15:45 Lansoprazole (Prevacid) 30 mg BIDBFRMEAL FT ; Start 03/17/17 at 16:30; Status Cancel Pantoprazole Sodium (Protonix Packet) 40 mg BIDBFRMEAL PO Last administered on 03/18/17 08:34; Start 03/17/17 at 16:30 Sodium Chloride 500 ml @ 0 mls/hr 1X ONCE IV ; Start 03/18/17 at 09:00; Stop at 09:01; Status DC Active Scripts Active Reported Ceftriaxone 1 Gm Piggyback (Ceftriaxone Na/Dextrose,Iso) 1 Gm/50 Ml Froz.piggy 1 Gm IV QHS Sodium Chloride (Sodium Chloride 0.45 %) 1,000 Ml Iv.soln 1,000 Ml IV [id number] Albuterol Sulfate Neb Soln (Albuterol Sulfate) 2.5 Mg/3 Ml Vial.neb 2.5 Mg NEB PRN QID PRN Norvasc (Amlodipine Besylate) 10 Mg Tablet 10 Mg PO DAILY Zoloft (Sertraline Hcl) 25 Mg Tablet 25 Mg PO QHS Zyprexa Zydis (Olanzapine) 5 Mg Tab.rapdis 2.5 Mg PO PRN Q2HR PRN Milk Of Magnesia (Magnesium Hydroxide) 400 Mg/5 Ml Oral.susp 2,400 Mg PO PRN QHS PRN Loxapine (Loxapine Succinate) 10 Mg Capsule 10 Mg PO QHS Maximum D3 (Cholecalciferol (Vitamin D3)) 10,000 Unit Capsule 50,000 Unit PO WEEKLY Xifaxan (Rifaximin) 550 Mg Tablet 550 Mg PO BID Tramadol Hcl (Tramadol HCl) 50 Mg Tablet 50 Mg PO PRN Q12HR PRN Tessalon Perle (Benzonatate) 100 Mg Capsule 100 Mg PO PRN Q4HRS PRN Senokot (Sennosides) 8.6 Mg Tablet 8.6 Mg PO HS Saline Nasal [place] (Sodium Chloride) 30 Ml [place] 2 Sprays NS PRN Q4HRS PRN Robitussin Nighttime Cough Dm (Dextromethorphan Hb/Doxylamine) 237 Ml Liquid 10 Ml PO PRN Q4HRS PRN Omeprazole 40 Mg Capsule.dr 40 Mg PO BIDWMEALS Nephro-Fady Tablet (Folic Acid/Vitamin B Comp W-C) 0.8 Mg Tablet 1 Tab PO DAILY Alum-Mag Hydroxide-Simeth Liq (Mag Hydrox/Al Hydrox/Simeth) 360 Ml Oral.susp 15 Ml PO PRN AFTMEALHC PRN Montelukast Sodium Tablet (Montelukast Sodium) 10 Mg Tablet 10 Mg PO HS Namenda (Memantine Hcl) 10 Mg Tablet 10 Mg PO BID Lorazepam 0.5 Mg Tablet 0.5 Mg PO PRN Q6HRS PRN Levothyroxine Sodium 75 Mcg Tablet 75 Mcg PO DAILY06 Lactulose 10 Gm/15 Ml Solution 20 Gm PO DAILY Duoneb 0.5-3(2.5) Mg/3 Ml (Albuterol/Ipratropium) 3 Ml Ampul.neb 3 Ml NEB QID Icy Hot Cream (Methyl Salicylate/Menthol) 35.4 Gm Cream..g. 1 Applic TP PRN QID PRN Hydralazine Hcl 50 Mg Tablet 50 Mg PO TID Guaifenesin 600 Mg Tablet.er 600 Mg PO BID Fluticasone Propionate Nasal [place] (Fluticasone Propionate) 16 Gm [place].susp 2 [place] NS PRN BID PRN Breo Ellipta 100-25 Mcg Inh (Fluticasone/Vilanterol) 1 Each Aer.pow.ba 1 Puff IH DAILY Ferrous Sulfate 325 Mg Tablet 325 Mg PO BID Donepezil Hcl 5 Mg Tablet 5 Mg PO HS Depakote Sprinkle (Divalproex Sodium) 125 Mg Cap.sprink 250 Mg PO BID Cetirizine Hcl 10 Mg Tablet 10 Mg PO DAILY Carvedilol 12.5 Mg Tablet 12.5 Mg PO BID Calcium Polycarbophil 625 Mg Tablet 625 Mg PO DAILY Buspirone Hcl 5 Mg Tablet 5 Mg PO QID Benztropine Mesylate 0.5 Mg Tablet 0.5 Mg PO DAILY Atorvastatin Calcium 10 Mg Tablet 5 Mg PO QHS PRN Artificial Tears Eye Drops (Dextran 70/Hypromellose) 15 Ml Drops 2 Drop OU DAILY Amantadine (Amantadine Hcl) 100 Mg Tablet 100 Mg PO QODAY Tylenol (Acetaminophen) 325 Mg Tablet 650 Mg PO PRN Q4HRS PRN Vitals/I & O Vital Sign - Last 24 Hours 03/17/17 03/17/17 03/17/17 03/17/17 10:17 10:58 11:28 11:38 Pulse 70 72 76 Resp 21 12 12 B/P (MAP) 145/72 (96) 137/66 (89) 123/62 (82) Pulse Ox 99 99 99 93 O2 Delivery Room Air Room Air Room Air Room Air 03/17/17 03/17/17 03/17/17 03/17/17 11:39 12:28 12:33 13:39 Pulse 87 85 Resp 12 19 B/P (MAP) 110/66 (81) 119/64 (82) Pulse Ox 93 99 O2 Delivery Room Air Room Air Room Air Room Air 03/17/17 03/17/17 03/17/17 03/17/17 14:06 15:12 16:12 16:26 Pulse 74 79 84 Resp 24 24 B/P (MAP) 138/74 130/69 (89) 150/75 (100) Pulse Ox 99 99 O2 Delivery Nasal Cannula Nasal Cannula Room Air O2 Flow Rate 2.0 2.0 03/17/17 03/17/17 03/17/17 03/17/17 16:59 17:12 18:12 19:12 Temp 97.8 Pulse 93 102 102 Resp 21 21 18 B/P (MAP) 135/72 (93) 147/69 (95) 147/69 (95) Pulse Ox 97 95 98 O2 Delivery Nasal Cannula Room Air Room Air Room Air O2 Flow Rate 2.0 03/17/17 03/17/17 03/17/17 03/17/17 20:00 20:38 20:39 20:42 Pulse 98 Resp 18 B/P (MAP) 142/83 (102) Pulse Ox 97 97 O2 Delivery Room Air Nasal Cannula Room Air Nasal Cannula O2 Flow Rate 2.0 2.0 03/17/17 03/17/17 03/17/1703/17/17 21:00 21:16 21:17 22:04 Pulse 104 98 98 104 Resp 23 B/P (MAP) 145/74 142/83 142/83 145/74 (97) O2 Delivery Room Air 03/17/17 03/17/17 03/18/17 03/18/17 22:52 23:59 00:00 00:20 Pulse 94 71 71 Resp 24 20 B/P (MAP) 114/64 (81) 140/75 140/75 (96) O2 Delivery Room Air Room Air Room Air 03/18/17 03/18/17 03/18/17 03/18/17 01:11 02:08 03:28 04:00 Pulse 82 74 73 Resp 18 18 25 B/P (MAP) 144/59 (87) 127/61 (83) 130/67 (88) Pulse Ox O2 Delivery Room Air Room Air Room Air Room Air O2 Flow Rate 03/18/17 03/18/17 03/18/17 03/18/17 04:16 04:32 04:39 05:05 Pulse 74 67 72 71 Resp 18 23 21 B/P (MAP) 160/62 (94) 141/46 (77) 160/62 160/61 (94) Pulse Ox 91 97 O2 Delivery Room Air Room Air Room Air 03/18/17 03/18/17 03/18/17 03/18/17 05:35 06:13 07:02 07:18 Pulse 67 68 71 Resp 21 B/P (MAP) 154/67 (96) 157/64 146/62 (90) Pulse Ox 94 O2 Delivery Nasal Cannula Room Air Room Air O2 Flow Rate 2.0 03/18/17 03/18/17 03/18/17 03/18/17 08:26 08:27 08:33 09:30 Pulse 68 68 68 B/P (MAP) 155/60 155/60 155/62 Pulse Ox 99 O2 Delivery Room Air Intake and Output 03/17/17 03/17/17 03/18/17 15:00 23:00 07:00 Intake Total 525 ml 1050 ml 250 ml Output Total 150 ml 295 ml 76 ml Balance 375 ml 755 ml 174 ml PATTY ROMERO [employer]IST Mar 18, 2017 09:50
--- NOTE | 2017-03-18 09:58 | PDOC ---
SUBJECTIVE: No new neurological c/o. the patient has been on puree diet her oral input is poor. OBJECTIVE: Vital Signs: Vital Signs Date Time Temp Pulse Resp B/P (MAP) Pulse Ox O2 Delivery O2 Flow Rate FiO2 03/18/17 09:30 99 Room Air 03/18/17 08:33 70 126/55 03/18/17 07:18 21 03/18/17 05:35 2.0 03/17/17 19:12 97.8 I & O Intake and Output 03/18/17 06:59 Intake Total 1825 ml Output Total 521 ml Balance 1304 ml Intake Oral 1100 ml IV Total 725 ml Output Urine Total 521 ml Labs: Laboratory Tests Test 03/16/17 16:48 03/16/17 21:19 03/17/17 08:00 03/18/17 05:45 Glucose (Fingerstick) 86 mg/dL (70-99) 93 mg/dL (70-99) White Blood Count 6.1 x10^3/uL (4.0-11.0) 5.9 x10^3/uL (4.0-11.0) Red Blood Count 5.78 x10^6/uL (3.50-5.40) 5.35 x10^6/uL (3.50-5.40) Hemoglobin 17.0 g/dL (12.0-15.5) 15.8 g/dL (12.0-15.5) Hematocrit 51.9 % (36.0-47.0) 48.9 % (36.0-47.0) Mean Corpuscular Volume 90 fL (79-100) 91 fL (79-100) Mean Corpuscular Hemoglobin 30 pg (25-35) 30 pg (25-35) Mean Corpuscular Hemoglobin Concent 33 g/dL (31-37) 32 g/dL (31-37) Red Cell Distribution Width 17.2 % (11.5-14.5) 16.9 % (11.5-14.5) Platelet Count 128 x10^3/uL (140-400) 136 x10^3/uL (140-400) Sodium Level 141 mmol/L (136-145) 136 mmol/L (136-145) Potassium Level 4.5 mmol/L (3.5-5.1) 4.2 mmol/L (3.5-5.1) Chloride Level 106 mmol/L (98-107) 106 mmol/L (98-107) Carbon Dioxide Level 24 mmol/L (21-32) 22 mmol/L (21-32) Anion Gap 11 (6-14) 8 (6-14) Blood Urea Nitrogen 33 mg/dL (7-20) 47 mg/dL (7-20) Creatinine 1.9 mg/dL (0.6-1.0) 2.2 mg/dL (0.6-1.0) Estimated GFR (Cockcroft-Gault) 31.1 26.3 BUN/Creatinine Ratio 17 (6-20) 21 (6-20) Glucose Level 99 mg/dL (70-99) 94 mg/dL (70-99) Calcium Level 9.3 mg/dL (8.5-10.1) 9.2 mg/dL (8.5-10.1) Magnesium Level 2.2 mg/dL (1.8-2.4) 2.5 mg/dL (1.8-2.4) Total Bilirubin 0.4 mg/dL (0.2-1.0) 0.4 mg/dL (0.2-1.0) Aspartate Amino Transf (AST/SGOT) 22 U/L (15-37) 22 U/L (15-37) Alanine Aminotransferase (ALT/SGPT) 33 U/L (14-59) 27 U/L (14-59) Alkaline Phosphatase 99 U/L (46-116) 90 U/L (46-116) Total Protein 7.7 g/dL (6.4-8.2) 7.5 g/dL (6.4-8.2) Albumin 3.2 g/dL (3.4-5.0) 2.8 g/dL (3.4-5.0) Albumin/Globulin Ratio 0.7 (1.0-1.7) 0.6 (1.0-1.7) PLAN: Continue with current care . Mandy TEMPLE MD Mar 18, 2017 09:58
--- NOTE | 2017-03-18 10:04 | PDOC ---
OBJECTIVE: Vital Signs: Vital Signs Date Time Temp Pulse Resp B/P (MAP) Pulse Ox O2 Delivery O2 Flow Rate FiO2 03/18/17 09:30 99 Room Air 03/18/17 08:33 68 155/62 03/18/17 07:18 21 03/18/17 05:35 2.0 03/17/17 19:12 97.8 I & O Intake and Output 03/18/17 06:59 Intake Total 1825 ml Output Total 521 ml Balance 1304 ml Intake Oral 1100 ml IV Total 725 ml Output Urine Total 521 ml Labs: Laboratory Tests Test 03/16/17 16:48 03/16/17 21:19 03/17/17 08:00 03/18/17 05:45 Glucose (Fingerstick) 86 mg/dL (70-99) 93 mg/dL (70-99) White Blood Count 6.1 x10^3/uL (4.0-11.0) 5.9 x10^3/uL (4.0-11.0) Red Blood Count 5.78 x10^6/uL (3.50-5.40) 5.35 x10^6/uL (3.50-5.40) Hemoglobin 17.0 g/dL (12.0-15.5) 15.8 g/dL (12.0-15.5) Hematocrit 51.9 % (36.0-47.0) 48.9 % (36.0-47.0) Mean Corpuscular Volume 90 fL (79-100) 91 fL (79-100) Mean Corpuscular Hemoglobin 30 pg (25-35) 30 pg (25-35) Mean Corpuscular Hemoglobin Concent 33 g/dL (31-37) 32 g/dL (31-37) Red Cell Distribution Width 17.2 % (11.5-14.5) 16.9 % (11.5-14.5) Platelet Count 128 x10^3/uL (140-400) 136 x10^3/uL (140-400) Sodium Level 141 mmol/L (136-145) 136 mmol/L (136-145) Potassium Level 4.5 mmol/L (3.5-5.1) 4.2 mmol/L (3.5-5.1) Chloride Level 106 mmol/L (98-107) 106 mmol/L (98-107) Carbon Dioxide Level 24 mmol/L (21-32) 22 mmol/L (21-32) Anion Gap 11 (6-14) 8 (6-14) Blood Urea Nitrogen 33 mg/dL (7-20) 47 mg/dL (7-20) Creatinine 1.9 mg/dL (0.6-1.0) 2.2 mg/dL (0.6-1.0) Estimated GFR (Cockcroft-Gault) 31.1 26.3 BUN/Creatinine Ratio 17 (6-20) 21 (6-20) Glucose Level 99 mg/dL (70-99) 94 mg/dL (70-99) Calcium Level 9.3 mg/dL (8.5-10.1) 9.2 mg/dL (8.5-10.1) Magnesium Level 2.2 mg/dL (1.8-2.4) 2.5 mg/dL (1.8-2.4) Total Bilirubin 0.4 mg/dL (0.2-1.0) 0.4 mg/dL (0.2-1.0) Aspartate Amino Transf (AST/SGOT) 22 U/L (15-37) 22 U/L (15-37) Alanine Aminotransferase (ALT/SGPT) 33 U/L (14-59) 27 U/L (14-59) Alkaline Phosphatase 99 U/L (46-116) 90 U/L (46-116) Total Protein 7.7 g/dL (6.4-8.2) 7.5 g/dL (6.4-8.2) Albumin 3.2 g/dL (3.4-5.0) 2.8 g/dL (3.4-5.0) Albumin/Globulin Ratio 0.7 (1.0-1.7) 0.6 (1.0-1.7) ASSESSMENT: General:. HEENT: normocephalic, atraumatic, otherwise unremarkable. Neck: supple , negative for JVD, carotid bruit, lymphoadenopathy or thyroidomegaly. Lungs: clear. Cardiovascular: normal S1, S2 without murmur. Abdomen: soft, no tenderness, mass or organomegaly. Extremities: no edema, or clubbing but positive for stasis dermatitis. The peripheral pulses were normal. Neurological Examination: 1- Mental status: alert and oriented to time x2 follows simple commands. speech is fluent . no language dysfunction. memeory , judgment and abstracting thinking are impaired. 2- Cranial Nerves:. The pupils were equal and reactive to light and accommodation. The extra ocular movements were intact; there was no nystagmus on horizontal or vertical gazes. There were no facial, motor or sensory deficits. The hearing was intact. The palate was elevated symmetrically. The sternocleidomastoids The patient protruded the tongue in the midline without fasciculations or atrophy. 3-Motor Examination: No focal muscle bulk wasting. The strength was 4/5 throughout. 4-Sensory Examination: Normal pinprick, light touch, vibratory, and position senses. 5-Deep Tendon Reflexes: Were symmetric and hypoactive without pathologic responses. 6-Coordinations and Gait: Not tested PLAN: ASSESSMENT: mpression: 1-Acute encephalopathy metabolic/infectious- improved. 2- UTI 3- Dementia 4- chronic renal failure improved 5- Bipolar 6- severe hypertension improved off nicardipine. PLAN: Continue with current care. Mandy TEMPLE MD Mar 18, 2017 10:04
[2017-03-18] MEDS: NYSTATIN TOPICAL POWDER 15GM BOTTLE. TP SCH (10:27)
--- NOTE | 2017-03-18 11:37 | PDOC ---
PROGRESS NOTES Assessment . . 1. acute on chronic renal failure resolved and back to baseline #2 dehydration-resolved #3 aortic stenosis moderate #4 esophageal dysmotility-speech eval pending 5 metabolic encephalopathy-improved #6accelebrated hypertension-off drip #7 bipolar 1 disorder mixed, moderate #8 left ventricular hypertrophy-hypertensiv2 #9 dementia and Alzheimer's disease #10 DVT prophylaxis-on heparin #11 impulse control disorder #12 severe protein calorie malnutrition-on Procalamine #13 hypomagnesemia-replace 14 urostomy status #15Aspiration risk #16 UTI-ecoli- on Rocephin and will finish in a few days 17. CKD - Cr appears stable at 1.9 - 2 18.dysphagia- swallowing study completed PLAN She is at her baseline medically and has resumed her po medications. Will try an appetite stimulant. Discussed with social work lecturer, she has not had any behaviors and could probably be transferred back to her nursing facility. As she has multiple chroni and sever medical conditions, I think that hospice would be appropriate. machine worker will discuss with her daughter. Subjective Doing much better and is back to her baseline medically and can be downgraded from ICU status. She still has a poor appetite but is drinking and taking her pills po now. She is off the Cardene drip and has resumed her po antihypertensives. She is up in a chair, tired but more alert today. She has been followed by cardiology and psychiatry while here. Objective Vital Signs Date Time Temp Pulse Resp B/P (MAP) Pulse Ox O2 Delivery O2 Flow Rate FiO2 03/18/17 10:48 Room Air 03/18/17 10:33 68 24 142/55 (84) 03/18/17 09:30 99 03/18/17 05:35 2.0 03/17/17 19:12 97.8 Intake and Output 03/18/17 07:00 Intake Total 1825 ml Output Total 521 ml Balance 1304 ml Intake Oral 1100 ml IV Total 725 ml Output Urine Total 521 ml Physical Exam Sitting up in chair, a little sleepy but more alert. Eyes clear, tongue moist, throat clear Lungs clear to auscultation CV RRR with 2/6 Systolic murmur Abdomen soft, non tender Extremities with a trace of edema Mental status: Calm and cooperative, Review of Relevant I have reviewed the following items tony (where applicable) has been applied. Labs Laboratory Tests Test 03/16/17 16:48 03/16/17 21:19 03/17/17 08:00 03/18/17 05:45 Glucose (Fingerstick) 86 mg/dL (70-99) 93 mg/dL (70-99) White Blood Count 6.1 x10^3/uL (4.0-11.0) 5.9 x10^3/uL (4.0-11.0) Red Blood Count 5.78 x10^6/uL (3.50-5.40) 5.35 x10^6/uL (3.50-5.40) Hemoglobin 17.0 g/dL (12.0-15.5) 15.8 g/dL (12.0-15.5) Hematocrit 51.9 % (36.0-47.0) 48.9 % (36.0-47.0) Mean Corpuscular Volume 90 fL (79-100) 91 fL (79-100) Mean Corpuscular Hemoglobin 30 pg (25-35) 30 pg (25-35) Mean Corpuscular Hemoglobin Concent 33 g/dL (31-37) 32 g/dL (31-37) Red Cell Distribution Width 17.2 % (11.5-14.5) 16.9 % (11.5-14.5) Platelet Count 128 x10^3/uL (140-400) 136 x10^3/uL (140-400) Sodium Level 141 mmol/L (136-145) 136 mmol/L (136-145) Potassium Level 4.5 mmol/L (3.5-5.1) 4.2 mmol/L (3.5-5.1) Chloride Level 106 mmol/L (98-107) 106 mmol/L (98-107) Carbon Dioxide Level 24 mmol/L (21-32) 22 mmol/L (21-32) Anion Gap 11 (6-14) 8 (6-14) Blood Urea Nitrogen 33 mg/dL (7-20) 47 mg/dL (7-20) Creatinine 1.9 mg/dL (0.6-1.0) 2.2 mg/dL (0.6-1.0) Estimated GFR (Cockcroft-Gault) 31.1 26.3 BUN/Creatinine Ratio 17 (6-20) 21 (6-20) Glucose Level 99 mg/dL (70-99) 94 mg/dL (70-99) Calcium Level 9.3 mg/dL (8.5-10.1) 9.2 mg/dL (8.5-10.1) Magnesium Level 2.2 mg/dL (1.8-2.4) 2.5 mg/dL (1.8-2.4) Total Bilirubin 0.4 mg/dL (0.2-1.0) 0.4 mg/dL (0.2-1.0) Aspartate Amino Transf (AST/SGOT) 22 U/L (15-37) 22 U/L (15-37) Alanine Aminotransferase (ALT/SGPT) 33 U/L (14-59) 27 U/L (14-59) Alkaline Phosphatase 99 U/L (46-116) 90 U/L (46-116) Total Protein 7.7 g/dL (6.4-8.2) 7.5 g/dL (6.4-8.2) Albumin 3.2 g/dL (3.4-5.0) 2.8 g/dL (3.4-5.0) Albumin/Globulin Ratio 0.7 (1.0-1.7) 0.6 (1.0-1.7) Medications Current Medications Sodium Chloride (Normal Saline Flush) 3 ml PRN DAILY PRN IV AFTER MEDS AND BLOOD DRAWS; Start 03/12/17 at 21:00; Stop 03/13/17 at 12:10; Status DC Dextrose/Sodium Chloride 1,000 ml @ 100 mls/hr Q10H IV Last administered on 18:05; Start 03/12/17 at 20:54; Stop 03/14/17 at 06:41; Status DC Calcium Carbonate/ Glycine (Tums) 500 mg PRN Q3HRS PRN PO HEARTBURN / GAS Last administered on 03/15/17 06:32; Start 03/12/17 at 21:00; Status Future hold Heparin Sodium (Porcine) 5,000 unit Q12H SQ Last administered on 03/18/17 08: 28; Start 03/12/17 at 21:00 Ceftriaxone Sodium 1 gm/ Sodium Chloride 50 ml @ 100 mls/hr QODAY IV Last administered on 03/14/17 08:13; Start 03/12/17 at 21:30; Stop 03/15/17 at 11:17; Status DC Sodium Chloride 50 ml @ As Directed STK-MED ONCE .ROUTE Last administered on 22:07; Start 03/12/17 at 22:07; Stop 03/12/17 at 22:08; Status DC Benztropine Mesylate (Cogentin) 0.5 mg DAILY PO Last administered on 03/18/17 08:34; Start 03/13/17 at 09:00; Status Future hold Buspirone HCl (Buspar) 5 mg QID PO ; Start 03/13/17 at 09:00; Stop 03/13/17 at 19: 15; Status DC Lorazepam (Ativan) 0.5 mg PRN Q6HRS PRN PO ANXIETY / AGITATION; Start 03/12/17 at 22:15 Olanzapine (ZyPREXA ZYDIS) 2.5 mg PRN Q2HR PRN PO PSYCHOSIS Last administered on 03/13/17 21:38; Start 03/12/17 at 22:15 Acetaminophen (Tylenol) 650 mg PRN Q4HRS PRN PO PAIN / TEMP; Start 03/13/17 at 11:45 Albuterol Sulfate (Ventolin) 2.5 mg PRN QID PRN NEB SHORTNESS OF BREATH; Start 03/13/17 at 11:45 Amlodipine Besylate (Norvasc) 10 mg DAILY PO Last administered on 03/18/17 08: 33; Start 03/14/17 at 09:00; Stop 03/18/17 at 09:52; Status DC Carvedilol (Coreg) 12.5 mg BID PO Last administered on 03/18/17 08:26; Start 03/13/17 at 21:00 Divalproex Sodium (Depakote Sprinkles) 250 mg BID PO ; Start 03/13/17 at 21:00; Stop 03/13/17 at 21:00; Status DC Donepezil HCl (Aricept) 5 mg HS PO ; Start 03/13/17 at 21:00; Stop 03/13/17 at 21: 00; Status DC Multivit/Ca Carb/ B Cmplx/FA/Prenat (Nephro-Fady) 1 tab DAILY PO Last administered on 03/18/17 08:33; Start 03/14/17 at 09:00; Stop 03/18/17 at 10:27 ; Status DC Hydralazine HCl (Apresoline) 50 mg TID PO Last administered on 03/18/17 08:27 ; Start 03/13/17 at 14:00 Albuterol/ Ipratropium (Duoneb) 3 ml QID NEB Last administered on 03/18/17 09: 28; Start 03/13/17 at 13:00 Levothyroxine Sodium (Synthroid) 75 mcg DAILY06 PO Last administered on 05:35; Start 03/14/17 at 06:00 Magnesium Hydroxide (Milk Of Magnesia) 2,400 mg PRN QHS PRN PO CONSTIPATION; Start 03/13/17 at 11:45 Memantine (Namenda) 10 mg BID PO ; Start 03/13/17 at 21:00; Stop 03/13/17 at 21:00 ; Status DC Rifaximin (Xifaxan) 550 mg BID PO Last administered on 03/18/17 08:34; Start 03/13/17 at 21:00 Sennosides (Senna) 8.6 mg HS PO Last administered on 03/17/17 21:16; Start 03/13/17 at 21:00; Status Future hold Sertraline HCl (Zoloft) 25 mg QHS PO Last administered on 03/14/17 21:00; Start 03/13/17 at 21:00; Status Future hold Sodium Chloride (Saline Mist Nasal) 1 ezio PRN Q4HRS PRN NS rhinitis; Start 03/13 at 11:45 Amantadine HCl (Symmetrel) 100 mg QODAY PO Last administered on 03/15/17 09:00 ; Start 03/15/17 at 09:00; Status Future hold Artificial Tears (Artificial Tears) 2 drop DAILY OU Last administered on 09:00; Start 03/14/17 at 09:00; Stop 03/16/17 at 14:19; Status DC Non-Formulary Medication 1 puff DAILY IH ; Start 03/14/17 at 09:00; Stop 03/14/17 at 09:00; Status DC Lactulose 20 gm DAILY PO ; Start 03/14/17 at 09:00; Status Future hold Loxapine Succinate (Loxitane) 10 mg QHS PO ; Start 03/13/17 at 21:00; Stop at 21:00; Status DC Magnesium Hydroxide (Milk Of Magnesia) 2,400 mg PRN AFTMEALHC PRN PO HEARTBURN / GAS; Start 03/13/17 at 12:15 Pantoprazole Sodium (Protonix) 40 mg BIDWMEALS PO ; Start 03/13/17 at 17:00; Stop 03/17/17 at 16:32; Status DC Albuterol Sulfate (Ventolin) 2.5 mg RTQID NEB ; Start 03/13/17 at 16:00; Stop 03/13/17 at 16:00; Status DC Budesonide (Pulmicort) 0.5 mg RTBID NEB Last administered on 03/18/17 09:28; Start 03/13/17 at 20:00 Hydralazine HCl (Apresoline) 10 mg PRN Q4HRS PRN IV ELEVATED BP, SEE COMMENTS Last administered on 03/13/17 21:20; Start 03/13/17 at 15:45 Nystatin (Nystop) 1 ezio BID TP Last administered on 03/18/17 10:27; Start 03/13 at 21:00 Glucose (Insta-Glucose) 15 gm PRN Q15MIN PRN PO LOW BLOOD SUGAR; Start 03/12/17 at 07:20; Stop 03/13/17 at 16:42; Status DC Labetalol HCl (Normodyne) 20 mg BID IVP Last administered on 03/18/17 04:39; Start 03/13/17 at 18:30 Loxapine Succinate (Loxitane) 10 mg BID94 PO Last administered on 03/18/17 08: 28; Start 03/14/17 at 09:00; Status Future hold Potassium Chloride/Dextrose/ Sod Cl 1,000 ml @ 80 mls/hr [id number] IV Last administered on 03/15/17 03:35; Start 03/14/17 at 06:45; Stop 03/15/17 at 15:53 ; Status DC Divalproex Sodium (Depakote Sprinkles) 250 mg BID PO Last administered on 08:27; Start 03/14/17 at 21:00 Hydralazine HCl (Apresoline) 20 mg Q6HRS IV Last administered on 03/18/17 07: 02; Start 03/15/17 at 12:00 Ceftriaxone Sodium 1 gm/ Sodium Chloride 50 ml @ 100 mls/hr DAILY IV Last administered on 03/18/17 08:36; Start 03/15/17 at 12:00; Stop 03/18/17 at 12:00 Furosemide (Lasix) 20 mg 1X ONCE IVP Last administered on 03/15/17 15:40; Start 03/15/17 at 14:00; Stop 03/15/17 at 14:01; Status DC Furosemide (Lasix) 20 mg 1X ONCE IVP Last administered on 03/15/17 15:40; Start 03/15/17 at 14:30; Stop 03/15/17 at 14:31; Status DC Hydralazine HCl (Apresoline) 10 mg 1X ONCE IV Last administered on 03/15/17 15:42; Start 03/15/17 at 14:30; Stop 03/15/17 at 14:31; Status DC Ondansetron HCl (Zofran) 4 mg PRN Q6HRS PRN IV NAUSEA/VOMITING; Start 03/15/17 at 16:00 Potassium Chloride/Dextrose/ Sod Cl 1,000 ml @ 75 mls/hr [id number] IV ; Start 06/22 at 16:00; Stop 03/15/17 at 16:37; Status DC Amino Acids/ Glycerin/ Electrolytes 1,000 ml @ 80 mls/hr [id number] IV Last administered on 03/18/17 07:03; Start 03/15/17 at 16:00 Nicardipine HCl 50 mg/Sodium Chloride 270 ml @ 0 mls/hr CONT PRN IV SEE I/O RECORD Last administered on 03/17/17 00:09; Start 03/15/17 at 17:00; Stop 03/18 at 09:51; Status DC Magnesium Sulfate 50 ml @ 25 mls/hr 1X ONCE IV Last administered on 03/16/17 14:14; Start 03/16/17 at 13:15; Stop 03/16/17 at 15:14; Status DC Artificial Tears (Artificial Tears) 2 drop DAILY OU Last administered on 08:33; Start 03/16/17 at 14:19 Sennosides (Senna) 8.6 mg PRN BID PRN PO CONSTIPATION; Start 03/17/17 at 15:45 Lansoprazole (Prevacid) 30 mg BIDBFRMEAL FT ; Start 03/17/17 at 16:30; Status Cancel Pantoprazole Sodium (Protonix Packet) 40 mg BIDBFRMEAL PO Last administered on 03/18/17 08:34; Start 03/17/17 at 16:30 Sodium Chloride 500 ml @ 0 mls/hr 1X ONCE IV Last administered on 03/18/17 10 :27; Start 03/18/17 at 09:00; Stop 03/18/17 at 09:01; Status DC Amlodipine Besylate (Norvasc) 10 mg DAILY PO ; Start 03/18/17 at 12:00 Multivit/Ca Carb/ B Cmplx/FA/Prenat (Nephro-Fady) 1 tab DAILY16 PO ; Start 03/18 at 16:00 Active Scripts Active Reported Ceftriaxone 1 Gm Piggyback (Ceftriaxone Na/Dextrose,Iso) 1 Gm/50 Ml Froz.piggy 1 Gm IV QHS Sodium Chloride (Sodium Chloride 0.45 %) 1,000 Ml Iv.soln 1,000 Ml IV [id number] Albuterol Sulfate Neb Soln (Albuterol Sulfate) 2.5 Mg/3 Ml Vial.neb 2.5 Mg NEB PRN QID PRN Norvasc (Amlodipine Besylate) 10 Mg Tablet 10 Mg PO DAILY Zoloft (Sertraline Hcl) 25 Mg Tablet 25 Mg PO QHS Zyprexa Zydis (Olanzapine) 5 Mg Tab.rapdis 2.5 Mg PO PRN Q2HR PRN Milk Of Magnesia (Magnesium Hydroxide) 400 Mg/5 Ml Oral.susp 2,400 Mg PO PRN QHS PRN Loxapine (Loxapine Succinate) 10 Mg Capsule 10 Mg PO QHS Maximum D3 (Cholecalciferol (Vitamin D3)) 10,000 Unit Capsule 50,000 Unit PO WEEKLY Xifaxan (Rifaximin) 550 Mg Tablet 550 Mg PO BID Tramadol Hcl (Tramadol HCl) 50 Mg Tablet 50 Mg PO PRN Q12HR PRN Tessalon [place]le (Benzonatate) 100 Mg Capsule 100 Mg PO PRN Q4HRS PRN Senokot (Sennosides) 8.6 Mg Tablet 8.6 Mg PO HS Saline Nasal [place] (Sodium Chloride) 30 Ml [place] 2 Sprays NS PRN Q4HRS PRN Robitussin Nighttime Cough Dm (Dextromethorphan Hb/Doxylamine) 237 Ml Liquid 10 Ml PO PRN Q4HRS PRN Omeprazole 40 Mg Capsule.dr 40 Mg PO BIDWMEALS Nephro-Fady Tablet (Folic Acid/Vitamin B Comp W-C) 0.8 Mg Tablet 1 Tab PO DAILY Alum-Mag Hydroxide-Simeth Liq (Mag Hydrox/Al Hydrox/Simeth) 360 Ml Oral.susp 15 Ml PO PRN AFTMEALHC PRN Montelukast Sodium Tablet (Montelukast Sodium) 10 Mg Tablet 10 Mg PO HS Namenda (Memantine Hcl) 10 Mg Tablet 10 Mg PO BID Lorazepam 0.5 Mg Tablet 0.5 Mg PO PRN Q6HRS PRN Levothyroxine Sodium 75 Mcg Tablet 75 Mcg PO DAILY06 Lactulose 10 Gm/15 Ml Solution 20 Gm PO DAILY Duoneb 0.5-3(2.5) Mg/3 Ml (Albuterol/Ipratropium) 3 Ml Ampul.neb 3 Ml NEB QID Icy Hot Cream (Methyl Salicylate/Menthol) 35.4 Gm Cream..g. 1 Applic TP PRN QID PRN Hydralazine Hcl 50 Mg Tablet 50 Mg PO TID Guaifenesin 600 Mg Tablet.er 600 Mg PO BID Fluticasone Propionate Nasal [place] (Fluticasone Propionate) 16 Gm [place].susp 2 [place] NS PRN BID PRN Breo Ellipta 100-25 Mcg Inh (Fluticasone/Vilanterol) 1 Each Aer.pow.ba 1 Puff IH DAILY Ferrous Sulfate 325 Mg Tablet 325 Mg PO BID Donepezil Hcl 5 Mg Tablet 5 Mg PO HS Depakote Sprinkle (Divalproex Sodium) 125 Mg Cap.sprink 250 Mg PO BID Cetirizine Hcl 10 Mg Tablet 10 Mg PO DAILY Carvedilol 12.5 Mg Tablet 12.5 Mg PO BID Calcium Polycarbophil 625 Mg Tablet 625 Mg PO DAILY Buspirone Hcl 5 Mg Tablet 5 Mg PO QID Benztropine Mesylate 0.5 Mg Tablet 0.5 Mg PO DAILY Atorvastatin Calcium 10 Mg Tablet 5 Mg PO QHS PRN Artificial Tears Eye Drops (Dextran 70/Hypromellose) 15 Ml Drops 2 Drop OU DAILY Amantadine (Amantadine Hcl) 100 Mg Tablet 100 Mg PO QODAY Tylenol (Acetaminophen) 325 Mg Tablet 650 Mg PO PRN Q4HRS PRN Vitals/I & O Vital Sign - Last 24 Hours 03/17/17 03/17/17 03/17/17 03/17/17 11:28 11:38 11:39 12:28 Pulse 76 87 Resp 12 12 B/P (MAP) 123/62 (82) 110/66 (81) Pulse Ox 99 93 93 99 O2 Delivery Room Air Room Air Room Air Room Air 03/17/17 03/17/17 03/17/17 03/17/17 12:33 13:39 14:06 15:12 Pulse 85 74 79 Resp 19 24 B/P (MAP) 119/64 (82) 138/74 130/69 (89) Pulse Ox 99 O2 Delivery Room Air Room Air Nasal Cannula O2 Flow Rate 2.0 03/17/17 03/17/17 03/17/17 03/17/17 16:12 16:26 16:59 17:12 Pulse 84 93 Resp 24 21 B/P (MAP) 150/75 (100) 135/72 (93) Pulse Ox 99 97 95 O2 Delivery Nasal Cannula Room Air Nasal Cannula Room Air O2 Flow Rate 2.0 2.0 03/17/17 03/17/17 03/17/17 03/17/17 18:12 19:12 20:00 20:38 Temp 97.8 Pulse 102 102 Resp 21 18 B/P (MAP) 147/69 (95) 147/69 (95) Pulse Ox 98 97 O2 Delivery Room Air Room Air Room Air Nasal Cannula O2 Flow Rate 2.0 03/17/17 03/17/17 03/17/17 03/17/17 20:39 20:42 21:00 21:16 Pulse 98 104 98 Resp 18 B/P (MAP) 142/83 (102) 145/74 142/83 Pulse Ox 97 O2 Delivery Room Air Nasal Cannula O2 Flow Rate 2.0 03/17/17 03/17/17 03/17/17 03/17/17 21:17 22:04 22:52 23:59 Pulse 98 104 94 Resp 23 24 B/P (MAP) 142/83 145/74 (97) 114/64 (81) O2 Delivery Room Air Room Air Room Air 03/18/17 03/18/17 03/18/17 03/18/17 00:00 00:20 01:11 02:08 Pulse 71 71 82 74 Resp 20 18 18 B/P (MAP) 140/75 140/75 (96) 144/59 (87) 127/61 (83) O2 Delivery Room Air Room Air Room Air 03/18/17 03/18/17 03/18/17 03/18/17 03:28 04:00 04:16 04:32 Pulse 73 74 67 Resp 18 23 B/P (MAP) 130/67 (88) 160/62 (94) 141/46 (77) Pulse Ox 91 O2 Delivery Room Air Room Air Room Air Room Air O2 Flow Rate 03/18/17 03/18/17 03/18/17 03/18/17 04:39 05:05 05:35 06:13 Pulse 72 71 67 Resp 21 B/P (MAP) 160/62 160/61 (94) 154/67 (96) Pulse Ox 97 94 O2 Delivery Room Air Nasal Cannula Room Air O2 Flow Rate 2.0 03/18/17 03/18/17 03/18/17 03/18/17 07:02 07:18 08:00 08:21 Pulse 68 71 68 Resp 23 B/P (MAP) 157/64 146/62 (90) 155/60 (91) O2 Delivery Room Air Room Air Room Air 03/18/17 03/18/17 03/18/17 03/18/17 08:26 08:27 08:33 08:33 Pulse 68 68 68 68 B/P (MAP) 155/60 155/60 155/62 131/63 (85) 03/18/17 03/18/17 03/18/17 03/18/17 09:30 09:33 10:33 10:48 Pulse 70 68 Resp 24 24 B/P (MAP) 126/55 (78) 142/55 (84) Pulse Ox 99 O2 Delivery Room Air Room Air Room Air Room Air Intake and Output 03/17/17 03/17/17 03/18/17 15:00 23:00 07:00 Intake Total 525 ml 1050 ml 250 ml Output Total 150 ml 295 ml 76 ml Balance 375 ml 755 ml 174 ml Nutrition Consultation Dietary Evaluation: Expected Outcomes/Goals: VIDEO SWALLOW SHOWS NO ASPIRATION AND WILL B ON A PUREED DIET WITH THIN LIQUIDS CHANELLE PERAZA DO Mar 18, 2017 11:37
[2017-03-18] MEDS ORDERED: amLODIPine BESYLATE 10 MG TABLET PO SCH (12:00)
[2017-03-18] MEDS ORDERED: CALC200T3 PO (12:37)
--- NOTE | 2017-03-18 13:29 | NUR ---
No behaviors noted so far this shift or noted in report from night nurse. Pts BP remains stable, has been off cardene gtt for 24 hours. Pt is able to eat but does not have much of an appetite. Took half of AM medication crushed and decided she did not want to take anymore.
--- NOTE | 2017-03-18 15:04 | NUR ---
Report given to nurse and discussed POC. Pt in chair waiting for transfer.
[2017-03-18] MEDS ORDERED: FOLIC/VIT B COMP W-C (RENAL) TABLET. PO SCH (16:00)
--- NOTE | 2017-03-18 16:13 | NUR ---
Pt transported at this time. VSS at time of DC. Pt ambulated x 2 person assist via w/c.
[2017-03-18] MEDS ORDERED: MEGESTROL 400 MG/10 ML ORAL.SUSP. PO SCH (21:00)
--- NOTE | 2017-03-19 10:19 | PDOC3 ---
Discharge Summary Visit Information Date of Admission: Mar 12, 2017 Date of Discharge: Mar 18, 2017 Final Diagnosis 1. acute on chronic renal failure resolved and back to baseline #2 dehydration-resolved #3 aortic stenosis moderate #4 esophageal dysmotility-speech eval pending 5 metabolic encephalopathy-improved #6accelebrated hypertension-off drip #7 bipolar 1 disorder mixed, moderate #8 left ventricular hypertrophy-hypertensiv2 #9 dementia and Alzheimer's disease #10 DVT prophylaxis-on heparin #11 impulse control disorder #12 severe protein calorie malnutrition-on Procalamine #13 hypomagnesemia-replace 14 urostomy status #15Aspiration risk #16 UTI-ecoli- on Rocephin and will finish in a few days 17. CKD - Cr appears stable at 1.9 - 2 18.dysphagia- swallowing study completed Problems: Brief Hospital Course Allergies Allergies Coded Allergies Type Severity Reaction Last Updated Verified Sulfa (Sulfonamide Antibiotics) Allergy Intermediate 03/02/17 Yes allopurinol Allergy Intermediate 03/03/17 Yes clonidine Allergy Intermediate 03/03/17 Yes lisinopril Allergy Intermediate 03/03/17 Yes Vital Signs Vital Signs Date Time Temp Pulse Resp B/P (MAP) Pulse Ox O2 Delivery O2 Flow Rate FiO2 03/18/17 15:05 68 18 139/72 (94) 98 Room Air 03/18/17 05:35 2.0 03/17/17 19:12 97.8 Lab Results Laboratory Tests Test 03/18/17 05:45 White Blood Count 5.9 x10^3/uL (4.0-11.0) Red Blood Count 5.35 x10^6/uL (3.50-5.40) Hemoglobin 15.8 g/dL (12.0-15.5) Hematocrit 48.9 % (36.0-47.0) Mean Corpuscular Volume 91 fL (79-100) Mean Corpuscular Hemoglobin 30 pg (25-35) Mean Corpuscular Hemoglobin Concent 32 g/dL (31-37) Red Cell Distribution Width 16.9 % (11.5-14.5) Platelet Count 136 x10^3/uL (140-400) Sodium Level 136 mmol/L (136-145) Potassium Level 4.2 mmol/L (3.5-5.1) Chloride Level 106 mmol/L (98-107) Carbon Dioxide Level 22 mmol/L (21-32) Anion Gap 8 (6-14) Blood Urea Nitrogen 47 mg/dL (7-20) Creatinine 2.2 mg/dL (0.6-1.0) Estimated GFR (Cockcroft-Gault) 26.3 BUN/Creatinine Ratio 21 (6-20) Glucose Level 94 mg/dL (70-99) Calcium Level 9.2 mg/dL (8.5-10.1) Magnesium Level 2.5 mg/dL (1.8-2.4) Total Bilirubin 0.4 mg/dL (0.2-1.0) Aspartate Amino Transf (AST/SGOT) 22 U/L (15-37) Alanine Aminotransferase (ALT/SGPT) 27 U/L (14-59) Alkaline Phosphatase 90 U/L (46-116) Total Protein 7.5 g/dL (6.4-8.2) Albumin 2.8 g/dL (3.4-5.0) Albumin/Globulin Ratio 0.6 (1.0-1.7) Brief Hospital Course Ms. Melendez is a 76 old -Thai female who was transferred down to the senior behavioral unit on March 12. After not eating or drinking anything for approximately 3-4 days. She went into acute renal failure and had to be transferred to the medical floor. While on the medical floor there was some question of aspiration and she was nothing by mouth for several days. She did receive ProcalAmine. Her blood pressure was very high during that time and she was unable to take her by mouth medications and was treated with IV antihypertensives. Cardiology assisted with this. She did not seem to suffer all being off her psychotropic medications. After IV fluids and ProcalAmine and she did perk up very nicely on March 17 and and as she was not having any issues regarding her psychiatric psychiatric illness it was deemed that she would be fine to go back to the halfway. From the medical floor. Progress note was also done today with the physical exam please see the progress note Discharge Information Condition at Discharge: Improved, Stable Disposition/Orders: D/C to Another Facility Dischare Medications Current Medications Sodium Chloride (Normal Saline Flush) 3 ml PRN DAILY PRN IV AFTER MEDS AND BLOOD DRAWS; Start 03/12/17 at 21:00; Stop 03/13/17 at 12:10; Status DC Dextrose/Sodium Chloride 1,000 ml @ 100 mls/hr Q10H IV Last administered on 18:05; Start 03/12/17 at 20:54; Stop 03/14/17 at 06:41; Status DC Calcium Carbonate/ Glycine (Tums) 500 mg PRN Q3HRS PRN PO HEARTBURN / GAS Last administered on 03/15/17 06:32; Start 03/12/17 at 21:00; Stop 03/18/17 at 16:16 ; Status DC Heparin Sodium (Porcine) 5,000 unit Q12H SQ Last administered on 03/18/17 08: 28; Start 03/12/17 at 21:00; Stop 03/18/17 at 16:16; Status DC Ceftriaxone Sodium 1 gm/ Sodium Chloride 50 ml @ 100 mls/hr QODAY IV Last administered on 03/14/17 08:13; Start 03/12/17 at 21:30; Stop 03/15/17 at 11:17; Status DC Sodium Chloride 50 ml @ As Directed STK-MED ONCE .ROUTE Last administered on 22:07; Start 03/12/17 at 22:07; Stop 03/12/17 at 22:08; Status DC Benztropine Mesylate (Cogentin) 0.5 mg DAILY PO Last administered on 03/18/17 08:34; Start 03/13/17 at 09:00; Stop 03/18/17 at 16:16; Status DC Buspirone HCl (Buspar) 5 mg QID PO ; Start 03/13/17 at 09:00; Stop 03/13/17 at 19: 15; Status DC Lorazepam (Ativan) 0.5 mg PRN Q6HRS PRN PO ANXIETY / AGITATION; Start 03/12/17 at 22:15; Stop 03/18/17 at 16:16; Status DC Olanzapine (ZyPREXA ZYDIS) 2.5 mg PRN Q2HR PRN PO PSYCHOSIS Last administered on 03/13/17 21:38; Start 03/12/17 at 22:15; Stop 03/18/17 at 16:16; Status DC Acetaminophen (Tylenol) 650 mg PRN Q4HRS PRN PO PAIN / TEMP; Start 03/13/17 at 11:45; Stop 03/18/17 at 16:16; Status DC Albuterol Sulfate (Ventolin) 2.5 mg PRN QID PRN NEB SHORTNESS OF BREATH; Start 03/13/17 at 11:45; Stop 03/18/17 at 16:16; Status DC Amlodipine Besylate (Norvasc) 10 mg DAILY PO Last administered on 03/18/17 08: 33; Start 03/14/17 at 09:00; Stop 03/18/17 at 09:52; Status DC Carvedilol (Coreg) 12.5 mg BID PO Last administered on 03/18/17 08:26; Start 03/13/17 at 21:00; Stop 03/18/17 at 16:16; Status DC Divalproex Sodium (Depakote Sprinkles) 250 mg BID PO ; Start 03/13/17 at 21:00; Stop 03/13/17 at 21:00; Status DC Donepezil HCl (Aricept) 5 mg HS PO ; Start 03/13/17 at 21:00; Stop 03/13/17 at 21: 00; Status DC Multivit/Ca Carb/ B Cmplx/FA/Prenat (Nephro-Fady) 1 tab DAILY PO Last administered on 03/18/17 08:33; Start 03/14/17 at 09:00; Stop 03/18/17 at 10:27 ; Status DC Hydralazine HCl (Apresoline) 50 mg TID PO Last administered on 03/18/17 13:12 ; Start 03/13/17 at 14:00; Stop 03/18/17 at 16:16; Status DC Albuterol/ Ipratropium (Duoneb) 3 ml QID NEB Last administered on 03/18/17 09: 28; Start 03/13/17 at 13:00; Stop 03/18/17 at 16:16; Status DC Levothyroxine Sodium (Synthroid) 75 mcg DAILY06 PO Last administered on 05:35; Start 03/14/17 at 06:00; Stop 03/18/17 at 16:16; Status DC Magnesium Hydroxide (Milk Of Magnesia) 2,400 mg PRN QHS PRN PO CONSTIPATION; Start 03/13/17 at 11:45; Stop 03/18/17 at 16:16; Status DC Memantine (Namenda) 10 mg BID PO ; Start 03/13/17 at 21:00; Stop 03/13/17 at 21:00 ; Status DC Rifaximin (Xifaxan) 550 mg BID PO Last administered on 03/18/17 08:34; Start 03/13/17 at 21:00; Stop 03/18/17 at 16:16; Status DC Sennosides (Senna) 8.6 mg HS PO Last administered on 03/17/17 21:16; Start 03/13/17 at 21:00; Stop 03/18/17 at 16:16; Status DC Sertraline HCl (Zoloft) 25 mg QHS PO Last administered on 03/14/17 21:00; Start 03/13/17 at 21:00; Stop 03/18/17 at 16:16; Status DC Sodium Chloride (Saline Mist Nasal) 1 ezio PRN Q4HRS PRN NS rhinitis; Start 03/13 at 11:45; Stop 03/18/17 at 16:16; Status DC Amantadine HCl (Symmetrel) 100 mg QODAY PO Last administered on 03/15/17 09:00 ; Start 03/15/17 at 09:00; Stop 03/18/17 at 16:16; Status DC Artificial Tears (Artificial Tears) 2 drop DAILY OU Last administered on 09:00; Start 03/14/17 at 09:00; Stop 03/16/17 at 14:19; Status DC Non-Formulary Medication 1 puff DAILY IH ; Start 03/14/17 at 09:00; Stop 03/14/17 at 09:00; Status DC Lactulose 20 gm DAILY PO Last administered on 03/18/17 13:11; Start 03/14/17 at 09:00; Stop 03/18/17 at 16:16; Status DC Loxapine Succinate (Loxitane) 10 mg QHS PO ; Start 03/13/17 at 21:00; Stop at 21:00; Status DC Magnesium Hydroxide (Milk Of Magnesia) 2,400 mg PRN AFTMEALHC PRN PO HEARTBURN / GAS; Start 03/13/17 at 12:15; Stop 03/18/17 at 16:16; Status DC Pantoprazole Sodium (Protonix) 40 mg BIDWMEALS PO ; Start 03/13/17 at 17:00; Stop 03/17/17 at 16:32; Status DC Albuterol Sulfate (Ventolin) 2.5 mg RTQID NEB ; Start 03/13/17 at 16:00; Stop 03/13/17 at 16:00; Status DC Budesonide (Pulmicort) 0.5 mg RTBID NEB Last administered on 03/18/17 09:28; Start 03/13/17 at 20:00; Stop 03/18/17 at 16:16; Status DC Hydralazine HCl (Apresoline) 10 mg PRN Q4HRS PRN IV ELEVATED BP, SEE COMMENTS Last administered on 03/13/17 21:20; Start 03/13/17 at 15:45; Stop 03/18/17 at 16 :16; Status DC Nystatin (Nystop) 1 ezio BID TP Last administered on 03/18/17 10:27; Start 03/13 at 21:00; Stop 03/18/17 at 16:16; Status DC Glucose (Insta-Glucose) 15 gm PRN Q15MIN PRN PO LOW BLOOD SUGAR; Start 03/12/17 at 07:20; Stop 03/13/17 at 16:42; Status DC Labetalol HCl (Normodyne) 20 mg BID IVP Last administered on 03/18/17 04:39; Start 03/13/17 at 18:30; Stop 03/18/17 at 16:16; Status DC Loxapine Succinate (Loxitane) 10 mg BID94 PO Last administered on 03/18/17 08: 28; Start 03/14/17 at 09:00; Stop 03/18/17 at 16:16; Status DC Potassium Chloride/Dextrose/ Sod Cl 1,000 ml @ 80 mls/hr [id number] IV Last administered on 03/15/17 03:35; Start 03/14/17 at 06:45; Stop 03/15/17 at 15:53 ; Status DC Divalproex Sodium (Depakote Sprinkles) 250 mg BID PO Last administered on 08:27; Start 03/14/17 at 21:00; Stop 03/18/17 at 16:16; Status DC Hydralazine HCl (Apresoline) 20 mg Q6HRS IV Last administered on 03/18/17 07: 02; Start 03/15/17 at 12:00; Stop 03/18/17 at 16:16; Status DC Ceftriaxone Sodium 1 gm/ Sodium Chloride 50 ml @ 100 mls/hr DAILY IV Last administered on 03/18/17 08:36; Start 03/15/17 at 12:00; Stop 03/18/17 at 12:00 ; Status DC Furosemide (Lasix) 20 mg 1X ONCE IVP Last administered on 03/15/17 15:40; Start 03/15/17 at 14:00; Stop 03/15/17 at 14:01; Status DC Furosemide (Lasix) 20 mg 1X ONCE IVP Last administered on 03/15/17 15:40; Start 03/15/17 at 14:30; Stop 03/15/17 at 14:31; Status DC Hydralazine HCl (Apresoline) 10 mg 1X ONCE IV Last administered on 03/15/17 15:42; Start 03/15/17 at 14:30; Stop 03/15/17 at 14:31; Status DC Ondansetron HCl (Zofran) 4 mg PRN Q6HRS PRN IV NAUSEA/VOMITING; Start 03/15/17 at 16:00; Stop 03/18/17 at 16:16; Status DC Potassium Chloride/Dextrose/ Sod Cl 1,000 ml @ 75 mls/hr [id number] IV ; Start 06/22 at 16:00; Stop 03/15/17 at 16:37; Status DC Amino Acids/ Glycerin/ Electrolytes 1,000 ml @ 80 mls/hr [id number] IV Last administered on 03/18/17 07:03; Start 03/15/17 at 16:00; Stop 03/18/17 at 11:37 ; Status DC Nicardipine HCl 50 mg/Sodium Chloride 270 ml @ 0 mls/hr CONT PRN IV SEE I/O RECORD Last administered on 03/17/17 00:09; Start 03/15/17 at 17:00; Stop 03/18 at 09:51; Status DC Magnesium Sulfate 50 ml @ 25 mls/hr 1X ONCE IV Last administered on 03/16/17 14:14; Start 03/16/17 at 13:15; Stop 03/16/17 at 15:14; Status DC Artificial Tears (Artificial Tears) 2 drop DAILY OU Last administered on 08:33; Start 03/16/17 at 14:19; Stop 03/18/17 at 16:16; Status DC Sennosides (Senna) 8.6 mg PRN BID PRN PO CONSTIPATION; Start 03/17/17 at 15:45 ; Stop 03/18/17 at 16:16; Status DC Lansoprazole (Prevacid) 30 mg BIDBFRMEAL FT ; Start 03/17/17 at 16:30; Status Cancel Pantoprazole Sodium (Protonix Packet) 40 mg BIDBFRMEAL PO Last administered on 03/18/17 08:34; Start 03/17/17 at 16:30; Stop 03/18/17 at 16:16; Status DC Sodium Chloride 500 ml @ 0 mls/hr 1X ONCE IV Last administered on 03/18/17 10 :27; Start 03/18/17 at 09:00; Stop 03/18/17 at 09:01; Status DC Amlodipine Besylate (Norvasc) 10 mg DAILY PO ; Start 03/18/17 at 12:00; Stop at 16:16; Status DC Multivit/Ca Carb/ B Cmplx/FA/Prenat (Nephro-Fady) 1 tab DAILY16 PO ; Start 03/18 at 16:00; Stop 03/18/17 at 16:16; Status DC Megestrol Acetate (Megace) 200 mg BID PO ; Start 03/18/17 at 21:00; Stop at 21:00; Status DC Active Scripts Active Reported Tums (Calcium Carbonate) 200 Mg Tab.chew 500 Mg PO Q3HRS PRN Albuterol Sulfate Neb Soln (Albuterol Sulfate) 2.5 Mg/3 Ml Vial.neb 2.5 Mg NEB PRN QID PRN Norvasc (Amlodipine Besylate) 10 Mg Tablet 10 Mg PO DAILY Zoloft (Sertraline Hcl) 25 Mg Tablet 25 Mg PO QHS Zyprexa Zydis (Olanzapine) 5 Mg Tab.rapdis 2.5 Mg PO PRN Q2HR PRN Loxapine (Loxapine Succinate) 10 Mg Capsule 10 Mg PO QHS Maximum D3 (Cholecalciferol (Vitamin D3)) 10,000 Unit Capsule 50,000 Unit PO WEEKLY Xifaxan (Rifaximin) 550 Mg Tablet 550 Mg PO BID Tessalon Perle (Benzonatate) 100 Mg Capsule 100 Mg PO PRN Q4HRS PRN Senokot (Sennosides) 8.6 Mg Tablet 8.6 Mg PO HS Saline Nasal [place] (Sodium Chloride) 30 Ml [place] 2 Sprays NS PRN Q4HRS PRN Robitussin Nighttime Cough Dm (Dextromethorphan Hb/Doxylamine) 237 Ml Liquid 10 Ml PO PRN Q4HRS PRN Omeprazole 40 Mg Capsule.dr 40 Mg PO BIDWMEALS Nephro-Fady Tablet (Folic Acid/Vitamin B Comp W-C) 0.8 Mg Tablet 1 Tab PO DAILY Montelukast Sodium Tablet (Montelukast Sodium) 10 Mg Tablet 10 Mg PO HS Namenda (Memantine Hcl) 10 Mg Tablet 10 Mg PO BID Lorazepam 0.5 Mg Tablet 0.5 Mg PO PRN Q6HRS PRN Levothyroxine Sodium 75 Mcg Tablet 75 Mcg PO DAILY06 Lactulose 10 Gm/15 Ml Solution 20 Gm PO DAILY Duoneb 0.5-3(2.5) Mg/3 Ml (Albuterol/Ipratropium) 3 Ml Ampul.neb 3 Ml NEB QID Icy Hot Cream (Methyl Salicylate/Menthol) 35.4 Gm Cream..g. 1 Applic TP PRN QID PRN Hydralazine Hcl 50 Mg Tablet 50 Mg PO TID Guaifenesin 600 Mg Tablet.er 600 Mg PO BID Fluticasone Propionate Nasal [place] (Fluticasone Propionate) 16 Gm [place].susp 2 [place] NS PRN BID PRN Breo Ellipta 100-25 Mcg Inh (Fluticasone/Vilanterol) 1 Each Aer.pow.ba 1 Puff IH DAILY Ferrous Sulfate 325 Mg Tablet 325 Mg PO BID Donepezil Hcl 5 Mg Tablet 5 Mg PO HS Depakote Sprinkle (Divalproex Sodium) 125 Mg Cap.sprink 250 Mg PO BID Cetirizine Hcl 10 Mg Tablet 10 Mg PO DAILY Carvedilol 12.5 Mg Tablet 12.5 Mg PO BID Calcium Polycarbophil 625 Mg Tablet 625 Mg PO DAILY Buspirone Hcl 5 Mg Tablet 5 Mg PO QID Benztropine Mesylate 0.5 Mg Tablet 0.5 Mg PO DAILY Atorvastatin Calcium 10 Mg Tablet 5 Mg PO QHS PRN Artificial Tears Eye Drops (Dextran 70/Hypromellose) 15 Ml Drops 2 Drop OU DAILY Amantadine (Amantadine Hcl) 100 Mg Tablet 100 Mg PO QODAY Tylenol (Acetaminophen) 325 Mg Tablet 650 Mg PO PRN Q4HRS PRN Patient Instructions Patient Instuctions Medications reviewed by myself and her nurse and corrected. Dietary instructions per speech also included. CHANELLE PERAZA DO Mar 19, 2017 10:19
== END 2017-03-18 16:00 | DRG 682 ==
LOC: 1 SOUTH 19:54 → ICU 03-15 15:11
PROVIDERS: ADMIT Family Medicine; ATTEND Family Medicine
DX: N17.9 Acute kidney failure, unspecified (principal); E43 Unspecified severe protein-calorie malnutrition; G93.41 Metabolic encephalopathy; N39.0 Urinary tract infection, site not specified; I13.0 Hypertensive heart and chronic kidney disease with heart failure and stage 1 through stage 4 chronic kidney disease, or unspecified chronic kidney disease; F31.62 Bipolar disorder, current episode mixed, moderate; N18.4 Chronic kidney disease, stage 4 (severe); E83.42 Hypomagnesemia; E86.0 Dehydration; F02.80 Dementia in other diseases classified elsewhere, unspecified severity, without behavioral disturbance, psychotic disturbance, mood disturbance, and anxiety; F22 Delusional disorders; F41.9 Anxiety disorder, unspecified; F63.9 Impulse disorder, unspecified; G20 Parkinson's disease; G30.9 Alzheimer's disease, unspecified; I08.0 Rheumatic disorders of both mitral and aortic valves; K22.4 Dyskinesia of esophagus; I73.9 Peripheral vascular disease, unspecified; I50.9 Heart failure, unspecified; J44.9 Chronic obstructive pulmonary disease, unspecified; B96.20 Unspecified Escherichia coli [E. coli] as the cause of diseases classified elsewhere; K21.9 Gastro-esophageal reflux disease without esophagitis; K59.00 Constipation, unspecified; R13.10 Dysphagia, unspecified; Z86.61 Personal history of infections of the central nervous system; Z93.6 Other artificial openings of urinary tract status; Z88.2 Allergy status to sulfonamides; Z88.8 Allergy status to other drugs, medicaments and biological substances; Z68.26 Body mass index [BMI] 26.0-26.9, adult
CPT/HCPCS: 36415; 70450; 74230; 80048; 80053; 82040; 82140; 82947; 83735; 85027; 87641; 93306; 94640; J0360; J0696; J3475; J3490; J7040; J7050; J7620; J7626; 92610; 92611; 97110; 97116; 97530; 97535